=== PATIENT | female | born 1940 | race Caucasian/White ===

== ENCOUNTER → 2016-05-29 | Outpatient (CLI) | payer OTHER ==
[~2016-05-29] MED LIST: ASPI81TA28 PO; CALC500T83 PO; HMLI SC; INSDGI SC; KLN5X PO; LPR25 PO; LSNP/30 PO; METF-384 PO; MULTTAB58 PO; MVC20 PO; NRV/5 PO; NTRGSL/4 UT; OMEGCAP2 PO
== END | disposition home or self-care (01) ==
LOC: C.RDSM 09:45
PROVIDERS: ATTEND Physical Medicine & Rehabilitation Sports Medicine
DX: M25.561 Pain in right knee (principal)

== ENCOUNTER 2017-01-06 20:15 | Emergency (ER) | payer OTHER ==
[2017-01-06 20:17] VITALS: TEMP 36.6; Ht 167.6 cm
[2017-01-06] MEDS ORDERED: ALBUTEROL 0.083% NEBU SOLN 3 ML VIAL INH STA (20:31)
[2017-01-06] MEDS ORDERED: BENZONATATE 100MG CAP PO ONE (20:45)
[2017-01-06] MEDS ORDERED: INSPMPHMLG SQ (20:51)
[2017-01-06 20:59] LABS: BASO % 0.5 %; BASO ABS # 0.05 K/uL (0-0.2); COMPLETE YES; EOS % 3.2 %; HEMATOCRIT 39.2 % (37-47); IG% 0.5 %; LYMPH % 23.8 %; LYMPH ABS # 2.21 K/uL (1.2-3.4); MEAN CELL VOLUME 96.1 fL (80-100); MEAN CORPUSCULAR HEMOGLOBIN 30.6 pg (25-34); MEAN CORPUSCULAR HGB CONC 31.9 g/dl (32-36); MONO % 9.1 %; NEUT % 62.9 %; PLATELET COUNT 260 K/uL (130-400); RED BLOOD COUNT 4.08 M/uL (4.2-5.4); WHITE BLOOD COUNT 9.27 K/uL (4.8-10.8)
[2017-01-06 21:17] LABS: BLOOD UREA NITROGEN 31 mg/dl (7-18); BUN/CREATININE RATIO 25.6 (10-20); CALCIUM 9.3 mg/dl (8.5-10.1); CARBON DIOXIDE 26 mmol/L (21-32); CHLORIDE 109 mmol/L (98-107); GLUCOSE 76 mg/dl (70-99); POTASSIUM 3.9 mmol/L (3.5-5.1); SODIUM 143 mmol/L (136-145)
--- NOTE | 2017-01-06 21:38 | DIAGNOSTIC IMAGING REPORT ---
TWO VIEW CHEST CLINICAL HISTORY: Cough. FINDINGS: PA and lateral chest radiographs are compared to study dated 03/28/2014 and correlated with chest CT dated 12/21/2013. The patient is status post midline sternotomy. The heart is enlarged and there is atherosclerotic calcification of the thoracic aorta. The pulmonary vasculature is noncongested. Chronic interstitial thickening is similar to previous. There is mild bibasilar atelectasis. No airspace consolidation is seen typical for pneumonia and there is no pleural effusion. There is no pneumothorax. The skeletal structures are osteopenic. Degenerative change is seen throughout the thoracic spine. IMPRESSION: Cardiomegaly with no acute cardiopulmonary abnormality. Electronically signed by: Keith Sweeney M.D. 01/06/2017 9:36 PM Dictated Date/Time: 01/06/2017 9:35 PM
[2017-01-06] MEDS ORDERED: OPTIRAY 320 IV PRN (22:00)
[2017-01-06] MEDS ORDERED: HYDROCODONE/HOMATROPINE SYRUP 5MG/1.5MG 5ML UDP PO STA (22:37)
--- NOTE | 2017-01-06 22:42 | DIAGNOSTIC IMAGING REPORT ---
CT ANGIOGRAM OF THE CHEST CLINICAL HISTORY: Cough and dyspnea. COMPARISON STUDY: Chest x-ray dated 01/06/2017. Chest CT dated 12/21/2013. TECHNIQUE: Following the IV administration of 93 cc of Optiray 320, CT angiogram of the chest was performed from the upper abdomen to the thoracic inlet utilizing the pulmonary embolus protocol. Images are reviewed in the axial, sagittal, and coronal planes. 3-D MIPS images are created and assessed. IV contrast was administered without complication. A dose lowering technique was utilized adhering to the principles of ALARA. CT DOSE: 710.77 mGy.cm FINDINGS: Thyroid: Imaged portions of the thyroid gland are normal in size and attenuation. Thoracic aorta: There is atherosclerotic calcification of the thoracic aorta, which is normal in caliber and demonstrates bovine variant arch anatomy. No dissection is seen. Pulmonary vasculature: The pulmonary trunk is dilated, measuring 3.6 cm in diameter. This suggests pulmonary artery hypertension. There are no filling defects identified in main, lobar, or segmental pulmonary branches to suggest pulmonary embolus. Evaluation of the peripheral vessels is degraded by motion artifact. Heart: The patient is status post midline sternotomy. The heart is markedly enlarged and without pericardial effusion. The coronary arteries are densely calcified. Chronic interstitial change/scarring is present at the lung bases. There are numerous scattered calcified granulomas. Secretions/debris are noted within the dependent right lower lobe airways. Mild diffuse peribronchial thickening is observed. The trachea and central airways are clear. Lungs and pleural spaces: Evaluation of the lung parenchyma is degraded by motion artifact. No airspace consolidation or pleural effusion is seen. Mediastinum: There are mildly enlarged mediastinal lymph nodes. Prevascular nodes measure up to 12 mm short axis. A subcarinal node measures 1.5 cm in short axis. High right peritracheal nodes measure up to 9 mm short axis. Jessica: Prominent right hilar nodes measure up to 9 mm in short axis. Axillae: There is no axillary lymphadenopathy. Upper abdomen: There is a small hiatal hernia. Nodular thickening is identified in the adrenal glands, similar to previous. Skeletal structures: The skeletal structures are heterogeneously osteopenic. 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 Arthritic change is also noted in the shoulders. No lytic or blastic bony lesions are seen. IMPRESSION: 1. There is no evidence of pulmonary embolus in the main, lobar, or segmental pulmonary arteries. 2. Cardiomegaly with evidence of pulmonary artery hypertension. 3. There is no airspace consolidation or pleural effusion. 4. Mild diffuse peribronchial thickening is noted and suggests reactive airway disease. Clinical correlation will be required. 5. Mucous plugging versus intraluminal secretions are present within the dependent right lower lobe airways. This is nonspecific but could also be seen in the setting of aspiration. Clinical correlation will be required. 6. Mildly enlarged mediastinal and right hilar lymph nodes are identified. These were also seen in 2014. 7. Small hiatal hernia. 8. Additional findings as above. Electronically signed by: Keith Sweeney M.D. 01/06/2017 10:40 PM Dictated Date/Time: 01/06/2017 10:34 PM
[2017-01-06] MEDS ORDERED: LEVO-366 PO (23:14)
[2017-01-06] MEDS ORDERED: BENZ100C18 PO (23:14)
[2017-01-06] MEDS ORDERED: LEVOFLOXACIN 250 MG TAB PO ONE (23:15)
[2017-01-06 23:20] VITALS: BP 199/100; PULSE 70; O2SAT 95
--- NOTE | 2017-01-07 00:28 | EMERGENCY ROOM VISIT NOTE ---
History Report prepared by Dejon: Ramy Perez Under the Supervision of: Dr. Yovani Beal D.O. First contact with patient: 20:23 Chief Complaint: COUGH Stated Complaint: COUGH- DIFFICULTY GETTING MY BREATH History of Present Illness The patient is a 76 year old female who presents to the Emergency Room with complaints of a constant dry cough for 8 days. The patient states she went to her PCP and was told they could not do anything for it because it is a common cold. She reports she would feel completely fine if it was not for the cough. The patient notes she was around a someone with pneumonia. She states she has a history of hypertension, diabetes, high cholesterol, and heart disease. The patient reports she takes a baby aspirin daily. She denies a runny nose, sorethroat, new edema to the legs, coughing up blood, chest pain, vomiting, previous blood clots, recent surgeries, recent trips, a history of asthma, a history of COPD, and a history of smoking. Shortness breath is only present with coughing. No fevers. Source of History: patient Onset: 8 days ago Position: other (global) Quality: other (dry cough) Timing: constant Associated Symptoms: No chest pain, No vomiting Note: She denies a runny nose, sorethroat, new edema to the legs, coughing up blood, previous blood clots, recent surgeries, recent trips, a history of asthma, a history of COPD, and a history of smoking. Review of Systems See HPI for pertinent positives & negatives. A total of 10 systems reviewed and were otherwise negative. Past Medical & Surgical Medical Problems: (1) Benign hypertension (2) Diabetes mellitus (3) Heart disease (4) open heart surgery Family History Patient reports no known family medical history. Social History Smoking Status: Never Smoker Alcohol Use: none Marital Status: Housing Status: lives with family Occupation Status: unemployed Current/Historical Medications Scheduled Amlodipine Besylate (Amlodipine Besylate), 5 MG PO DAILY Aspirin (Aspirin Ec), 81 MG PO DAILY Benzonatate (Tessalon Perles), 100 MG PO TID Calcium (Calcium), 500 MG PO BID Insulin Glargine (Lantus), 45 UNITS SC AMHS Insulin Human Lispro (Humalog), UNITS SQ TIDM Levofloxacin (Levaquin), 500 MG PO DAILY Lisinopril (Zestril), 30 MG PO DAILY Metoprolol Tartrate (Lopressor), 25 MG PO BID Multiple Vitamin (Multivitamin), 1 TAB PO DAILY Corning-3 Fatty Acids (Fish Oil), 2,000 MG PO BID Scheduled PRN Clonazepam (Clonazepam), 0.5 MG PO BID PRN for Panic Attack Nitroglycerin (Nitrostat), 0.4 MG UT UD PRN for Chest Pain Allergies Coded Allergies: Cephalosporins (Verified Allergy, Severe, ANAPHYLAXIS, 12/22/13) Fluoxetine (Verified Allergy, Severe, muscle/panic attack, 12/22/13) Meloxicam (Verified Allergy, Severe, panic attack, 12/22/13) Sertraline (Verified Allergy, Severe, panic attack, 12/22/13) Citalopram (Verified Allergy, Intermediate, muscle cramping, 12/22/13) Lovastatin (Verified Allergy, Intermediate, leg pain, 12/22/13) Tramadol (Verified Allergy, Mild, headache, 12/22/13) Cefazolin (Verified Allergy, Unknown, UNKNOWN, 02/17/14) Ibuprofen (Verified Adverse Reaction, Intermediate, DIZZY, SYNCOPE, NAUSEA , 12/22/13) Physical Exam Vital Signs Date Time Temp Pulse Resp B/P (MAP) Pulse Ox O2 Delivery O2 Flow Rate FiO2 01/06/17 23:20 70 18 199/100 95 Room Air 01/06/17 22:30 80 22 177/88 96 Room Air 01/06/17 22:04 83 22 227/133 95 Room Air 01/06/17 20:31 Room Air 01/06/17 20:17 36.6 84 21 167/80 95 Room Air Physical Exam GENERAL: Sitting up in bed, dry and non-productive cough, no distress EYE EXAM: normal conjunctiva, PERRL and EOM's grossly intact OROPHARYNX: no exudate, no erythema, lips, buccal mucosa, and tongue normal and mucous membranes are moist NECK: supple, no nuchal rigidity, no adenopathy, non-tender LUNGS: Faint wheezing bilaterally. Normal chest wall mechanics HEART: no murmurs, S1 normal and S2 normal ABDOMEN: abdomen soft, non-tender, normo-active bowel sounds, no masses, no rebound or guarding. BACK: Back is symmetrical on inspection and there is no deformity, no midline tenderness, no CVA tenderness. SKIN: no rashes and no bruising UPPER EXTREMITIES: upper extremities are grossly normal. LOWER EXTREMITIES: No pitting edema. Calves are equal bilaterally. NEURO EXAM: Normal sensorium, cranial nerves II-XII grossly intact, normal speech, no gross weakness of arms, no gross weakness of legs. Medical Decision & Procedures ER Provider Diagnostic Interpretation: Radiology results as stated below per my review and the radiologist's interpretation: TWO VIEW CHEST CLINICAL HISTORY: Cough. FINDINGS: PA and lateral chest radiographs are compared to study dated 03/28/2014 and correlated with chest CT dated 12/21/2013. The patient is status post midline sternotomy. The heart is enlarged and there is atherosclerotic calcification of the thoracic aorta. The pulmonary vasculature is noncongested. Chronic interstitial thickening is similar to previous. There is mild bibasilar atelectasis. No airspace consolidation is seen typical for pneumonia and there is no pleural effusion. There is no pneumothorax. The skeletal structures are osteopenic. Degenerative change is seen throughout the thoracic spine. IMPRESSION: Cardiomegaly with no acute cardiopulmonary abnormality. Electronically signed by: Keith Sweeney M.D. 01/06/2017 9:36 PM Dictated Date/Time: 01/06/2017 9:[address] ANGIOGRAM OF THE CHEST CLINICAL HISTORY: Cough and dyspnea. COMPARISON STUDY: Chest x-ray dated 01/06/2017. Chest CT dated 12/21/2013. TECHNIQUE: Following the IV administration of 93 cc of Optiray 320, CT angiogram of the chest was performed from the upper abdomen to the thoracic inlet utilizing the pulmonary embolus protocol. Images are reviewed in the axial, sagittal, and coronal planes. 3-D MIPS images are created and assessed. IV contrast was administered without complication. A dose lowering technique was utilized adhering to the principles of ALARA. CT DOSE: 710.77 mGy.cm FINDINGS: Thyroid: Imaged portions of the thyroid gland are normal in size and attenuation. Thoracic aorta: There is atherosclerotic calcification of the thoracic aorta, which is normal in caliber and demonstrates bovine variant arch anatomy. No dissection is seen. Pulmonary vasculature: The pulmonary trunk is dilated, measuring 3.6 cm in diameter. This suggests pulmonary artery hypertension. There are no filling defects identified in main, lobar, or segmental pulmonary branches to suggest pulmonary embolus. Evaluation of the peripheral vessels is degraded by motion artifact. Heart: The patient is status post midline sternotomy. The heart is markedly enlarged and without pericardial effusion. The coronary arteries are densely calcified. Chronic interstitial change/scarring is present at the lung bases. There are numerous scattered calcified granulomas. Secretions/debris are noted within the dependent right lower lobe airways. Mild diffuse peribronchial thickening is observed. The trachea and central airways are clear. Lungs and pleural spaces: Evaluation of the lung parenchyma is degraded by motion artifact. No airspace consolidation or pleural effusion is seen. Mediastinum: There are mildly enlarged mediastinal lymph nodes. Prevascular nodes measure up to 12 mm short axis. A subcarinal node measures 1.5 cm in short axis. High right peritracheal nodes measure up to 9 mm short axis. Jessica: Prominent right hilar nodes measure up to 9 mm in short axis. Axillae: There is no axillary lymphadenopathy. Upper abdomen: There is a small hiatal hernia. Nodular thickening is identified in the adrenal glands, similar to previous. Skeletal structures: The skeletal structures are heterogeneously osteopenic. 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 Arthritic change is also noted in the shoulders. No lytic or blastic bony lesions are seen. IMPRESSION: 1. There is no evidence of pulmonary embolus in the main, lobar, or segmental pulmonary arteries. 2. Cardiomegaly with evidence of pulmonary artery hypertension. 3. There is no airspace consolidation or pleural effusion. 4. Mild diffuse peribronchial thickening is noted and suggests reactive airway disease. Clinical correlation will be required. 5. Mucous plugging versus intraluminal secretions are present within the dependent right lower lobe airways. This is nonspecific but could also be seen in the setting of aspiration. Clinical correlation will be required. 6. Mildly enlarged mediastinal and right hilar lymph nodes are identified. These were also seen in 2014. 7. Small hiatal hernia. 8. Additional findings as above. Electronically signed by: Keith Sweeney M.D. 01/06/2017 10:40 PM Dictated Date/Time: 01/06/2017 10:34 PM Laboratory Results 01/06/17 20:45 Red Blood Count 4.08, Mean Corpuscular Volume 96.1, Mean Corpuscular Hemoglobin 30.6, Mean Corpuscular Hemoglobin Concent 31.9, Mean Platelet Volume 10.0, Neutrophils (%) (Auto) 62.9, Lymphocytes (%) (Auto) 23.8, Monocytes (%) (Auto) 9.1, Eosinophils (%) (Auto) 3.2, Basophils (%) (Auto) 0.5, Neutrophils # (Auto) 5.82, Lymphocytes # (Auto) 2.21, Monocytes # (Auto) 0.84, Eosinophils # (Auto) 0.30, Basophils # (Auto) 0.05 01/06/17 20:45 Test 01/06/17 20:45 White Blood Count 9.27 K/uL (4.8-10.8) Red Blood Count 4.08 M/uL (4.2-5.4) Hemoglobin 12.5 g/dL (12.0-16.0) Hematocrit 39.2 % (37-47) Mean Corpuscular Volume 96.1 fL (80-100) Mean Corpuscular Hemoglobin 30.6 pg (25-34) Mean Corpuscular Hemoglobin Concent 31.9 g/dl (32-36) Platelet Count 260 K/uL (130-400) Mean Platelet Volume 10.0 fL (7.4-10.4) Neutrophils (%) (Auto) 62.9 % Lymphocytes (%) (Auto) 23.8 % Monocytes (%) (Auto) 9.1 % Eosinophils (%) (Auto) 3.2 % Basophils (%) (Auto) 0.5 % Neutrophils # (Auto) 5.82 K/uL (1.4-6.5) Lymphocytes # (Auto) 2.21 K/uL (1.2-3.4) Monocytes # (Auto) 0.84 K/uL (0.11-0.59) Eosinophils # (Auto) 0.30 K/uL (0-0.5) Basophils # (Auto) 0.05 K/uL (0-0.2) RDW Standard Deviation 49.9 fL (36.4-46.3) RDW Coefficient of Variation 14.2 % (11.5-14.5) Immature Granulocyte % (Auto) 0.5 % Immature Granulocyte # (Auto) 0.05 K/uL (0.00-0.02) D-Dimer 570 ug/L FEU (0-500) Anion Gap 8.0 mmol/L (3-11) Estimated GFR () 50.8 Estimated GFR (Non- 43.9 BUN/Creatinine Ratio 25.6 (10-20) Calcium Level 9.3 mg/dl (8.5-10.1) Laboratory results per my review. Medications Administered Medications (Trade) Dose Ordered Sig/Daija Route Start Time Stop Time Status Last Admin Dose Admin Albuterol Sulfate (Ventolin 0.083% 2.5MG/3ML Neb) 2.5 mg NOW STAT INH 01/06/17 20:31 01/06/17 20:33 DC 01/06/17 20:37 2.5 MG Benzonatate (Tessalon Perles Cap) 100 mg NOW ONCE PO 01/06/17 20:45 01/06/17 20:46 DC 01/06/17 20:36 100 MG Hydrocodone Bit/ Homatropine Methylb (Hycodan Syrup) 5 ml NOW STAT PO 01/06/17 22:37 01/06/17 22:38 DC 01/06/17 23:14 5 ML Levofloxacin (Levaquin Tab) 750 mg NOW ONCE PO 01/06/17 23:15 01/06/17 23:16 DC 01/06/17 23:15 750 MG ECG Indication: SOB/dyspnea Rate (beats per minute): 76 Rhythm: sinus rhythm Findings: nonspecific-ST abn (Lateral and lead III), other (normal axis) Comparison ECG Date: 03/28/14 Change: no significant change ED Course ED COURSE: Vital signs were reviewed and showed situational hypertension. The patients medical record was reviewed The above diagnostic studies were performed and reviewed. ED treatments and interventions as stated above. 2027: The patient was evaluated in room A09B. A complete history and physical examination was performed. 2030: Ordered Albuterol Sulfate 2.5mg INH 2044: Ordered Benzonatate 100mg PO 2152: I reevaluated the patient, updated her, and she is agreeable for a CT. 2236: Ordered Hycodan Syrup 5ml PO 2314: Ordered Levofloxacin 750mg PO 2316: Upon reevaluation, the patient is resting comfortably. I discussed my findings with the patient and she understands and agrees with the treatment plan. Based on the patients age, coexisting illnesses, exam and lab findings the decision to treat as an outpatient was made. The patient remained stable while under my care. The patient appeared well at the time of discharge. Medical Decision Differential diagnoses includes but is not limited to pneumonia, bronchitis, COPD/Asthma exacerbation, pneumothorax, pulmonary embolism, congestive heart failure, acute coronary syndrome. Patient is a 76-year-old female who presents to ER for dry nonproductive cough which has been present for the past 7 days. Patient was mildly hypertensive but not hypoxic or tachycardic. No history of PEs. CBC on BMP was unremarkable. D-dimer was elevated. CT PE shows mucous plugging and bronchial thickening. This is consistent with her symptoms. She was given dose of Levaquin. She is given Tessalon Perles and albuterol. She felt significantly better. She denied any chest pain. No shortness of breath with the exception of coughing. EKG was unchanged. Patient was discharged with acute bronchitis on Levaquin and Tessalon Perles to follow-up with PCP. Discussed with Pt concerning signs and symptoms to watch out for. Pt was instructed to follow up with their PCP and discussed with the patient their option to return to the ED at anytime for persistent or worsening symptoms. The appropriate anticipatory guidance and out-patient management, including indications for return to the emergency department, were explained at length to the patient and understood. Medication Reconcilliation Current Medication List: was personally reviewed by me Blood Pressure Screening Patient's blood pressure: Elevated blood pressure Blood pressure disposition: Elevated BP felt to be situational Impression Primary Impression: Acute bronchitis Scribe Attestation The scribe's documentation has been prepared under my direction and personally reviewed by me in its entirety. I confirm that the note above accurately reflects all work, treatment, procedures, and medical decision making performed by me. Departure Information Dispostion Home / Self-Care Prescriptions Benzonatate (TESSALON PERLES) 100 Mg Cap 100 MG PO TID for 10 Days, #30 CAP Prov: Yovani Beal, DO 01/06/17 Levofloxacin (Levaquin) 500 Mg Tab 500 MG PO DAILY for 9 Days, TAB Prov: Yovani Beal, DO 01/06/17 Referrals Bro Calle M.D. (PCP) Forms HOME CARE DOCUMENTATION FORM, IMPORTANT VISIT INFORMATION Patient Instructions Bronchitis Acute, My [facility] Additional Instructions Please follow up with your primary care doctor with in the next 24 hours. Any worsening of your symptoms, please return to the ED immediately. This includes any fevers greater than 100.4, worsening pain, chest pain, shortness breath, persistent nausea, vomiting, unable to eat or drink, or any other concerning signs or symptoms from your standpoint. You were given medications during this visit that will inhibit your ability to drive, operate machinery and work. Please do NOT drive, operate machinery, drink alcohol or work for the next 12hrs. Please take your antibiotics as prescribed. Please take Tessalon Perles for coughing. Problem Qualifiers Primary Impression: Acute bronchitis Bronchitis organism: unspecified organism Qualified Codes: J20.9 - Acute bronchitis, unspecified
== END 2017-01-06 23:25 | disposition home or self-care (01) ==
LOC: C.EDB 20:16 → C.EDA 23:25
DX: J20.9 Acute bronchitis, unspecified (principal); I10 Essential (primary) hypertension; E11.9 Type 2 diabetes mellitus without complications; I51.9 Heart disease, unspecified; Z79.82 Long term (current) use of aspirin; Z79.4 Long term (current) use of insulin

== ENCOUNTER 2017-03-06 07:26 | Inpatient (IN) | payer OTHER ==
[~2017-03-06] VITALS: Ht 170.2 cm; Wt 106.9 kg
[2017-03-06] VITALS (11 sets, daily range): BP systolic 121–179; BP diastolic 61–94; PULSE 79–112; TEMP 36.4–36.5; O2SAT 90–99; Ht 170.2 cm; Wt 106.9 kg
[~2017-03-06 07:26] MED LIST changes: -HMLI SC; +INSPMPHMLG SQ; -METF-384 PO; -MVC20 PO
[2017-03-06] MEDS ORDERED: NITROGLYCERIN 0.4 MG SL PER TAB CHARGE SL STA (07:44)
[2017-03-06] MEDS ORDERED: ASPIRIN 81 MG CHEW PO STA (07:44)
[2017-03-06 08:02] LABS: BASO % 0.5 %; BASO ABS # 0.03 K/uL (0-0.2); COMPLETE YES; EOS % 2.2 %; HEMATOCRIT 36.5 % (37-47); IG% 0.3 %; LYMPH ABS # 0.88 K/uL (1.2-3.4); MEAN CELL VOLUME 96.3 fL (80-100); MEAN CORPUSCULAR HEMOGLOBIN 31.4 pg (25-34); MEAN CORPUSCULAR HGB CONC 32.6 g/dl (32-36); MEAN PLATELET VOLUME 10.2 fL (7.4-10.4); MONO % 14.9 %; NEUT % 67.1 %; PLATELET COUNT 244 K/uL (130-400); RED BLOOD COUNT 3.79 M/uL (4.2-5.4); WHITE BLOOD COUNT 5.85 K/uL (4.8-10.8)
--- NOTE | 2017-03-06 08:03 | EMERGENCY ROOM VISIT NOTE ---
History Report prepared by Dejon: Cici Aguila Under the Supervision of: Dr. Giselle Pineda M.D. First contact with patient: 07:32 Chief Complaint: CHEST PAIN Stated Complaint: CHEST PAIN,BACK PAIN,SHORT OF BREATH,STUFFY NOSE History of Present Illness The patient is a 76 year old female who presents to the Emergency Room with complaints of persistent chest pain that began this morning when she woke. She currently rates her discomfort as a 5/10 in severity. The patient states that this morning she woke short of breath and having difficulty breathing. She states that she thought she was having a panic attack so she took a lorazepam. The patient states that she then developed chest pain that radiates into the middle of her back. She additionally reports left arm pain. The patient states that around 0130 she took nitroglycerin, and states that she took an additional dose at 0230. She denies taking any aspirin this morning or any of her morning medications. The patient reports a history of a previous IN and states that she had a CABG 13 years ago. She states that she has a history of diabetes. The patient denies any recent illness. Source of History: patient Onset: this morning when she woke Position: chest Symptom Intensity: 5/10 Timing: other (persistent) Associated Symptoms: + SOB, + back pain Note: Associated Symptoms: left arm pain Review of Systems See HPI for pertinent positives & negatives. A total of 10 systems reviewed and were otherwise negative. Past Medical & Surgical Medical Problems: (1) Benign hypertension (2) Diabetes mellitus (3) Heart disease (4) open heart surgery Family History Patient reports no known family medical history. Social History Smoking Status: Never Smoker Alcohol Use: none Marital Status: Housing Status: lives with family Occupation Status: unemployed Current/Historical Medications Scheduled Amlodipine Besylate (Amlodipine Besylate), 5 MG PO DAILY Aspirin (Aspirin Ec), 81 MG PO DAILY Calcium (Calcium), 500 MG PO BID Coenzyme Q10 (Ubidecarenone) (Coq-10), 100 MG PO DAILY Insulin Glargine (Lantus), 45 UNITS SC AMHS Insulin Human Lispro (Humalog), UNITS SQ TIDM Lisinopril (Zestril), 30 MG PO DAILY Metoprolol Tartrate (Lopressor), 25 MG PO BID Multiple Vitamin (Multivitamin), 1 TAB PO DAILY [place]-3 Fatty Acids (Fish Oil), 2,000 MG PO BID Pravastatin Sod (Pravastatin Sodium), 20 MG PO DAILY@17 Ticagrelor (Brilinta), 90 MG PO BID Scheduled PRN Clonazepam (Clonazepam), 0.5 MG PO BID PRN for Panic Attack Nitroglycerin (Nitrostat), 0.4 MG UT UD PRN for Chest Pain Allergies Coded Allergies: Cephalosporins (Verified Allergy, Severe, ANAPHYLAXIS, 12/22/13) Fluoxetine (Verified Allergy, Severe, muscle/panic attack, 12/22/13) Meloxicam (Verified Allergy, Severe, panic attack, 12/22/13) Sertraline (Verified Allergy, Severe, panic attack, 12/22/13) Citalopram (Verified Allergy, Intermediate, muscle cramping, 12/22/13) Lovastatin (Verified Allergy, Intermediate, leg pain, 12/22/13) Tramadol (Verified Allergy, Mild, headache, 12/22/13) Cefazolin (Verified Allergy, Unknown, UNKNOWN, 02/17/14) Ibuprofen (Verified Adverse Reaction, Intermediate, DIZZY, SYNCOPE, NAUSEA , 12/22/13) Physical Exam Vital Signs Date Time Temp Pulse Resp B/P (MAP) Pulse Ox O2 Delivery O2 Flow Rate FiO2 03/06/17 11:00 36.4 90 18 125/74 (91) 90 Nasal Cannula 4.0 03/06/17 10:49 92 18 113/81 (92) 93 Room Air 03/06/17 10:42 99 18 192/73 (112) 93 Room Air 03/06/17 08:30 97 Nasal Cannula 2.0 03/06/17 08:28 89 20 148/63 97 Nasal Cannula 2.0 03/06/17 07:57 102 22 148/87 97 Nasal Cannula 2.0 03/06/17 07:51 97 Nasal Cannula 2.0 03/06/17 07:46 95 Nasal Cannula 2.0 03/06/17 07:42 100 03/06/17 07:35 36.8 100 27 162/65 95 Room Air Physical Exam Vital signs reviewed. General: Well-appearing female, in no significant distress. HEENT: No scleral icterus, PERRLA, neck supple. Atraumatic. CHEST WALL: Post sternotomy scar, well healed Cardiovascular: Regular rate and rhythm, no extra sounds. Pulmonary: Clear to auscultation bilaterally, normal work of breathing. Abdomen: Obese. Soft, nontender, nondistended, positive bowel sounds. Musculoskeletal: Atraumatic, no peripheral edema. Neurologic: Patient awake alert and oriented x 3, full strength in all 4 extremities. Cranial nerves 2 through 12 grossly intact. Skin: Warm, dry, no rash Medical Decision & Procedures ER Provider Diagnostic Interpretation: X-ray results as stated below per interpretation by me and the radiologist: CHEST ONE VIEW PORTABLE HISTORY: 76 years-old Female CHEST PAIN acute atypical chest pain with shortness of breath COMPARISON: Chest radiographs and CTA chest 01/06/2017 TECHNIQUE: Portable AP view of the chest FINDINGS: Cardiac silhouette is again mildly enlarged, unchanged. Pulmonary arterial enlargement suggesting pulmonary arterial hypertension is better seen on comparison CTA of the chest. Prior median sternotomy. Atherosclerosis of the aorta. No pneumothorax or pleural effusion. Linear subsegmental bibasilar opacities. Degenerative changes of the bilateral shoulders with probable left shoulder rotator cuff calcific tendinosis. IMPRESSION: 1. Cardiomegaly and prior median sternotomy without overt pulmonary edema. 2. Minimal subsegmental bibasilar atelectasis. The above report was generated using voice recognition software. It may contain grammatical, syntax or spelling errors. Electronically signed by: Pa Negron M.D. 03/06/2017 8:14 AM Dictated Date/Time: 03/06/2017 8:11 AM The status of this report is Signed. Draft = Not yet reviewed or approved by Radiologist. Signed = Reviewed and approved by Radiologist. Laboratory Results Test 03/06/17 07:44 03/06/17 07:54 03/06/17 08:00 03/06/17 10:21 Chemistry Specimen Hemolysis Bedside Hemoglobin 12.2 g/dl (12.0-16.0) Bedside Hematocrit 36 % (37-47) Bedside Sodium 142 mEq/L (135-144) Bedside Potassium 4.2 mEq/L (3.3-5.0) Bedside Chloride 104 mEq/L (101-112) Bedside Total CO2 29 mEq/l (24-31) Bedside Blood Urea Nitrogen 27 mg/dl (7-18) Bedside Creatinine 1.0 mg/dl (0.6-1.3) Bedside Glucose (other) 202 mg/dl (70-99) Bedside Ionized Calcium ([place]) 1.20 mmol/l (1.12-1.32) Bedside Troponin I 0.870 ng/ml (0-0.045) Kaolin Activated Coagulation Time 246 SECONDS (94-140) Laboratory results per my review. Medications Administered Medications (Trade) Dose Ordered Sig/Daija Route Start Time Stop Time Status Last Admin Dose Admin Aspirin (Aspirin Chew) 324 mg NOW STAT PO 03/06/17 07:44 03/06/17 07:48 DC 03/06/17 07:52 324 MG Nitroglycerin (Nitrostat Tab) 0.4 mg NOW STAT SL 03/06/17 07:44 03/06/17 07:48 DC 03/06/17 07:52 0.4 MG Midazolam HCl (Versed Inj) 2 mg STK-MED ONCE .ROUTE 03/06/17 08:17 03/06/17 08:18 DC 03/06/17 08:17 2 MG Fentanyl Citrate (Fentanyl Inj) 100 mcg STK-MED ONCE .ROUTE 03/06/17 08:18 03/06/17 08:19 DC 03/06/17 08:18 100 MCG Heparin Sodium (Porcine) (Heparin Iv Bolus) 10,000 unit STK-MED ONCE .ROUTE 03/06/17 08:18 03/06/17 08:19 DC 03/06/17 08:18 9,000 UNIT Hydralazine HCl (HydrALAZINE INJ) 20 mg STK-MED ONCE .ROUTE 03/06/17 08:59 03/06/17 09:00 DC 03/06/17 08:59 10 MG Midazolam HCl (Versed Inj) 2 mg STK-MED ONCE .ROUTE 03/06/17 09:06 03/06/17 09:07 DC 03/06/17 09:06 2 MG Fentanyl Citrate (Fentanyl Inj) 100 mcg STK-MED ONCE .ROUTE 03/06/17 09:23 03/06/17 09:24 DC 03/06/17 09:23 100 MCG Midazolam HCl (Versed Inj) 2 mg STK-MED ONCE .ROUTE 03/06/17 09:49 03/06/17 09:50 DC 03/06/17 09:49 2 MG Fentanyl Citrate (Fentanyl Inj) 100 mcg STK-MED ONCE .ROUTE 03/06/17 09:49 03/06/17 09:50 DC 03/06/17 09:49 75 MCG Ondansetron HCl (Zofran Inj) 4 mg Q6H PRN IV 03/06/17 11:00 03/09/17 12:29 DC 03/08/17 20:04 4 MG Acetaminophen (Tylenol Tab) 650 mg Q4H PRN PO 03/06/17 11:00 03/09/17 12:29 DC 03/08/17 11:53 650 MG ECG Indication: chest pain, SOB/dyspnea Rate (beats per minute): 101 Rhythm: sinus tachycardia Findings: ST depression (Anterior, reciprocal changes), ST elevation (Inferior , lead 3 AVF) Comparison ECG Date: 01/06/17 Change: Repeat EKG: Sinus Rhythm 96 beats per minute, occasional PVC, less prominent ST elevation in lead 3 and AVF, less prominent reciprocal change in V2 and V3. When compared to EKG done on 01/06/17, Inferior ST elevation is slightly more prominent, but visualized previously, ST depression in anteriorly leads are more prominent but visualized. ED Course 0738: Past medical records reviewed. The patient was evaluated in room B6. A complete history and physical examination was performed. 0744: Ordered Nitroglycerin 0.4 mg SL, Aspirin 324 mg PO> 0745: I discussed the patients case with Dr. Orourke, Interventional Cardiology. He states that he will come evaluate the patient. 0755: I reevaluated the patient and she is resting. Dr. Orourke, Interventional Cardiology is at the bedside and he is going to take the patient to the dye lab technician. The patient is in agreement with this plan. 0827: I spoke to Dr. Orourke Interventional Cardiology and he is going to take the patient now to the dye lab technician. Medical Decision Differential diagnoses includes acute coronary syndrome, pulmonary embolus, aortic dissection, musculoskeletal pain, pneumonia, pleural effusion, pneumothorax, gastritis, peptic ulcer disease. This pt was evaluated and appeared to be in no distress. IV access was obtained and lab work was drawn. EKG reveals slight ST elevation in inferior leads with ST depression anteriorly. There are similar changes to previous EKGs but more prominent today. Pt's pain waxes and wanes. CXR is significant for atelectasis. Pt was given ASA to chew and NTG trial. Dr Orourke of interventional cards was consulted immediately. He evaluated the pt in the dept and was pain free at that time. He did decide to take the pt to the dye lab technician for further management. She has expressed an understanding and agrees. Medication Reconcilliation Current Medication List: was personally reviewed by me Blood Pressure Screening Patient's blood pressure: Elevated blood pressure Referred to cardiology. Consults Time Called: 07 Consulting Physician: Dr. Orourke, Interventional Cardiology Returned Call: 0745 I discussed the patients case with Dr. Orourke, Interventional Cardiology. He states that he will come evaluate the patient. Impression Primary Impression: Acute coronary syndrome Scribe Attestation The scribe's documentation has been prepared under my direction and personally reviewed by me in its entirety. I confirm that the note above accurately reflects all work, treatment, procedures, and medical decision making performed by me. Departure Information Dispostion Other (dye lab technician) Prescriptions Coenzyme Q10 (Ubidecarenone) (COQ-10) 100 Mg Cap 100 MG PO DAILY for 30 Days, #30 CAP Prov: Shaila Rodriguez .JUNIE 03/09/17 Ticagrelor (Brilinta) 90 Mg Tab 90 MG PO BID for 30 Days, #60 TAB Prov: Shaila Rodriguez .JUNIE 03/09/17 Pravastatin Sod (Pravastatin Sodium) 20 Mg Tab 20 MG PO DAILY@17 for 30 Days, #30 TAB Prov: Shaila Rodriguez .JUNIE 03/09/17 Referrals Bro Calle M.D. (PCP)
[2017-03-06 08:06] LABS: ISTAT HEMOGLOBIN 12.2 g/dl (12.0-16.0); ISTAT IONIZED CALCIUM 1.2 mmol/l (1.12-1.32)
--- NOTE | 2017-03-06 08:15 | DIAGNOSTIC IMAGING REPORT ---
CHEST ONE VIEW PORTABLE HISTORY: 76 years-old Female CHEST PAIN acute atypical chest pain with shortness of breath COMPARISON: Chest radiographs and CTA chest 01/06/2017 TECHNIQUE: Portable AP view of the chest FINDINGS: Cardiac silhouette is again mildly enlarged, unchanged. Pulmonary arterial enlargement suggesting pulmonary arterial hypertension is better seen on comparison CTA of the chest. Prior median sternotomy. Atherosclerosis of the aorta. No pneumothorax or pleural effusion. Linear subsegmental bibasilar opacities. Degenerative changes of the bilateral shoulders with probable left shoulder rotator cuff calcific tendinosis. IMPRESSION: 1. Cardiomegaly and prior median sternotomy without overt pulmonary edema. 2. Minimal subsegmental bibasilar atelectasis. The above report was generated using voice recognition software. It may contain grammatical, syntax or spelling errors. Electronically signed by: Pa Negron M.D. 03/06/2017 8:14 AM Dictated Date/Time: 03/06/2017 8:11 AM
[2017-03-06] MEDS ORDERED: MIDAZOLAM HCL 1 MG/ML 2ML VIAL ONE ×3 (08:17→09:49)
[2017-03-06] MEDS ORDERED: NITROGLYCERIN/D5W 100MCG/ML 20ML SYR ONE (08:18)
[2017-03-06] MEDS ORDERED: HEPARIN SOD (PORCINE) 1000 UNIT/ML 10 ML VIAL ONE (08:18)
[2017-03-06] MEDS ORDERED: NiCARDipine HCL INJ 2.5 MG/ML 10 ML AMP ONE (08:18)
[2017-03-06] MEDS ORDERED: FENTANYL CITRATE INJ 50 MCG/1 ML 2 ML VIAL ONE ×3 (08:18→09:49)
[2017-03-06 08:22] LABS: BUN/CREATININE RATIO 21.2 (10-20); CALCIUM 9.6 mg/dl (8.5-10.1); CREATININE 1.04 mg/dl (0.60-1.20); POTASSIUM 4.1 mmol/L (3.5-5.1)
[2017-03-06] MEDS ORDERED: HydrALAZINE HCL 20 MG/ML VIAL ONE (08:59)
[2017-03-06] MEDS ORDERED: EPTIFIBATIDE 2 MG/ML 10 ML VIAL IV ONE (10:18)
[2017-03-06] MEDS ORDERED: TICAGRELOR 90 MG TAB PO ONE (10:44)
--- NOTE | 2017-03-06 10:53 | Procedure Note ---
Pre-Mod Sedation Assessment General Date of Moderate Sedation: Mar 06, 2017. Vital Signs: Vital Signs Past 12 Hours Date Time Temp Pulse Resp B/P (MAP) Pulse Ox O2 Delivery O2 Flow Rate FiO2 03/06/17 10:42 99 18 192/73 (112) 93 Room Air 03/06/17 08:30 97 Nasal Cannula 2.0 03/06/17 08:28 89 20 148/63 97 Nasal Cannula 2.0 03/06/17 07:57 102 22 148/87 97 Nasal Cannula 2.0 03/06/17 07:51 97 Nasal Cannula 2.0 03/06/17 07:46 95 Nasal Cannula 2.0 03/06/17 07:42 100 03/06/17 07:35 36.8 100 27 162/65 95 Room Air Review Cardiovascular: regular rate, rhythm, no edema Abdomen: normal bowel sounds, soft Lungs: chest non-tender, lungs clear Airway Class: III Pre-Sedation Airway Assessment Oral Cavity: Dentures Able to Visualize Vocal Cords: No Short Thick Neck: No Hx of Sleep Apnea: No Smoking Status: Never Smoker Mallampati Classification: Class III ASA Classification: Class IV Procedure Planning Contraindications-for Mod Sed: None Yes Notes The planned sedation has been discussed with the patient and consent obtained. I have identified the patient, determined the appropriateness of sedation and have assessed the patient immediately prior to the procedure. All medicine(s) and interventions are by my order.
[2017-03-06] MEDS ORDERED: NITROGLYCERIN 0.4 MG SL PER TAB CHARGE UT PRN (11:00)
[2017-03-06] MEDS ORDERED: CLONAZEPAM 0.5 MG TAB PO PRN (11:00)
[2017-03-06] MEDS ORDERED: ONDANSETRON INJ 2 MG/ML 2 ML VIAL IV PRN (11:00)
[2017-03-06] MEDS ORDERED: CLONAZEPAM 0.5 MG TAB PO STA (11:57)
[2017-03-06] MEDS ORDERED: CLONAZEPAM 1 MG TAB ONE (12:01)
[2017-03-06] MEDS ORDERED: METOPROLOL TARTRATE 1 MG/ML VIAL IV STA (12:05)
[2017-03-06] MEDS: CLONAZEPAM 0.5 MG TAB PO SCH ×2 (12:15→20:44)
[2017-03-06] MEDS ORDERED: DEXTROSE 50% 50 ML SYR IV PRN (12:30)
[2017-03-06] MEDS ORDERED: GLUCOSE 10 TABS/TUBE PO PRN (12:30)
[2017-03-06] MEDS ORDERED: SODIUM CHLORIDE 0.9% 1000ML 1,000 ML IV SCH (12:30)
[2017-03-06] MEDS ORDERED: GLUCOSE 40% GEL 15 GM TUBE PO PRN (12:30)
[2017-03-06] MEDS ORDERED: GLUCAGON FOR INJ 1 MG VIAL SQ PRN (12:30)
--- NOTE | 2017-03-06 12:39 | History and Physical ---
History & Physical Date & Time of Service: Mar 06, 2017 at 12:11 Chief Complaint: Acute Coronary Syndrome Primary Care Physician: Bro Calle M.D. History of Present Illness Source: patient, hospital records 76 yo female with history of CAD with 4 vessel CABG in 2003, presented to the ED this morning with story of chest pain that occurred at 1am. Described as a pressure, resolved prior to arriving at the ED. Associated with some dyspnea, diaphoresis. EKG showed some mild ST elevations in the inferior leads. At that time, patient did not have any chest pain, heart alert was not called. Troponin 0.87. Evaluated by Dr. Orourke, patient taken for emergent catheterization. Found to have new 100% occlusion in graft supplying PDA. 2 stents placed with good flow post procedure. No further chest pain. Patient seen in room 239 after procedure. At that time, she was anxious and BP was elevated 170/110. She denied any chest pain. She was experiencing dyspnea and her symptoms were consistent with a panic attack. She typically takes Klonopin twice a day scheduled, she says she no longer takes it on an as needed basis, tries to stay ahead of her symptoms. Did not take it this morning. Past Medical/Surgical History CAD with CABG in 2003 HTN Dyslipidemia DM type II Anxiety with panic attacks Carpal tunnel release Left TKA Tonsillectomy Cyst removal Family History Patient reports no known family medical history. HTN, DM Social History Smoking Status: Never Smoker Alcohol Use: none Marital Status: Occupational Status: unemployed Immunizations History of Tetanus Vaccine?: Unknown History of Pneumococcal: Yes History of Hepatitis B Vaccine: Yes Multi-Drug Resistant Organisms History of MDRO: No Allergies Coded Allergies: Cephalosporins (Verified Allergy, Severe, ANAPHYLAXIS, 12/22/13) Fluoxetine (Verified Allergy, Severe, muscle/panic attack, 12/22/13) Meloxicam (Verified Allergy, Severe, panic attack, 12/22/13) Sertraline (Verified Allergy, Severe, panic attack, 12/22/13) Citalopram (Verified Allergy, Intermediate, muscle cramping, 12/22/13) Lovastatin (Verified Allergy, Intermediate, leg pain, 12/22/13) Tramadol (Verified Allergy, Mild, headache, 12/22/13) Cefazolin (Verified Allergy, Unknown, UNKNOWN, 02/17/14) Ibuprofen (Verified Adverse Reaction, Intermediate, DIZZY, SYNCOPE, NAUSEA , 12/22/13) Home Medications Scheduled Amlodipine Besylate (Amlodipine Besylate), 5 MG PO DAILY Aspirin (Aspirin Ec), 81 MG PO DAILY Calcium (Calcium), 500 MG PO BID Insulin Glargine (Lantus), 45 UNITS SC AMHS Insulin Human Lispro (Humalog), UNITS SQ TIDM Lisinopril (Zestril), 30 MG PO DAILY Metoprolol Tartrate (Lopressor), 25 MG PO BID Multiple Vitamin (Multivitamin), 1 TAB PO DAILY [place]-3 Fatty Acids (Fish Oil), 2,000 MG PO BID Scheduled PRN Clonazepam (Clonazepam), 0.5 MG PO BID PRN for Panic Attack Nitroglycerin (Nitrostat), 0.4 MG UT UD PRN for Chest Pain Review of Systems Constitutional: No fever, No chills, No sweats, No weight loss, No weakness, No fatigue, No problem reported Eyes: No worsening of vision, No eye pain, No redness, No discharge, No diplopia, No problem reported ENT: No hearing loss, No unusual epistaxis, No nasal symptoms, No sore throat, No tinnitus, No dental problems, No trouble swallowing, No problem reported Respiratory: + dyspnea at rest, No cough, No sputum, No wheezing, No shortness of breath, No dyspnea on exertion, No hemoptysis, No problem reported Cardiovascular: + chest pain, No orthopnea, No PND, No edema, No claudication, No palpitations, No problem reported Abdomen: No pain, No nausea, No vomiting, No diarrhea, No constipation, No GI bleeding, No problem reported Musculoskeletal: No joint pain, No muscle pain, No swelling, No calf pain, No problem reported Genitourinary - Female: No dysuria, No urinary frequency, No urinary urgency, No urinary incontinence, No urinary retention, No hematuria Neurologic: No memory loss, No paralysis, No weakness, No numbness/tingling, No vertigo, No balance problems, No problem reported Psychiatric: + anxiety (panic attack), No depression symptoms, No anhedonism, No insomnia, No substance abuse, No problem reported Endocrine: No fatigue, No excessive thirst, No excessive urination, No problem reported Hematologic / Lymphatic: No abnormal bleeding/bruising, No clotting problems, No swollen lymph nodes, No night sweats, No problem reported Integumentary: No rash, No itch, No new/changing skin lesions, No color change , No bleeding, No problem reported Allergic / Immunologic: No environmental allergies, No seasonal allergies, No pet sensitivities, No food allergies, No hives, No frequent infections, No poor healing, No prolonged convalescence, No problem reported Physical Exam Vital Signs Date Time Temp Pulse Resp B/P (MAP) Pulse Ox O2 Delivery O2 Flow Rate FiO2 03/06/17 10:49 92 18 113/81 (92) 93 Room Air 03/06/17 10:42 99 18 192/73 (112) 93 Room Air 03/06/17 08:30 97 Nasal Cannula 2.0 03/06/17 08:28 89 20 148/63 97 Nasal Cannula 2.0 03/06/17 07:57 102 22 148/87 97 Nasal Cannula 2.0 03/06/17 07:51 97 Nasal Cannula 2.0 03/06/17 07:46 95 Nasal Cannula 2.0 03/06/17 07:42 100 03/06/17 07:35 36.8 100 27 162/65 95 Room Air General Appearance: no apparent distress, + obese Head: normocephalic, atraumatic Eyes: normal inspection, EOMI, sclerae normal ENT: normal ENT inspection, hearing grossly normal, pharynx normal Neck: supple, no adenopathy, no JVD, trachea midline Respiratory/Chest: chest non-tender, lungs clear, normal breath sounds, no respiratory distress, no accessory muscle use Cardiovascular: no edema, no gallop, no JVD, no murmur, normal peripheral pulses, + tachycardia Abdomen/GI: normal bowel sounds, non tender, soft, no organomegaly Back: normal inspection, no CVA tenderness, no muscle spasm, normal range of motion Extremities/Musculoskelatal: normal inspection, no calf tenderness, normal capillary refill, no pedal edema, normal range of motion, pelvis stable Neurologic/Psych: 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 II-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 nml as tested, no motor/sensory deficits, alert, normal reflexes, oriented x 3, + pertinent finding (very anxious, panic attack) Skin: normal color, warm/dry, no rash Diagnostics Laboratory Results Results Past 24 Hours Test 03/06/17 07:44 03/06/17 07:54 03/06/17 07:56 03/06/17 08:00 Range/Units White Blood Count 5.85 4.8-10.8 K/uL Red Blood Count 3.79 4.2-5.4 M/uL Hemoglobin 11.9 12.0-16.0 g/dL Hematocrit 36.5 37-47 % Mean Corpuscular Volume 96.3 80-100 fL Mean Corpuscular Hemoglobin 31.4 25-34 pg Mean Corpuscular Hemoglobin Concent 32.6 32-36 g/dl Platelet Count 244 130-400 K/uL Mean Platelet Volume 10.2 7.4-10.4 fL Neutrophils (%) (Auto) 67.1 % Lymphocytes (%) (Auto) 15.0 % Monocytes (%) (Auto) 14.9 % Eosinophils (%) (Auto) 2.2 % Basophils (%) (Auto) 0.5 % Neutrophils # (Auto) 3.92 1.4-6.5 K/uL Lymphocytes # (Auto) 0.88 1.2-3.4 K/uL Monocytes # (Auto) 0.87 0.11-0.59 K/uL Eosinophils # (Auto) 0.13 0-0.5 K/uL Basophils # (Auto) 0.03 0-0.2 K/uL RDW Standard Deviation 49.5 36.4-46.3 fL RDW Coefficient of Variation 14.2 11.5-14.5 % Immature Granulocyte % (Auto) 0.3 % Immature Granulocyte # (Auto) 0.02 0.00-0.02 K/uL Sodium Level 139 136-145 mmol/L Potassium Level 4.1 3.5-5.1 mmol/L Chloride Level 105 98-107 mmol/L Carbon Dioxide Level 25 21-32 mmol/L Anion Gap 9.0 14.0 16-25 mmol/L Blood Urea Nitrogen 22 7-18 mg/dl Creatinine 1.04 0.60-1.20 mg/dl Est Creatinine Clear Calc Drug Dose 59.4 ml/min Estimated GFR () 60.4 Estimated GFR (Non- 52.1 BUN/Creatinine Ratio 21.2 10-20 Random Glucose 202 70-99 mg/dl Calcium Level 9.6 8.5-10.1 mg/dl Chemistry Specimen Hemolysis Bedside Hemoglobin 12.2 12.0-16.0 g/dl Bedside Hematocrit 36 37-47 % Bedside Sodium 142 135-144 mEq/L Bedside Potassium 4.2 3.3-5.0 mEq/L Bedside Chloride 104 101-112 mEq/L Bedside Total CO2 29 24-31 mEq/l Bedside Blood Urea Nitrogen 27 7-18 mg/dl Bedside Creatinine 1.0 0.6-1.3 mg/dl Bedside Glucose (other) 202 70-99 mg/dl Bedside Ionized Calcium ([place]) 1.20 1.12-1.32 mmol/l Bedside Glucose 208 70-90 mg/dl Bedside Troponin I 0.870 0-0.045 ng/ml Test 03/06/17 10:21 03/06/17 11:08 Range/Units Kaolin Activated Coagulation Time 246 94-140 SECONDS Bedside Glucose 201 70-90 mg/dl Diagnostic Radiology CXR: cardiomegaly, bibasilar atelectasis EKG sinus tachycardia, ST elevations in inferior leads Impression Assessment and Plan 76 yo female with STEMI - STEMI: treated with two [place]OR[place] to the graft supplying PDA, good flow afterwards dual antiplatelet therapy with Brilinta and Aspirin adverse reactions to statin therapy Lisinopril, Metoprolol - HTN: continue Lisinopril and Metoprolol will give a single dose of Lopressor 5mg IV due to hypertension and panic attack - Panic attack: no chest pain, but she feels short of breath, anxious will give Klonopin 1mg PO now order Klonopin 0.5mg scheduled instead of PRN (this is how she takes at home) - DM, insulin dependent diabetic diet Lantus 45 units BID, Novolog sliding scale - DVT prophylaxis: Heparin Level 1 Level of Care Telemetry Advanced Directives Existing Living Will: Yes Existing Power of Forklift Truck Mechanic: Yes Resuscitation Status FULL RESUSCITATION VTE Prophylaxis VTE Risk Assessment Done? Y/N: Yes Risk Level: Moderate Given or contraindicated: Unfractionated heparin SQ Additional Copies To Bro Calle M.D.
[2017-03-06] MEDS ORDERED: LORAZEPAM 2 MG/ML 1 ML VIAL IV STA (15:37)
[2017-03-06] MEDS ORDERED: MoRPHine SULFATE 2 MG/ML CARP IV STA (16:11)
[2017-03-06] MEDS: INSULIN ASPART 100 UNITS/ML 3 ML PEN SC SCH ×2 (17:28→20:50)
[2017-03-06] MEDS ORDERED: MoRPHine SULFATE 2 MG/ML CARP ONE (19:08)
[2017-03-06] MEDS: TICAGRELOR 90 MG TAB PO SCH (20:44)
[2017-03-06] MEDS: METOPROLOL TARTRATE 25 MG TAB PO SCH (20:44)
[2017-03-06] MEDS: INSULIN GLARGINE SOLOSTAR 100 UNITS/ML 3 ML PEN SC SCH (20:49)
[2017-03-07] VITALS: BP 124/76; PULSE 86; TEMP 36.3; O2SAT 96
--- NOTE | 2017-03-07 00:16 | Cardiac Catheterization ---
Procedure Note Procedure Date Mar 06, 2017. Pre-Procedure Diagnosis Non STEMI AUC Score 8 Post-Procedure Diagnosis Severe CAD, Successful PCI, Normal Intracardiac Pressures Procedure(s) Performed Coronary Angiography, Left Heart Cath, Drug Eluting Stent, Ultrasound Guided Vascular Access, Bypass Graft Angiography, Femoral Artery Angiography Buoy Tender Sharad Globe Changer(s) Magnus Estimated Blood Loss 20 Medication(s) Fentanyl, Heparin, Integrilin, Nitroglycerin, Versed, Lidocaine 1% Ticagrelor Summary of Findings Indication: High-risk NSTEMI Access: 6Fr Right DEBARKER OPERATOR Catheters: JL4, JR4; MPA guide Findings: LM - Luminal irregularities LAD - 80% calcified proximal disease, severe diffuse proximal-mid disease; chronically occluded late-mid LAD. Gives off small diffusely diseased 1st diagonal. Circumflex - Moderate proximal to mid segment diffuse disease; 80% diffuse distal disease in small distal circumflex; Small OM3 with 90% ostial stenosis. RCA - Dominant, 80-90% proximal to mid disease; mid segment 100% chronically occluded. SVG-OM2 - Widely patent; OM2 small vessel with diffuse disease; does not retrofill circumflex. Free STERLING-distal LAD - Comes off proximal SVG-OM2 graft. Widely patent. Distal LAD small vessel with diffuse disease at apex. SVG-Diagonal - not visualized. previously reported to be occluded. SVG-PDA - acute 100% proximal occlusion. LVEDP - 25 -- PCI -- Antithrombotic therapy: Heparin, Integrilin, Ticagrelor Procedure: SVG-PDA cannulated with MPA guide BMW wire passed across proximal stenosis into [place] PDA Proximal vein graft lesion gently predilated with 2.5 compliant balloon Distal vessel thought too small for filter device Pre-treated with IC integrilin, nicardipine Dilated lesion stented with distal 3.0 x 38 Moody LFORENTINO Proximal vein graft stented with overlapping 3.0 x 34 Moody FLORENTINO IC vasodilators, integrilin administered Post procedure RAMON 3 flow in vein graft and [place] PDA which retrofilled distal RCA. Arterial Closure: StarClose Summary: 1. Severe [place] multi-vessel coronary artery disease - Occluded mid LAD, 80-90% mid-distal circumflex, occluded mid RCA 2. Patent Free LIMIA to LAD arising off SVG-OM2; SVG-OM2 patent 3. Acutely occluded proximal SVG-PDA 4. Successful PCI of SVG-PDA with 2 overlapping FLORENTINO (3.0 x 38; 3.0 x 34 Moody FLORENTINO ) Recommendations: To PCU for continued monitoring Loaded with Ticagrelor 180mg Continue dual-antiplatelet therapy for at least 1 year Continue antihypertensives, ASCVD risk factor modification. Will attempt retrial of statin Consult cardiac Rehab Hemodynamics Rest Ao: 141/64/97 Final Ao: 118/50/79 LV: 154/25 Recommendations PCI without planned CABG Specimens None Radiation Exposure (mGy) 5173 Contrast (mls) 235 Fluids (cc crystalloids) 189 Drains None Anesthesia Moderate Procedural Complication(s) None ACC Data Cardiac Status Clinical evaluation leading to the procedure CAD Presntation: Non STEMI Anginal Classification: CCS IV Heart Failure: NYHA Class: CCS I Cardiogenic Shock w/in 24Hrs: No Cardiac Arrest w/in 24Hrs: No Imaging studies past 6 months: No Stress studies past 6 months: No Coronary Anatomy D3 (% Stenosis): Proximal Lesion Segment Name: SVG-PDA Culprit Artery: Yes Stenosis Prior to Rx (%): 100 Chronic Total Occlusion: No IVUS: No FFR: No Pre-Procedure RAMON Flow: 0 Previously Treated Lesion: No Lesion Complexity: High/C Lesion Length (mm): 40 Thrombus Present: Yes Bifurcation Lesion: Yes Guidewire Across Lesion: Yes Guidewire: Stenosis Post-Procedure (%): 0 Post-Procedure RAMON Flow: 3 Device(s) Deployed: Yes Intraprocedure Events Significant Dissection: No Perforation: No
--- NOTE | 2017-03-07 02:21 | CARDIOLOGY CONSULTATION ---
DATE OF CONSULTATION: 03/06/2017 CONSULTATION REQUESTED BY: Dr. Pineda. REASON FOR CONSULTATION: Acute coronary syndrome. PRIMARY DRONE SOFTWARE DEVELOPMENT ENGINEER: Dr. De Leon. HISTORY OF PRESENT ILLNESS: Ms. Vazquez is a 76-year-old woman with a history of coronary artery disease, status post 4-vessel CABG in 2003 in the setting of [place], type 2 diabetes, dyslipidemia, hypertension, severe osteoarthritis, who presented this morning with more than 6 hours of chest pain radiating to her back and shoulders. Upon arrival, the patient was found to have borderline inferior ST elevations with 5/10 chest pain. The pain quickly resolved with sublingual nitroglycerin. At the time of interview, she was chest pain free. In the setting of typical angina, dynamic EKG changes and elevated troponin, she was taken urgently to the cardiac catheterization lab where she was found to have severe [place] vessel disease. Her free STERLING to distal LAD was patent as well as her vein graft to OM2. Her previous vein graft to diagonal was again noted to be occluded as was previously reported in 2006. Her vein graft to her right PDA appeared to be acutely occluded proximally and was treated with 2 long drug-eluting stents with good angiographic result and RAMON-3 flow. Post-procedure, the patient had no additional chest pain. She did endorse some dyspnea consistent with her prior panic attacks. PAST MEDICAL HISTORY: 1. Coronary artery disease, status post 4-vessel CABG; SVG to OM2, free STERLING to LAD, free STERLING comes off the proximal part of vein graft to OM2, previously reported vein graft to diagonal off vein graft to OM2, and vein graft to PDA. 2. Type 2 diabetes. 3. Hypertension. 4. Dyslipidemia. 5. Anxiety with panic attacks. 6. Osteoarthritis, status post left total knee replacement, being evaluated for possible right knee replacement. FAMILY HISTORY: Denies premature coronary artery disease. SOCIAL HISTORY: She is a lifelong never smoker. She is and currently retired. ALLERGIES: SHE HAS A HOST OF ALLERGIES INCLUDING CEPHALOSPORINS, FLUOXETINE, MELOXICAM, SERTRILINE, CITALOPRAM, LOVASTATIN, TRAMADOL, CEFAZOLIN, IBUPROFEN. HOME MEDICATIONS: Include amlodipine 5, aspirin 81, calcium, insulin glargine, insulin lispro, lisinopril, metoprolol, multivitamin, omega-3 fatty acid. REVIEW OF SYSTEMS: Temporary review of systems complete and otherwise negative unless stated in HPI. PHYSICAL EXAMINATION: VITAL SIGNS: Temperature 36.5, pulse 85, blood pressure 129/77, she is satting 98% on room air. GENERAL: The patient appears mildly uncomfortable but in no acute distress. HEENT: Her sclerae are anicteric. Oropharynx is clear. Mucous membranes are moist. NECK: Supple with no lymphadenopathy. LUNGS: Clear to auscultation bilaterally. CARDIAC: She has a regular rate and rhythm with no murmurs, rubs or gallops. ABDOMEN: Soft, nontender, nondistended, with positive bowel sounds. EXTREMITIES: Warm. She has no significant lower extremity edema. Her right common femoral arterial access site shows mild ecchymosis with serosanguineous drainage, but no hematomas. NEUROLOGIC: Nonfocal. PSYCHIATRIC: Alert and appropriate. DATA: Hemoglobin of 12.2, platelets of 244. Sodium 139, potassium 4.1, BUN of 22, creatinine of 1.0. Initial troponin was 0.87 and it angela up to 6.7. Chest x-ray showed no acute cardiopulmonary process. IMPRESSION AND PLAN: 1. Acute coronary syndrome. 2. Acutely occluded vein graft to posterior descending artery. 3. Patent free left internal mammary artery to left anterior descending artery and vein graft to obtuse marginal branch 3. 4. Hypertension. 5. Type 2 diabetes. 6. Dyslipidemia. 7. Anxiety with prior panic attacks. 8. Osteoarthritis. Mrs. Vazquez is status post PCI to her acutely occluded vein graft to right PDA. PCI was successful with reestablishment of RAMON-3 flow to the distal vessel. Post-procedure, she is chest pain free and hemodynamically and electrically stable. Going forward, we will plan to trend troponin until it peaks. Continue to monitor on telemetry. We will repeat an echocardiogram. Previous LV function reportedly normal. The patient was loaded with Brilinta in the laboratory tech and we will plan to continue on dual-antiplatelet therapy for at least 1 year. We will continue on home lisinopril and metoprolol. We will discuss further with the patient adding back statin in the setting of her multiple allergies. We will continue to follow the patient while Dr. De Leon is away. On discharge, she will reestablish care with Dr. De Leon.
[2017-03-07 03:20] VITALS: BP 166/79; PULSE 75; TEMP 36.7; O2SAT 96
[2017-03-07 07:02] LABS: BASO % 0.3 %; BASO ABS # 0.02 K/uL (0-0.2); COMPLETE YES; EOS % 0.5 %; HEMATOCRIT 34.4 % (37-47); IG% 0.3 %; LYMPH % 18.4 %; MEAN CELL VOLUME 96.1 fL (80-100); MEAN CORPUSCULAR HGB CONC 32.3 g/dl (32-36); MEAN PLATELET VOLUME 10.3 fL (7.4-10.4); MONO % 15.6 %; NEUT % 64.9 %; PLATELET COUNT 238 K/uL (130-400); RED BLOOD COUNT 3.58 M/uL (4.2-5.4); WHITE BLOOD COUNT 5.97 K/uL (4.8-10.8)
[2017-03-07 07:16] LABS: CREATININE 1.18 mg/dl (0.60-1.20)
[2017-03-07] MEDS ORDERED: PERFLUTREN LIPID MICROSPHERE (DEFINITY) IV ONE (07:16)
[2017-03-07 07:17] LABS: BUN/CREATININE RATIO 19.4 (10-20); CALCIUM 8.9 mg/dl (8.5-10.1); POTASSIUM 3.7 mmol/L (3.5-5.1)
[2017-03-07 07:22] LABS: CHOLESTEROL/HDL RATIO 4.7
[2017-03-07 07:40] VITALS: BP 105/69; PULSE 73; TEMP 36.6; O2SAT 98
[2017-03-07] MEDS: MULTIVITAMIN TAB PO SCH (07:47)
[2017-03-07] MEDS: TICAGRELOR 90 MG TAB PO SCH ×2 (07:47→20:36)
[2017-03-07] MEDS: ASPIRIN 81 MG ECTAB PO SCH (07:48)
[2017-03-07] MEDS: METOPROLOL TARTRATE 25 MG TAB PO SCH ×2 (07:48→20:36)
[2017-03-07] MEDS: AMLODIPINE BESYLATE 5 MG TAB PO SCH (07:48)
[2017-03-07] MEDS: LISINOPRIL 10 MG TAB PO SCH (07:52)
[2017-03-07] MEDS: INSULIN ASPART 100 UNITS/ML 3 ML PEN SC SCH ×4 (07:55→20:39)
[2017-03-07] MEDS: CLONAZEPAM 0.5 MG TAB PO SCH ×2 (07:56→20:35)
[2017-03-07 08:28] LABS: ESTIMATED AVERAGE GLUCOSE 157 mg/dl; HA1C FLAG Normal (Normal)
[2017-03-07] MEDS ORDERED: NURSING VERBAL MED ORDER ONE (08:45)
[2017-03-07] MEDS: INSULIN GLARGINE SOLOSTAR 100 UNITS/ML 3 ML PEN SC SCH ×3 (08:49→20:40)
--- NOTE | 2017-03-07 09:25 | Cardiology Follow-Up ---
Subjective General Date of Service: Mar 07, 2017. Pt evaluation today including: chart review, lab review, review of studies, conversation w/ science consultant (Sleeping soundly in chair) History of Present Illness The patient is a 76 year old female with ACS and STEMI Allergies Coded Allergies: Cephalosporins (Verified Allergy, Severe, ANAPHYLAXIS, 12/22/13) Fluoxetine (Verified Allergy, Severe, muscle/panic attack, 12/22/13) Meloxicam (Verified Allergy, Severe, panic attack, 12/22/13) Sertraline (Verified Allergy, Severe, panic attack, 12/22/13) Citalopram (Verified Allergy, Intermediate, muscle cramping, 12/22/13) Lovastatin (Verified Allergy, Intermediate, leg pain, 12/22/13) Tramadol (Verified Allergy, Mild, headache, 12/22/13) Cefazolin (Verified Allergy, Unknown, UNKNOWN, 02/17/14) Ibuprofen (Verified Adverse Reaction, Intermediate, DIZZY, SYNCOPE, NAUSEA , 12/22/13) Social History Smoking Status: Never Smoker Hx Tobacco Use In Past Year?: No Hx Alcohol Use - Type And Amou: No Hx Substance Use - Type And Am: No Problem List Medical Problems: (1) Acute bronchitis Status: Acute (2) Acute coronary syndrome Status: Acute Physical Exam Vital Signs Last Vital Signs Documentation Date Time Temp Pulse Resp B/P (MAP) Pulse Ox O2 Delivery O2 Flow Rate FiO2 03/07/17 09:00 Nasal Cannula 2.0 03/07/17 07:40 36.6 73 18 105/69 (81) 98 Physical Exam Constitutional: General Apperance: heathly-appearing, overweight Lungs: Respiratory effort: no dyspnea Auscultation: breath sounds normal, no wheezing, no rales/crackles, no rhonchi Cardiovascular: Heart Auscultation: RRR, II/ RADHA (early peaking) Abdomen: Bowel Sounds: normal Inspection & Palpation: soft, non-distended, no tenderness, guarding & rebound Extremities: edema (mild) Assessment and Plan Assessment and Plan IMPRESSION AND PLAN: 1. Acute coronary syndrome--ST elevation inferior leads 2. Acutely occluded vein graft to posterior descending artery--S/P PCI and FLORENTINO x 2 3. Patent free left internal mammary artery to left anterior descending (small distal vessel) artery and vein graft to OM3 3B. Severe [place] 3 vessel CAD with 100% LAD and RCA and severe Cx disease with diffuse small distal vessels 4. Hypertension. 5. Type 2 diabetes. 6. Dyslipidemia. 7. Anxiety with prior panic attacks. 8. Osteoarthritis. ASA, Brilinta, Lisinopril, BB, Norvasc Try pravastatin at a low dose to reduce future risk in someone with small diffuse distal disease; add Coenzyme Q10 as well Watch BP, if room increase BB Cardiac Rehab Ambulate troponin trending down with small spill Echo Pending Appreciate Dr Orourke help Laboratory Results Last 24 Hours Test 03/06/17 10:21 03/06/17 11:08 03/06/17 13:58 03/06/17 15:10 Kaolin Activated Coagulation Time 246 SECONDS Bedside Glucose 201 mg/dl 253 mg/dl Troponin I 6.740 ng/ml Test 03/06/17 20:13 03/06/17 21:46 03/07/17 06:16 03/07/17 06:40 Bedside Glucose 244 mg/dl 171 mg/dl Troponin I 5.360 ng/ml 3.710 ng/ml White Blood Count 5.97 K/uL Red Blood Count 3.58 M/uL Hemoglobin 11.1 g/dL Hematocrit 34.4 % Mean Corpuscular Volume 96.1 fL Mean Corpuscular Hemoglobin 31.0 pg Mean Corpuscular Hemoglobin Concent 32.3 g/dl Platelet Count 238 K/uL Mean Platelet Volume 10.3 fL Neutrophils (%) (Auto) 64.9 % Lymphocytes (%) (Auto) 18.4 % Monocytes (%) (Auto) 15.6 % Eosinophils (%) (Auto) 0.5 % Basophils (%) (Auto) 0.3 % Neutrophils # (Auto) 3.87 K/uL Lymphocytes # (Auto) 1.10 K/uL Monocytes # (Auto) 0.93 K/uL Eosinophils # (Auto) 0.03 K/uL Basophils # (Auto) 0.02 K/uL RDW Standard Deviation 50.4 fL RDW Coefficient of Variation 14.3 % Immature Granulocyte % (Auto) 0.3 % Immature Granulocyte # (Auto) 0.02 K/uL Sodium Level 142 mmol/L Potassium Level 3.7 mmol/L Chloride Level 107 mmol/L Carbon Dioxide Level 28 mmol/L Anion Gap 6.0 mmol/L Blood Urea Nitrogen 23 mg/dl Creatinine 1.18 mg/dl Est Creatinine Clear Calc Drug Dose 52.4 ml/min Estimated GFR () 51.9 Estimated GFR (Non- 44.8 BUN/Creatinine Ratio 19.4 Random Glucose 175 mg/dl Estimated Average Glucose 157 mg/dl Hemoglobin A1c 7.1 % Calcium Level 8.9 mg/dl Triglycerides Level 125 mg/dl Cholesterol Level 145 mg/dl HDL Cholesterol 31 mg/dl LDL Cholesterol, Calculated 89 mg/dl VLDL Cholesterol, Calculated 25 mg/dl Cholesterol/HDL Ratio 4.7
--- NOTE | 2017-03-07 10:45 | ECHOCARDIOGRAM REPORT ---
*NOTICE TO RECEIVING [employer]Y This information is strictly Confidential and protected under [place] law. [place] law prohibits you from making any further disclosure of this information unless further disclosure is expressly permitted by the written consent of the person to whom it pertains or is authorized by law. A general authorization for the release of medical or other information is not sufficient for this purpose. Hospital accepts no responsibility if the information is made available to any other person, INCLUDING THE PATIENT. Interpretation Summary * Name: CARRINGTON SCHMITT Study Date: 03/07/2017 06:57 AM BP: 113/81 mmHg * Patient Location: C.2T\S\S239\S\1 HR: 92 * : 1940 (M/d/yyyy) Gender: Female Height: 67 in * Age: 76 yrs Ethnicity: [place] Weight: 246 lb * Ordering Physician: MD Robinson Orourke MD * Performed By: Mary Kate Torres NEO * * Reason For Study: AMI * BSA: 2.2 m2 * -- Conclusions -- * 1. Normal LV size, borderline concentric LVH. * 2. Normal LV systolic function. LVEF 55%. Severe base to mid inferior hypokinesis. * 3. Normal RV size. Mild RV dysfunction. * 4. Moderate aortic stenosis (PV 2.3 m/s, MG 11 mmHg, ARISTIDES 1.17 cm2, SVI 28 mL/m2) * 5. Mild mitral regurgitation. * 6. Normal estimated RA and PA pressures. * 7. No prior studies for comparison. Procedure Details * A complete two-dimensional transthoracic echocardiogram was performed (2D, M-mode, Doppler and color flow Doppler). * There were technical limitations due to patient'sbody habitus * A contrast injection of Definity was performed to improve assessment of LV function. * Contrast was injected into an intravenous site in the right arm. * One vial of Definity ultrasound contrast was diluted in normal saline to a total volume of 10 ml. A total of '3' ml of solution was administered during imaging. * Lot # [id number] of Definity utilized for procedure. * Expiration date 05/14. * The attending nurse who injected the contrast agent was COLE CRISOSTOMO RN. Left Ventricle * The left ventricle is grossly normal size. * There is borderline concentric left ventricular hypertrophy. * Ejection Fraction = 55-60%. * Severe base to mid inferior hypokinesis. * Septal motion is consistent with post-operative state. Right Ventricle * The right ventricle is grossly normal size. * The right ventricular systolic function is mildly reduced. Atria * The left atrial size is normal. * Right atrial size is normal. * No ASD detected; PFO is not assessed. Mitral Valve * The mitral valve is grossly normal. * There is no mitral valve stenosis. * There is mild mitral regurgitation. Tricuspid Valve * There is no tricuspid stenosis. * There is trace tricuspid regurgitation. Aortic Valve * Moderate valvular aortic stenosis. * There is no significant aortic regurgitation. Pulmonic Valve * The pulmonary valve is inadequately visualized, but the Doppler data is adequate for interpretation. * There is no pulmonic valvular stenosis. * There is no significant pulmonary regurgitation. Great Vessels * The aortic root and proximal ascending aorta are normal sized. Pericardium/Pleural * There is no pericardial effusion. Great Vessels * Normal inferior vena cava size and collapsability with sniff indicates a normal right atrial pressure of 3 mmHg MMode 2D Measurements and Calculations IVSd 1.2 cm IVSs 1.7 cm LVIDd 4.8 cm LVIDs 3.5 cm LVPWd 0.91 cm LVPWs 1.2 cm IVS/LVPW 1.3 FS 25.7 % EDV(Teich) 105.9 ml ESV(Teich) 52.4 ml EF(Teich) 50.6 % EDV(cubed) 108.4 ml ESV(cubed) 44.4 ml EF(cubed) 59.0 % % IVS thick 43.4 % % LVPW thick 34.8 % LV mass(C)d 178.2 grams LV mass(C)dI 80.7 grams/m\S\2 LV mass(C)s 187.3 grams LV mass(C)sI 84.8 grams/m\S\2 SV(Teich) 53.5 ml SI(Teich) 24.2 ml/m\S\2 SV(cubed) 64.0 ml SI(cubed) 29.0 ml/m\S\2 ACS 0.58 cm LA dimension 4.1 cm asc Aorta Diam 3.1 cm LVOT diam 1.9 cm LVOT area 2.8 cm\S\2 LVAd ap4 39.4 cm\S\2 LVLd ap4 8.7 cm EDV(MOD-sp4) 147.9 ml EDV(sp4-el) 151.5 ml LVAs ap4 22.5 cm\S\2 LVLs ap4 7.0 cm ESV(MOD-sp4) 64.5 ml ESV(sp4-el) 61.1 ml EF(MOD-sp4) 56.4 % EF(sp4-el) 59.7 % LVAd ap2 33.3 cm\S\2 LVLd ap2 8.1 cm EDV(MOD-sp2) 114.1 ml EDV(sp2-el) 116.4 ml LVAs ap2 19.3 cm\S\2 LVLs ap2 6.2 cm ESV(MOD-sp2) 50.1 ml ESV(sp2-el) 51.4 ml EF(MOD-sp2) 56.1 % EF(sp2-el) 55.8 % LVLd %diff -7.15 % EDV(MOD-bp) 135.3 ml LVLs %diff -13.63 % ESV(MOD-bp) 59.7 ml EF(MOD-bp) 55.9 % SV(MOD-sp4) 83.4 ml SI(MOD-sp4) 37.8 ml/m\S\2 SV(MOD-sp2) 64.0 ml SI(MOD-sp2) 29.0 ml/m\S\2 SV(MOD-bp) 75.6 ml SI(MOD-bp) 34.2 ml/m\S\2 SV(sp4-el) 90.4 ml SI(sp4-el) 41.0 ml/m\S\2 SV(sp2-el) 65.0 ml SI(sp2-el) 29.4 ml/m\S\2 Doppler Measurements and Calculations MV E max osmel 100.8 cm/sec MV A max osmel 73.3 cm/sec MV E/A 1.4 MV dec time 0.10 sec Ao V2 max 232.2 cm/sec Ao max PG 21.6 mmHg Ao max PG (full) 19.1 mmHg ARISTIDES(V,A) 0.94 cm\S\2 ARISTIDES(V,D) 0.94 cm\S\2 LV V1 max PG 2.5 mmHg LV V1 max 78.6 cm/sec MR max osmel 569.2 cm/sec MR max PG 129.6 mmHg MR mean osmel 446.5 cm/sec MR mean PG 87.6 mmHg MR VTI 186.0 cm PA V2 max 93.8 cm/sec PA max PG 3.5 mmHg TR max osmel 222.3 cm/sec
[2017-03-07 11:25] VITALS: BP 120/67; PULSE 73; TEMP 36.4; O2SAT 98
[2017-03-07] MEDS ORDERED: POTASSIUM CHLORIDE 20 MEQ TABCR PO ONE (11:30)
--- NOTE | 2017-03-07 11:43 | Hospitalist Progress Note ---
Hospitalist Progress Note Date of Service Mar 07, 2017. (Shalia Rodriguez ., LAURENC) Subjective Pt evaluation today including: conversation w/ patient, conversation w/ family (at bedside), physical exam, chart review, lab review, review of studies, review of inpatient medication list Pain: None PO Intake: Tolerating PO diet Voiding: no voiding problems Patient reports feeling well. She denies any chest pain, diaphoresis, or shortness of breath. She states that her anxiety is now well controlled now that her clonazepam has been restarted. Per tele the patient did have a short run of SVT this morning but the patient denied any symptoms at that time. The patient denies fevers, chills, sweats, chest pain, palpitations, claudication, cough, wheezing, shortness of breath, nausea, vomiting, abdominal pain, dysuria , hematuria, urinary retention, paralysis, weakness, numbness and tingling. Additional Comments: See HPI for pertinent positives and negatives. All other systems reviewed and negative. (Shaila Rodriguez ., JORGE-C) Objective Vital Signs Date Time Temp Pulse Resp B/P (MAP) Pulse Ox O2 Delivery O2 Flow Rate FiO2 03/07/17 09:00 Nasal Cannula 2.0 03/07/17 07:40 36.6 73 18 105/69 (81) 98 2.0 03/07/17 04:00 Nasal Cannula 2.0 03/07/17 03:20 36.7 75 18 166/79 (108) 96 Nasal Cannula 2.0 03/07/17 00:00 36.3 86 20 124/76 (92) 96 Nasal Cannula 2.0 03/07/17 00:00 Nasal Cannula 2.0 03/06/17 20:42 112 179/74 (109) 03/06/17 19:27 36.5 79 22 175/71 (105) 93 Room Air 03/06/17 19:10 Room Air 03/06/17 16:00 Room Air 03/06/17 15:45 86 22 172/79 (110) 97 Room Air 03/06/17 13:45 85 18 129/77 (94) 98 4.0 03/06/17 12:45 82 20 140/78 (98) 96 4.0 03/06/17 12:27 94 167/94 03/06/17 12:15 102 22 167/94 (118) 97 4.0 03/06/17 12:00 Nasal Cannula 4.0 03/06/17 11:45 89 22 169/92 (117) 99 4.0 03/06/17 11:30 101 20 131/77 (95) 98 4.0 (Shaila Rodriguez, PA-C) Physical Exam Notes: General appearance: +Obese. Well-developed, well-nourished, no apparent distress Head: Normocephalic, atraumatic Eyes: Normal inspection, PERRL, EOMI ENT: Normal ENT inspection, hearing grossly normal, pharynx normal Neck: Supple, no JVD, trachea midline Respiratory/Chest: +Currently on 2L. Does not wear oxygen at home. Lungs clear to auscultation, normal breath sounds, no respiratory distress Cardiovascular: +Systolic murmur. Regular rate & rhythm, no gallop Abdomen/GI: Normal bowel sounds, non-tender, soft Extremities/Musculoskeletal: Normal inspection, no calf tenderness, no pedal edema Neurological/Psych: Alert, normal mood/affect, oriented x 3 Skin: Normal color, warm/dry, no rash (Shaila Rodriguez ., PA-C) Laboratory Results Last 24 Hours Test 03/06/17 13:58 03/06/17 15:10 03/06/17 20:13 03/06/17 21:46 Troponin I 6.740 ng/ml 5.360 ng/ml Bedside Glucose 253 mg/dl 244 mg/dl Test 03/07/17 06:16 03/07/17 06:40 White Blood Count 5.97 K/uL Red Blood Count 3.58 M/uL Hemoglobin 11.1 g/dL Hematocrit 34.4 % Mean Corpuscular Volume 96.1 fL Mean Corpuscular Hemoglobin 31.0 pg Mean Corpuscular Hemoglobin Concent 32.3 g/dl Platelet Count 238 K/uL Mean Platelet Volume 10.3 fL Neutrophils (%) (Auto) 64.9 % Lymphocytes (%) (Auto) 18.4 % Monocytes (%) (Auto) 15.6 % Eosinophils (%) (Auto) 0.5 % Basophils (%) (Auto) 0.3 % Neutrophils # (Auto) 3.87 K/uL Lymphocytes # (Auto) 1.10 K/uL Monocytes # (Auto) 0.93 K/uL Eosinophils # (Auto) 0.03 K/uL Basophils # (Auto) 0.02 K/uL RDW Standard Deviation 50.4 fL RDW Coefficient of Variation 14.3 % Immature Granulocyte % (Auto) 0.3 % Immature Granulocyte # (Auto) 0.02 K/uL Sodium Level 142 mmol/L Potassium Level 3.7 mmol/L Chloride Level 107 mmol/L Carbon Dioxide Level 28 mmol/L Anion Gap 6.0 mmol/L Blood Urea Nitrogen 23 mg/dl Creatinine 1.18 mg/dl Est Creatinine Clear Calc Drug Dose 52.4 ml/min Estimated GFR () 51.9 Estimated GFR (Non- 44.8 BUN/Creatinine Ratio 19.4 Random Glucose 175 mg/dl Estimated Average Glucose 157 mg/dl Hemoglobin A1c 7.1 % Calcium Level 8.9 mg/dl Troponin I 3.710 ng/ml Triglycerides Level 125 mg/dl Cholesterol Level 145 mg/dl HDL Cholesterol 31 mg/dl LDL Cholesterol, Calculated 89 mg/dl VLDL Cholesterol, Calculated 25 mg/dl Cholesterol/HDL Ratio 4.7 Bedside Glucose 171 mg/dl (Shaila Rodriguez, JORGE-C) Diagnostic Results Reviewed the following studies and agree with interpretation as follows: Interpretation Summary * Name: CARRINGTON SCHMITT Study Date: 03/07/2017 06:57 AM BP: 113/81 mmHg * Patient Location: [facility]\\39\S\1 HR: 92 * : 1940 (M/d/yyyy) Gender: Female Height: 67 in * Age: 76 yrs Ethnicity: CA Weight: 246 lb * Ordering Physician: MD Robinson Orourke MD * Performed By: [facility] * * Reason For Study: AMI * BSA: 2.2 m2 * -- Conclusions -- * 1. Normal LV size, borderline concentric LVH. * 2. Normal LV systolic function. LVEF 55%. Severe base to mid inferior hypokinesis. * 3. Normal RV size. Mild RV dysfunction. * 4. Moderate aortic stenosis (PV 2.3 m/s, MG 11 mmHg, ARISTIDES 1.17 cm2, SVI 28 mL/m2) * 5. Mild mitral regurgitation. * 6. Normal estimated RA and PA pressures. * 7. No prior studies for comparison. Procedure Details * A complete two-dimensional transthoracic echocardiogram was performed (2D, M-mode, Doppler and color flow Doppler). * There were technical limitations due to patient'sbody habitus * A contrast injection of Definity was performed to improve assessment of LV function. * Contrast was injected into an intravenous site in the right arm. * One vial of Definity ultrasound contrast was diluted in normal saline to a total volume of 10 ml. A total of '3' ml of solution was administered during imaging. * Lot # [id number] of Definity utilized for procedure. * Expiration date 05/14. * The attending nurse who injected the contrast agent was COLE CRISOSTOMO RN. Left Ventricle * The left ventricle is grossly normal size. * There is borderline concentric left ventricular hypertrophy. * Ejection Fraction = 55-60%. * Severe base to mid inferior hypokinesis. * Septal motion is consistent with post-operative state. Right Ventricle * The right ventricle is grossly normal size. * The right ventricular systolic function is mildly reduced. Atria * The left atrial size is normal. * Right atrial size is normal. * No ASD detected; PFO is not assessed. Mitral Valve * The mitral valve is grossly normal. * There is no mitral valve stenosis. * There is mild mitral regurgitation. Tricuspid Valve * There is no tricuspid stenosis. * There is trace tricuspid regurgitation. Aortic Valve * Moderate valvular aortic stenosis. * There is no significant aortic regurgitation. Pulmonic Valve * The pulmonary valve is inadequately visualized, but the Doppler data is adequate for interpretation. * There is no pulmonic valvular stenosis. * There is no significant pulmonary regurgitation. Great Vessels * The aortic root and proximal ascending aorta are normal sized. Pericardium/Pleural * There is no pericardial effusion. Great Vessels * Normal inferior vena cava size and collapsability with sniff indicates a normal right atrial pressure of 3 mmHg (Shaila Rodriguez ., PA-C) Assessment and Plan 76 y/o female with a history of CAD, h/o [place], s/p CABG x 4 (2003), HTN, HLD, DM II, and anxiety with panic attacks who presents with chest pain and acute STEMI. STEMI, CAD, h/o [place] and CABG, HTN, HLD--STEMI resolving, otherwise stable -Admit to telemetry. Brief run of SVT this morning, otherwise SR with HR in 70s -Taken for urgent cath 03/06. Found to have severe multivessel CAD. 100% occlusion of PDA graft. 2 FLORENTINO placed. -Cardiology consulted, appreciate recs: Trend troponin until peaks. Check echo. DAPT w/ASA and Brilinta x 1 year. Continue home lisinopril and metoprolol. If BP allows, could increase metoprolol. Retry statin--pt had myalgias and did not tolerate in the past. Will start low dose pravastatin. Could try CoQ10. -Troponin peaked at 6.74, trending down -Pravastatin 20 mg PO qd started -Continue ASA 81 mg PO qd, Brilinta 90 mg PO BID -Continue Lopressor 25 mg PO BID, Norvasc 5 mg PO qd, lisinopril 30 mg PO qd -Lipid panel WNL -HgbA1c 7.1 on 03/07 SVT run -Check magnesium, goal over 2 -Potassium 3.7. Will give KCl 40 mEq PO x 1, goal K+ > 4 DM II--A1c as above -Lantus 34 units SC qam and 46 units SC qpm -Insulin sliding scale -Check BSGs q ac and qhs Anxiety w/panic attacks--stable, no anxiety currently -Continue clonazepam 0.5 mg PO BID DVT prophylaxis -Enoxaparin 40 mg SC q24h Code Status -Level I, FULL RESUSCITATION STATUS (Shaila Rodriguez ., PATundeC) Attending Attestation: Pt seen/examined, chart reviewed, care plan d/w JORGE Rodriguez. I agree w/ the stephen components of her documentation. Pt w/o chest pain, dyspnea at rest, dyspnea on exertion. Has had cough for 7-10 days. Tele - one brief run of SVT. Feels good w/o decent appetite. VSS afebrile still w/ o2 requirement gen - nad, obese neck - no JVD heart - RRR, s1, s2, 2/6 systolic murmur RUSB lungs - mild fine bibasilar rales abd - soft, NT ext - no edema labs acceptable this am A/P: 1. STEMI s/p emergent cath - graft to PDA occluded - s/p [address] Orourke. BB, asa, plavix, statin. 2. fine bibasilar rales - no evidence of CHF at this time. bronchitis? other? repeat cxr today. wean O2 as tolerated. Tony Maria MD (Tony Maria MD)
--- NOTE | 2017-03-07 13:21 | DIAGNOSTIC IMAGING REPORT ---
CHEST 2 VIEWS ROUTINE CLINICAL HISTORY: crackles, hypoxia COMPARISON STUDY: 03/06/2017 FINDINGS: The heart is mildly enlarged. There are postsurgical changes of a midline sternotomy. There is a trace right pleural effusion. There is mild stable interstitial thickening.[ There is no focal pulmonary consolidation. IMPRESSION: Cardiomegaly and mild stable interstitial thickening/edema. Trace right pleural effusion. No evidence of focal pulmonary consolidation. Electronically signed by: Kirt Patel M.D. 03/07/2017 1:20 PM Dictated Date/Time: 03/07/2017 1:19 PM
[2017-03-07 13:22] LABS: PROTHROMBIN TIME (PATIENT) 10.9 SECONDS (9.0-12.0)
[2017-03-07 16:07] VITALS: BP 136/80; PULSE 79; TEMP 36.4; O2SAT 97
[2017-03-07] MEDS: PRAVASTATIN SOD 20 MG TAB PO SCH (18:06)
[2017-03-07 19:12] VITALS: BP 120/80; PULSE 83; TEMP 36.5; O2SAT 93
[2017-03-07] MEDS: ENOXAPARIN 40 MG/0.4 ML SYR SQ SCH (20:37)
[2017-03-07] MEDS: ACETAMINOPHEN 325 MG TAB PO PRN (23:55)
[2017-03-08] VITALS (8 sets, daily range): BP systolic 91–144; BP diastolic 52–84; PULSE 65–86; TEMP 36.4–37; O2SAT 93–99
[2017-03-08] MEDS: ACETAMINOPHEN 325 MG TAB PO PRN ×2 (06:35→11:53)
[2017-03-08 07:28] LABS: BASO % 0.7 %; BASO ABS # 0.04 K/uL (0-0.2); COMPLETE YES; EOS % 3.4 %; HEMATOCRIT 34.5 % (37-47); IG% 0.5 %; LYMPH % 26.7 %; LYMPH ABS # 1.56 K/uL (1.2-3.4); MEAN CELL VOLUME 97.5 fL (80-100); MEAN CORPUSCULAR HEMOGLOBIN 31.1 pg (25-34); MEAN CORPUSCULAR HGB CONC 31.9 g/dl (32-36); MEAN PLATELET VOLUME 10.2 fL (7.4-10.4); MONO % 14.5 %; NEUT % 54.2 %; PLATELET COUNT 234 K/uL (130-400); RED BLOOD COUNT 3.54 M/uL (4.2-5.4); WHITE BLOOD COUNT 5.85 K/uL (4.8-10.8)
[2017-03-08] MEDS: LISINOPRIL 10 MG TAB PO SCH (07:55)
[2017-03-08] MEDS: TICAGRELOR 90 MG TAB PO SCH ×2 (07:55→21:29)
[2017-03-08] MEDS: MULTIVITAMIN TAB PO SCH (07:55)
[2017-03-08] MEDS: AMLODIPINE BESYLATE 5 MG TAB PO SCH (07:56)
[2017-03-08] MEDS: METOPROLOL TARTRATE 25 MG TAB PO SCH ×2 (07:57→20:54)
[2017-03-08] MEDS: ASPIRIN 81 MG ECTAB PO SCH (07:57)
[2017-03-08] MEDS: INSULIN ASPART 100 UNITS/ML 3 ML PEN SC SCH ×4 (08:00→20:55)
[2017-03-08] MEDS: INSULIN GLARGINE SOLOSTAR 100 UNITS/ML 3 ML PEN SC SCH ×2 (08:00→21:33)
[2017-03-08] MEDS: CLONAZEPAM 0.5 MG TAB PO SCH ×2 (08:01→21:29)
[2017-03-08 08:03] LABS: BUN/CREATININE RATIO 23.1 (10-20); CALCIUM 8.9 mg/dl (8.5-10.1); CREATININE 1.18 mg/dl (0.60-1.20); POTASSIUM 3.6 mmol/L (3.5-5.1)
[2017-03-08] MEDS ORDERED: SODIUM CHLORIDE 0.65% NA SOLN 45 ML (OCEAN) ONE (08:39)
--- NOTE | 2017-03-08 09:21 | Cardiology Follow-Up ---
Subjective General Date of Service: Mar 08, 2017. Pt evaluation today including: conversation w/ patient, chart review, lab review, review of studies, conversation w/ fitness sales consultant History of Present Illness The patient is a 76 year old female with STEMI Allergies Coded Allergies: Cephalosporins (Verified Allergy, Severe, ANAPHYLAXIS, 12/22/13) Fluoxetine (Verified Allergy, Severe, muscle/panic attack, 12/22/13) Meloxicam (Verified Allergy, Severe, panic attack, 12/22/13) Sertraline (Verified Allergy, Severe, panic attack, 12/22/13) Citalopram (Verified Allergy, Intermediate, muscle cramping, 12/22/13) Lovastatin (Verified Allergy, Intermediate, leg pain, 12/22/13) Tramadol (Verified Allergy, Mild, headache, 12/22/13) Cefazolin (Verified Allergy, Unknown, UNKNOWN, 02/17/14) Ibuprofen (Verified Adverse Reaction, Intermediate, DIZZY, SYNCOPE, NAUSEA , 12/22/13) Social History Smoking Status: Never Smoker Hx Tobacco Use In Past Year?: No Hx Alcohol Use - Type And Amou: No Hx Substance Use - Type And Am: No Problem List Medical Problems: (1) Acute bronchitis Status: Acute (2) Acute coronary syndrome Status: Acute Review of Systems Respiratory: + cough, No shortness of breath, No dyspnea at rest Cardiac: + edema, No chest pain, No palpitations Additional ROS Details: Head cold with some congestion Physical Exam Vital Signs Last Vital Signs Documentation Date Time Temp Pulse Resp B/P (MAP) Pulse Ox O2 Delivery O2 Flow Rate FiO2 03/08/17 07:38 37.0 71 18 134/84 (101) 98 Room Air 03/07/17 16:07 2.0 Physical Exam Constitutional: General Apperance: heathly-appearing, overweight Lungs: Respiratory effort: no dyspnea Auscultation: breath sounds normal, no wheezing, no rales/crackles, no rhonchi Cardiovascular: Heart Auscultation: RRR, II/ RADHA (early peaking) Abdomen: Bowel Sounds: normal Inspection & Palpation: soft, non-distended, no tenderness, guarding & rebound Extremities: edema (mild) Assessment and Plan Assessment and Plan IMPRESSION AND PLAN: 1. Acute coronary syndrome--ST elevation inferior leads 2. Acutely occluded vein graft to posterior descending artery--S/P PCI and FLORENTINO x 2 3. Patent free left internal mammary artery to left anterior descending (small distal vessel) artery and vein graft to OM3 3B. Severe [place] 3 vessel CAD with 100% LAD and RCA and severe Cx disease with diffuse small distal vessels 4. Hypertension. 5. Type 2 diabetes. 6. Dyslipidemia. 7. Anxiety with prior panic attacks. 8. Osteoarthritis. 9. Normal LV function ASA, Brilinta, Lisinopril, BB, Norvasc Pravastatin caused leg pain last PM; also intolerant of zetia previously If you believe weights she is down 5 Kg (?? real as first weights on bed scale)- -If SOB with ambulation low dose lasix x1 Cardiac Rehab Ambulate Echo reviewed: 1. Normal LV size, borderline concentric LVH. * 2. Normal LV systolic function. LVEF 55%. Severe base to mid inferior hypokinesis. * 3. Normal RV size. Mild RV dysfunction. * 4. Moderate aortic stenosis (PV 2.3 m/s, MG 11 mmHg, ARISTIDES 1.17 cm2, SVI 28 mL/m2) * 5. Mild mitral regurgitation. * 6. Normal estimated RA and PA pressures. * 7. No prior studies for comparison. Home when ok with Primary service Laboratory Results Last 24 Hours Test 03/07/17 11:13 03/07/17 12:37 03/07/17 15:49 03/07/17 20:02 Bedside Glucose 199 mg/dl 207 mg/dl 265 mg/dl Prothrombin Time 10.9 SECONDS Prothromb Time International Ratio 1.0 Test 03/08/17 06:47 03/08/17 07:07 Bedside Glucose 100 mg/dl White Blood Count 5.85 K/uL Red Blood Count 3.54 M/uL Hemoglobin 11.0 g/dL Hematocrit 34.5 % Mean Corpuscular Volume 97.5 fL Mean Corpuscular Hemoglobin 31.1 pg Mean Corpuscular Hemoglobin Concent 31.9 g/dl Platelet Count 234 K/uL Mean Platelet Volume 10.2 fL Neutrophils (%) (Auto) 54.2 % Lymphocytes (%) (Auto) 26.7 % Monocytes (%) (Auto) 14.5 % Eosinophils (%) (Auto) 3.4 % Basophils (%) (Auto) 0.7 % Neutrophils # (Auto) 3.17 K/uL Lymphocytes # (Auto) 1.56 K/uL Monocytes # (Auto) 0.85 K/uL Eosinophils # (Auto) 0.20 K/uL Basophils # (Auto) 0.04 K/uL RDW Standard Deviation 51.5 fL RDW Coefficient of Variation 14.5 % Immature Granulocyte % (Auto) 0.5 % Immature Granulocyte # (Auto) 0.03 K/uL Sodium Level 141 mmol/L Potassium Level 3.6 mmol/L Chloride Level 108 mmol/L Carbon Dioxide Level 25 mmol/L Anion Gap 7.0 mmol/L Blood Urea Nitrogen 27 mg/dl Creatinine 1.18 mg/dl Est Creatinine Clear Calc Drug Dose 51.1 ml/min Estimated GFR () 51.9 Estimated GFR (Non- 44.8 BUN/Creatinine Ratio 23.1 Random Glucose 92 mg/dl Calcium Level 8.9 mg/dl
[2017-03-08] MEDS ORDERED: POTASSIUM CHLORIDE 20 MEQ TABCR PO ONE (09:30)
[2017-03-08] MEDS ORDERED: CYCLOBENZAPRINE HCL 10 MG TAB PO PRN (14:15)
[2017-03-08] MEDS ORDERED: DICLOFENAC SOD 1% GEL 100 GM TUBE EXT PRN (14:15)
--- NOTE | 2017-03-08 14:35 | Hospitalist Progress Note ---
Hospitalist Progress Note Date of Service Mar 08, 2017. (Shaila Rodriguez ., LAURENC) Subjective Pt evaluation today including: conversation w/ patient, physical exam, chart review, lab review, review of inpatient medication list Pain: 8/10 sharp left shoulder pain PO Intake: Tolerating PO diet Voiding: no voiding problems Patient complains of feeling "lousy." She complains of a 8/10 sharp pain on the left proximal shoulder near the base of her neck. She states Tylenol did not help this pain much. She does not feel comfortable going home with her current pain. The patient also notes that she developed dyspnea on exertion after going to the bathroom to wash up this morning. The patient denies fevers , chills, sweats, chest pain, palpitations, claudication, cough, wheezing, shortness of breath at rest, nausea, vomiting, abdominal pain, dysuria, hematuria, urinary retention, paralysis, weakness, numbness and tingling. Additional Comments: See HPI for pertinent positives and negatives. All other systems reviewed and negative. (Shaila Rodriguez ., JORGE-C) Objective Vital Signs Date Time Temp Pulse Resp B/P (MAP) Pulse Ox O2 Delivery O2 Flow Rate FiO2 03/08/17 12:41 71 18 108/69 (82) 98 03/08/17 12:00 Room Air 03/08/17 11:12 36.8 71 18 123/73 (90) 96 Room Air 03/08/17 08:00 Room Air 03/08/17 07:38 37.0 71 18 134/84 (101) 98 Room Air 03/08/17 04:00 Room Air 03/08/17 03:38 36.5 70 18 144/83 (103) 96 Room Air 03/08/17 00:00 36.5 76 18 119/76 (90) 95 Room Air 03/08/17 00:00 Room Air 03/07/17 20:00 Room Air 03/07/17 19:12 36.5 83 20 120/80 (93) 93 Room Air 03/07/17 16:07 36.4 79 22 136/80 (98) 97 Nasal Cannula 2.0 03/07/17 16:00 Nasal Cannula 2.0 (Shaila Rodriguez PA-C) Physical Exam Notes: General appearance: +Obese. Well-developed, well-nourished, no apparent distress Head: Normocephalic, atraumatic Eyes: Normal inspection, PERRL, EOMI ENT: Normal ENT inspection, hearing grossly normal, pharynx normal Neck: Supple, no JVD, trachea midline Respiratory/Chest: Lungs clear to auscultation, normal breath sounds, no respiratory distress Cardiovascular: +Systolic murmur. Regular rate & rhythm, no gallop Abdomen/GI: Normal bowel sounds, non-tender, soft Extremities/Musculoskeletal: +Area between left shoulder and base of neck w/ muscle spasm/knot. TTP. Neck has limited ROM when turning to left. Normal inspection, no calf tenderness, no pedal edema Neurological/Psych: Alert, normal mood/affect, oriented x 3 Skin: Normal color, warm/dry, no rash (Shaila Rodriguez ., LAURENC) Laboratory Results Last 24 Hours Test 03/07/17 15:49 03/07/17 20:02 03/08/17 06:47 03/08/17 07:07 Bedside Glucose 207 mg/dl 265 mg/dl 100 mg/dl White Blood Count 5.85 K/uL Red Blood Count 3.54 M/uL Hemoglobin 11.0 g/dL Hematocrit 34.5 % Mean Corpuscular Volume 97.5 fL Mean Corpuscular Hemoglobin 31.1 pg Mean Corpuscular Hemoglobin Concent 31.9 g/dl Platelet Count 234 K/uL Mean Platelet Volume 10.2 fL Neutrophils (%) (Auto) 54.2 % Lymphocytes (%) (Auto) 26.7 % Monocytes (%) (Auto) 14.5 % Eosinophils (%) (Auto) 3.4 % Basophils (%) (Auto) 0.7 % Neutrophils # (Auto) 3.17 K/uL Lymphocytes # (Auto) 1.56 K/uL Monocytes # (Auto) 0.85 K/uL Eosinophils # (Auto) 0.20 K/uL Basophils # (Auto) 0.04 K/uL RDW Standard Deviation 51.5 fL RDW Coefficient of Variation 14.5 % Immature Granulocyte % (Auto) 0.5 % Immature Granulocyte # (Auto) 0.03 K/uL Sodium Level 141 mmol/L Potassium Level 3.6 mmol/L Chloride Level 108 mmol/L Carbon Dioxide Level 25 mmol/L Anion Gap 7.0 mmol/L Blood Urea Nitrogen 27 mg/dl Creatinine 1.18 mg/dl Est Creatinine Clear Calc Drug Dose 51.1 ml/min Estimated GFR () 51.9 Estimated GFR (Non- 44.8 BUN/Creatinine Ratio 23.1 Random Glucose 92 mg/dl Calcium Level 8.9 mg/dl (Shaila Rodriguez ., JUNIE) Assessment and Plan 76 y/o female with a history of CAD, h/o [place], s/p CABG x 4 (2003), HTN, HLD, DM II, and anxiety with panic attacks who presents with chest pain and acute STEMI. STEMI, CAD, h/o [place] and CABG, HTN, HLD--STEMI resolving, otherwise stable -Admit to telemetry. Pt in sinus rhythm overnight, HR 60s-80s -Taken for urgent cath 03/06. Found to have severe multivessel CAD. 100% occlusion of PDA graft. 2 FLORENTINO placed. -Cardiology consulted, appreciate recs: Okay for discharge from cardiac standpoint. -Troponin peaked at 6.74, trending down -Pravastatin 20 mg PO qd started -Continue ASA 81 mg PO qd, Brilinta 90 mg PO BID -Continue Lopressor 25 mg PO BID, Norvasc 5 mg PO qd, lisinopril 30 mg PO qd -Lipid panel WNL -HgbA1c 7.1 on 03/07 -Echo: 1. Normal LV size, borderline concentric LVH. * 2. Normal LV systolic function. LVEF 55%. Severe base to mid inferior hypokinesis. * 3. Normal RV size. Mild RV dysfunction. * 4. Moderate aortic stenosis (PV 2.3 m/s, MG 11 mmHg, ARISTIDES 1.17 cm2, SVI 28 mL/m2) * 5. Mild mitral regurgitation. * 6. Normal estimated RA and PA pressures. * 7. No prior studies for comparison. SVT run--resolved, no acute events overnight -Magnesium 2.0 -Potassium 3.6 on 03/08. Give another 40 mEq KCl x1 DM II--A1c as above -Lantus 34 units SC qam and 46 units SC qpm -Insulin sliding scale -Check BSGs q ac and qhs Anxiety w/panic attacks--stable, no anxiety currently -Continue clonazepam 0.5 mg PO BID Left shoulder/neck pain--likely MSK -Flexeril 10 mg PO BID prn spasm, one dose now -Voltaren gel to area QID prn -Warm compress DVT prophylaxis -Enoxaparin 40 mg SC q24h Code Status -Level I, FULL RESUSCITATION STATUS (Shaila Rodriguez ., PATundeC) Attending Attestation: Pt seen/examined, chart reviewed, care plan d/w PA Shaila Rodriguez. I agree w/ the stephen components of her documentation. Main complaint during my visit - severe paraspinal neck pain on left radiating to upper left shoulder. Turning the neck and raising left arm makes it worse. Slept poorly last pm. NO CHEST PAIN. Some mild FORTE but no orthopnea or dyspnea at rest. VSS afebrile o2 sats 98% RA gen - nad, obese, uncomfortable from neck pain neck - severely restricted passive & active rotation,flexion,extension of neck; paraspinal tenderness on left; she also has tenderness extending onto the upper back on left at the junction with the shoulder heart - RRR, s1, s2, 2/6 systolic murmur RUSB lungs - mild fine bibasilar rales improved, no wheeze abd - soft, NT ext - no edema neuro - strength 5/5 in both upper extremities musculo - left shoulder - no tenderness to palpation or with passive rotation/ extension labs acceptable this am A/P: 1. STEMI s/p emergent cath - graft to PDA occluded - s/p [address] Orourke. BB, asa, plavix, statin. 2. fine bibasilar rales yesterday - cxr 03/07 with chronic interstitial changes but no acute findings. O2 sats today 98% in RA. Pulmonary exam normal during my visit today. 3. neck pain - suspect cervical muscle strain vs radicular pain from cervical DJD consider x-rays and/or CT agree with k-pad warming system voltaren gel QID tylenol prn avoid oral NSAIDs or steroids due to #1 muscle relaxer may help as well Tony Maria MD (Tony Maria MD)
[2017-03-08] MEDS: PRAVASTATIN SOD 20 MG TAB PO SCH ×2 (15:46→15:47)
[2017-03-08 20:55] LABS: BUN/CREATININE RATIO 23.3 (10-20); CALCIUM 8.9 mg/dl (8.5-10.1); CREATININE 1.59 mg/dl (0.60-1.20); MAGNESIUM 1.9 mg/dl (1.8-2.4); POTASSIUM 3.9 mmol/L (3.5-5.1)
[2017-03-08 20:58] LABS: ALB/GLOB RATIO 0.7 (0.9-2); PHOSPHORUS 3.9 mg/dl (2.5-4.9)
[2017-03-08] MEDS: ENOXAPARIN 40 MG/0.4 ML SYR SQ SCH (21:30)
[2017-03-09 03:25] VITALS: BP 139/71; PULSE 88; TEMP 36.6; O2SAT 90
[2017-03-09 06:11] LABS: BASO % 0.8 %; BASO ABS # 0.05 K/uL (0-0.2); COMPLETE YES; EOS % 4.9 %; HEMATOCRIT 36.5 % (37-47); IG% 0.8 %; LYMPH % 28.2 %; LYMPH ABS # 1.67 K/uL (1.2-3.4); MEAN CELL VOLUME 98.4 fL (80-100); MEAN CORPUSCULAR HGB CONC 31.5 g/dl (32-36); MEAN PLATELET VOLUME 9.9 fL (7.4-10.4); MONO % 10.1 %; NEUT % 55.2 %; PLATELET COUNT 228 K/uL (130-400); RED BLOOD COUNT 3.71 M/uL (4.2-5.4); WHITE BLOOD COUNT 5.93 K/uL (4.8-10.8)
[2017-03-09 06:46] LABS: BUN/CREATININE RATIO 25.6 (10-20); CALCIUM 8.6 mg/dl (8.5-10.1); CREATININE 1.37 mg/dl (0.60-1.20); POTASSIUM 4.3 mmol/L (3.5-5.1)
[2017-03-09] MEDS: TICAGRELOR 90 MG TAB PO SCH (07:45)
[2017-03-09] MEDS: METOPROLOL TARTRATE 25 MG TAB PO SCH (07:46)
[2017-03-09] MEDS: MULTIVITAMIN TAB PO SCH (07:46)
[2017-03-09] MEDS: AMLODIPINE BESYLATE 5 MG TAB PO SCH (07:46)
[2017-03-09] MEDS: ASPIRIN 81 MG ECTAB PO SCH (07:46)
[2017-03-09] MEDS: LISINOPRIL 10 MG TAB PO SCH (07:48)
[2017-03-09] MEDS: CLONAZEPAM 0.5 MG TAB PO SCH (07:50)
[2017-03-09] MEDS: INSULIN ASPART 100 UNITS/ML 3 ML PEN SC SCH (07:55)
[2017-03-09] MEDS: INSULIN GLARGINE SOLOSTAR 100 UNITS/ML 3 ML PEN SC SCH (07:56)
[2017-03-09 07:58] VITALS: BP 113/55; PULSE 89; TEMP 36.4; O2SAT 90
[2017-03-09 08:01] VITALS: O2SAT 90
[2017-03-09] MEDS ORDERED: BRL90 PO (10:34)
[2017-03-09] MEDS ORDERED: VLTG EXT (10:34)
[2017-03-09] MEDS ORDERED: COEN100C11 PO (10:34)
[2017-03-09] MEDS ORDERED: PRVC20 PO (10:34)
--- NOTE | 2017-03-09 10:48 | Discharge Instructions ---
Discharge Instructions Date of Service Mar 09, 2017. Admission Reason for Admission: Acute Coronary Syndrome Discharge Discharge Diagnosis / Problem: Acute ST elevation myocardial infarction Discharge Goals Goal(s): Decrease discomfort, Improve function, Diagnostic testing, Therapeutic intervention Activity Recommendations Activity Limitations: per Instructions/Follow-up section . Instructions / Follow-Up Instructions / Follow-Up You were admitted to the hospital after presenting with chest pain. You were found to be having an acute heart attack and taken emergently to have a cardiac catheterization, which revealed severe coronary artery disease in multiple vessels. 2 stents were placed in one of your bypass grafts, which had become occluded. You were started on a new anti-platelet medication to take in addition to your aspirin, as well as a cholesterol medication. Cardiology was consulted, and you have been cleared for discharge from a cardiac standpoint. Medications: *Please take Brilinta (ticagrelor) 90 mg by mouth twice a day in addition to daily baby aspirin. *Please take pravastatin 20 mg by mouth daily. This is a medication for your cholesterol. If you are unable to tolerate this medication like the previous statins you have tried in the past, please ask your primary care provider or door patcher about what you can take instead. *You may also take Coenzyme Q10 100 mg by mouth daily, which is a supplement that can help with your cholesterol. *Continue your other home medications as prescribed. Follow up: *You will be scheduled to follow up with your primary care provider. *Dr. De Leon's office will call you to schedule a follow up appointment with cardiology. Please seek medical attention if you experience fevers, chills, sweats, dizziness/lightheadedness, loss of consciousness, chest pain, shortness of breath, nausea, vomiting, numbness or tingling. Home Care: * Take your medications exactly as directed. Don't skip doses. * Remember that recovery after a heart attack takes time. Plan to rest for at least 4-8 weeks while you recover. Then return to normal activity when your doctor says it's okay. * Ask your doctor about joining a heart rehabilitation program. * Tell your doctor if you are feeling depressed. Feelings of sadness are common after a heart attack, but it is important that you speak to someone if you are feeling overwhelmed by these feelings. * If you are having chest pain, call 911 for an ambulance. Do NOT drive yourself to the hospital. * Ask your family members to learn CPR. * Learn to take your own blood pressure and pulse. Keep a record of your results. Ask your doctor when you should seek emergency medical attention. He or she will tell you which blood pressure reading is dangerous. Lifestyle Changes: * Maintain a healthy weight. Get help to lose any extra pounds. * Cut back on salt. * Limit canned, dried, packaged, and fast foods. * Don't add salt to your food. * Season foods with herbs instead of salt when you cook. * Break the smoking habit. Enroll in a stop-smoking program to improve your chances of success. * Limit fatty foods. * Ask your doctor about having your lipid levels checked regularly. * Build up your activity according to your doctor's recommendation. * Ask your doctor when it's okay to resume sexual activity. * Try to manage stress. Follow Up: It is important for you to keep your follow up appointments with your medical provider. Current Hospital Diet Patient's current hospital diet: AHA Diet (Heart Healthy) Discharge Diet Recommended Diet: AHA Diet (Heart Healthy), Diabetes Type 2 Diet Procedures Procedures Performed: Cardiac catheterization, echocardiogram Pending Studies Studies pending at discharge: no Laboratory Results Hemoglobin A1c Test 03/07/17 06:16 Range/Units Estimated Average Glucose 157 mg/dl Hemoglobin A1c 7.1 H 4.5-5.6 % Lipid Panel Test 03/07/17 06:16 Range/Units Triglycerides Level 125 0-150 mg/dl Cholesterol Level 145 0-200 mg/dl HDL Cholesterol 31 mg/dl Cholesterol/HDL Ratio 4.7 LDL Cholesterol, Calculated 89 mg/dl Medical Emergencies . Who to Call and When: Medical Emergencies: If at any time you feel your situation is an emergency, please call 911 immediately. Call 911 immediately or go to your nearest Emergency Room if you experience any of the following: Warning Signs and Symptoms of a Heart Attack * Chest pain that is not relieved by medication * Shortness of breath . Non-Emergent Contact Non-Emergency issues call your: Primary Care Provider, Coper Hand Call Non-Emergent contact if: you have a fever, your pain is not controlled, your pain is worsening, your pain is unusual for you, your pain is concerning you, you have any medication questions . . "Provider Documentation" section prepared by Shaila Rodriguez. . AMI Core Measures Reason no ASA as I/P: Treatment provided - N/A Reason no ASA at D/C: Treatment provided - N/A Reason no statin as I/P: Treatment provided - N/A Reason no statin at D/C: Treatment provided - N/A VTE Core Measure Inpt VTE Proph given/why not?: Enoxaparin (Lovenox)SQ
--- NOTE | 2017-03-09 11:02 | Discharge Summary ---
Discharge Summary Date of Service Mar 09, 2017. Discharge Summary Admission Date: Mar 06, 2017 at 11:05 Discharge Date: Mar 09, 2017 Discharge Disposition: Home Principal Diagnosis: STEMI Problems/Secondary Diagnoses: CAD H/o IA, s/p CABG x 4 (2003) HTN HLD DM II Anxiety with panic attacks Immunizations: History of Tetanus Vaccine?: Unknown History of Pneumococcal: Yes History of Hepatitis B Vaccine: Yes Procedures: Cardiac cath: Procedure Note Procedure Date Mar 06, 2017. Pre-Procedure Diagnosis Non STEMI AUC Score 8 Post-Procedure Diagnosis Severe CAD, Successful PCI, Normal Intracardiac Pressures Procedure(s) Performed Coronary Angiography, Left Heart Cath, Drug Eluting Stent, Ultrasound Guided Vascular Access, Bypass Graft Angiography, Femoral Artery Angiography Personal Lines Appraiser Sharad Financial Service Rep(s) Magnus Estimated Blood Loss 20 Medication(s) Fentanyl, Heparin, Integrilin, Nitroglycerin, Versed, Lidocaine 1% Ticagrelor Summary of Findings Indication: High-risk NSTEMI Access: 6Fr Right OSD CLERK Catheters: JL4, JR4; MPA guide Findings: LM - Luminal irregularities LAD - 80% calcified proximal disease, severe diffuse proximal-mid disease; chronically occluded late-mid LAD. Gives off small diffusely diseased 1st diagonal. Circumflex - Moderate proximal to mid segment diffuse disease; 80% diffuse distal disease in small distal circumflex; Small OM3 with 90% ostial stenosis. RCA - Dominant, 80-90% proximal to mid disease; mid segment 100% chronically occluded. SVG-OM2 - Widely patent; OM2 small vessel with diffuse disease; does not retrofill circumflex. Free [place]-distal LAD - Comes off proximal SVG-OM2 graft. Widely patent. Distal LAD small vessel with diffuse disease at apex. SVG-Diagonal - not visualized. previously reported to be occluded. SVG-PDA - acute 100% proximal occlusion. LVEDP - 25 -- PCI -- Antithrombotic therapy: Heparin, Integrilin, Ticagrelor Procedure: SVG-PDA cannulated with MPA guide BMW wire passed across proximal stenosis into [place] PDA Proximal vein graft lesion gently predilated with 2.5 compliant balloon Distal vessel thought too small for filter device Pre-treated with IC integrilin, nicardipine Dilated lesion stented with distal 3.0 x 38 [place] FLORENTINO Proximal vein graft stented with overlapping 3.0 x 34 [place] FLORENTINO IC vasodilators, integrilin administered Post procedure RAMON 3 flow in vein graft and [place] PDA which retrofilled distal RCA. Arterial Closure: StarClose Summary: 1. Severe [place] multi-vessel coronary artery disease - Occluded mid LAD, 80-90% mid-distal circumflex, occluded mid RCA 2. Patent Free LIMIA to LAD arising off SVG-OM2; SVG-OM2 patent 3. Acutely occluded proximal SVG-PDA 4. Successful PCI of SVG-PDA with 2 overlapping FLORENTINO (3.0 x 38; 3.0 x 34 [place] FLORENTINO ) Recommendations: To PCU for continued monitoring Loaded with Ticagrelor 180mg Continue dual-antiplatelet therapy for at least 1 year Continue antihypertensives, ASCVD risk factor modification. Will attempt retrial of statin Consult cardiac Rehab Echocardiogram: Interpretation Summary * Name: CARRINGTON SCHMITT Study Date: 03/07/2017 06:57 AM BP: 113/81 mmHg * Patient Location: .2\S\S239\S\1 HR: 92 * : 1940 (M/d/yyyy) Gender: Female Height: 67 in * Age: 76 yrs Ethnicity: CA Weight: 246 lb * Ordering Physician: MD Robinson Orourke MD * Performed By: Mary Kate Torrse RDCS * * Reason For Study: AMI * BSA: 2.2 m2 * -- Conclusions -- * 1. Normal LV size, borderline concentric LVH. * 2. Normal LV systolic function. LVEF 55%. Severe base to mid inferior hypokinesis. * 3. Normal RV size. Mild RV dysfunction. * 4. Moderate aortic stenosis (PV 2.3 m/s, MG 11 mmHg, ARISTIDES 1.17 cm2, SVI 28 mL/m2) * 5. Mild mitral regurgitation. * 6. Normal estimated RA and PA pressures. * 7. No prior studies for comparison. Procedure Details * A complete two-dimensional transthoracic echocardiogram was performed (2D, M-mode, Doppler and color flow Doppler). * There were technical limitations due to patient'sbody habitus * A contrast injection of Definity was performed to improve assessment of LV function. * Contrast was injected into an intravenous site in the right arm. * One vial of Definity ultrasound contrast was diluted in normal saline to a total volume of 10 ml. A total of '3' ml of solution was administered during imaging. * Lot # [id number] of Definity utilized for procedure. * Expiration date 05/14. * The attending nurse who injected the contrast agent was COLE CRISOSTOMO RN. Left Ventricle * The left ventricle is grossly normal size. * There is borderline concentric left ventricular hypertrophy. * Ejection Fraction = 55-60%. * Severe base to mid inferior hypokinesis. * Septal motion is consistent with post-operative state. Right Ventricle * The right ventricle is grossly normal size. * The right ventricular systolic function is mildly reduced. Atria * The left atrial size is normal. * Right atrial size is normal. * No ASD detected; PFO is not assessed. Mitral Valve * The mitral valve is grossly normal. * There is no mitral valve stenosis. * There is mild mitral regurgitation. Tricuspid Valve * There is no tricuspid stenosis. * There is trace tricuspid regurgitation. Aortic Valve * Moderate valvular aortic stenosis. * There is no significant aortic regurgitation. Pulmonic Valve * The pulmonary valve is inadequately visualized, but the Doppler data is adequate for interpretation. * There is no pulmonic valvular stenosis. * There is no significant pulmonary regurgitation. Great Vessels * The aortic root and proximal ascending aorta are normal sized. Pericardium/Pleural * There is no pericardial effusion. Great Vessels * Normal inferior vena cava size and collapsability with sniff indicates a normal right atrial pressure of 3 mmHg Consultations: Cardiology Medication Reconciliation New Medications: Coenzyme Q10 (Ubidecarenone) (Coq-10) 100 Mg Cap 100 MG PO DAILY for 30 Days, #30 CAP Pravastatin Sod (Pravastatin Sodium) 20 Mg Tab 20 MG PO DAILY@17 for 30 Days, #30 TAB Ticagrelor (Brilinta) 90 Mg Tab 90 MG PO BID for 30 Days, #60 TAB Continued Medications: Amlodipine Besylate (Amlodipine Besylate) 5 Mg Tab 5 MG PO DAILY Aspirin (Aspirin Ec) 81 Mg Tab 81 MG PO DAILY Calcium (Calcium) 500 Mg Tab 500 MG PO BID Clonazepam (Clonazepam) 0.5 Mg Tab 0.5 MG PO BID PRN for Panic Attack Insulin Glargine (Lantus) 100 Unit/Ml Inj 45 UNITS SC AMHS per sliding scale Insulin Human Lispro (Humalog) 1 Ea Inj UNITS SQ TIDM Lisinopril (Zestril) 30 Mg Tab 30 MG PO DAILY Metoprolol Tartrate (Lopressor) 25 Mg Tab 25 MG PO BID Multiple Vitamin (Multivitamin) 1 Tab Tab 1 TAB PO DAILY, TAB Nitroglycerin (Nitrostat) 0.4 Mg Tab 0.4 MG UT UD PRN for Chest Pain [place]-3 Fatty Acids (Fish Oil) 1 Cap Cap 2000 MG PO BID Discharge Exam The patient reports feeling well. She denies any chest pain or SOB. She states that her left neck/shoulder pain has resolved. She reports having 2 loose bowel movements today but otherwise denies complaints. The patient denies fevers, chills, sweats, chest pain, palpitations, claudication, cough, wheezing, shortness of breath, nausea, vomiting, abdominal pain, dysuria, hematuria, urinary retention, paralysis, weakness, numbness and tingling. Constitutional: No fever, No chills, No sweats Eyes: No worsening of vision, No eye pain, No diplopia ENT: No hearing loss, No nasal symptoms, No trouble swallowing Respiratory: No cough, No wheezing, No shortness of breath Cardiovascular: No chest pain, No claudication, No palpitations Abdomen: No pain, No nausea, No vomiting Musculoskeletal: No joint pain, No muscle pain, No swelling Genitourinary - Female: No dysuria, No urinary retention, No hematuria Neurologic: No paralysis, No weakness, No numbness/tingling Integumentary: No rash, No itch, No color change General appearance: +Obese. Well-developed, well-nourished, no apparent distress Head: Normocephalic, atraumatic Eyes: Normal inspection, PERRL, EOMI ENT: Normal ENT inspection, hearing grossly normal, pharynx normal Neck: Supple, no JVD, trachea midline Respiratory/Chest: +Faint crackles in bases, chronic. On room air. Normal breath sounds, no respiratory distress Cardiovascular: +Systolic murmur. Regular rate & rhythm, no gallop Abdomen/GI: Normal bowel sounds, non-tender, soft Extremities/Musculoskeletal: +No left neck/shoulder tenderness. Normal inspection, no calf tenderness, no pedal edema Neurological/Psych: Alert, normal mood/affect, oriented x 3 Skin: Normal color, warm/dry, no rash Hospital Course 76 y/o female with a history of CAD, h/o IA, s/p CABG x 4 (2003), HTN, HLD, DM II, and anxiety with panic attacks who presents with chest pain and acute STEMI. STEMI, CAD, h/o IA and CABG, HTN, HLD--resolved/stable -Admit to telemetry. Pt in sinus rhythm overnight, HR 80s-90s -Taken for urgent cath 03/06. Found to have severe multivessel CAD. 100% occlusion of PDA graft. 2 FLORENTINO placed. -Cardiology consulted, appreciate recs: Okay for discharge from cardiac standpoint. -Troponin peaked at 6.74, trending down -Pravastatin 20 mg PO qd -Continue ASA 81 mg PO qd, Brilinta 90 mg PO BID -Continue Lopressor 25 mg PO BID, Norvasc 5 mg PO qd, lisinopril 30 mg PO qd -Lipid panel WNL -HgbA1c 7.1 on 03/07 -Echo: 1. Normal LV size, borderline concentric LVH. * 2. Normal LV systolic function. LVEF 55%. Severe base to mid inferior hypokinesis. * 3. Normal RV size. Mild RV dysfunction. * 4. Moderate aortic stenosis (PV 2.3 m/s, MG 11 mmHg, ARISTIDES 1.17 cm2, SVI 28 mL/m2) * 5. Mild mitral regurgitation. * 6. Normal estimated RA and PA pressures. * 7. No prior studies for comparison. SVT run--resolved, no other events recorded -Magnesium 2.0 -Potassium 4.3 on discharge DM II--A1c as above -Lantus 45 units SC BID -Insulin sliding scale -Check BSGs q ac and qhs Anxiety w/panic attacks--stable, no anxiety currently -Continue clonazepam 0.5 mg PO BID scheduled, not prn Left shoulder/neck pain--resolved -Flexeril 10 mg PO BID prn spasm -Voltaren gel to area QID prn -Warm compress -Pt received 1 dose Flexeril and Voltaren gel, pain resolved DVT prophylaxis -Enoxaparin 40 mg SC q24h Code Status -Level I, FULL RESUSCITATION STATUS Dispo -D/C to home -F/u PCP and cardiology PA Physician Supervision Note: I interviewed and examined the patient. Discussed with Shaila Rodriguez PAC, and agree with findings and plan as documented in the note. Any exceptions or clarifications are listed here: None Pt here after ACS and 2 FLORENTINO placed in her PDA, kept overnight for neck pain which has improved and was felt to be musculoskeletal. Pt in the past has been intolerant of STATINS due to myalgias, apparently did have many different meds tried by DR Haley cook reviewed car is regular, lungs are clear\ PT will be discharged on brillinta,may substitute plavix if formulary issues, continue aspirin, metoprolol, lisinopril, will encourage statin but will discuss this with Dr De Leon Documented By: Chris Nelson Total Time Spent: Greater than 30 minutes This includes examination of the patient, discharge planning, medication reconciliation, and communication with other providers. Discharge Instructions Please refer to the electronic Patient Visit Report (Discharge Instructions) for additional information. Additional Copies To Viral De Leon, DO; Bro Calle M.D.
[2017-03-09 11:22] VITALS: BP 113/55; PULSE 89; TEMP 36.4; O2SAT 90
== END 2017-03-09 12:28 | disposition home health service (06) | DRG 247 ==
LOC: C.EDB 07:28 → ENRESERV 08:49 → C.2T 11:05
PROVIDERS: ADMIT Internal Medicine; ATTEND Internal Medicine
PROC: 027035Z Dilation of Coronary Artery, One Artery with Two Drug-eluting Intraluminal Devices, Percutaneous Approach (ICD-10-PCS; principal; 2017-03-06 08:32)
PROC: B213YZZ Fluoroscopy of Multiple Coronary Artery Bypass Grafts using Other Contrast (ICD-10-PCS; principal; 2017-03-06 08:32)
PROC: B211YZZ Fluoroscopy of Multiple Coronary Arteries using Other Contrast (ICD-10-PCS; principal; 2017-03-06 08:32)
PROC: 4A023N7 Measurement of Cardiac Sampling and Pressure, Left Heart, Percutaneous Approach (ICD-10-PCS; principal; 2017-03-06 08:32)
DX: I21.3 ST elevation (STEMI) myocardial infarction of unspecified site (principal); I25.810 Atherosclerosis of coronary artery bypass graft(s) without angina pectoris; I47.1 Supraventricular tachycardia; E11.9 Type 2 diabetes mellitus without complications; I10 Essential (primary) hypertension; M54.2 Cervicalgia; Z79.4 Long term (current) use of insulin; Z79.82 Long term (current) use of aspirin; Z79.899 Other long term (current) drug therapy; Z88.6 Allergy status to analgesic agent; Z95.1 Presence of aortocoronary bypass graft

== ENCOUNTER 2017-04-11 08:26 | Emergency (ER) | payer OTHER ==
[~2017-04-11] VITALS: Ht 162.6 cm; Wt 100.0 kg
[~2017-04-11 08:26] MED LIST changes: +BRL90 PO; +COEN100C11 PO; +PRVC20 PO
[2017-04-11 08:33] VITALS: TEMP 36.4; Ht 162.6 cm; Wt 100.0 kg
[2017-04-11] MEDS ORDERED: NVLG SC (08:48)
[2017-04-11] MEDS ORDERED: INSDGI SQ (08:48)
[2017-04-11] MEDS ORDERED: CZR50 PO (08:49)
--- NOTE | 2017-04-11 08:54 | EMERGENCY ROOM VISIT NOTE ---
History Report prepared by Dejon: Mu Hillman Under the Supervision of: Dr. Gustavo Berger M.D. First contact with patient: 08:38 Chief Complaint: FLANK PAIN Stated Complaint: PAIN IN LEFT SIDE/ SUGARS GOING UP/DOWN History of Present Illness The patient is a 76 year old female who presents to the Emergency Room with complaints of sharp intermittent left sided flank pain that began 1 month ago. She rates her pain a 10/10 in severity. She has a past medical history of a cardiac stent that was placed on March 06, 2017. Since then, the patient has had this intermittent flank pain. However, recently it has become constant. Her pain is better when she stands and worsen when she is resting. Her pain radiates from her left flank around to her left groin and down to her left knee. She notes that her sugars have been fluctuating greatly last night. She denies any fevers, chills, chest pain, shortness of breath, nausea, vomiting, diarrhea, weakness, numbness, loss of her bladder/bowel, or abnormal urinary symptoms. Source of History: patient Onset: 1 month ago Symptom Intensity: 10/10 Quality: sharp Timing: constant (recently), intermittent Modifying Factors (Worsening): rest Modifying Factors (Relieving): other (Standing) Associated Symptoms: No fevers, No chills, No chest pain, No SOB, No nausea , No vomiting, No diarrhea, No urinary symptoms, No weakness, No numbness Note: Her pain radiates from her left flank to her left groin and down to her left knee. She denies any loss of her bladder or bowel. Review of Systems See HPI for pertinent positives & negatives. A total of 10 systems reviewed and were otherwise negative. Past Medical & Surgical Medical Problems: (1) Benign hypertension (2) Diabetes mellitus (3) Heart disease (4) open heart surgery Family History Patient reports no known family medical history. Social History Smoking Status: Never Smoker Alcohol Use: none Marital Status: Housing Status: lives with family Occupation Status: unemployed Current/Historical Medications Scheduled Amlodipine Besylate (Amlodipine Besylate), 5 MG PO DAILY Aspirin (Aspirin Ec), 81 MG PO DAILY Calcium (Calcium), 500 MG PO BID Ciprofloxacin Hcl (Cipro), 1 TAB PO BID Docusate Sodium (Colace), 1 CAP PO BID Insulin Aspart (Novolog), UNITS SC TID Insulin Glargine (Lantus), 34 UNITS SC QAM Insulin Glargine (Lantus), 46 UNITS SQ QPM Lidocaine (Lidocaine), 1 PATCH TD DAILY Losartan Potassium (Losartan Potassium), 50 MG PO DAILY Metoprolol Tartrate (Lopressor), 25 MG PO BID Multiple Vitamin (Multivitamin), 1 TAB PO DAILY [place]-3 Fatty Acids (Fish Oil), 2,000 MG PO BID Sennosides (Senokot), 8.6 MG PO HS Ticagrelor (Brilinta), 90 MG PO BID Scheduled PRN Clonazepam (Clonazepam), 0.5 MG PO BID PRN for Panic Attack Nitroglycerin (Nitrostat), 0.4 MG UT UD PRN for Chest Pain Oxycodone Immediate Rel Tab (Roxicodone Ir), 1-2 TAB PO Q4H PRN for Severe Pain Allergies Coded Allergies: Cephalosporins (Verified Allergy, Severe, ANAPHYLAXIS, 04/11/17) Fluoxetine (Verified Allergy, Severe, muscle/panic attack, 04/11/17) Meloxicam (Verified Allergy, Severe, panic attack, 04/11/17) Sertraline (Verified Allergy, Severe, panic attack, 04/11/17) Citalopram (Verified Allergy, Intermediate, muscle cramping, 04/11/17) Lovastatin (Verified Allergy, Intermediate, leg pain, 04/11/17) Tramadol (Verified Allergy, Mild, headache, 04/11/17) Cefazolin (Verified Allergy, Unknown, UNKNOWN, 04/11/17) Ibuprofen (Verified Adverse Reaction, Intermediate, DIZZY, SYNCOPE, NAUSEA , 04/11/17) Physical Exam Vital Signs Date Time Temp Pulse Resp B/P (MAP) Pulse Ox O2 Delivery O2 Flow Rate FiO2 04/11/17 10:26 79 18 156/83 93 Room Air 04/11/17 09:40 82 04/11/17 08:33 36.4 82 20 146/79 95 Room Air Physical Exam GENERAL: Patient is a healthy-appearing well-nourished female HEAD: Normocephalic atraumatic EYES: Ocular movements intact pupils equal and react to light OROPHARYNX mucous membranes are moist no exudates present no erythema or edema present NECK: Supple no nuchal rigidity CHEST: Good equal expansion LUNGS: Clear and equal to auscultation CARDIAC: Normal S1 and S2 ABDOMEN: Soft nontender no guarding BACK: Left lumbar tenderness to palpation. No CVA tenderness. EXTREMITIES: No pain upon palpation normal muscle strength in all groups no clubbing cyanosis or edema NEURO: Patient is following commands and answering questions appropriately. Alert and oriented x3 Cranial Nerves 2-12 grossly intact Medical Decision & Procedures ER Provider Diagnostic Interpretation: Radiology results as stated below per my review and radiologist interpretation: CT LUMBAR SPINE WITHOUT CT DOSE: 1655.72 mGy.cm CLINICAL HISTORY: Low back pain with left leg radiculopathy. TECHNIQUE: Helical images were acquired in transverse plane. Reformatted sagittal and coronal images were reviewed. A dose lowering technique was utilized adhering to the principles of ALARA. CONTRAST: No contrast was administered COMPARISON STUDY: Conventional radiographic study the lumbar spine dated 07/14/2009 FINDINGS: L1-2 level: There are advanced degenerative changes. There is a posterior disc osteophyte complex. There is moderate to severe spinal stenosis. There is mild bilateral foraminal narrowing. L2-3 level: There are advanced degenerative changes. There is a posterior disc osteophyte complex. There is severe spinal stenosis. There is discogenic endplate sclerosis. There is mild to moderate bilateral foraminal narrowing. L3-4 level: There is a circumferential disc bulge. There is severe spinal stenosis. There is mild bilateral foraminal narrowing. L4-5 level: There is a grade 1 spondylolisthesis of L4 and L5. There is a circumferential disc bulge present. There is facet joint arthropathy. There is severe spinal stenosis. There is mild right-sided foraminal narrowing. L5-S1 level: There are degenerative changes present. There is a posterior disc osteophyte complex. There is no significant spinal stenosis. There is mild bilateral foraminal narrowing. No acute fractures or traumatic subluxations are visualized. The spinous processes of the L3 and L4 vertebral bodies but and there are secondary degenerative changes with sclerosis. IMPRESSION: 1. No acute fractures or traumatic subluxations identified 2. Advanced multilevel spondylitic changes with multilevel moderate and severe spinal stenosis. Electronically signed by: Kirt Patel M.D. 04/11/2017 10:02 AM Dictated Date/Time: 04/11/2017 9:[address] OF THE ABDOMEN AND PELVIS WITHOUT CONTRAST, STONE PROTOCOL CLINICAL HISTORY: Left flank pain. COMPARISON STUDY: CT of the abdomen and pelvis September 09, 2012. TECHNIQUE: Helical axial images of the abdomen and pelvis were obtained without IV or oral contrast according to renal stone protocol. A dose lowering technique was utilized adhering to the principles of ALARA. FINDINGS: The lumbar spine CT will be reported separately. A 5 mm left lower lobe nodule is unchanged and CT of 6 September 09, 2012. This is benign given stability. Groundglass opacities favor atelectasis. No pneumatosis, free air or portal venous gas is present. There is a small hiatal hernia. Left adrenal nodularity is unchanged. This is benign. No renal, ureteral or bladder calculi are present. There is no hydronephrosis or hydroureter. There is moderate renal cortical thinning with scarring. There are gallstones within the gallbladder without evidence for acute cholecystitis. Unenhanced images of the liver, spleen and pancreas are unremarkable. There is no biliary or pancreatic ductal dilatation. There is hyperdense material within the appendix without evidence for acute appendicitis. There is extensive left colon diverticulosis without evidence for acute diverticulitis. There is no abscess. There is no lymphadenopathy. No suspicious skeletal lesions are identified. There is moderate atherosclerotic plaque of the abdominal aorta which is normal in caliber. IMPRESSION: 1. No urinary calculi or hydronephrosis. 2. No acute process within the abdomen or pelvis on unenhanced exam. 3. Cholelithiasis. 4. Colonic diverticulosis without evidence for acute diverticulitis. Electronically signed by: Paul Qurioz M.D. 04/11/2017 10:30 AM Dictated Date/Time: 04/11/2017 10:22 AM Laboratory Results 04/11/17 09:30 Red Blood Count 3.91, Mean Corpuscular Volume 96.7, Mean Corpuscular Hemoglobin 30.9, Mean Corpuscular Hemoglobin Concent 32.0, Mean Platelet Volume 10.4, Neutrophils (%) (Auto) 75.4, Lymphocytes (%) (Auto) 17.4, Monocytes (%) (Auto) 5.0, Eosinophils (%) (Auto) 1.2, Basophils (%) (Auto) 0.6, Neutrophils # (Auto) 6.33, Lymphocytes # (Auto) 1.46, Monocytes # (Auto) 0.42, Eosinophils # (Auto) 0.10, Basophils # (Auto) 0.05 04/11/17 09:30 Test 04/11/17 09:30 White Blood Count 8.39 K/uL (4.8-10.8) Red Blood Count 3.91 M/uL (4.2-5.4) Hemoglobin 12.1 g/dL (12.0-16.0) Hematocrit 37.8 % (37-47) Mean Corpuscular Volume 96.7 fL (80-100) Mean Corpuscular Hemoglobin 30.9 pg (25-34) Mean Corpuscular Hemoglobin Concent 32.0 g/dl (32-36) Platelet Count 272 K/uL (130-400) Mean Platelet Volume 10.4 fL (7.4-10.4) Neutrophils (%) (Auto) 75.4 % Lymphocytes (%) (Auto) 17.4 % Monocytes (%) (Auto) 5.0 % Eosinophils (%) (Auto) 1.2 % Basophils (%) (Auto) 0.6 % Neutrophils # (Auto) 6.33 K/uL (1.4-6.5) Lymphocytes # (Auto) 1.46 K/uL (1.2-3.4) Monocytes # (Auto) 0.42 K/uL (0.11-0.59) Eosinophils # (Auto) 0.10 K/uL (0-0.5) Basophils # (Auto) 0.05 K/uL (0-0.2) RDW Standard Deviation 49.1 fL (36.4-46.3) RDW Coefficient of Variation 14.0 % (11.5-14.5) Immature Granulocyte % (Auto) 0.4 % Immature Granulocyte # (Auto) 0.03 K/uL (0.00-0.02) Urine Color YELLOW Urine Appearance CLOUDY (CLEAR) Urine pH 5.0 (4.5-7.5) Urine Specific [place] 1.017 (1.000-1.030) Urine Protein 1+ (NEG) Urine Glucose (UA) 2+ (NEG) Urine Ketones NEG (NEG) Urine Occult Blood TRACE (NEG) Urine Nitrite POS (NEG) Urine Bilirubin NEG (NEG) Urine Urobilinogen NEG (NEG) Urine Leukocyte Esterase MODERATE (NEG) Urine WBC (Auto) >30 /hpf (0-5) Urine RBC (Auto) 0-4 /hpf (0-4) Urine Hyaline Casts (Auto) 1-5 /lpf (0-5) Urine Epithelial Cells (Auto) >30 /lpf (0-5) Urine Bacteria (Auto) 4+ (NEG) Anion Gap 9.0 mmol/L (3-11) Est Creatinine Clear Calc Drug Dose 51.0 ml/min Estimated GFR () 57.7 Estimated GFR (Non- 49.8 BUN/Creatinine Ratio 20.7 (10-20) Calcium Level 9.7 mg/dl (8.5-10.1) Total Bilirubin 0.3 mg/dl (0.2-1) Direct Bilirubin < 0.1 mg/dl (0-0.2) Aspartate Amino Transf (AST/SGOT) 23 U/L (15-37) Alanine Aminotransferase (ALT/SGPT) 26 U/L (12-78) Alkaline Phosphatase 71 U/L (45-117) Total Protein 8.2 gm/dl (6.4-8.2) Albumin 3.6 gm/dl (3.4-5.0) Lipase 100 U/L (73-393) Labs reviewed by ED physician. Medications Administered Medications (Trade) Dose Ordered Sig/Daija Route Start Time Stop Time Status Last Admin Dose Admin Hydromorphone HCl (Dilaudid Inj) 0.5 mg NOW STAT IV 04/11/17 09:47 04/11/17 09:48 DC 04/11/17 10:08 0.5 MG Ondansetron HCl (Zofran Inj) 4 mg NOW STAT IV 04/11/17 09:47 04/11/17 09:48 DC 04/11/17 10:08 4 MG Ciprofloxacin (Ciprofloxacin Tab) 500 mg NOW STAT PO 04/11/17 09:56 04/11/17 09:57 DC 04/11/17 10:09 500 MG ED Course 0838: Past medical records reviewed. The patient was evaluated in room B7. A complete history and physical examination was performed. 0947: Ordered Zofran Inj 4 mg IV, Dilaudid Inj 0.5 mg IV 0956: Ordered Ciprofloxacin 500 mg PO 1049: Ordered Lidocaine 1 patch TD 1100: Upon reexamination the patient is resting. I discussed results and treatment plan with the patient. She verbalizes agreement and understanding. The patient is ready for discharge. Medical Decision Differential diagnosis: Etiologies such as musculoskeletal, disc herniation, fracture, aortic disease, metastatic disease, cord compression, discitis, infection, renal colic, gastrointestinal, acute exacerbation of chronic back pain, sciatica, cauda equina, as well as others were entertained. Medication Reconcilliation Current Medication List: was personally reviewed by me Blood Pressure Screening Patient's blood pressure: Elevated blood pressure Blood pressure disposition: Referred to PCP Impression Primary Impression: Left flank pain Scribe Attestation The scribe's documentation has been prepared under my direction and personally reviewed by me in its entirety. I confirm that the note above accurately reflects all work, treatment, procedures, and medical decision making performed by me. Departure Information Dispostion Home / Self-Care Prescriptions Docusate Sodium (COLACE) 100 Mg Cap 1 CAP PO BID for 30 Days, #60 CAP Prov: Gustavo Berger MD 04/11/17 Sennosides (SENOKOT) 8.6 Mg Tab 8.6 MG PO HS for 30 Days, #30 TAB Prov: Gustavo Berger MD 04/11/17 Oxycodone Immediate Rel Tab (ROXICODONE IR) 5 Mg Tab 1-2 TAB PO Q4H Y for Severe Pain, #14 TAB Prov: Gustavo Berger MD 04/11/17 Ciprofloxacin Hcl (CIPRO) 500 Mg Tab 1 TAB PO BID for 10 Days, #20 TAB Prov: Gustavo Berger MD 04/11/17 Lidocaine (Lidocaine) 1 Patch Tdsy 1 PATCH TD DAILY for 30 Days, #30 PATCH Prov: Gustavo Berger MD 04/11/17 Referrals Bro Calle M.D. (PCP) Castro Martinez, DO Forms HOME CARE DOCUMENTATION FORM, IMPORTANT VISIT INFORMATION, School Instructions, Work Instructions Patient Instructions ED Flank Pain Uncertain Cause, My [facility] Additional Instructions Follow up with DR Martinez's office You received narcotic or benzodiazepene medication while in the emergency room today. This is an addictive medication that may cause drowziness as well as constipation. Do not drive, operate heavy machinery, or drink alcohol under the influence of this medication. Apply lidoderm patch daily Take 1000 mg Tylenol every 6 hours Take Oxy IR for breakthrough pain You have been examined and treated today on an emergency basis only. This is not a substitute for, or an effort to provide, complete comprehensive medical care. It is impossible to recognize and treat all injuries or illnesses in a single emergency department visit. It is therefore important that you follow up closely with Dr Calle. Call as soon as possible for an appointment. Thank you for your time and consideration. I look forward to speaking with you again soon. Please don't hesitate to call us if you have any questions.
[2017-04-11 09:46] LABS: BASO % 0.6 %; BASO ABS # 0.05 K/uL (0-0.2); EOS % 1.2 %; HEMATOCRIT 37.8 % (37-47); HEMOGLOBIN 12.1 g/dL (12.0-16.0); IG# 0.03 K/uL (0.00-0.02); LYMPH % 17.4 %; LYMPH ABS # 1.46 K/uL (1.2-3.4); MEAN CELL VOLUME 96.7 fL (80-100); MEAN CORPUSCULAR HEMOGLOBIN 30.9 pg (25-34); MEAN PLATELET VOLUME 10.4 fL (7.4-10.4); MONO ABS # 0.42 K/uL (0.11-0.59); NEUT % 75.4 %; NEUT ABS # 6.33 K/uL (1.4-6.5); PLATELET COUNT 272 K/uL (130-400); RED CELL DISTRIBUTION WIDTH SD 49.1 fL (36.4-46.3); WHITE BLOOD COUNT 8.39 K/uL (4.8-10.8)
[2017-04-11] MEDS ORDERED: HYDROmorphone INJ 0.5 MG/0.5 ML SYR IV STA (09:47)
[2017-04-11] MEDS ORDERED: ONDANSETRON INJ 2 MG/ML 2 ML VIAL IV STA (09:47)
[2017-04-11] MEDS ORDERED: CIPROFLOXACIN 250 MG TAB PO STA (09:56)
[2017-04-11 10:01] LABS: ALBUMIN 3.6 gm/dl (3.4-5.0); BLOOD UREA NITROGEN 22 mg/dl (7-18); CALCIUM 9.7 mg/dl (8.5-10.1); CARBON DIOXIDE 25 mmol/L (21-32); CREATININE 1.08 mg/dl (0.60-1.20); GLUCOSE 288 mg/dl (70-99); POTASSIUM 4.3 mmol/L (3.5-5.1); SODIUM 139 mmol/L (136-145)
[2017-04-11 10:02] LABS: ALT/SGPT 26 U/L (12-78); LIPASE 100 U/L (73-393)
--- NOTE | 2017-04-11 10:03 | DIAGNOSTIC IMAGING REPORT ---
CT LUMBAR SPINE WITHOUT CT DOSE: 1655.72 mGy.cm CLINICAL HISTORY: Low back pain with left leg radiculopathy. TECHNIQUE: Helical images were acquired in transverse plane. Reformatted sagittal and coronal images were reviewed. A dose lowering technique was utilized adhering to the principles of ALARA. CONTRAST: No contrast was administered COMPARISON STUDY: Conventional radiographic study the lumbar spine dated 07/14/2009 FINDINGS: L1-2 level: There are advanced degenerative changes. There is a posterior disc osteophyte complex. There is moderate to severe spinal stenosis. There is mild bilateral foraminal narrowing. L2-3 level: There are advanced degenerative changes. There is a posterior disc osteophyte complex. There is severe spinal stenosis. There is discogenic endplate sclerosis. There is mild to moderate bilateral foraminal narrowing. L3-4 level: There is a circumferential disc bulge. There is severe spinal stenosis. There is mild bilateral foraminal narrowing. L4-5 level: There is a grade 1 spondylolisthesis of L4 and L5. There is a circumferential disc bulge present. There is facet joint arthropathy. There is severe spinal stenosis. There is mild right-sided foraminal narrowing. L5-S1 level: There are degenerative changes present. There is a posterior disc osteophyte complex. There is no significant spinal stenosis. There is mild bilateral foraminal narrowing. No acute fractures or traumatic subluxations are visualized. The spinous processes of the L3 and L4 vertebral bodies but and there are secondary degenerative changes with sclerosis. IMPRESSION: 1. No acute fractures or traumatic subluxations identified 2. Advanced multilevel spondylitic changes with multilevel moderate and severe spinal stenosis. Electronically signed by: Kirt Patel M.D. 04/11/2017 10:02 AM Dictated Date/Time: 04/11/2017 9:58 AM
[2017-04-11 10:04] LABS: ALKALINE PHOSPHATASE 71 U/L (45-117); AST/SGOT 23 U/L (15-37); TOTAL PROTEIN 8.2 gm/dl (6.4-8.2)
--- NOTE | 2017-04-11 10:31 | DIAGNOSTIC IMAGING REPORT ---
CT OF THE ABDOMEN AND PELVIS WITHOUT CONTRAST, STONE PROTOCOL CLINICAL HISTORY: Left flank pain. COMPARISON STUDY: CT of the abdomen and pelvis September 09, 2012. TECHNIQUE: Helical axial images of the abdomen and pelvis were obtained without IV or oral contrast according to renal stone protocol. A dose lowering technique was utilized adhering to the principles of ALARA. FINDINGS: The lumbar spine CT will be reported separately. A 5 mm left lower lobe nodule is unchanged and CT of 6 September 09, 2012. This is benign given stability. Groundglass opacities favor atelectasis. No pneumatosis, free air or portal venous gas is present. There is a small hiatal hernia. Left adrenal nodularity is unchanged. This is benign. No renal, ureteral or bladder calculi are present. There is no hydronephrosis or hydroureter. There is moderate renal cortical thinning with scarring. There are gallstones within the gallbladder without evidence for acute cholecystitis. Unenhanced images of the liver, spleen and pancreas are unremarkable. There is no biliary or pancreatic ductal dilatation. There is hyperdense material within the appendix without evidence for acute appendicitis. There is extensive left colon diverticulosis without evidence for acute diverticulitis. There is no abscess. There is no lymphadenopathy. No suspicious skeletal lesions are identified. There is moderate atherosclerotic plaque of the abdominal aorta which is normal in caliber. IMPRESSION: 1. No urinary calculi or hydronephrosis. 2. No acute process within the abdomen or pelvis on unenhanced exam. 3. Cholelithiasis. 4. Colonic diverticulosis without evidence for acute diverticulitis. Electronically signed by: Paul Quiroz M.D. 04/11/2017 10:30 AM Dictated Date/Time: 04/11/2017 10:22 AM
[2017-04-11] MEDS ORDERED: LIDODERM (LIDOCAINE) PATCH 5% TD STA (10:49)
[2017-04-11] MEDS ORDERED: SENN1TAB77 PO (10:52)
[2017-04-11] MEDS ORDERED: LDDP5 TD (10:52)
[2017-04-11] MEDS ORDERED: OXYC1TAB3 PO (10:52)
[2017-04-11] MEDS ORDERED: CIPR-255 PO (10:52)
[2017-04-11] MEDS ORDERED: DOCU-94 PO (10:52)
[2017-04-11 10:57] VITALS: BP 143/59; PULSE 80; O2SAT 95
--- NOTE | 2017-04-13 12:58 | Pharmacy Progress Note ---
ED Pharmacist Culture FollowUp Date of Service: Apr 13, 2017. Patient was sent home with a prescription for cipro 500mg BID X 10 days, which should cover the E. Coli growing from the patient's urine culture.
== END 2017-04-11 11:20 | disposition home or self-care (01) ==
LOC: C.EDB 08:27 → C.EDA 11:20
DX: R10.9 Unspecified abdominal pain (principal); I10 Essential (primary) hypertension; E11.9 Type 2 diabetes mellitus without complications; Z98.61 Coronary angioplasty status; Z79.4 Long term (current) use of insulin; Z79.82 Long term (current) use of aspirin; Z79.899 Other long term (current) drug therapy

== ENCOUNTER 2017-07-12 17:13 | Emergency (ER) | payer OTHER ==
[~2017-07-12] VITALS: Ht 165.1 cm; Wt 104.4 kg
[~2017-07-12 17:13] MED LIST changes: +ACET-749 PO; -BRL90 PO; -COEN100C11 PO; +CZR50 PO; -INSDGI SC; +INSDGI SQ; -INSPMPHMLG SQ; -KLN5X PO; -LPR25 PO; -LSNP/30 PO; -NRV/5 PO; -NTRGSL/4 UT; +NVLG SC; -PRVC20 PO; +TICA1TAB PO
[2017-07-12 17:23] VITALS: TEMP 36.4
[2017-07-12] MEDS ORDERED: INSDGI SC (17:49)
[2017-07-12] MEDS ORDERED: KLN5X PO (17:49)
[2017-07-12] MEDS ORDERED: NRV/5 PO (17:49)
[2017-07-12] MEDS ORDERED: LPR25 PO (17:49)
[2017-07-12] MEDS ORDERED: SODIUM CHLORIDE 0.9% 500ML 500 ML IV STA (18:00)
--- NOTE | 2017-07-12 18:09 | DIAGNOSTIC IMAGING REPORT ---
CHEST ONE VIEW PORTABLE CLINICAL HISTORY: 77 years-old Female presenting with EVALUATE RESPIRATORY DISTRESS.DYSPNEA. TECHNIQUE: Portable upright AP view of the chest was obtained. COMPARISON: 03/07/2017. FINDINGS: Median sternotomy wires and mediastinal surgical clips noted. Atherosclerosis of the aortic arch. Cardiac silhouette moderately enlarged, unchanged. Mild pulmonary vascular prominence and bronchial wall thickening suggested. Overall coarsened lung markings. No other focal opacity. No large effusion or pneumothorax. Degenerative changes of the shoulders and spine. Upper abdomen normal. IMPRESSION: 1. Cardiomegaly with congestive change. No reynaldo pulmonary edema. Electronically signed by: Ramos Montoya M.D. 07/12/2017 6:07 PM Dictated Date/Time: 07/12/2017 6:07 PM
[2017-07-12 19:13] VITALS: Ht 165.1 cm; Wt 104.4 kg
[2017-07-12 19:16] VITALS: O2SAT 94
[2017-07-12 19:17] LABS: BASO % 0.5 %; BASO ABS # 0.03 K/uL (0-0.2); EOS % 2.6 %; EOS ABS # 0.17 K/uL (0-0.5); HEMATOCRIT 38.5 % (37-47); HEMOGLOBIN 12.3 g/dL (12.0-16.0); IG# 0.03 K/uL (0.00-0.02); LYMPH % 20.5 %; LYMPH ABS # 1.34 K/uL (1.2-3.4); MEAN CELL VOLUME 95.5 fL (80-100); MEAN CORPUSCULAR HEMOGLOBIN 30.5 pg (25-34); MEAN CORPUSCULAR HGB CONC 31.9 g/dl (32-36); MEAN PLATELET VOLUME 9.9 fL (7.4-10.4); MONO % 11.3 %; MONO ABS # 0.74 K/uL (0.11-0.59); NEUT % 64.6 %; NEUT ABS # 4.23 K/uL (1.4-6.5); PLATELET COUNT 230 K/uL (130-400); RED CELL DISTRIBUTION WIDTH CV 14.6 % (11.5-14.5); WHITE BLOOD COUNT 6.54 K/uL (4.8-10.8)
[2017-07-12 19:26] LABS: PTT PATIENT 25.4 SECONDS (21.0-31.0)
[2017-07-12] MEDS ORDERED: NTRGSL/4 UT (19:29)
[2017-07-12 19:51] LABS: BLOOD UREA NITROGEN 27 mg/dl (7-18); CREATININE 1.22 mg/dl (0.60-1.20); GLUCOSE 84 mg/dl (70-99)
[2017-07-12 19:52] LABS: ALBUMIN 3.7 gm/dl (3.4-5.0); ALT/SGPT 27 U/L (12-78); AST/SGOT 16 U/L (15-37); CALCIUM 9.5 mg/dl (8.5-10.1); CARBON DIOXIDE 27 mmol/L (21-32); POTASSIUM 4.1 mmol/L (3.5-5.1); SODIUM 141 mmol/L (136-145)
[2017-07-12 19:57] LABS: ALKALINE PHOSPHATASE 85 U/L (45-117); TOTAL PROTEIN 8.3 gm/dl (6.4-8.2)
[2017-07-12 20:09] LABS: INFLUENZA B ANTIGEN Neg for Influ B (NEG)
[2017-07-12] MEDS ORDERED: CLOP1TAB5 PO (20:33)
[2017-07-12] MEDS ORDERED: LEVO1TAB35 PO (20:39)
[2017-07-12] MEDS ORDERED: BENZ100C18 PO (20:44)
[2017-07-12] MEDS ORDERED: LEVOFLOXACIN 750 MG TAB PO ONE (20:45)
[2017-07-12 21:03] VITALS: BP 147/76; PULSE 81; O2SAT 93
--- NOTE | 2017-07-12 22:41 | EMERGENCY ROOM VISIT NOTE ---
History Report prepared by Dejon: Dawood Cheema Under the Supervision of: Dr. Yovani Beal D.O. First contact with patient: 17:30 Chief Complaint: COUGH Stated Complaint: SORE THROAT, CHEST PAIN, BAD COUGH Nursing Triage Summary: Patient ambulatory to triage with the use of a walker, states "I just had an EKG at the doctor's office. Sunday, I got this cough; like I was getting a cold. I doctored for a cold by myself this week. This morning I was coughing even harder. I decided to go to the doctor. When I cough really hard, yes, my chest hurts. I am not having any chest pain right now. I am a diabetic and haven't eaten anything at all today. I feel like my sugar's low. I am always short of breath but that doesn't feel worse." History of Present Illness The patient is a 77 year old female who presents to the Emergency Room with complaints of a persistent dry cough that began on Sunday, 3 days ago. The patient states that she has been trying over the counter medications for her symptoms, but they have not been improving her symptoms. She is also complaining of a runny nose and sneezing. The patient visited with Dr. Gibson earlier today who gave her a cardiac work-up secondary to her heart attack history. The patient had a OK in the past that was found due to her having similar symptoms as today. She has no chest pain at this time except for when she coughs hard, but did not have any on her previous episode either. She did have 2 stents placed. The patient is a diabetic and did not take her NovoLog dosage today. She denies headache, change in vision, fevers, shortness of breath, nausea, vomiting, diarrhea, pain with urination, and melena. Chest pain that she has is when she is coughing. Source of History: patient Onset: 3 days ago Position: chest Quality: other (Dry cough) Timing: other (persistent) Associated Symptoms: + chest pain (ONLY W/ COUGH), No SOB Review of Systems See HPI for pertinent positives & negatives. A total of 10 systems reviewed and were otherwise negative. Past Medical & Surgical Medical Problems: (1) Benign hypertension (2) Diabetes mellitus (3) Heart disease (4) open heart surgery Family History Patient reports no known family medical history. Social History Smoking Status: Never Smoker Alcohol Use: none Marital Status: Housing Status: lives with family Occupation Status: unemployed Current/Historical Medications Scheduled Amlodipine Besylate (Amlodipine Besylate), 5 MG PO QAM Aspirin (Aspirin Ec), 81 MG PO QAM Benzonatate (Tessalon Perles), 1 CAP PO TID Calcium (Calcium), 500 MG PO BID Clopidogrel Bisulfate (Plavix), 75 MG PO DAILY Insulin Aspart (Novolog), 1 DOSE SC TID Insulin Glargine (Lantus), 34 UNITS SC QAM Insulin Glargine (Lantus), 46 UNITS SQ QPM Levofloxacin (Levaquin), 750 MG PO QD@08 Losartan Potassium (Losartan Potassium), 50 MG PO HS Metoprolol Tartrate (Lopressor), 25 MG PO BID Multiple Vitamin (Multivitamin), 1 TAB PO QAM [place]-3 Fatty Acids (Fish Oil), 2,000 MG PO BID Scheduled PRN Acetaminophen/Codeine (Tylenol W/Codeine #3), 1 TAB PO BID PRN for Pain Clonazepam (Clonazepam), 0.5 MG PO BID PRN for Panic Attack Nitroglycerin (Nitrostat), 0.4 MG UT UD PRN for Chest Pain Allergies Coded Allergies: Cephalosporins (Verified Allergy, Severe, ANAPHYLAXIS, 06/05/17) Fluoxetine (Verified Allergy, Severe, muscle/panic attack, 06/05/17) Meloxicam (Verified Allergy, Severe, panic attack, 06/05/17) Sertraline (Verified Allergy, Severe, panic attack, 06/05/17) Citalopram (Verified Allergy, Intermediate, muscle cramping, 06/05/17) Tramadol (Verified Allergy, Mild, headache, 06/05/17) Cefazolin (Verified Allergy, Unknown, UNRESPONSIVE, 06/05/17) Ticagrelor (Verified Adverse Reaction, Severe, LEG PAIN - WHEN TAKES 2 90MG TABLETS, 06/05/17) Ibuprofen (Verified Adverse Reaction, Intermediate, DIZZY, SYNCOPE, NAUSEA , 06/05/17) Lovastatin (Verified Adverse Reaction, Intermediate, leg pain, 06/05/17) Physical Exam Vital Signs Date Time Temp Pulse Resp B/P (MAP) Pulse Ox O2 Delivery O2 Flow Rate FiO2 07/12/17 21:03 81 20 147/76 93 07/12/17 19:19 71 07/12/17 19:16 94 Room Air 07/12/17 19:16 75 20 159/77 92 Room Air 07/12/17 19:15 Room Air 07/12/17 17:28 96 Room Air 07/12/17 17:23 36.4 88 22 203/73 96 Room Air Physical Exam GENERAL: Sitting up in bed, alert, well appearing, dry cough, talking in full sentences, well nourished, no distress, non-toxic EYE EXAM: normal conjunctiva. OROPHARYNX: no exudate, no erythema, lips, buccal mucosa, and tongue normal and mucous membranes are moist NECK: supple, no nuchal rigidity, no adenopathy, non-tender LUNGS: Clear to auscultation. Normal chest wall mechanics HEART: no murmurs, S1 normal and S2 normal ABDOMEN: abdomen soft, non-tender, normo-active bowel sounds, no masses, no rebound or guarding. BACK: Back is symmetrical on inspection and there is no deformity, no midline tenderness, no CVA tenderness. SKIN: no rashes and no bruising UPPER EXTREMITIES: upper extremities are grossly normal. LOWER EXTREMITIES: No pitting edema. Calves are equal bilaterally. NEURO EXAM: Normal sensorium, cranial nerves II-XII grossly intact, normal speech, no gross weakness of arms, no gross weakness of legs. Medical Decision & Procedures ER Provider Diagnostic Interpretation: Radiology results as stated below per my review and the radiologist's interpretation: CHEST ONE VIEW PORTABLE CLINICAL HISTORY: 77 years-old Female presenting with EVALUATE RESPIRATORY DISTRESS.DYSPNEA. TECHNIQUE: Portable upright AP view of the chest was obtained. COMPARISON: 03/07/2017. FINDINGS: Median sternotomy wires and mediastinal surgical clips noted. Atherosclerosis of the aortic arch. Cardiac silhouette moderately enlarged, unchanged. Mild pulmonary vascular prominence and bronchial wall thickening suggested. Overall coarsened lung markings. No other focal opacity. No large effusion or pneumothorax. Degenerative changes of the shoulders and spine. Upper abdomen normal. IMPRESSION: 1. Cardiomegaly with congestive change. No reynaldo pulmonary edema. Electronically signed by: Raoms Montoya M.D. 07/12/2017 6:07 PM Dictated Date/Time: 07/12/2017 6:07 PM Laboratory Results 07/12/17 18:55 Red Blood Count 4.03, Mean Corpuscular Volume 95.5, Mean Corpuscular Hemoglobin 30.5, Mean Corpuscular Hemoglobin Concent 31.9, Mean Platelet Volume 9.9, Neutrophils (%) (Auto) 64.6, Lymphocytes (%) (Auto) 20.5, Monocytes (%) (Auto) 11.3, Eosinophils (%) (Auto) 2.6, Basophils (%) (Auto) 0.5, Neutrophils # (Auto ) 4.23, Lymphocytes # (Auto) 1.34, Monocytes # (Auto) 0.74, Eosinophils # (Auto ) 0.17, Basophils # (Auto) 0.03 07/12/17 18:55 Test 07/12/17 18:55 07/12/17 19:00 07/12/17 19:28 07/12/17 20:15 White Blood Count 6.54 K/uL (4.8-10.8) Red Blood Count 4.03 M/uL (4.2-5.4) Hemoglobin 12.3 g/dL (12.0-16.0) Hematocrit 38.5 % (37-47) Mean Corpuscular Volume 95.5 fL (80-100) Mean Corpuscular Hemoglobin 30.5 pg (25-34) Mean Corpuscular Hemoglobin Concent 31.9 g/dl (32-36) Platelet Count 230 K/uL (130-400) Mean Platelet Volume 9.9 fL (7.4-10.4) Neutrophils (%) (Auto) 64.6 % Lymphocytes (%) (Auto) 20.5 % Monocytes (%) (Auto) 11.3 % Eosinophils (%) (Auto) 2.6 % Basophils (%) (Auto) 0.5 % Neutrophils # (Auto) 4.23 K/uL (1.4-6.5) Lymphocytes # (Auto) 1.34 K/uL (1.2-3.4) Monocytes # (Auto) 0.74 K/uL (0.11-0.59) Eosinophils # (Auto) 0.17 K/uL (0-0.5) Basophils # (Auto) 0.03 K/uL (0-0.2) RDW Standard Deviation 51.0 fL (36.4-46.3) RDW Coefficient of Variation 14.6 % (11.5-14.5) Immature Granulocyte % (Auto) 0.5 % Immature Granulocyte # (Auto) 0.03 K/uL (0.00-0.02) Prothrombin Time 10.7 SECONDS (9.0-12.0) Prothromb Time International Ratio 1.0 (0.9-1.1) Activated Partial Thromboplast Time 25.4 SECONDS (21.0-31.0) Partial Thromboplastin Ratio 1.0 Anion Gap 5.0 mmol/L (3-11) Est Creatinine Clear Calc Drug Dose 46.3 ml/min Estimated GFR () 49.5 Estimated GFR (Non- 42.7 BUN/Creatinine Ratio 22.3 (10-20) Calcium Level 9.5 mg/dl (8.5-10.1) Total Bilirubin 0.3 mg/dl (0.2-1) Aspartate Amino Transf (AST/SGOT) 16 U/L (15-37) Alanine Aminotransferase (ALT/SGPT) 27 U/L (12-78) Alkaline Phosphatase 85 U/L (45-117) Troponin I < 0.015 ng/ml (0-0.045) Total Protein 8.3 gm/dl (6.4-8.2) Albumin 3.7 gm/dl (3.4-5.0) Globulin 4.6 gm/dl (2.5-4.0) Albumin/Globulin Ratio 0.8 (0.9-2) Influenza Type A Antigen Neg for Influ A (NEG) Influenza Type B Antigen Neg for Influ B (NEG) Bedside Glucose 103 mg/dl (70-90) Urine Color YELLOW Urine Appearance CLOUDY (CLEAR) Urine pH 5.0 (4.5-7.5) Urine Specific [place] 1.012 (1.000-1.030) Urine Protein 1+ (NEG) Urine Glucose (UA) NEG (NEG) Urine Ketones NEG (NEG) Urine Occult Blood 1+ (NEG) Urine Nitrite POS (NEG) Urine Bilirubin NEG (NEG) Urine Urobilinogen NEG (NEG) Urine Leukocyte Esterase MODERATE (NEG) Urine WBC (Auto) >30 /hpf (0-5) Urine RBC (Auto) 0-4 /hpf (0-4) Urine Hyaline Casts (Auto) 0 /lpf (0-5) Urine Epithelial Cells (Auto) 0-5 /lpf (0-5) Urine Bacteria (Auto) 2+ (NEG) Laboratory results per my review. Medications Administered Medications (Trade) Dose Ordered Sig/Daija Route Start Time Stop Time Status Last Admin Dose Admin Sodium Chloride 500 ml @ 999 mls/hr Q31M STAT IV 07/12/17 18:00 07/12/17 18:30 DC 07/12/17 19:22 999 MLS/HR Levofloxacin (Levaquin Tab) 750 mg ONE ONCE PO 07/12/17 20:45 07/12/17 20:46 DC 07/12/17 21:02 750 MG ECG Per My Interpretation Indication: chest pain (with cough) Rate (beats per minute): 87 Rhythm: sinus rhythm Findings: other (Normal axis, no PVCs, T-wave flattening in high lateral) Comparison ECG Date: 03/06/17 Change: T-waves have improved. ED Course ED COURSE: Vital signs were reviewed and showed situational hypertension. The patients medical record was reviewed The above diagnostic studies were performed and reviewed. ED treatments and interventions as stated above. 1732: The patient was evaluated in room C11B. A complete history and physical examination was performed. 1800: Ordered Sodium Chloride 500 mL @ 999 mL/hr IV. 1825: I checked on the patient. She is doing well. 2044: Ordered Levofloxacin 750 mg PO. 2057: Upon reevaluation, the patient is resting in bed.I discussed my findings with the patient and she understands and agrees with the treatment plan. Based on the patients age, coexisting illnesses, exam and lab findings the decision to treat as an outpatient was made. The patient remained stable while under my care. The patient appeared well at the time of discharge. Medical Decision Differential diagnoses includes but is not limited to pneumonia, bronchitis, COPD/Asthma exacerbation, pneumothorax, pulmonary embolism, congestive heart failure, acute coronary syndrome. Patient is a 77-year-old female that presents to ER referred in by her PCP for productive cough, runny nose and sneezing which started Sunday. She notes chest pain is only present when she coughs really hard. She is referred in here for cardiac workup as previously the past she had cardiac intervention with symptoms that were consistent with an upper respiratory infection. CBC along with BMP, LFTs, bilirubin and troponin was unremarkable. BSG was low in the 60s. UA was positive for nitrates, leuks, whites and no epithelials. With the bronchitis and UTI I did treat her with Levaquin. Patient was updated at bedside. She had no urinary complaints. influenza was negative. Chest x-ray was unremarkable. EKG was unchanged. Patient was updated at bedside and placed on Levaquin and discharged follow-up with PCP as an outpatient. She was not hypoxic while here. Medication Reconcilliation Current Medication List: was personally reviewed by me Blood Pressure Screening Patient's blood pressure: Elevated blood pressure Blood pressure disposition: Referred to PCP Impression Primary Impression: UTI (urinary tract infection) Additional Impression: Upper respiratory infection Scribe Attestation The scribe's documentation has been prepared under my direction and personally reviewed by me in its entirety. I confirm that the note above accurately reflects all work, treatment, procedures, and medical decision making performed by me. Departure Information Dispostion Home / Self-Care Prescriptions Benzonatate (TESSALON PERLES) 100 Mg Cap 1 CAP PO TID for 10 Days, #30 CAP Prov: Yovani Beal, DO 07/12/17 Levofloxacin (Levaquin) 750 Mg Tab 750 MG PO QD@08, #9 TAB Prov: Yovani Beal, DO 07/12/17 Referrals Bro Calle M.D. (PCP) Forms HOME CARE DOCUMENTATION FORM, IMPORTANT VISIT INFORMATION Patient Instructions My [facility] Additional Instructions Please follow up with your primary care doctor with in the next 24 hours. Any worsening of your symptoms, please return to the ED immediately. This includes any fevers greater than 100.4, worsening pain, chest pain, shortness breath, persistent nausea, vomiting, unable to eat or drink, or any other concerning signs or symptoms from your standpoint. Please take antibiotics as prescribed for your bronchitis and urinary tract infection. Problem Qualifiers Primary Impression: UTI (urinary tract infection) Urinary tract infection type: acute cystitis Hematuria presence: with hematuria Qualified Codes: N30.01 - Acute cystitis with hematuria Additional Impression: Upper respiratory infection URI type: unspecified URI Qualified Codes: J06.9 - Acute upper respiratory infection, unspecified
== END 2017-07-12 21:05 | disposition home or self-care (01) ==
LOC: C.EDB 17:15 → C.EDC 21:05
DX: N30.01 Acute cystitis with hematuria (principal); J06.9 Acute upper respiratory infection, unspecified; I11.9 Hypertensive heart disease without heart failure; E11.9 Type 2 diabetes mellitus without complications; Z79.82 Long term (current) use of aspirin; Z79.4 Long term (current) use of insulin; Z79.02 Long term (current) use of antithrombotics/antiplatelets; Z79.899 Other long term (current) drug therapy; Z88.1 Allergy status to other antibiotic agents; Z88.8 Allergy status to other drugs, medicaments and biological substances

== ENCOUNTER 2018-06-05 17:16 | Inpatient (IN) ==
[2018-06-05 17:56] LABS: Basophils # (auto) 0.07 K/uL (0-0.2); Basophils % (auto) 0.7 %; Eosinophils # (auto) 0.25 K/uL (0-0.5); Eosinophils % (auto) 2.5 %; Immature Granulocytes # (auto) 0.06 K/uL (0.00-0.02); Immature Granulocytes % (auto) 0.6 %; Lymphocytes # (auto) 1.99 K/uL (1.2-3.4); Lymphocytes % (auto) 19.6 %; Mean Corpuscular Hgb Conc 31.7 g/dL (32-36); Mean Corpuscular Volume 98.3 fL (80-100); Mean Platelet Volume 10.3 fL (7.4-10.4); Monocytes # (auto) 0.58 K/uL (0.11-0.59); Monocytes % (auto) 5.7 %; Neutrophils % (auto) 70.9 %; Platelet Count 292 K/uL (130-400); RDW Coefficient of Variation 14.7 % (11.5-14.5); RDW Standard Deviation 52.8 fL (36.4-46.3); Red Blood Count 4.17 M/uL (4.2-5.4); White Blood Count 10.15 K/uL (4.8-10.8)
[2018-06-05 18:09] LABS: Partial Thromboplastin Ratio 0.9; Partial Thromboplastin Time 23.9 Seconds (21.0-31.0); Prothrombin Time 10.7 Seconds (9.0-12.0)
[2018-06-05 18:14] LABS: Albumin Level 3.2 gm/dl (3.4-5.0); BUN Creatinine Ratio 16.1 (10-20); Calcium 8.7 mg/dl (8.5-10.1); Creatinine Clr Calc Pharmacy 41.3 ml/min; Est GFR (African American) 43.5; Est GFR (Non-African American) 37.5; Magnesium 1.8 mg/dl (1.8-2.4); Potassium 4.1 mmol/L (3.5-5.1)
--- NOTE | 2018-06-05 18:17 | XRay Report ---
XR chest 1V portable CLINICAL HISTORY: 78 years-old Female presenting with Dyspnea. TECHNIQUE: Portable upright AP view of the chest was obtained. COMPARISON: 07/12/2017. FINDINGS: Median sternotomy wires and mediastinal surgical clips. Atherosclerosis of aortic arch. Coronary antoine ry stents or coronary artery calcification noted. Cardiac silhouette moderately enlarged. Pulmonary v ascular prominence and bronchial wall thickening. Added density of the lungs without focal opacity. N o large effusion or pneumothorax. Degenerative changes of the thoracic spine. Few external leads over lie the chest to greater evaluation. IMPRESSION: 1. Cardiomegaly with volume overload/congestive change. Developing pulmonary edema not excluded. Electronically signed by: Ramos Montoya M.D. 06/05/2018 6:16 PM
[2018-06-05 18:19] LABS: Albumin Globulin Ratio 0.7 (0.9-2); Bilirubin,Total 0.5 mg/dl (0.2-1); Globulin 4.5 gm/dl (2.5-4.0); Total Protein 7.7 gm/dl (6.4-8.2); Troponin I 0.03 ng/ml (0-0.045)
[2018-06-05 19:12] LABS: Appearance Urine Cloudy (Clear); Bacteria Urine Automated 4+ (Negative); Bilirubin Urine Negative (Negative); Blood Urine Trace (Negative); Color Urine Yellow; Epithelial Cell Urine Auto 0-5 /lpf (0-5); Glucose Urine UA Negative (Negative); Ketones Urine Negative (Negative); Leukocyte Esterase Urine 1+ (Negative); Nitrite Urine Negative (Negative); Protein Urine 2+ (Negative); RBC Urine Automated 0-4 /hpf (0-4); Specific Gravity Urine 1.013 (1.000-1.030); Urobilinogen Urine Negative (Negative); WBC Urine Automated >30 /hpf (0-5); pH Urine 6.5 (4.5-7.5)
[2018-06-05] MEDS ORDERED: NovoLIN-R INSULIN PER UNIT CHARGE SC STA (19:30)
[2018-06-05] MEDS ORDERED: FUROSEMIDE 40 MG/4 ML VIAL IV STA (19:30)
--- NOTE | 2018-06-05 20:59 | History & Physical Report ---
Date of Service June 05, 2018 Assessment & Plan (1) Hypoxia: 78-year-old female who was seen by her PCP earlier today for a checkup on her diabetes and hypertension medications. She was found to be hypoxic in the office and complained of shortness of breath. Patient was hypoxic with ambula tion down into the 70s. EKG in the office also showed new T wave inversions in lateral leads which was new from previous EKG in 2018. She was sent to the ER for further evaluation. She was found to be hypoxic in the 80s on room air. 2 L via nasal cannula was given with good effect. Patient was normotensive and not tachycardic. Her recent history includes being seen by her technical operations specialist earlier in March for her 6-month checkup. At that time due to nocturia her hydrochlorothiazide- containing medication was discontinued and her amlodipine was increased from 5- 10 mg. He also reviewed her last echocardiogram which was in 2017 which showed normal ejection fraction and some hypokinesis in the inferior wall. Patient is status post open heart surgery as well as stents in 2018. Since that visit the patient has noticed leg swelling bilaterally. Denies calf pain or prolonged immobility, does not use hormonal contraceptives. She is also noticed dyspnea on exertion, she becomes winded when she goes from her door to her elevator which is about 100 feet and down to her mailbox. ED course: hypoxic in 80s on room air. Not tachy, normotensive. EKG with possible T wave inversion in V4-5. No ST changes. Trop detectable, not elevated. CXR + pulm edema. Elev resistor coater 1.3. Diffl dx includes CHF pulm edema, DVT/pulmonary embolism, ACS, side effect of medication (CCB) -40 lasix IV given in ED with good output Plan -monitor on telemetry, morning EKGs -O2 as needed -TTE in AM -ddimer is 810, which when age adjusted is not highly remarkable. Well's score 3. LE dopplers pending. Could consider CT for PE or V/Q scan if not improving on diuresis -I/Os -morning CXR -TSH and urine prot/creat pending. -trend Trop -can consider cardiology consult pending results/clinical course (Pt's car diologist is Dr. De Leon). FEN/GI: heart healthy, low sodium, T2DM diet. No fluids indicated at this time. DVT ppx: lovenox q24 CODE STATUS: FULL DISPO: tele (2) SOB (shortness of breath): (3) Dyspnea on exertion: (4) CAD (coronary artery disease): Continue home aspirin 81 mg every morning, continue metoprolol tartrate 25 mg twice daily (5) Hyperlipidemia: Intolerant of statins (6) Insulin dependent diabetes mellitus: Continue home Lantus dose slightly decreased to 30 units twice daily. Insulin sliding scale. (7) Acute kidney injury: Baseline creatinine up to 1.1. Creatinine here 1.3. Patient appears slightly fluid overloaded, CHF may be contributory. -follow BMP. -We will not start fluids at this time given workup of CHF. (8) History of open heart surgery: (9) CHF (congestive heart failure): No known history although echo in the past has shown hypokinesis of inferior wall, preserved ejection fraction. TTE in a.m. (10) BRIAN on CPAP: No acute issues. (11) Benign essential hypertension: Continue home amlodipine 10 mg daily. Lower extremity edema very likely e xplained by increase in amlodipine dose although will rule out DVT as above. History of Present Illness Chief Complaint: Shortness of breath, lower extremity swelling, hypoxia Primary Care Provider: Bro Calle 78-year-old female who was seen by her PCP earlier today for a checkup on her diabetes and hypertension medications. She was found to be hypoxic in the office and complained of shortness of breath. Patient was hypoxic with ambulation down into the 70s. EKG in the office also showed new T wave inversions in lateral leads which was new from previous EKG in 2018. She was sent to the ER for further evaluation. She was found to be hypoxic in the 80s on room air. 2 L via nasal cannula was given with good effect. Patient was normotensive and not tachycardic. Her recent history includes being seen by her technical operations specialist earlier in March for her 6-month checkup. At that time due to nocturia her hydrochlorothiazide- containing medication was discontinued and her amlodipine was increased from 5- 10 mg. He also reviewed her last echocardiogram which was in 2017 which showed normal ejection fraction and some hypokinesis in the inferior wall. Patient is status post open heart surgery as well as stents in 2018. Since that visit the patient has noticed leg swelling bilaterally. Denies calf pain or prolonged immobility, does not use hormonal contraceptives. She is also noticed dyspnea on exertion, she becomes winded when she goes from her door to her elevator which is about 100 feet and down to her mailbox. PMH 1. Insulin-dependent diabetes 2. Coronary artery disease, status post bypass grafting x4 in 2003, status post cardiac cath 02/2017 with total occlusion of the mid RCA and mid LAD with 80-90% FLORENTINO x2. Normal EF with basal and mid inferior wall scar and associated RV dysfunction from 03/14/2017. 3. Hyperlipidemia, intolerant of statins 5. Morbid obesity 6. OA right knee 7. Moderate aortic stenosis 8. Obstructive sleep apnea, tolerating CPAP times 6 months 9. Chronic stable angina PSH 1. As above Social history: , lives alone. Denies T/E/D ED course: hypoxic in 80s on room air. Not tachy, normotensive. EKG with possible T wave inversion in V4-5. No ST changes. Trop detectable, not eleva marisa. CXR + pulm edema. Elev resistor coater 1.3. Allergies Allergy/AdvReac Type Severity Reaction Status Date / Time Cephalosporins Allergy Severe ANAPHYLAXIS Verified 06/05/17 15:42 fluoxetine Allergy Severe muscle/panic Verified 06/05/17 15:42 attack meloxicam Allergy Severe panic Verified 06/05/17 15:42 attack sertraline Allergy Severe panic Verified 06/05/17 15:42 attack citalopram Allergy Intermediate muscle Verified 06/05/17 15:42 cramping tramadol Allergy Mild headache Verified 06/05/17 15:42 cefazolin Allergy Unknown UNRESPONSIV Verified 06/05/17 15:42 E ticagrelor AdvReac Severe LEG PAIN - Verified 06/05/17 15:43 WHEN TAKES 2 90MG TABLETS ibuprofen AdvReac Intermediate DIZZY, Verified 06/05/17 15:42 SYNCOPE, NAUSEA lovastatin AdvReac Intermediate leg pain Verified 06/05/17 15:42 azithromycin [From Zithromax] AdvReac Unknown Panic Verified 06/05/18 20:25 attack Home Medications Home Medications Medication Instructions Recorded Confirmed Type amlodipine 10 mg PO QAM 06/05/18 06/05/18 History aspirin 81 mg PO QAM 06/05/18 06/05/18 History calcium carbonate-vitamin D3 1 tab PO QAM 06/05/18 06/05/18 History [Calcium 600 + D(3)] clonazepam 0.5 mg PO BID PRN 06/05/18 06/05/18 History garlic 1 cap PO QAM 06/05/18 06/05/18 History insulin aspart U-100 [Novolog See Rx Instructions .ROUTE .COMPLEX 06/05/18 06/05/18 History U-100 Insulin aspart] insulin detemir U-100 [Levemir 38 units SUBCUT QAM 06/05/18 06/05/18 History U-100 Insulin] insulin detemir U-100 [Levemir 50 units SUBCUT HS 06/05/18 06/05/18 History U-100 Insulin] metoprolol tartrate 25 mg PO BID 06/05/18 06/05/18 History multivitamin 1 tab PO QAM 06/05/18 06/05/18 History nitroglycerin 0.4 mg SUBLINGUAL DIRECTED PRN 06/05/18 06/05/18 History omega 2-llt-jea-fish oil [Fish Oil] 2,000 mg PO BID 06/05/18 06/05/18 History Past Med/Surg History Medical History Acute bronchitis (Resolved) PNA (pneumonia) (Resolved) UTI (urinary tract infection) (Resolved) Surgical History History of open heart surgery Social History Preferred Language: Libyan Communication Ability: Effective 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 Beliefs That Will Affect Care: None marital status: Current Living Situation: Alone Other Information That Helps Us Care for You: No Feels Safe at Home: Yes Safety Concerns: Feels Safe At This Time Smoking Status: Never smoker Hx Alcohol Use: No Hx Substance Use: No Review of Systems All systems reviewed & are unremarkable except as noted in HPI & below Physical Exam Vital Signs (Past 24 Hours): Last Vital Signs Pulse 92 H 06/05/18 19:16 Resp 28 H 06/05/18 19:16 BP 144/63 H 06/05/18 19:01 Pulse Ox 86 L 06/05/18 19:16 Physical Exam: Vitals noted as above and within normal limits with the exception of tachypnea, hypertension, hypoxia. GENERAL: Awake, alert to person, place, and time, nontoxic-appearing, in no distress. Nephew at the bedside. HENT: Normocephalic, atraumatic. Nasal cannula in place. Mucus membranes appear moist. EYES: Normal conjunctiva. Sclera non-icteric. EOMI. NECK: Supple. Full range of motion. No JVD RESPIRATORY: Mild crackles heard primarily at the bases. Normal work of breathing. CARDIAC: Regular rate, normal rhythm. Systolic ejection murmur auscultated. Extremities warm and well perfused, 2+ radial pulses bilaterally; 2+ posterior tibialis pulses bilaterally. ABDOMEN: Soft, non-distended. LOWER EXTREMITIES: Inspection of calves reveal equal size bilaterally. They are non-tender. Trace nonpitting edema. Slightly erythematous in the left lower extremity towards the ankle discoloration. NEURO: No focal gross focal motor deficits noted. Sensation in tact. CN II-XII grossly in tact. SKIN: Rash not present. No jaundice noted. PSYCH: Appropriate mood and affect. Cooperative. Exam as done by Cathy Flood MD, [employer]. Results & Data Laboratory Results 06/06/18 06/05/18 06/05/18 Range/Units 00:01 18:30 17:35 WBC (4.8-10.8) K/uL RBC (4.2-5.4) M/uL Hgb (12.0-16.0) g/dL Hct (37-47) % MCV (80-100) fL MCH (25-34) pg MCHC (32-36) g/dL RDW Std Deviation (36.4-46.3) fL RDW Coeff of Kamille (11.5-14.5) % Plt Count (130-400) K/uL MPV (7.4-10.4) fL Immature Gran % (Auto) % Neut % (Auto) % Lymph % (Auto) % [place] % (Auto) % Eos % (Auto) % Baso % (Auto) % Immature Gran # (Auto) (0.00-0.02) K/uL Neut # (Auto) (1.4-6.5) K/uL Lymph # (Auto) (1.2-3.4) K/uL [place] # (Auto) (0.11-0.59) K/uL Eos # (Auto) (0-0.5) K/uL Baso # (Auto) (0-0.2) K/uL PT (9.0-12.0) Seconds INR (0.9-1.1) APTT (21.0-31.0) Seconds PTT Ratio D-Dimer (0-500) ug/L FEU Sodium (136-145) mmol/L Potassium (3.5-5.1) mmol/L Chloride (98-107) mmol/L Carbon Dioxide (21-32) mmol/L Anion Gap (3-11) BUN (7-18) mg/dl Creatinine (0.6-1.2) mg/dl Est Cr Clr Drug Dosing ml/min Est GFR ( Amer) Est GFR (Non-Af Amer) BUN/Creatinine Ratio (10-20) Glucose (70-99) mg/dl POC Glucose 220 H (70-99) Calcium (8.5-10.1) mg/dl Magnesium (1.8-2.4) mg/dl Total Bilirubin (0.2-1) mg/dl AST (15-37) U/L ALT (12-78) U/L Alkaline Phosphatase (45-117) U/L Troponin I (0-0.045) ng/ml Total Protein (6.4-8.2) gm/dl Albumin (3.4-5.0) gm/dl Globulin (2.5-4.0) gm/dl Albumin/Globulin Ratio (0.9-2) TSH 2.380 (0.300-4.500) uIu/ml Urine Color Yellow Urine Appearance Cloudy H (Clear) Urine pH 6.5 (4.5-7.5) Ur Specific [place] 1.013 (1.000-1.030) Urine Protein 2+ H (Negative) Urine Glucose (UA) Negative (Negative) Urine Ketones Negative (Negative) Urine Blood Trace H (Negative) Urine Nitrite Negative (Negative) Urine Bilirubin Negative (Negative) Urine Urobilinogen Negative (Negative) Ur Leukocyte Esterase 1+ H (Negative) Urine WBC (Auto) >30 H (0-5) /hpf Urine RBC (Auto) 0-4 (0-4) /hpf U Hyaline Cast (Auto) 1-5 (0-5) /lpf U Epithel Cells (Auto) 0-5 (0-5) /lpf Urine Bacteria (Auto) 4+ H (Negative) 06/05/18 06/05/18 06/05/18 Range/Units 17:35 17:35 17:35 WBC (4.8-10.8) K/uL RBC (4.2-5.4) M/uL Hgb (12.0-16.0) g/dL Hct (37-47) % MCV (80-100) fL MCH (25-34) pg MCHC (32-36) g/dL RDW Std Deviation (36.4-46.3) fL RDW Coeff of Kamille (11.5-14.5) % Plt Count (130-400) K/uL MPV (7.4-10.4) fL Immature Gran % (Auto) % Neut % (Auto) % Lymph % (Auto) % [place] % (Auto) % Eos % (Auto) % Baso % (Auto) % Immature Gran # (Auto) (0.00-0.02) K/uL Neut # (Auto) (1.4-6.5) K/uL Lymph # (Auto) (1.2-3.4) K/uL [place] # (Auto) (0.11-0.59) K/uL Eos # (Auto) (0-0.5) K/uL Baso # (Auto) (0-0.2) K/uL PT 10.7 (9.0-12.0) Seconds INR 1.0 (0.9-1.1) APTT 23.9 (21.0-31.0) Seconds PTT Ratio 0.9 D-Dimer 810 H* (0-500) ug/L FEU Sodium 139 (136-145) mmol/L Potassium 4.1 (3.5-5.1) mmol/L Chloride 103 (98-107) mmol/L Carbon Dioxide 30 (21-32) mmol/L Anion Gap 6.0 (3-11) BUN 22 H (7-18) mg/dl Creatinine 1.35 H (0.6-1.2) mg/dl Est Cr Clr Drug Dosing 41.3 ml/min Est GFR ( Amer) 43.5 Est GFR (Non-Af Amer) 37.5 BUN/Creatinine Ratio 16.1 (10-20) Glucose 245 H (70-99) mg/dl POC Glucose (70-99) Calcium 8.7 (8.5-10.1) mg/dl Magnesium 1.8 (1.8-2.4) mg/dl Total Bilirubin 0.5 (0.2-1) mg/dl AST 36 (15-37) U/L ALT 57 (12-78) U/L Alkaline Phosphatase 85 (45-117) U/L Troponin I 0.030 (0-0.045) ng/ml Total Protein 7.7 (6.4-8.2) gm/dl Albumin 3.2 L (3.4-5.0) gm/dl Globulin 4.5 H (2.5-4.0) gm/dl Albumin/Globulin Ratio 0.7 L (0.9-2) TSH (0.300-4.500) uIu/ml Urine Color Urine Appearance (Clear) Urine pH (4.5-7.5) Ur Specific [place] (1.000-1.030) Urine Protein (Negative) Urine Glucose (UA) (Negative) Urine Ketones (Negative) Urine Blood (Negative) Urine Nitrite (Negative) Urine Bilirubin (Negative) Urine Urobilinogen (Negative) Ur Leukocyte Esterase (Negative) Urine WBC (Auto) (0-5) /hpf Urine RBC (Auto) (0-4) /hpf U Hyaline Cast (Auto) (0-5) /lpf U Epithel Cells (Auto) (0-5) /lpf Urine Bacteria (Auto) (Negative) 06/05/18 Range/Units 17:35 WBC 10.15 (4.8-10.8) K/uL RBC 4.17 L (4.2-5.4) M/uL Hgb 13.0 (12.0-16.0) g/dL Hct 41.0 (37-47) % MCV 98.3 (80-100) fL MCH 31.2 (25-34) pg MCHC 31.7 L (32-36) g/dL RDW Std Deviation 52.8 H (36.4-46.3) fL RDW Coeff of Kamille 14.7 H (11.5-14.5) % Plt Count 292 (130-400) K/uL MPV 10.3 (7.4-10.4) fL Immature Gran % (Auto) 0.6 % Neut % (Auto) 70.9 % Lymph % (Auto) 19.6 % [place] % (Auto) 5.7 % Eos % (Auto) 2.5 % Baso % (Auto) 0.7 % Immature Gran # (Auto) 0.06 H (0.00-0.02) K/uL Neut # (Auto) 7.20 H (1.4-6.5) K/uL Lymph # (Auto) 1.99 (1.2-3.4) K/uL [place] # (Auto) 0.58 (0.11-0.59) K/uL Eos # (Auto) 0.25 (0-0.5) K/uL Baso # (Auto) 0.07 (0-0.2) K/uL PT (9.0-12.0) Seconds INR (0.9-1.1) APTT (21.0-31.0) Seconds PTT Ratio D-Dimer (0-500) ug/L FEU Sodium (136-145) mmol/L Potassium (3.5-5.1) mmol/L Chloride (98-107) mmol/L Carbon Dioxide (21-32) mmol/L Anion Gap (3-11) BUN (7-18) mg/dl Creatinine (0.6-1.2) mg/dl Est Cr Clr Drug Dosing ml/min Est GFR ( Amer) Est GFR (Non-Af Amer) BUN/Creatinine Ratio (10-20) Glucose (70-99) mg/dl POC Glucose (70-99) Calcium (8.5-10.1) mg/dl Magnesium (1.8-2.4) mg/dl Total Bilirubin (0.2-1) mg/dl AST (15-37) U/L ALT (12-78) U/L Alkaline Phosphatase (45-117) U/L Troponin I (0-0.045) ng/ml Total Protein (6.4-8.2) gm/dl Albumin (3.4-5.0) gm/dl Globulin (2.5-4.0) gm/dl Albumin/Globulin Ratio (0.9-2) TSH (0.300-4.500) uIu/ml Urine Color Urine Appearance (Clear) Urine pH (4.5-7.5) Ur Specific [place] (1.000-1.030) Urine Protein (Negative) Urine Glucose (UA) (Negative) Urine Ketones (Negative) Urine Blood (Negative) Urine Nitrite (Negative) Urine Bilirubin (Negative) Urine Urobilinogen (Negative) Ur Leukocyte Esterase (Negative) Urine WBC (Auto) (0-5) /hpf Urine RBC (Auto) (0-4) /hpf U Hyaline Cast (Auto) (0-5) /lpf U Epithel Cells (Auto) (0-5) /lpf Urine Bacteria (Auto) (Negative) Supervising Physician Co-Signing Physician Notes Patient seen and examined, chart reviewed, case discussed with Dr. Flood and I agree with her assessment and plan as docuemented above. (1) CHF (congestive heart failure) Heart failure chronicity: acute on chronic Heart failure type: unspecified Qualified Code(s): I50.9 - Heart failure, unspecified
--- NOTE | 2018-06-05 21:16 | Emergency Department Note ---
Entered by Carolina Bravo acting as a scribe for History of Present Illness General Chief complaint: Shortness of Breath/Dyspnea Source: patient Mode of arrival: ambulatory Limitations: no limitations History of Present Illness Provider complaint: shortness of breath Onset (ago): week(s) 2 Location: chest Pain Consistency: + other (worsening) Quality: + other (shortness of breath) Associated symptoms: + denies other symptoms (back pain); no chest pain and no nausea/vomiting The patient is a 78 year old female who presents to the Emergency Room with complaints of a worsening shortness of breath that began 2 weeks ago. The patient reports that she was being evaluated by her PCP earlier today and was referred to the ER. She denies any back pain, chest pain, or nausea but states that she has been coughing. She notes she has had swollen ankles for the past 2 weeks which she states is around the time they discontinued her water pills. She reports that she has a history of open heart surgery. Home Medications Home Medications Medication Instructions Recorded Confirmed Type Calcium 600 + D(3) 1 tab PO QAM 06/05/18 06/05/18 History Levemir U-100 Insulin 38 units SUBCUT QAM 06/05/18 06/05/18 History Levemir U-100 Insulin 50 units SUBCUT HS 06/05/18 06/05/18 History Novolog U-100 Insulin aspart See Rx Instructions .ROUTE .COMPLEX 06/05/18 06/05/18 History aspirin 81 mg PO QAM 06/05/18 06/05/18 History clonazepam 0.5 mg PO BID PRN 06/05/18 06/05/18 History garlic 1 cap PO QAM 06/05/18 06/05/18 History metoprolol tartrate 25 mg PO BID 06/05/18 06/05/18 History multivitamin 1 tab PO QAM 06/05/18 06/05/18 History nitroglycerin 0.4 mg SUBLINGUAL DIRECTED PRN 06/05/18 06/05/18 History omega 0-lam-exk-fish oil [Fish Oil] 2,000 mg PO BID 06/05/18 06/05/18 History amlodipine 5 mg PO DAILY #30 tab 06/06/18 Rx furosemide [Lasix] 20 mg PO DAILY #30 tab 06/06/18 Rx lisinopril 10 mg PO DAILY #30 tab 06/06/18 Rx Allergies Allergy/AdvReac Type Severity Reaction Status Date / Time Cephalosporins Allergy Severe ANAPHYLAXIS Verified 06/05/17 15:42 fluoxetine Allergy Severe muscle/panic Verified 06/05/17 15:42 attack meloxicam Allergy Severe panic Verified 06/05/17 15:42 attack sertraline Allergy Severe panic Verified 06/05/17 15:42 attack citalopram Allergy Intermediate muscle Verified 06/05/17 15:42 cramping tramadol Allergy Mild headache Verified 06/05/17 15:42 cefazolin Allergy Unknown UNRESPONSIV Verified 06/05/17 15:42 E ticagrelor AdvReac Severe LEG PAIN - Verified 06/05/17 15:43 WHEN TAKES 2 90MG TABLETS ibuprofen AdvReac Intermediate DIZZY, Verified 06/05/17 15:42 SYNCOPE, NAUSEA lovastatin AdvReac Intermediate leg pain Verified 06/05/17 15:42 azithromycin [From Zithromax] AdvReac Unknown Panic Verified 06/05/18 20:25 attack Past Med/Surg History Medical History CHF (congestive heart failure) (Acute) Acute bronchitis (Resolved) PNA (pneumonia) (Resolved) UTI (urinary tract infection) (Resolved) Surgical History History of open heart surgery Social History Preferred Language: [place] Beliefs That Will Affect Care: None marital status: Current Living Situation: Alone Other Information That Helps Us Care for You: No Feels Safe at Home: Yes Safety Concerns: Feels Safe At This Time Smoking Status: Never smoker Hx Alcohol Use: No Hx Substance Use: No Review of Systems See HPI for pertinent positives & negatives. and A total of 10 systems reviewed and were otherwise negative Physical Exam Vital Signs Vital Signs - 24 hr 06/05/18 17:22 06/05/18 17:23 06/05/18 17:26 Sepsis Recent Fever Within 48 Hours No Sepsis Action Taken by Nursing No Action Required Pulse Rate 88 87 89 Pulse Rate [Apical] Pulse Rate [Exercises] Pulse Rate from SpO2 Sensor 88 79 Pulse Rhythm Regular Pulse Strength Normal Respiratory Rate 24 19 18 Respiratory Rate [Exercises] Respiratory Effort / Characteristics Non-Labored Respiratory Depth Normal Respiratory Pattern Regular Blood Pressure 180/106 H 147/64 H 147/64 H Blood Pressure [Right Arm] Blood Pressure Mean 130 91 91 Blood Pressure Mean [Right Arm] Blood Pressure Position Lying Pulse Oximetry 90 91 96 Pulse Oximetry [Exercises] Oxygen Delivery Method Room Air Oxygen Flow Rate 3 06/05/18 17:39 06/05/18 18:32 06/05/18 18:33 Sepsis Recent Fever Within 48 Hours Sepsis Action Taken by Nursing Pulse Rate 80 78 Pulse Rate [Apical] Pulse Rate [Exercises] Pulse Rate from SpO2 Sensor 77 Pulse Rhythm Pulse Strength Respiratory Rate 24 21 Respiratory Rate [Exercises] Respiratory Effort / Characteristics Respiratory Depth Respiratory Pattern Blood Pressure 136/77 Blood Pressure [Right Arm] Blood Pressure Mean 96 Blood Pressure Mean [Right Arm] Blood Pressure Position Pulse Oximetry 88 L 93 Pulse Oximetry [Exercises] Oxygen Delivery Method Room Air Oxygen Flow Rate 06/05/18 18:34 06/05/18 18:44 06/05/18 19:00 Sepsis Recent Fever Within 48 Hours Sepsis Action Taken by Nursing Pulse Rate 75 76 Pulse Rate [Apical] Pulse Rate [Exercises] Pulse Rate from SpO2 Sensor 76 76 Pulse Rhythm Pulse Strength Respiratory Rate 25 H 26 H Respiratory Rate [Exercises] Respiratory Effort / Characteristics Respiratory Depth Respiratory Pattern Blood Pressure Blood Pressure [Right Arm] Blood Pressure Mean Blood Pressure Mean [Right Arm] Blood Pressure Position Pulse Oximetry 93 93 92 Pulse Oximetry [Exercises] Oxygen Delivery Method Nasal Cannula Oxygen Flow Rate 2 06/05/18 19:01 06/05/18 19:02 06/05/18 19:16 Sepsis Recent Fever Within 48 Hours Sepsis Action Taken by Nursing Pulse Rate 74 75 Pulse Rate [Apical] Pulse Rate [Exercises] 92 H Pulse Rate from SpO2 Sensor 71 74 Pulse Rhythm Pulse Strength Respiratory Rate 26 H 20 Respiratory Rate [Exercises] 28 H Respiratory Effort / Characteristics Respiratory Depth Respiratory Pattern Blood Pressure 144/63 H Blood Pressure [Right Arm] Blood Pressure Mean 90 Blood Pressure Mean [Right Arm] Blood Pressure Position Pulse Oximetry 95 93 Pulse Oximetry [Exercises] 86 L Oxygen Delivery Method Nasal Cannula Room Air Oxygen Flow Rate 2 06/05/18 20:01 06/05/18 20:58 06/05/18 21:11 Sepsis Recent Fever Within 48 Hours Sepsis Action Taken by Nursing Pulse Rate 80 Pulse Rate [Apical] 86 Pulse Rate [Exercises] Pulse Rate from SpO2 Sensor 80 Pulse Rhythm Pulse Strength Respiratory Rate 23 19 Respiratory Rate [Exercises] Respiratory Effort / Characteristics Respiratory Depth Respiratory Pattern Blood Pressure 139/64 Blood Pressure [Right Arm] 145/70 H Blood Pressure Mean 89 Blood Pressure Mean [Right Arm] 95 Blood Pressure Position Pulse Oximetry 94 92 Pulse Oximetry [Exercises] Oxygen Delivery Method Nasal Cannula Nasal Cannula Room Air Oxygen Flow Rate 2 Vital signs reviewed. General: Well-appearing, elderly, in no significant distress. Obese. HEENT: No scleral icterus, PERRLA, neck supple. Atraumatic. Cardiovascular: Regular rate and rhythm, no extra sounds. Pulmonary: Crackles at the bases, normal work of breathing. Abdomen: Soft, nontender, nondistended, positive bowel sounds. Musculoskeletal: Atraumatic, 1+ pitting edema to bilateral lower extremities. Neurologic: Patient awake alert and oriented x 3, full strength in all 4 extremities. Cranial nerves 2 through 12 grossly intact. Skin: Warm, dry, no rash Course 1738: Past medical records reviewed. The patient was evaluated in room D1B, and a complete history and physical examination were performed. 2019: I reviewed the patient's case with Edel Voss PA-C - [facility] Hospitalist. She will evaluate the patient for further management. Administered Medications Discontinued Medications Acetaminophen (Tylenol) 650 mg PO Q4H PRN PRN Reason: Pain or Fever Stop: 07/05/18 23:13 Last Admin: 06/06/18 14:10 Dose: 650 mg Documented by: [id number] Amlodipine Besylate (Norvasc) 10 mg PO QAM RIC Stop: 07/06/18 08:59 Last Admin: 06/06/18 09:42 Dose: 10 mg Documented by: [id number] Aspirin (Ecotrin Ectab) 81 mg PO QAM RIC Stop: 07/06/18 08:59 Last Admin: 06/06/18 09:42 Dose: 81 mg Documented by: [id number] Enoxaparin Sodium (Lovenox) 40 mg SQ HS RIC Stop: 07/05/18 23:13 Last Admin: 06/06/18 00:47 Dose: 40 mg Documented by: [id number] Furosemide (Lasix) 40 mg IV NOW STA Stop: 06/05/18 19:31 Last Admin: 06/05/18 19:56 Dose: 40 mg Documented by: [id number] Insulin Aspart (Novolog Flexpen) 0 units SC ACHS RIC Stop: 07/06/18 00:00 Last Admin: 06/06/18 12:07 Dose: 8 units Documented by: [id number] Cosigned by: [id number] Admin: 06/06/18 09:43 Dose: 5 units Documented by: [id number] Cosigned by: [id number] Admin: 06/06/18 00:45 Dose: 6 units Documented by: [id number] Cosigned by: [id number] Insulin Glargine (Lantus Solostar Pen) 30 units SC BID RIC Stop: 07/06/18 00:00 Last Admin: 06/06/18 09:42 Dose: 30 units Documented by: [id number] Cosigned by: [id number] Admin: 06/06/18 00:44 Dose: 30 units Documented by: [id number] Cosigned by: [id number] Insulin Human Regular (Novolin R U-100 Per Unit) 10 units SC NOW STA Stop: 06/05/18 19:31 Last Admin: 06/05/18 19:56 Dose: 10 units Documented by: [id number] Cosigned by: [id number] Metoprolol Tartrate (Lopressor) 25 mg PO BID RIC Stop: 07/05/18 23:13 Last Admin: 06/06/18 09:42 Dose: 25 mg Documented by: [id number] Admin: 06/06/18 00:48 Dose: 25 mg Documented by: [id number] Perflutren Lipid Microsphere (Definity) 2 ml IV ONCE ONE Stop: 06/06/18 11:14 Last Admin: 06/06/18 11:13 Dose: 2 ml Documented by: [id number] Medical Decision Making Differential Diagnosis Differential diagnoses includes but is not limited to pneumonia, bronchitis, COPD/Asthma exacerbation, pneumothorax, pulmonary embolism, congestive heart failure, and acute coronary syndrome. Medical Records Attestation: I reviewed the patient's medical records. Home Medications Current Medication List: was personally reviewed by me Laboratory Data Attestation: I reviewed the patient's lab results. Result diagrams: 06/05/18 17:35 06/05/18 17:35 Lab Results 06/05/18 06/05/18 06/05/18 Range/Units 17:35 17:35 17:35 WBC 10.15 (4.8-10.8) K/uL RBC 4.17 L (4.2-5.4) M/uL Hgb 13.0 (12.0-16.0) g/dL Hct 41.0 (37-47) % MCV 98.3 (80-100) fL MCH 31.2 (25-34) pg MCHC 31.7 L (32-36) g/dL RDW Std Deviation 52.8 H (36.4-46.3) fL RDW Coeff of [place]ille 14.7 H (11.5-14.5) % Plt Count 292 (130-400) K/uL MPV 10.3 (7.4-10.4) fL Immature Gran % (Auto) 0.6 % Neut % (Auto) 70.9 % Lymph % (Auto) 19.6 % [place] % (Auto) 5.7 % Eos % (Auto) 2.5 % Baso % (Auto) 0.7 % Immature Gran # (Auto) 0.06 H (0.00-0.02) K/uL Neut # (Auto) 7.20 H (1.4-6.5) K/uL Lymph # (Auto) 1.99 (1.2-3.4) K/uL [place] # (Auto) 0.58 (0.11-0.59) K/uL Eos # (Auto) 0.25 (0-0.5) K/uL Baso # (Auto) 0.07 (0-0.2) K/uL PT 10.7 (9.0-12.0) Seconds INR 1.0 (0.9-1.1) APTT 23.9 (21.0-31.0) Seconds PTT Ratio 0.9 D-Dimer (0-500) ug/L FEU Sodium 139 (136-145) mmol/L Potassium 4.1 (3.5-5.1) mmol/L Chloride 103 (98-107) mmol/L Carbon Dioxide 30 (21-32) mmol/L Anion Gap 6.0 (3-11) BUN 22 H (7-18) mg/dl Creatinine 1.35 H (0.6-1.2) mg/dl Est Cr Clr Drug Dosing 41.3 ml/min Est GFR ( Amer) 43.5 Est GFR (Non-Af Amer) 37.5 BUN/Creatinine Ratio 16.1 (10-20) Glucose 245 H (70-99) mg/dl POC Glucose (70-99) Calcium 8.7 (8.5-10.1) mg/dl Magnesium 1.8 (1.8-2.4) mg/dl Total Bilirubin 0.5 (0.2-1) mg/dl AST 36 (15-37) U/L ALT 57 (12-78) U/L Alkaline Phosphatase 85 (45-117) U/L Troponin I 0.030 (0-0.045) ng/ml Total Protein 7.7 (6.4-8.2) gm/dl Albumin 3.2 L (3.4-5.0) gm/dl Globulin 4.5 H (2.5-4.0) gm/dl Albumin/Globulin Ratio 0.7 L (0.9-2) TSH (0.300-4.500) uIu/ml Urine Color Urine Appearance (Clear) Urine pH (4.5-7.5) Ur Specific [place] (1.000-1.030) Urine Protein (Negative) Urine Glucose (UA) (Negative) Urine Ketones (Negative) Urine Blood (Negative) Urine Nitrite (Negative) Urine Bilirubin (Negative) Urine Urobilinogen (Negative) Ur Leukocyte Esterase (Negative) Urine WBC (Auto) (0-5) /hpf Urine RBC (Auto) (0-4) /hpf U Hyaline Cast (Auto) (0-5) /lpf U Epithel Cells (Auto) (0-5) /lpf Urine Bacteria (Auto) (Negative) Ur Random Creatinine mg/dl U Random Total Protein (0-11.9) mg/dl Protein/Creatinin Ratio (0-0.2) 06/05/18 06/05/18 06/05/18 Range/Units 17:35 17:35 18:30 WBC (4.8-10.8) K/uL RBC (4.2-5.4) M/uL Hgb (12.0-16.0) g/dL Hct (37-47) % MCV (80-100) fL MCH (25-34) pg MCHC (32-36) g/dL RDW Std Deviation (36.4-46.3) fL RDW Coeff of Kamille (11.5-14.5) % Plt Count (130-400) K/uL MPV (7.4-10.4) fL Immature Gran % (Auto) % Neut % (Auto) % Lymph % (Auto) % [place] % (Auto) % Eos % (Auto) % Baso % (Auto) % Immature Gran # (Auto) (0.00-0.02) K/uL Neut # (Auto) (1.4-6.5) K/uL Lymph # (Auto) (1.2-3.4) K/uL [place] # (Auto) (0.11-0.59) K/uL Eos # (Auto) (0-0.5) K/uL Baso # (Auto) (0-0.2) K/uL PT (9.0-12.0) Seconds INR (0.9-1.1) APTT (21.0-31.0) Seconds PTT Ratio D-Dimer 810 H* (0-500) ug/L FEU Sodium (136-145) mmol/L Potassium (3.5-5.1) mmol/L Chloride (98-107) mmol/L Carbon Dioxide (21-32) mmol/L Anion Gap (3-11) BUN (7-18) mg/dl Creatinine (0.6-1.2) mg/dl Est Cr Clr Drug Dosing ml/min Est GFR ( Amer) Est GFR (Non-Af Amer) BUN/Creatinine Ratio (10-20) Glucose (70-99) mg/dl POC Glucose (70-99) Calcium (8.5-10.1) mg/dl Magnesium (1.8-2.4) mg/dl Total Bilirubin (0.2-1) mg/dl AST (15-37) U/L ALT (12-78) U/L Alkaline Phosphatase (45-117) U/L Troponin I (0-0.045) ng/ml Total Protein (6.4-8.2) gm/dl Albumin (3.4-5.0) gm/dl Globulin (2.5-4.0) gm/dl Albumin/Globulin Ratio (0.9-2) TSH 2.380 (0.300-4.500) uIu/ml Urine Color Yellow Urine Appearance Cloudy H (Clear) Urine pH 6.5 (4.5-7.5) Ur Specific [place] 1.013 (1.000-1.030) Urine Protein 2+ H (Negative) Urine Glucose (UA) Negative (Negative) Urine Ketones Negative (Negative) Urine Blood Trace H (Negative) Urine Nitrite Negative (Negative) Urine Bilirubin Negative (Negative) Urine Urobilinogen Negative (Negative) Ur Leukocyte Esterase 1+ H (Negative) Urine WBC (Auto) >30 H (0-5) /hpf Urine RBC (Auto) 0-4 (0-4) /hpf U Hyaline Cast (Auto) 1-5 (0-5) /lpf U Epithel Cells (Auto) 0-5 (0-5) /lpf Urine Bacteria (Auto) 4+ H (Negative) Ur Random Creatinine mg/dl U Random Total Protein (0-11.9) mg/dl Protein/Creatinin Ratio (0-0.2) 06/05/18 06/06/18 06/06/18 Range/Units Unknown 00:01 05:44 WBC (4.8-10.8) K/uL RBC (4.2-5.4) M/uL Hgb (12.0-16.0) g/dL Hct (37-47) % MCV (80-100) fL MCH (25-34) pg MCHC (32-36) g/dL RDW Std Deviation (36.4-46.3) fL RDW Coeff of Kamille (11.5-14.5) % Plt Count (130-400) K/uL MPV (7.4-10.4) fL Immature Gran % (Auto) % Neut % (Auto) % Lymph % (Auto) % [place] % (Auto) % Eos % (Auto) % Baso % (Auto) % Immature Gran # (Auto) (0.00-0.02) K/uL Neut # (Auto) (1.4-6.5) K/uL Lymph # (Auto) (1.2-3.4) K/uL [place] # (Auto) (0.11-0.59) K/uL Eos # (Auto) (0-0.5) K/uL Baso # (Auto) (0-0.2) K/uL PT (9.0-12.0) Seconds INR (0.9-1.1) APTT (21.0-31.0) Seconds PTT Ratio D-Dimer (0-500) ug/L FEU Sodium (136-145) mmol/L Potassium (3.5-5.1) mmol/L Chloride (98-107) mmol/L Carbon Dioxide (21-32) mmol/L Anion Gap (3-11) BUN (7-18) mg/dl Creatinine (0.6-1.2) mg/dl Est Cr Clr Drug Dosing ml/min Est GFR ( Amer) Est GFR (Non-Af Amer) BUN/Creatinine Ratio (10-20) Glucose (70-99) mg/dl POC Glucose 220 H (70-99) Calcium (8.5-10.1) mg/dl Magnesium (1.8-2.4) mg/dl Total Bilirubin (0.2-1) mg/dl AST (15-37) U/L ALT (12-78) U/L Alkaline Phosphatase (45-117) U/L Troponin I 0.033 (0-0.045) ng/ml Total Protein (6.4-8.2) gm/dl Albumin (3.4-5.0) gm/dl Globulin (2.5-4.0) gm/dl Albumin/Globulin Ratio (0.9-2) TSH (0.300-4.500) uIu/ml Urine Color Urine Appearance (Clear) Urine pH (4.5-7.5) Ur Specific [place] (1.000-1.030) Urine Protein (Negative) Urine Glucose (UA) (Negative) Urine Ketones (Negative) Urine Blood (Negative) Urine Nitrite (Negative) Urine Bilirubin (Negative) Urine Urobilinogen (Negative) Ur Leukocyte Esterase (Negative) Urine WBC (Auto) (0-5) /hpf Urine RBC (Auto) (0-4) /hpf U Hyaline Cast (Auto) (0-5) /lpf U Epithel Cells (Auto) (0-5) /lpf Urine Bacteria (Auto) (Negative) Ur Random Creatinine 15.7 mg/dl U Random Total Protein 25.0 H (0-11.9) mg/dl Protein/Creatinin Ratio 1.6 H (0-0.2) 06/06/18 06/06/18 06/06/18 Range/Units 07:12 09:41 11:19 WBC (4.8-10.8) K/uL RBC (4.2-5.4) M/uL Hgb (12.0-16.0) g/dL Hct (37-47) % MCV (80-100) fL MCH (25-34) pg MCHC (32-36) g/dL RDW Std Deviation (36.4-46.3) fL RDW Coeff of Kamille (11.5-14.5) % Plt Count (130-400) K/uL MPV (7.4-10.4) fL Immature Gran % (Auto) % Neut % (Auto) % Lymph % (Auto) % [place] % (Auto) % Eos % (Auto) % Baso % (Auto) % Immature Gran # (Auto) (0.00-0.02) K/uL Neut # (Auto) (1.4-6.5) K/uL Lymph # (Auto) (1.2-3.4) K/uL [place] # (Auto) (0.11-0.59) K/uL Eos # (Auto) (0-0.5) K/uL Baso # (Auto) (0-0.2) K/uL PT (9.0-12.0) Seconds INR (0.9-1.1) APTT (21.0-31.0) Seconds PTT Ratio D-Dimer (0-500) ug/L FEU Sodium (136-145) mmol/L Potassium (3.5-5.1) mmol/L Chloride (98-107) mmol/L Carbon Dioxide (21-32) mmol/L Anion Gap (3-11) BUN (7-18) mg/dl Creatinine (0.6-1.2) mg/dl Est Cr Clr Drug Dosing ml/min Est GFR ( Amer) Est GFR (Non-Af Amer) BUN/Creatinine Ratio (10-20) Glucose (70-99) mg/dl POC Glucose 168 H 174 H 222 H (70-99) Calcium (8.5-10.1) mg/dl Magnesium (1.8-2.4) mg/dl Total Bilirubin (0.2-1) mg/dl AST (15-37) U/L ALT (12-78) U/L Alkaline Phosphatase (45-117) U/L Troponin I (0-0.045) ng/ml Total Protein (6.4-8.2) gm/dl Albumin (3.4-5.0) gm/dl Globulin (2.5-4.0) gm/dl Albumin/Globulin Ratio (0.9-2) TSH (0.300-4.500) uIu/ml Urine Color Urine Appearance (Clear) Urine pH (4.5-7.5) Ur Specific [place] (1.000-1.030) Urine Protein (Negative) Urine Glucose (UA) (Negative) Urine Ketones (Negative) Urine Blood (Negative) Urine Nitrite (Negative) Urine Bilirubin (Negative) Urine Urobilinogen (Negative) Ur Leukocyte Esterase (Negative) Urine WBC (Auto) (0-5) /hpf Urine RBC (Auto) (0-4) /hpf U Hyaline Cast (Auto) (0-5) /lpf U Epithel Cells (Auto) (0-5) /lpf Urine Bacteria (Auto) (Negative) Ur Random Creatinine mg/dl U Random Total Protein (0-11.9) mg/dl Protein/Creatinin Ratio (0-0.2) 06/06/18 Range/Units 12:11 WBC (4.8-10.8) K/uL RBC (4.2-5.4) M/uL Hgb (12.0-16.0) g/dL Hct (37-47) % MCV (80-100) fL MCH (25-34) pg MCHC (32-36) g/dL RDW Std Deviation (36.4-46.3) fL RDW Coeff of Kamille (11.5-14.5) % Plt Count (130-400) K/uL MPV (7.4-10.4) fL Immature Gran % (Auto) % Neut % (Auto) % Lymph % (Auto) % [place] % (Auto) % Eos % (Auto) % Baso % (Auto) % Immature Gran # (Auto) (0.00-0.02) K/uL Neut # (Auto) (1.4-6.5) K/uL Lymph # (Auto) (1.2-3.4) K/uL [place] # (Auto) (0.11-0.59) K/uL Eos # (Auto) (0-0.5) K/uL Baso # (Auto) (0-0.2) K/uL PT (9.0-12.0) Seconds INR (0.9-1.1) APTT (21.0-31.0) Seconds PTT Ratio D-Dimer (0-500) ug/L FEU Sodium (136-145) mmol/L Potassium (3.5-5.1) mmol/L Chloride (98-107) mmol/L Carbon Dioxide (21-32) mmol/L Anion Gap (3-11) BUN (7-18) mg/dl Creatinine (0.6-1.2) mg/dl Est Cr Clr Drug Dosing ml/min Est GFR ( Amer) Est GFR (Non-Af Amer) BUN/Creatinine Ratio (10-20) Glucose (70-99) mg/dl POC Glucose (70-99) Calcium (8.5-10.1) mg/dl Magnesium (1.8-2.4) mg/dl Total Bilirubin (0.2-1) mg/dl AST (15-37) U/L ALT (12-78) U/L Alkaline Phosphatase (45-117) U/L Troponin I 0.034 (0-0.045) ng/ml Total Protein (6.4-8.2) gm/dl Albumin (3.4-5.0) gm/dl Globulin (2.5-4.0) gm/dl Albumin/Globulin Ratio (0.9-2) TSH (0.300-4.500) uIu/ml Urine Color Urine Appearance (Clear) Urine pH (4.5-7.5) Ur Specific [place] (1.000-1.030) Urine Protein (Negative) Urine Glucose (UA) (Negative) Urine Ketones (Negative) Urine Blood (Negative) Urine Nitrite (Negative) Urine Bilirubin (Negative) Urine Urobilinogen (Negative) Ur Leukocyte Esterase (Negative) Urine WBC (Auto) (0-5) /hpf Urine RBC (Auto) (0-4) /hpf U Hyaline Cast (Auto) (0-5) /lpf U Epithel Cells (Auto) (0-5) /lpf Urine Bacteria (Auto) (Negative) Ur Random Creatinine mg/dl U Random Total Protein (0-11.9) mg/dl Protein/Creatinin Ratio (0-0.2) Imaging Data Radiologist's Impression: Radiology results as stated below per my review and the radiologist's interpretation: XR chest 1V portable CLINICAL HISTORY: 78 years-old Female presenting with Dyspnea. TECHNIQUE: Portable upright AP view of the chest was obtained. COMPARISON: 07/12/2017. FINDINGS: Median sternotomy wires and mediastinal surgical clips. Atherosclerosis of aortic arch. Coronary artery stents or coronary artery calcification noted. Cardiac silhouette moderately enlarged. Pulmonary vascular prominence and bronchial wall thickening. Added density of the lungs without focal opacity. No large effusion or pneumothorax. Degenerative changes of the thoracic spine. Few external leads overlie the chest to greater evaluation. IMPRESSION: 1. Cardiomegaly with volume overload/congestive change. Developing pulmonary edema not excluded. Electronically signed by: Ramos Montoya M.D. 06/05/2018 6:16 PM ECG Data Attestation: I personally reviewed and interpreted this ECG as follows: Indication: SOB/dyspnea Rate (beats per minute): 92 Rhythm: sinus rhythm Findings: + other (T wave flattening in inferior and anterior leads, possible previous infarct in anterior leads) and + PVC Blood Pressure Blood Pressure Findings: Elevated blood pressure Blood Pressure Disposition: further management by hospitalist MDM Narrative This patient was evaluated and appeared to be in no significant distress. IV access was obtained and laboratory work was drawn. The patient was placed on a rn cardiac rehab normal sinus rhythm. Patient is found to have some borderline hypoxia. Patient was taken off of her Lasix approximately 2 weeks ago. I do suspect this is a CHF exacerbation with fluid overload. Patient was given 40 mg of IV Lasix. Patient also received 10 units of subcutaneous regular insulin for hyperglycemia. Chest x-ray was performed and reveals cardiomegaly with volume overload. Patient's respiratory status has remained fairly stable. Case was discussed with the hospitalist service. She will be evaluated for further management. Patient and family are aware of the plan and agree. Impression & Plan CHF (congestive heart failure), Hypoxia Discharge Plan Visit Data *Final* Discharge Date/Time: 06/05/18 22:56 Chief Complaint: Shortness of Breath/Dyspnea ED Provider: Giselle Pineda Discharge Problem: CHF (congestive heart failure), Hypoxia Patient Disposition: Admitted As Inpatient Discharge Instructions Interventions: ED Discharge Assessment Last Done: 06/05/18 22:26 Discharge Problem: CHF (congestive heart failure) Qualifiers: Heart failure type: unspecified Heart failure chronicity: acute on chronic Qualified Code(s): I50.9 - Heart failure, unspecified The scribe's documentation has been prepared under my direction and personally reviewed by me in its entirety. I confirm that the note above accurately reflects all work, treatment, procedures, and medical decision making performed by me.
[2018-06-05 21:29] LABS: D Dimer 810 ug/L FEU (0-500)
--- NOTE | 2018-06-05 22:19 | Ultrasound Report ---
US venous doppler LE CLINICAL HISTORY: 78 years-old Female presenting with leg edema. TECHNIQUE: Real-time grayscale and color and spectral Doppler ultrasound imaging of the veins of the bilateral lower extremities was performed. Compression and augmentation were also utilized. COMPARISON: None. FINDINGS: RIGHT: Common femoral vein: Patent. Greater saphenous vein (superficial): Patent. Deep femoral vein: Patent. Femoral vein: Patent. Popliteal vein: Patent. Calf veins: Limited visualization secondary to subcutaneous edema. LEFT: Common femoral vein: Patent. Greater saphenous vein (superficial): Patent. Deep femoral vein: Patent. Femoral vein: Patent. Popliteal vein: Patent. Calf veins: Limited visualization secondary to subcutaneous edema. Other: None. IMPRESSION: No evidence of deep venous thrombosis. Electronically signed by: Ramos Montoya M.D. 06/05/2018 10:18 PM
[2018-06-05] MEDS ORDERED: ONDANSETRON INJ 2 MG/ML 2 ML VIAL IV PRN (23:14)
[2018-06-05] MEDS ORDERED: ALUMINUM/MAGNESIUM SUSP 30 ML UDC PO PRN (23:14)
[2018-06-05] MEDS ORDERED: GLUCAGON FOR INJ 1 MG VIAL SQ PRN (23:14)
[2018-06-05] MEDS ORDERED: ACETAMINOPHEN 325 MG TAB PO PRN (23:14)
[2018-06-05] MEDS ORDERED: NITROGLYCERIN SL 0.4 MG/TAB TAB SL PRN (23:14)
[2018-06-05] MEDS ORDERED: CARBOHYDRATES FOR HYPOGLYCEMIA PO PRN (23:14)
[2018-06-05] MEDS ORDERED: DEXTROSE 50% 50 ML SYRINGE IV PRN (23:14)
[2018-06-05] MEDS ORDERED: GLUCOSE 10 TABS/TUBE PO PRN (23:14)
[2018-06-05] MEDS ORDERED: MAGNESIUM HYDROXIDE SUSP 30 ML UDC PO PRN (23:14)
[2018-06-05] MEDS ORDERED: GLUCOSE 40% GEL 15 GM TUBE PO PRN (23:14)
[2018-06-05] MEDS ORDERED: ENOXAPARIN INJ 40 MG/0.4 ML SYR SQ SCH (23:14)
[2018-06-05] MEDS ORDERED: clonazePAM 0.5 MG TAB PO PRN (23:14)
[2018-06-05] MEDS ORDERED: POLYETHYLENE (MIRALAX) 17 GM PACK PO PRN (23:14)
[2018-06-06] MEDS: INSULIN GLARGINE SOLOSTAR 100 UNITS/ML 3 ML PEN SC SCH ×2 (00:44→09:42)
[2018-06-06] MEDS: INSULIN ASPART 100 UNITS/ML 3 ML PEN SC SCH ×3 (00:45→12:07)
[2018-06-06] MEDS: METOPROLOL TARTRATE 25 MG TAB PO SCH ×2 (00:48→09:42)
[2018-06-06 01:11] LABS: Creatinine Urine Random 15.7 mg/dl
[2018-06-06 07:03] VITALS: BP 173/82; TEMP 97.5
[2018-06-06] MEDS ORDERED: ASPIRIN 81 MG ECTAB PO SCH (09:00)
[2018-06-06] MEDS ORDERED: AMLODIPINE BESYLATE 5 MG TAB PO SCH (09:00)
[2018-06-06] MEDS ORDERED: PERFLUTREN LIPID MICROSPHERE (DEFINITY) IV ONE (11:13)
[2018-06-06 14:53] VITALS: PULSE 75; O2SAT 90
--- NOTE | 2018-06-06 17:39 | Discharge Summary ---
Date of Service June 06, 2018 Admission HPI Per Admitting Provider 78-year-old female who was seen by her PCP earlier today for a checkup on her diabetes and hypertension medications. She was found to be hypoxic in the office and complained of shortness of breath. Patient was hypoxic with ambulation down into the 70s. EKG in the office also showed new T wave inversions in lateral leads which was new from previous EKG in 2018. She was sent to the ER for further evaluation. She was found to be hypoxic in the 80s on room air. 2 L via nasal cannula was given with good effect. Patient was normotensive and not tachycardic. 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 At that time due to nocturia her hydrochlorothiazide- containing medication was discontinued and her amlodipine was increased from 5- 10 mg. He also reviewed her last echocardiogram which was in 2017 which showed normal ejection fraction and some hypokinesis in the inferior wall. Patient is status post open heart surgery as well as stents in 2018. Since that visit the patient has noticed leg swelling bilaterally. Denies calf pain or prolonged immobility, does not use hormonal contraceptives. She is also noticed dyspnea on exertion, she becomes winded when she goes from her door to her elevator which is about 100 feet and down to her mailbox. PMH 1. Insulin-dependent diabetes 2. Coronary artery disease, status post bypass grafting x4 in 2003, status post cardiac cath 02/2017 with total occlusion of the mid RCA and mid LAD with 80-90% FLORENTINO x2. Normal EF with basal and mid inferior wall scar and associated RV dysfunction from 03/14/2017. 3. Hyperlipidemia, intolerant of statins 5. Morbid obesity 6. OA right knee 7. Moderate aortic stenosis 8. Obstructive sleep apnea, tolerating CPAP times 6 months 9. Chronic stable angina PSH 1. As above Social history: , lives alone. Denies T/E/D ED course: hypoxic in 80s on room air. Not tachy, normotensive. EKG with possible T wave inversion in V4-5. No ST changes. Trop detectable, not elevated. CXR + pulm edema. 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 Principal Diagnosis Acute diastolic heart failure treated with IV lasix. Discharge Exam Constitutional WD/WN, vitals as above Respiratory normal respiratory effort, lungs clear to auscultation Cardiovascular RRR, no murmur, no edema Gastrointestinal (Abdomen) normal bowel sounds, soft, nontender, no hepatosplenomegaly Psychiatric A+Ox3, euthymic affect Discharge Data Allergies Allergy/AdvReac Type Severity Reaction Status Date / Time Cephalosporins Allergy Severe ANAPHYLAXIS Verified 06/05/17 15:42 fluoxetine Allergy Severe muscle/panic Verified 06/05/17 15:42 attack meloxicam Allergy Severe panic Verified 06/05/17 15:42 attack sertraline Allergy Severe panic Verified 06/05/17 15:42 attack citalopram Allergy Intermediate muscle Verified 06/05/17 15:42 cramping tramadol Allergy Mild headache Verified 06/05/17 15:42 cefazolin Allergy Unknown UNRESPONSIV Verified 06/05/17 15:42 E ticagrelor AdvReac Severe LEG PAIN - Verified 06/05/17 15:43 WHEN TAKES 2 90MG TABLETS ibuprofen AdvReac Intermediate DIZZY, Verified 06/05/17 15:42 SYNCOPE, NAUSEA lovastatin AdvReac Intermediate leg pain Verified 06/05/17 15:42 azithromycin [From Zithromax] AdvReac Unknown Panic Verified 06/05/18 20:25 attack Consultations 06/05/18 19:32 ED Decision to Admit Stat 06/05/18 23:14 Consult Case Management - Discharge Planning Routine Ordered Studies 06/05/18 20:59 US venous doppler LE BI Stat Hospital Course (1) Dyspnea on exertion: (2) CHF (congestive heart failure): 78 y/o F c/o shortness of breath and was found to be hypoxic in PCP clinic and sent to hospital for evaluation. She recently had a dose increase of amlodipine and has had increased leg edema. Acute diastolic CHF treated with IV Lasix. - Received IV lasix in ED with good diuresis. [place] much improved the next day. - Echo showed LVH and no WMA. Moderate to severe MR - Troponin negative and no abnormality on monitor. - Amlodipine dose switched back to 5mgs to avoid further fluid overload. - Home on daily 20mgs lasix dose. - will need bmp checked at hospital f/u visit. Hypoxia - ? sec to diastolic dysfunction. - Pulmonary artery pressure elevated on echo but not significant. - Stayed hypoxic at the time of discharge and so home O2 was arranged at 2L LE edema - sec to CHF/amlodipine side effect - venous doppler negative - amlodipine dose decreased - consider TEDS if needed as outpatient. CAD s/p CABG - negative tropoinin - Continued home aspirin 81 mg every morning, continue metoprolol tartrate 25 mg twice daily Acute kidney injury CKD stage III - Baseline creatinine up to 1.1. Noted to be 1.35 on admission. - Recheck creatinine as outpatient Benign essential hypertension: - cut dose of amlodipine to 5mgs daily. - added lisinopril at 10mgs daily. Hyperlipidemia: - Intolerant of statins Insulin dependent diabetes mellitus: - Continued home Lantus dose slightly decreased to 30 units twice daily. BRIAN on CPAP Elevated pulmonary artery pressure - continue cpap use Total Time Total Time Spent Total Time Spent (In Minutes): 35 min Discharge Plan Discharge Items Patient Disposition: Home - Self-Care Reason For Visit: SOB,HYPOXIA Discharge Diagnosis: Acute diastolic CHF exacerbation Discharge Goals: Improve disease control Non-emergency contact: Primary Care Provider Call non-emergency contact if: you have any medication questions and your symptoms worsen Follow-up/Referrals: Bro Calle [Primary Care Provider] - Diet: Carb Consistent or DM2 and Heart Healthy Addtl Provider Instructions: You were in the hospital for fluid overload. You were given diuretic which helped take the excess fluid out. Since Amlodipine is known to give extra fluid in legs - you will go back down to your previous dose of 5mgs daily. Also, you will start to take low dose diuretics daily 20mgs of furosemide daily To control your blood pressure, lisinopril has been added at 10mgs daily. Please follow up with your family physician within a week and get checked with blood test for your kidney function and electrolytes to make sure they are normal. Since your oxygen level was running low with activity, you are going home on Home Oxygen at 2L per minute. Prescriptions: New amlodipine 5 mg tablet 5 mg PO DAILY Qty: 30 RF: 0 furosemide [Lasix] 20 mg tablet 20 mg PO DAILY Qty: 30 RF: 0 lisinopril 10 mg tablet 10 mg PO DAILY Qty: 30 RF: 0 Continued multivitamin Tablet 1 tab PO QAM RF: 0 clonazepam 0.5 mg tablet 0.5 mg PO BID PRN (Reason: Anxiety) RF: 0 aspirin 81 mg Tablet,Delayed Release (Dr/Ec) 81 mg PO QAM RF: 0 garlic 500 mg Capsule 1 cap PO QAM RF: 0 Novolog U-100 Insulin aspart 100 unit/mL solution See Rx Instructions .ROUTE .COMPLEX RF: 0 nitroglycerin 0.4 mg tablet, sublingual 0.4 mg Sublingual DIRECTED PRN (Reason: Chest Pain) RF: 0 metoprolol tartrate 25 mg tablet 25 mg PO BID RF: 0 Calcium 600 + D(3) 600 mg calcium- 200 unit Capsule 1 tab PO QAM RF: 0 Levemir U-100 Insulin 100 unit/mL solution 50 units subcut HS RF: 0 Levemir U-100 Insulin 100 unit/mL solution 38 units subcut QAM RF: 0 omega 8-iwu-ois-fish oil [Fish Oil] 1,000 mg (120 mg-180 mg) Capsule 2,000 mg PO BID RF: 0 Discontinued amlodipine 10 mg tablet 10 mg PO QAM RF: 0 Stand-Alone Forms: [facility] Discharge Orders: Discharge Order (Routine); Ordered 06/06/18 Ordered By: Bebe Jacob Admission Data Admit Date/Time: 06/05/18 22:07 Attending Provider: Bebe Jacob Admit Provider: Cathy Flood Primary Care Provider: Bro Calle Other Providers: Cici Voss Service: Telemetry Other Interventions: Discharge Summary Assessment (RN) Last Done: 06/06/18 14:52 DC Date/Time DO NOT enter until pt leaves facility: 06/06/18 16:10
== END 2018-06-06 16:10 | disposition home or self-care (01) | DRG 291 ==
LOC: ED 17:16 → SUATTDRO 22:07 → 2S 22:07

== ENCOUNTER 2019-03-25 10:43 | Inpatient (IN) ==
--- OUTSIDE RECORDS SUMMARY | 2019-03-25 10:47 | External Medical Summary | Continuity of Care Document ---
:1940 Author Name Brie M.D. Address Unavailable Unavailable , Care Team Providers Name Role Phone Unavailable Unavailable Unavailable Jovi Tuttle Unavailable [email or web address] Unavailable Unavailable Unavailable Unavailable Unavailable Problems Diabetes mellitus (250.00) (E11.9) Encounter for long-term (current) use of medications (V58.69 ) (Z79.899) Vitamin B12 deficiency (266.2) (E53.8) Allergies and Adverse Reactions Ancef SOLR (Allergy) CeleXA TABS (Allergy) Ibuprofen TABS (Allergy) Medications Aspirin 81 MG TABS; TAKE 1 TABLET DAILY. , M.D. Refills: 0 clonazePAM 0.5 MG Oral Tablet; TAKE 1 TABLET TWICE CATHERINE LY as needed for anxiety , M.D. Refills: 0 Fish Oil 1000 MG Oral Capsule; TAKE 2 CAPSULES TWICE DAILY , M.D. Quantity: 60 Refills: 5 HumaLOG 100 UNIT/ML Subcutaneous Solution; inject 80 u nits/day PITA Sanders 10 ML Vial Quantity: 8 Refills: 1 Lantus 100 UNIT/ML Subcutaneous Solution; INJECT 62 UN ITS AT BEDTIME DAILY , M.D. Refills: 0 Lovastatin 20 MG Oral Tablet; TAKE 1 TABLET AT BEDTIME. , M. D. Refills: 0 Metoprolol Tartrate 50 MG Oral Tablet; TAKE 1 TABLET TWICE D ELLIOTY. , M.D. Refills: 0 Multi Vitamin/Minerals TABS; TAKE 1 TABLET DAILY. , M.D. Refills: 0 Nitrostat 0.4 MG Sublingual Tablet Subli ngual; PLACE 1 TABLET UNDER THE TONGUE EVERY 5 MINUTES UP TO 3 DOSES NEEDED FOR CHEST PAIN. , M.D. Refills: 0 Calcium 600+D 600-200 MG-UNIT Oral Tablet; TAKE 1 TABLET TWI CE DAILY. , M.D. Refills: 0 Lisinopril 30 MG Oral Tablet; TAKE 1 TABLET DAILY. , M.D. Start: 12-Sep-2011 Refills: 0 hydroCHLOROthiazide 25 MG Oral Tablet; TAKE 1 TABLET DAILY. Reji Start: 12-Sep-2011 Refills: 0 OneTouch Ultra Blue In Vitro Strip; TEST 4 TIMES DAILY. PITA Reyes Start: 12-Sep-2011 Quantity: 2 100 EA Box Refills: 11 metFORMIN HCl ER 500 MG Oral Tablet Exte nded Release 24 Hour; TAKE 2 TABLET Twice daily PITA Sanders Start: 25-Oct-2011 Quantity: 360 Refills: 3 Procedures Procedures not documented Immunizations Pneumococcal polysaccharide vaccine, 23 valent On: 2009 Influenza On: 13-Jan-2011 Social History - Smoking Status Former smoker Plan of Treatment Planned Observations Planned Goals not documented Results No Known Results Results not documented
--- NOTE | 2019-03-25 11:09 | Emergency Department Note ---
Entered by Ananda Phillips acting as a scribe for Luca Cote DO History of Present Illness General Chief complaint: Chest Pain Stated complaint: chest pain Source: patient History of Present Illness Provider complaint: Chest pain Onset (ago): hour(s) (This morning) Location: chest Severity: similar to prior episodes Pain Consistency: + now resolved Relieved By: + medication Associated symptoms: + cough The patient is a 78 year old female who presents to the Emergency Room with complaints of left sided chest pain that started suddenly this morning and has since resolved. The patient reports that she developed cold like symptoms including rhinorrhea and a cough about 2 days ago. She states that she called her doctor and was getting ready for her appointment this morning when she suddenly developed the chest pain. The patient explains that the pain began in her left shoulder blade and was severe. She relates that she took 2 Nitro which did help relieve the pain down to a 5/10 in severity. Per EMS, the patient wears 2L of oxygen at baseline and was sating from 93-96% while on the 2L. When EMS arrived on scene the patient was in Afib with a rate in the 160s so she was given 324mg ASA, 15mg Cardizem, and about 100cc of fluid. Shortly after she converted back to normal sinus, per EMS. She is a diabetic and her sugar was 220. The patient is no longer experiencing any pain at this time. 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 Home Medications Home Medications Medication Instructions Recorded Confirmed Type Calcium 600 + D(3) 1 tab PO QAM 06/05/18 03/25/19 History Levemir U-100 Insulin 38 units SUBCUT QAM 06/05/18 03/25/19 History Levemir U-100 Insulin 50 units SUBCUT 06/05/18 03/25/19 History Novolog U-100 Insulin aspart See Rx Instructions .ROUTE .COMPLEX 06/05/18 03/25/19 History aspirin 81 mg PO QAM 06/05/18 03/25/19 History clonazepam 0.5 mg PO BID PRN 06/05/18 03/25/19 History garlic 1 cap PO QAM 06/05/18 03/25/19 History metoprolol tartrate 25 mg PO BID 06/05/18 03/25/19 History multivitamin 1 tab PO QAM 06/05/18 03/25/19 History nitroglycerin 0.4 mg SUBLINGUAL DIRECTED PRN 06/05/18 03/25/19 History omega [id number] oil [Fish Oil] 2,000 mg PO BIDM 06/05/18 03/25/19 History amlodipine 5 mg PO QAM 03/25/19 03/25/19 History furosemide [Lasix] 20 mg PO QAM 03/25/19 03/25/19 History lisinopril 10 mg PO QAM 03/25/19 03/25/19 History Allergies Allergy/AdvReac Type Severity Reaction Status Date / Time Cephalosporins Allergy Severe ANAPHYLAXIS Verified 03/25/19 12:19 fluoxetine Allergy Severe muscle/panic Verified 03/25/19 12:19 attack meloxicam Allergy Severe panic Verified 03/25/19 12:19 attack sertraline Allergy Severe panic Verified 03/25/19 12:19 attack citalopram Allergy Intermediate muscle Verified 03/25/19 12:19 cramping tramadol Allergy Mild headache Verified 03/25/19 12:19 cefazolin Allergy Unknown UNRESPONSIV Verified 03/25/19 12:19 E ticagrelor AdvReac Severe LEG PAIN - Verified 03/25/19 12:19 WHEN TAKES 2 90MG TABLETS ibuprofen AdvReac Intermediate DIZZY, Verified 03/25/19 12:19 SYNCOPE, NAUSEA lovastatin AdvReac Intermediate leg pain Verified 03/25/19 12:19 azithromycin [From Zithromax] AdvReac Unknown Panic Verified 03/25/19 12:19 attack Past Med/Surg History Medical History Acute bronchitis (Resolved) CHF (congestive heart failure) (Acute) PNA (pneumonia) (Resolved) UTI (urinary tract infection) (Resolved) Surgical History History of open heart surgery Family History Other Family history non-contributory Social History Preferred Language: Ivorian Communication Ability: Effective Food Manager Required: No Beliefs That Will Affect Care: None marital status: Current Living Situation: Alone Other Information That Helps Us Care for You: No Feels Safe at Home: Yes Safety Concerns: Feels Safe At This Time Smoking Status: Never smoker Do You Dip or Chew Tobacco: No ; Second Hand Exposure: No ; Tobacco Cessation Education Requested by Patient: No Hx Alcohol Use: No Hx Substance Use: No Review of Systems See HPI for pertinent positives & negatives. and A total of 10 systems reviewed and were otherwise negative Physical Exam Vital Signs Vital Signs - 24 hr 03/25/19 10:44 03/25/19 10:47 03/25/19 10:52 Temperature 36.8 C Temperature Source Oral Pulse Rate 84 82 86 Pulse Rate from SpO2 Sensor 82 82 Pulse Rhythm Regular Pulse Strength Normal Respiratory Rate 24 Respiratory Effort / Characteristics Non-Labored Spontaneous Respiratory Depth Normal Blood Pressure 145/86 H 145/86 H Blood Pressure Mean 100 105 Blood Pressure Position Lying Pulse Oximetry 93 95 94 Oxygen Delivery Method Nasal Cannula Oxygen Flow Rate 2 Fraction of Inspired Oxygen Sepsis Recent Fever Within 48 Hours No Sepsis Action Taken by Nursing No Action Required 03/25/19 11:00 03/25/19 11:02 03/25/19 11:03 Temperature Temperature Source Pulse Rate 77 80 79 Pulse Rate from SpO2 Sensor 78 80 78 Pulse Rhythm Pulse Strength Respiratory Rate 20 19 Respiratory Effort / Characteristics Respiratory Depth Blood Pressure 157/77 H Blood Pressure Mean 100 Blood Pressure Position Pulse Oximetry 95 98 96 Oxygen Delivery Method Oxygen Flow Rate Fraction of Inspired Oxygen Sepsis Recent Fever Within 48 Hours Sepsis Action Taken by Nursing 03/25/19 11:04 03/25/19 11:30 03/25/19 11:31 Temperature Temperature Source Pulse Rate 84 83 Pulse Rate from SpO2 Sensor 84 83 Pulse Rhythm Pulse Strength Respiratory Rate 19 22 Respiratory Effort / Characteristics Respiratory Depth Blood Pressure 134/81 Blood Pressure Mean 107 Blood Pressure Position Pulse Oximetry 99 99 Oxygen Delivery Method Nasal Cannula Nasal Cannula Oxygen Flow Rate 2 2 Fraction of Inspired Oxygen 96 Sepsis Recent Fever Within 48 Hours Sepsis Action Taken by Nursing 03/25/19 11:32 03/25/19 12:00 03/25/19 12:01 Temperature Temperature Source Pulse Rate 80 78 75 Pulse Rate from SpO2 Sensor 81 78 75 Pulse Rhythm Pulse Strength Respiratory Rate 21 24 Respiratory Effort / Characteristics Respiratory Depth Blood Pressure 154/61 H Blood Pressure Mean 92 Blood Pressure Position Pulse Oximetry 97 98 98 Oxygen Delivery Method Nasal Cannula Oxygen Flow Rate 2 Fraction of Inspired Oxygen Sepsis Recent Fever Within 48 Hours Sepsis Action Taken by Nursing 03/25/19 12:30 03/25/19 12:31 03/25/19 12:54 Temperature Temperature Source Pulse Rate 75 76 80 Pulse Rate from SpO2 Sensor 75 77 80 Pulse Rhythm Pulse Strength Respiratory Rate 24 20 16 Respiratory Effort / Characteristics Respiratory Depth Blood Pressure 148/62 H 145/73 H Blood Pressure Mean 70 92 Blood Pressure Position Pulse Oximetry 100 98 98 Oxygen Delivery Method Oxygen Flow Rate Fraction of Inspired Oxygen Sepsis Recent Fever Within 48 Hours Sepsis Action Taken by Nursing 03/25/19 13:00 Temperature Temperature Source Pulse Rate 75 Pulse Rate from SpO2 Sensor 76 Pulse Rhythm Pulse Strength Respiratory Rate 17 Respiratory Effort / Characteristics Respiratory Depth Blood Pressure 150/69 H Blood Pressure Mean 108 Blood Pressure Position Pulse Oximetry 98 Oxygen Delivery Method Oxygen Flow Rate Fraction of Inspired Oxygen Sepsis Recent Fever Within 48 Hours Sepsis Action Taken by Nursing GENERAL: Patient is awake alert in no acute distress patient is resting comfortably and showing no signs of anxiety EYES: The conjunctivae are clear. The pupils are round and reactive. EARS, NOSE, MOUTH AND THROAT: The nose is without any evidence of any deformity. Mucous membranes are moist. Tongue is midline. NECK: The neck is nontender and supple. RESPIRATORY: Diminished breath sounds are noted throughout. There are rales at both bases. There is no tachypnea or conversational dyspnea. CARDIOVASCULAR: Regular rate and rhythm was noted to auscultation. A systolic murmur was suggested. GASTROINTESTINAL: The abdomen is soft. Abdomen is nontender. MUSCULOSKELETAL/EXTREMITIES: There is no evidence of gross deformity full range of motion is noted in the hips and shoulders. SKIN: There is no obvious evidence of any rash. Trace pedal edema was noted bilaterally. NEUROLOGIC: Patient is awake alert and oriented x3. Course Course 1043: Past medical records reviewed. The patient was evaluated in room B01, and a complete history and physical examination were performed. 1129: I reevaluated the patient and she is feeling better. 1225: I spoke to Dr. Bipin Griffiths [facility] Hospitalist about the patient's case. She agreed to accept the patient for further evaluation. 1229: Going to start the Heparin at this time. Consultations Consultation #1: I spoke to Dr. Bipin Griffiths [facility] Hospitalist about the patient's case. She agreed to accept the patient for further evaluation. Time: 12:25 Administered Medications Heparin Sodium/Dextrose (Heparin Sodium/Dextrose) 25,000 units in 500 mls @ 28 mls/hr IV .[id number] [facility]; Protocol Stop: 04/24/19 12:29 Last Titration: 03/25/19 14:48 Dose: 1,400 units/hr, 28 mls/hr Documented by: [id number] Cosigned by: [id number] Admin: 03/25/19 12:38 Dose: 1,400 units/hr, 28 mls/hr Documented by: [id number] Cosigned by: [id number] Insulin Aspart (Novolog Flexpen) 0 units SC ACHS [facility] Stop: 04/24/19 16:29 Last Admin: 03/25/19 16:55 Dose: 9 units Documented by: [id number] Cosigned by: [id number] Discontinued Medications Heparin Sodium (Porcine) (Heparin Iv Bolus) Confirm Administered Dose 10,000 units .ROUTE .STK-MED ONE Stop: 03/25/19 12:37 Last Admin: 03/25/19 12:38 Dose: 5,000 units Documented by: [id number] Cosigned by: [id number] Heparin Sodium/Dextrose () 1 ea IV NOW STA; Protocol Stop: 03/25/19 12:27 Last Admin: 03/25/19 12:38 Dose: Not Given Documented by: [id number] Critical Care Time Critical Care Time: Yes Total Critical Care Time: 45 I have personally spent greater than 45 minutes of critical care time in the direct management of this patient. This includes bedside care, interpretation of diagnostic studies, and testing, discussion with consultants, patient, and family members, and other required patient management activities. This 45 minutes is in excess of all separately billable procedures. Medical Decision Making Differential Diagnosis Differential diagnoses includes but is not limited to acute coronary syndrome, myocardial infarction, pericarditis, pulmonary embolus, aortic dissection, pneumonia, pneumothorax, musculoskeletal, shingles, esophageal. Medical Records Attestation: I reviewed the patient's medical records. Home Medications Current Medication List: was personally reviewed by me Laboratory Data Attestation: I reviewed the patient's lab results. Result diagrams: 03/25/19 10:55 03/25/19 10:55 Lab Results 03/25/19 03/25/19 03/25/19 Range/Units 10:55 10:55 10:55 WBC 10.44 (4.8-10.8) K/uL RBC 3.70 L (4.2-5.4) M/uL Hgb 11.8 L (12.0-16.0) g/dL Hct 36.8 L (37-47) % MCV 99.5 (80-100) fL MCH 31.9 (25-34) pg MCHC 32.1 (32-36) g/dL RDW Std Deviation 50.6 H (36.4-46.3) fL RDW Coeff of Kamille 14.1 (11.5-14.5) % Plt Count 224 (130-400) K/uL MPV 10.4 (7.4-10.4) fL Immature Gran % (Auto) 0.3 % Neut % (Auto) 77.4 % Lymph % (Auto) 10.8 % Brantley % (Auto) 9.4 % Eos % (Auto) 1.7 % Baso % (Auto) 0.4 % Immature Gran # (Auto) 0.03 H (0.00-0.02) K/uL Neut # (Auto) 8.08 H (1.4-6.5) K/uL Lymph # (Auto) 1.13 L (1.2-3.4) K/uL Brantley # (Auto) 0.98 H (0.11-0.59) K/uL Eos # (Auto) 0.18 (0-0.5) K/uL Baso # (Auto) 0.04 (0-0.2) K/uL PT 10.8 (9.0-12.0) Seconds INR 1.1 (0.9-1.1) APTT 25.6 (21.0-31.0) Seconds PTT Ratio 0.9 Sodium 138 (136-145) mmol/L Potassium 4.6 (3.5-5.1) mmol/L Chloride 104 (98-107) mmol/L Carbon Dioxide 30 (21-32) mmol/L Anion Gap 5.0 (3-11) BUN 26 H (7-18) mg/dl Creatinine 1.35 H (0.6-1.2) mg/dl Est Cr Clr Drug Dosing 42.2 ml/min Est GFR ( Amer) 43.5 Est GFR (Non-Af Amer) 37.5 BUN/Creatinine Ratio 18.9 (10-20) Glucose 204 H (70-99) mg/dl Calcium 9.4 (8.5-10.1) mg/dl Magnesium 2.2 (1.8-2.4) mg/dl Total Bilirubin 0.5 (0.2-1) mg/dl AST 14 L (15-37) U/L ALT 17 (12-78) U/L Alkaline Phosphatase 71 (45-117) U/L Troponin I 0.249 H* (0-0.045) ng/ml Total Protein 7.9 (6.4-8.2) gm/dl Albumin 3.3 L (3.4-5.0) gm/dl Globulin 4.6 H (2.5-4.0) gm/dl Albumin/Globulin Ratio 0.7 L (0.9-2) TSH 2.230 (0.300-4.500) uIu/ml Influenza Type A (PCR) (Neg) Influenza Type B (PCR) (Neg) 03/25/19 Range/Units 10:55 WBC (4.8-10.8) K/uL RBC (4.2-5.4) M/uL Hgb (12.0-16.0) g/dL Hct (37-47) % MCV (80-100) fL MCH (25-34) pg MCHC (32-36) g/dL RDW Std Deviation (36.4-46.3) fL RDW Coeff of Kamille (11.5-14.5) % Plt Count (130-400) K/uL MPV (7.4-10.4) fL Immature Gran % (Auto) % Neut % (Auto) % Lymph % (Auto) % Brantley % (Auto) % Eos % (Auto) % Baso % (Auto) % Immature Gran # (Auto) (0.00-0.02) K/uL Neut # (Auto) (1.4-6.5) K/uL Lymph # (Auto) (1.2-3.4) K/uL Brantley # (Auto) (0.11-0.59) K/uL Eos # (Auto) (0-0.5) K/uL Baso # (Auto) (0-0.2) K/uL PT (9.0-12.0) Seconds INR (0.9-1.1) APTT (21.0-31.0) Seconds PTT Ratio Sodium (136-145) mmol/L Potassium (3.5-5.1) mmol/L Chloride (98-107) mmol/L Carbon Dioxide (21-32) mmol/L Anion Gap (3-11) BUN (7-18) mg/dl Creatinine (0.6-1.2) mg/dl Est Cr Clr Drug Dosing ml/min Est GFR ( Amer) Est GFR (Non-Af Amer) BUN/Creatinine Ratio (10-20) Glucose (70-99) mg/dl Calcium (8.5-10.1) mg/dl Magnesium (1.8-2.4) mg/dl Total Bilirubin (0.2-1) mg/dl AST (15-37) U/L ALT (12-78) U/L Alkaline Phosphatase (45-117) U/L Troponin I (0-0.045) ng/ml Total Protein (6.4-8.2) gm/dl Albumin (3.4-5.0) gm/dl Globulin (2.5-4.0) gm/dl Albumin/Globulin Ratio (0.9-2) TSH (0.300-4.500) uIu/ml Influenza Type A (PCR) Neg for Influ A (Neg) Influenza Type B (PCR) Neg for Influ B (Neg) Imaging Data Radiologist's Impression: Radiology results as stated below per my review and the radiologist's interpretation: XR chest 1V portable HISTORY: weakness COMPARISON: Chest 06/05/2018. FINDINGS: No pneumothorax. Suspect trace bilateral pleural effusions. The heart remains enlarged. There are poststernotomy changes. There is mild central pulmonary vascular congestion without overt edema. This has slightly improved. Right basilar linear densities favor subsegmental atelectasis. No new focal lung consolidations to suggest pneumonia. IMPRESSION: Cardiomegaly with interval improvement in the pulmonary vascular congestion and trace bilateral pleural effusions. ACT 112: Negative or not required by law. Electronically signed by: Dante Andres M.D. 03/25/2019 11:14 AM ECG Data Attestation: I personally reviewed and interpreted this ECG as follows: Indication: + chest pain Rate (beats per minute): 83 Rhythm: + normal sinus ECG ST segments: + ST depression (Lateral and anterior) and + T-wave inversions (Diffuse) ECG Findings: no PACs and no PVCs Comparison ECG Date: from (06/06/18) Change: no significant change Blood Pressure Blood Pressure Findings: Elevated blood pressure Blood Pressure Disposition: Referred to patients primary care provider MDM Narrative The patient is a 78-year-old female who presented to the emergency department for an evaluation of chest pain. The patient has been having upper respiratory symptoms over the last few days. She did take some cough medicine but today noticed significant chest pain into her left shoulder. She called 911 and was treated prior to arrival. I received a medic command call and the patient. She was having signs of ST segment depression which was diffuse and could be consistent with acute cardiac ischemia. The patient was treated with Cardizem prior to arrival with good improvement of her symptoms. She was sinus rhythm when she arrived at the emergency department and her EKG appears to be consistent with her previous tracing. Her chest pain also resolved. I discussed the patient's laboratory and radiographic studies with her. I also discussed the limitations of the emergency department work-up for chest pain with her. She did have an elevation in her troponin which could be demand ischemia. This could be consistent with the patient's tachycardia prior to arrival. This could be rapid atrial fibrillation versus atrial flutter versus SVT. Given her findings I discussed her case with the on-call [facility] hospitalist group. They have agreed to evaluate the patient in the emergency department for further management and disposition. The patient was reevaluated multiple times. Impression & Plan Chest pain, Elevated troponin, SVT (supraventricular tachycardia), Abnormal EKG Discharge Plan Visit Data *Final* Discharge Date/Time: 03/25/19 14:05 Chief Complaint: Chest Pain Stated Complaint: chest pain ED Provider: Luca Cote Discharge Problem: Chest pain, Elevated troponin, SVT (supraventricular tachycardia), Abnormal EKG Patient Disposition: Admitted As Inpatient Discharge Instructions Interventions: ED Discharge Assessment Last Done: 03/25/19 14:05 Discharge Problem: Chest pain Qualifiers: Chest pain type: unspecified Qualified Code(s): R07.9 - Chest pain, unspecified The scribe's documentation has been prepared under my direction and personally reviewed by me in its entirety. I confirm that the note above accurately reflects all work, treatment, procedures, and medical decision making performed by me.
--- NOTE | 2019-03-25 11:15 | XRay Report ---
XR chest 1V portable HISTORY: weakness COMPARISON: Chest 06/05/2018. FINDINGS: No pneumothorax. Suspect trace bilateral pleural effusions. The heart remains enlarged. The re are poststernotomy changes. There is mild central pulmonary vascular congestion without overt amie a. This has slightly improved. Right basilar linear densities favor subsegmental atelectasis. No new focal lung consolidations to suggest pneumonia. IMPRESSION: Cardiomegaly with interval improvement in the pulmonary vascular congestion and trace bilateral pleur al effusions. ACT 112: Negative or not required by law. Electronically signed by: Dante Andres M.D. 03/25/2019 11:14 AM
[2019-03-25 11:18] LABS: Basophils # (auto) 0.04 K/uL (0-0.2); Basophils % (auto) 0.4 %; Eosinophils # (auto) 0.18 K/uL (0-0.5); Eosinophils % (auto) 1.7 %; Hematocrit (blood only) 36.8 % (37-47); Hemoglobin 11.8 g/dL (12.0-16.0); Immature Granulocytes # (auto) 0.03 K/uL (0.00-0.02); Immature Granulocytes % (auto) 0.3 %; Lymphocytes # (auto) 1.13 K/uL (1.2-3.4); Lymphocytes % (auto) 10.8 %; Mean Corpuscular Hemoglobin 31.9 pg (25-34); Mean Corpuscular Hgb Conc 32.1 g/dL (32-36); Mean Corpuscular Volume 99.5 fL (80-100); Mean Platelet Volume 10.4 fL (7.4-10.4); Monocytes # (auto) 0.98 K/uL (0.11-0.59); Monocytes % (auto) 9.4 %; Neutrophils # (auto) 8.08 K/uL (1.4-6.5); Neutrophils % (auto) 77.4 %; Platelet Count 224 K/uL (130-400); RDW Coefficient of Variation 14.1 % (11.5-14.5); RDW Standard Deviation 50.6 fL (36.4-46.3); White Blood Count 10.44 K/uL (4.8-10.8)
[2019-03-25 11:26] LABS: INR 1.1 (0.9-1.1); Partial Thromboplastin Ratio 0.9; Partial Thromboplastin Time 25.6 Seconds (21.0-31.0); Prothrombin Time 10.8 Seconds (9.0-12.0)
[2019-03-25 11:39] LABS: Albumin Level 3.3 gm/dl (3.4-5.0); BUN Creatinine Ratio 18.9 (10-20); Calcium 9.4 mg/dl (8.5-10.1); Creatinine Clr Calc Pharmacy 42.2 ml/min; Est GFR (African American) 43.5; Est GFR (Non-African American) 37.5; Magnesium 2.2 mg/dl (1.8-2.4); Potassium 4.6 mmol/L (3.5-5.1)
[2019-03-25 11:54] LABS: Albumin Globulin Ratio 0.7 (0.9-2); Bilirubin,Total 0.5 mg/dl (0.2-1); Globulin 4.6 gm/dl (2.5-4.0); Thyroid Stimulating Hormone 2.23 uIu/ml (0.300-4.500); Total Protein 7.9 gm/dl (6.4-8.2); Troponin I 0.249 ng/ml (0-0.045)
[2019-03-25 12:28] LABS: Influenza A virus by PCR Neg for Influ A (Neg); Influenza B virus by PCR Neg for Influ B (Neg)
[2019-03-25] MEDS ORDERED: HEPARIN SOD (PORCINE) 1000 UNIT/ML 10 ML VIAL ONE (12:36)
[2019-03-25] MEDS: HEPARIN SODIUM/DEXTROSE 25,000 UNITS/500 ML BAG IV SCH (12:38)
--- NOTE | 2019-03-25 13:15 | History & Physical Report ---
Date of Service March 25, 2019 Assessment & Plan (1) Non-STEMI (non-ST elevated myocardial infarction): 78-year-old female with known CAD presenting with left-sided chest pain, EKG changes with ST depressions as well as elevated troponin. Patient is hemodynamically stable, presently chest pain-free Admit to PCU Heparin drip for suspected N STEMI Continue aspirin, metoprolol, lisinopril Morphine and nitroglycerin as needed for chest pain N.p.o. after midnight for possible cardiac catheterization in morning Cardiology consultation appreciated Present on Admission?: Yes (2) Benign essential hypertension: Blood pressure stable at present, 134/81 Continue lisinopril 10 mg p.o. daily Continue metoprolol 25 mg p.o. twice daily Continue amlodipine 5 mg p.o. every morning Continue to monitor Present on Admission?: Yes (3) BRIAN on CPAP: Chronic. Stable. CPAP nightly Present on Admission?: Yes (4) Insulin dependent diabetes mellitus: Blood sugar elevated at 204. Patient is on Levemir and reports taking 46 units in the morning and 54 units in the evening as well as a sliding scale. Her last hemoglobin A1c from 03/07/2017 was 7.1 We will slightly decrease dosage and administer Levemir 35 units every morning and 45 units every afternoon with insulin sliding scale Consistent carb diet as tolerated Present on Admission?: Yes (5) Hyperlipidemia: Chronic. Patient is not currently on a statin We will start atorvastatin 40 mg p.o. daily Present on Admission?: Yes (6) CAD (coronary artery disease): Known CAD status post PR. Status post four-vessel CABG performed in 2003, stenting of occluded PDA vein graft in February 2017 presenting with chest pain, EKG changes and elevated troponin as described above. Admit to PCU Trend troponin every 8 hours x3 sets Heparin drip as above for N STEMI EKG with chest pain and tomorrow morning Continue aspirin 81 mg p.o. daily Continue metoprolol 25 mg p.o. twice daily Continue lisinopril 10 mg p.o. every morning Start statin therapy with Lipitor 40 mg p.o. daily. Patient has lovastatin listed as an allergy as it caused leg pain. Given her degree of CAD she should be on a statin Nitroglycerin and morphine as needed for chest pain Present on Admission?: Yes (7) CHF (congestive heart failure): Echocardiogram from 06/06/2018 with borderline concentric LVH, normal LV function, grade 1 diastolic dysfunction. Mild valvular aortic stenosis, severe MR. Appears to be euvolemic at present. Continue metoprolol 25 mg p.o. twice daily Continue Lasix 20 mg p.o. every morning Continue to monitor volume status Present on Admission?: Yes (8) Anemia: Patient with normochromic/normocytic anemia with Hgb = 11.8, HCT = 36.8. This is near her baseline values. No active bleeding suspected Continue to monitor, CBC in a.m. Transfusion for hemoglobin less than 9 inpatient with suspected ischemic heart disease Present on Admission?: Yes (9) CKD (chronic kidney disease): BUN = 26, creatinine = 1.35. Near patient's baseline values Avoid nephrotoxic agents Renal dosing were needed Continue to monitor BUN, creatinine, urine output and electrolytes F/E/NHep-Lock. Electrolytes within normal range, n.p.o. after midnight Prophylaxisheparin drip for suspected NSTEMI as above Codefull per discussion with patient Dispositionadmission to PCU Present on Admission?: Yes History of Present Illness Chief Complaint: Chest pain Primary Care Provider: Bro Calle MD Bozena Vazquez is a 78-year-old female with multiple medical problems to include CAD status post four-vessel CABG in 2004 with subsequent graft stenting in 2017, diabetes/hypertension/hyperlipidemia, CHF presenting with chest pain. Patient has had upper respiratory symptoms for the last 3 days to include dry cough, runny nose and congestion. She had an appointment with her PCP today to evaluate these complaints. She was getting ready this morning around 0900 she developed acute left-sided chest pain which radiated into her shoulder and down her arm. Pain 10 out of 10 in severity, described as pressure, associated with diaphoresis, shortness of breath and nausea. Per EMS report, the patient took 2 nitroglycerin tablets which reduced the pain to 5 out of 10. Upon EMS arrival she was found to be in A. fib with RVR, heart rate of 158 bpm. She was pale and diaphoretic. EKG strip on the scene concerning for STEMI. Patient administered 500 mL of normal saline and 15 mg of Cardizem in the field under direction of Dr. Cote. When the patient arrived to [facility] she was afebrile, heart rate of 75, blood pressure of 173/82 and chest pain-free. During my encounter patient denied chest pain and said that she feels nearly back to normal. ER course: Heparin drip Allergies Allergy/AdvReac Type Severity Reaction Status Date / Time Cephalosporins Allergy Severe ANAPHYLAXIS Verified 03/25/19 12:19 fluoxetine Allergy Severe muscle/panic Verified 03/25/19 12:19 attack meloxicam Allergy Severe panic Verified 03/25/19 12:19 attack sertraline Allergy Severe panic Verified 03/25/19 12:19 attack citalopram Allergy Intermediate muscle Verified 03/25/19 12:19 cramping tramadol Allergy Mild headache Verified 03/25/19 12:19 cefazolin Allergy Unknown UNRESPONSIV Verified 03/25/19 12:19 E ticagrelor AdvReac Severe LEG PAIN - Verified 03/25/19 12:19 WHEN TAKES 2 90MG TABLETS ibuprofen AdvReac Intermediate DIZZY, Verified 03/25/19 12:19 SYNCOPE, NAUSEA lovastatin AdvReac Intermediate leg pain Verified 03/25/19 12:19 azithromycin [From Zithromax] AdvReac Unknown Panic Verified 03/25/19 12:19 attack Home Medications Home Medications Medication Instructions Recorded Confirmed Type Calcium 600 + D(3) 1 tab PO QAM 06/05/18 03/25/19 History Levemir U-100 Insulin 38 units SUBCUT QAM 06/05/18 03/25/19 History Levemir U-100 Insulin 50 units SUBCUT HS 06/05/18 03/25/19 History Novolog U-100 Insulin aspart See Rx Instructions .ROUTE .COMPLEX 06/05/18 03/25/19 History aspirin 81 mg PO QAM 06/05/18 03/25/19 History clonazepam 0.5 mg PO BID PRN 06/05/18 03/25/19 History garlic 1 cap PO QAM 06/05/18 03/25/19 History metoprolol tartrate 25 mg PO BID 06/05/18 03/25/19 History multivitamin 1 tab PO QAM 06/05/18 03/25/19 History nitroglycerin 0.4 mg SUBLINGUAL DIRECTED PRN 06/05/18 03/25/19 History omega [id number]-fish oil [Fish Oil] 2,000 mg PO BIDM 06/05/18 03/25/19 History amlodipine 5 mg PO QAM 03/25/19 03/25/19 History furosemide [Lasix] 20 mg PO QAM 03/25/19 03/25/19 History lisinopril 10 mg PO QAM 03/25/19 03/25/19 History Past Med/Surg History Medical History (Updated 03/25/19 @ 18:36 by Cici Voss DO) Benign essential hypertension (Chronic) CAD (coronary artery disease) (Chronic) Status post four-vessel CABG in 2003 Status post drug-eluting stent x2 to SVGPDA 2017 CHF (congestive heart failure) (Acute) History of atrial fibrillation less than 8 weeks after coronary artery bypass graft Hyperlipidemia (Chronic) BRIAN on CPAP (Chronic) PNA (pneumonia) (Resolved) UTI (urinary tract infection) (Resolved) Surgical History (Updated 03/25/19 @ 18:13 by Cici Voss DO) History of carpal tunnel surgery History of left knee surgery History of open heart surgery History of tonsillectomy Hx of heart artery stent Family History (Updated 03/25/19 @ 18:11 by Cici Voss DO) Other Coronary heart disease Diabetes Social History Preferred Language: Pashto Communication Ability: Effective Home Care Giver Required: No Beliefs That Will Affect Care: None marital status: Current Living Situation: Alone Other Information That Helps Us Care for You: No Feels Safe at Home: Yes Safety Concerns: Feels Safe At This Time Smoking Status: Never smoker Do You Dip or Chew Tobacco: No ; Second Hand Exposure: No ; Tobacco Cessation Education Requested by Patient: No Hx Alcohol Use: No Hx Substance Use: No Review of Systems Review of Systems: All systems reviewed & are unremarkable except as noted in HPI & below Patient reports mild, stable shortness of breath Patient reports dry cough, rhinorrhea Physical Exam Physical Exam: General: patient resting comfortably, NAD, non-toxic in appearance, AA&O x 4, anxious Skin: warm, dry, intact, no rashes or lesions HEENT: NC/AT, PERRL, EOMI, anicteric sclera, conjunctiva without injection, external ear normal to inspection and nontender, nares patent, moist mucus membranes, dentition intact, no oropharyngeal lesions, neck supple, trachea midline, no LAD, no thyromegaly, no JVD Heart: +S1/S2, regular, no m/r/g Lungs: equal air entry bilaterally, no rales/rhonchi/wheezes Abd: +BS, soft, NT/ND, no masses/organomegaly/ascites Ext: warm, 2+ pulses in UE/LE bilaterally, no clubbing/cyanosis or edema Neuro: nonfocal, patient AA&O x 4, speech intact, no facial droop, moving all extremities on command with equal strength 5/5 Results & Data Vital Signs (Past 12 Hours) Vital Signs Temp Pulse Resp BP Pulse Ox 03/25/19 13:00 75 17 150/69 H 98 03/25/19 12:54 80 16 145/73 H 98 03/25/19 12:31 76 20 148/62 H 98 03/25/19 12:30 75 24 100 03/25/19 12:01 75 24 154/61 H 98 03/25/19 12:00 78 21 98 03/25/19 11:32 80 97 03/25/19 11:31 83 22 134/81 99 03/25/19 11:30 84 19 99 03/25/19 11:03 79 19 96 03/25/19 11:02 80 20 157/77 H 98 03/25/19 11:00 77 95 03/25/19 10:52 36.8 C 86 24 145/86 H 94 03/25/19 10:47 82 95 03/25/19 10:44 84 145/86 H 93 Laboratory Results Lab Results 03/25/19 03/25/19 03/25/19 Range/Units 10:55 10:55 10:55 WBC 10.44 (4.8-10.8) K/uL RBC 3.70 L (4.2-5.4) M/uL Hgb 11.8 L (12.0-16.0) g/dL Hct 36.8 L (37-47) % MCV 99.5 (80-100) fL MCH 31.9 (25-34) pg MCHC 32.1 (32-36) g/dL RDW Std Deviation 50.6 H (36.4-46.3) fL RDW Coeff of Kamille 14.1 (11.5-14.5) % Plt Count 224 (130-400) K/uL MPV 10.4 (7.4-10.4) fL Immature Gran % (Auto) 0.3 % Neut % (Auto) 77.4 % Lymph % (Auto) 10.8 % [place] % (Auto) 9.4 % Eos % (Auto) 1.7 % Baso % (Auto) 0.4 % Immature Gran # (Auto) 0.03 H (0.00-0.02) K/uL Neut # (Auto) 8.08 H (1.4-6.5) K/uL Lymph # (Auto) 1.13 L (1.2-3.4) K/uL [place] # (Auto) 0.98 H (0.11-0.59) K/uL Eos # (Auto) 0.18 (0-0.5) K/uL Baso # (Auto) 0.04 (0-0.2) K/uL PT 10.8 (9.0-12.0) Seconds INR 1.1 (0.9-1.1) APTT 25.6 (21.0-31.0) Seconds PTT Ratio 0.9 Sodium 138 (136-145) mmol/L Potassium 4.6 (3.5-5.1) mmol/L Chloride 104 (98-107) mmol/L Carbon Dioxide 30 (21-32) mmol/L Anion Gap 5.0 (3-11) BUN 26 H (7-18) mg/dl Creatinine 1.35 H (0.6-1.2) mg/dl Est Cr Clr Drug Dosing 42.2 ml/min Est GFR ( Amer) 43.5 Est GFR (Non-Af Amer) 37.5 BUN/Creatinine Ratio 18.9 (10-20) Glucose 204 H (70-99) mg/dl POC Glucose (70-99) Calcium 9.4 (8.5-10.1) mg/dl Magnesium 2.2 (1.8-2.4) mg/dl Total Bilirubin 0.5 (0.2-1) mg/dl AST 14 L (15-37) U/L ALT 17 (12-78) U/L Alkaline Phosphatase 71 (45-117) U/L Troponin I 0.249 H* (0-0.045) ng/ml Total Protein 7.9 (6.4-8.2) gm/dl Albumin 3.3 L (3.4-5.0) gm/dl Globulin 4.6 H (2.5-4.0) gm/dl Albumin/Globulin Ratio 0.7 L (0.9-2) TSH 2.230 (0.300-4.500) uIu/ml Influenza Type A (PCR) (Neg) Influenza Type B (PCR) (Neg) 03/25/19 03/25/19 03/25/19 Range/Units 10:55 15:23 16:34 WBC (4.8-10.8) K/uL RBC (4.2-5.4) M/uL Hgb (12.0-16.0) g/dL Hct (37-47) % MCV (80-100) fL MCH (25-34) pg MCHC (32-36) g/dL RDW Std Deviation (36.4-46.3) fL RDW Coeff of Kamille (11.5-14.5) % Plt Count (130-400) K/uL MPV (7.4-10.4) fL Immature Gran % (Auto) % Neut % (Auto) % Lymph % (Auto) % [place] % (Auto) % Eos % (Auto) % Baso % (Auto) % Immature Gran # (Auto) (0.00-0.02) K/uL Neut # (Auto) (1.4-6.5) K/uL Lymph # (Auto) (1.2-3.4) K/uL [place] # (Auto) (0.11-0.59) K/uL Eos # (Auto) (0-0.5) K/uL Baso # (Auto) (0-0.2) K/uL PT (9.0-12.0) Seconds INR (0.9-1.1) APTT (21.0-31.0) Seconds PTT Ratio Sodium (136-145) mmol/L Potassium (3.5-5.1) mmol/L Chloride (98-107) mmol/L Carbon Dioxide (21-32) mmol/L Anion Gap (3-11) BUN (7-18) mg/dl Creatinine (0.6-1.2) mg/dl Est Cr Clr Drug Dosing ml/min Est GFR ( Amer) Est GFR (Non-Af Amer) BUN/Creatinine Ratio (10-20) Glucose (70-99) mg/dl POC Glucose 285 H (70-99) Calcium (8.5-10.1) mg/dl Magnesium (1.8-2.4) mg/dl Total Bilirubin (0.2-1) mg/dl AST (15-37) U/L ALT (12-78) U/L Alkaline Phosphatase (45-117) U/L Troponin I 4.370 H* (0-0.045) ng/ml Total Protein (6.4-8.2) gm/dl Albumin (3.4-5.0) gm/dl Globulin (2.5-4.0) gm/dl Albumin/Globulin Ratio (0.9-2) TSH (0.300-4.500) uIu/ml Influenza Type A (PCR) Neg for Influ A (Neg) Influenza Type B (PCR) Neg for Influ B (Neg) Diagnostic Findings XR chest 1V portable HISTORY: weakness COMPARISON: Chest 06/05/2018. FINDINGS: No pneumothorax. Suspect trace bilateral pleural effusions. The heart remains enlarged. There are poststernotomy changes. There is mild central pulmonary vascular congestion without overt edema. This has slightly improved. Right basilar linear densities favor subsegmental atelectasis. No new focal lung consolidations to suggest pneumonia. IMPRESSION: Cardiomegaly with interval improvement in the pulmonary vascular congestion and trace bilateral pleural effusions. ACT 112: Negative or not required by law. Electronically signed by: Dante Andres M.D. 03/25/2019 11:14 AM Dictated: 03/25/19 1113 Transcribed: 03/25/19 1113 ECG Additional Comments: The study shows normal sinus rhythm at 83 bpm, normal axis, IN = 164, QRS = 82, QTc = 368, diffuse ST depressions most notable in anterior lateral leads Code Status & VTE Plan Code Status Full code VTE Prophylaxis Plan VTE Prophylaxis will be ordered: Yes PG Care Time/CCT Total # of Minutes Spent Total Time Spent with Patient: Total time spent is greater than 50% in coordination of care (as documented) at patient's floor/unit and/or counseling patient: (1) Hyperlipidemia Hyperlipidemia type: unspecified Qualified Code(s): E78.5 - Hyperlipidemia, unspecified (2) CAD (coronary artery disease) Coronary Disease-Associated Artery/Lesion type: bypass graft [place] vs. transplanted heart: [place] heart Associated angina: without angina Qualified Code(s): I25.810 - Atherosclerosis of coronary artery bypass graft(s) without angina pectoris (3) CHF (congestive heart failure) Heart failure chronicity: acute on chronic Heart failure type: unspecified Qualified Code(s): I50.9 - Heart failure, unspecified (4) Anemia Anemia type: unspecified type Qualified Code(s): D64.9 - Anemia, unspecified (5) CKD (chronic kidney disease) Chronic kidney disease stage: stage 2 (mild) Qualified Code(s): N18.2 - Chronic kidney disease, stage 2 (mild)
[2019-03-25] MEDS ORDERED: CARBOHYDRATES FOR HYPOGLYCEMIA PO PRN (14:43)
[2019-03-25] MEDS ORDERED: GLUCOSE 40% GEL 15 GM TUBE PO PRN (14:43)
[2019-03-25] MEDS ORDERED: ONDANSETRON INJ 2 MG/ML 2 ML VIAL IV PRN (14:43)
[2019-03-25] MEDS ORDERED: MoRPHine SULFATE 2 MG/ML CARP IV PRN (14:43)
[2019-03-25] MEDS ORDERED: DEXTROSE 50% 50 ML SYRINGE IV PRN (14:43)
[2019-03-25] MEDS ORDERED: GLUCOSE 10 TABS/TUBE PO PRN (14:43)
[2019-03-25] MEDS ORDERED: GLUCAGON FOR INJ 1 MG VIAL SQ PRN (14:43)
[2019-03-25] MEDS ORDERED: NITROGLYCERIN SL 0.4 MG/TAB TAB SL PRN (14:43)
[2019-03-25] MEDS ORDERED: clonazePAM 0.5 MG TAB PO PRN (14:43)
[2019-03-25] MEDS: INSULIN ASPART 100 UNITS/ML 3 ML PEN SC SCH ×2 (16:55→21:19)
--- NOTE | 2019-03-25 18:46 | Cardiology Consultation ---
Date of Consultation March 25, 2019 Assessment & Plan (1) Non-STEMI (non-ST elevated myocardial infarction): She has elevated cardiac biomarkers undoubtedly related to her rapid ventricular rates in the setting of known coronary disease. 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 Her symptoms began with tachycardia and resolved with resolution of the tachycardia. He has not had any symptoms since that time. She is known to have occlusion of 1 vein graft in likely has areas of ischemia at baseline. Undoubtedly her symptoms were related to ischemia in the setting of fixed coronary disease. Whether she has had progression of her coronary disease or reocclusion of this vein graft is unclear. Will continue to trend her biomarkers. I would agree with heparin infusion currently. Will monitor her for recurrent symptoms and consider additional diagnostic testing possibly to include repeat coronary angiography. (2) CAD (coronary artery disease): No symptoms normally. She has been on an outpatient regimen to consist of aspirin, lisinopril and metoprolol. Presumably no statin therapy due to intolerance. (3) SVT (supraventricular tachycardia): Her rhythm at presentation was not atrial fibrillation. Review of the recordings available did not demonstrate any atrial fibrillation. Her rhythm seems most consistent with an ectopic atrial tachycardia or possibly a slow atrial flutter. Much less likely would be an atypical AVNRT. It is unclear what may have precipitated this arrhythmia. She has been taking cold medicine but it is unclear whether this contains a decongestant. In the immediate term I think we can increase her beta-blockade. There is no indication for anticoagulation. Whether she will require more aggressive therapy I think depends on her coronary evaluation. One option would be antiarrhythmic therapy with amiodarone. On this is less attractive overall, she did have some significant symptoms and elevated biomarkers. Alternatively, she could undergo electrophysiologic testing and possible ablation of what may be a reentrant arrhythmia. The rhythm does appear somewhat atypical which would make this success of any catheter based therapy lower. Lastly, if she undergoes a coronary evaluation in his discovered to have severe recurrent occlusive disease, treating her occlusive disease may render recurrent episodes of tachycardia less concerning. History of Present Illness Reason for Consultation: NSTEMI, tachycardia Requesting Physician: Bipin Attending Physician: Cici Voss, DO History of Present Illness The patient is a 78-year-old woman with an extensive history of coronary disease to include remote four-vessel bypass and more recent percutaneous intervention involving the vein graft to right coronary artery. She is also known to have an element of aortic stenosis and her chart suggests a history of SVT. The patient has been suffering from an upper respiratory infection for approximately 3 days. This was manifest primarily by nasal congestion and a nonproductive cough. As the patient was preparing to see her physician for this malady earlier this morning she noticed the acute onset of a tachycardia, left shoulder and chest discomfort. He states that the symptoms were similar to what she experienced in 2017 prior to percutaneous intervention involving her vein graft. She did not report overt dizziness. She did have some sense of dyspnea. Due to this severe persistent nature of her symptoms she contacted EMS who arrived and discovered a tachycardia. The patient was administered metoprolol and diltiazem with eventual resolution of both her tachycardia and pain symptoms. This occurred prior to arrival at our facility. At the time of arrival the patient claims to be feeling well with no symptoms. She is a very sedentary individual who is limited by orthopedic disease and deconditioning. She ambulates with both a walker and a cane. She generally performed housework around her apartment without symptoms of chest discomfort or limiting dyspnea. She takes her time and does use supplemental oxygen all the time. She did not report symptoms of orthopnea or paroxysmal nocturnal dyspnea recently. She claims to have been sleeping well. She denies any history of palpitations. She cannot recall any history of rapid heartbeat, tachycardia or atrial fibrillation. She has not had any other episodes of chest discomfort recently. Currently she is feeling well. She is anxious for discharge. No current symptoms of chest discomfort or breathing difficulty. Allergies Allergy/AdvReac Type Severity Reaction Status Date / Time Cephalosporins Allergy Severe ANAPHYLAXIS Verified 03/25/19 12:19 fluoxetine Allergy Severe muscle/panic Verified 03/25/19 12:19 attack meloxicam Allergy Severe panic Verified 03/25/19 12:19 attack sertraline Allergy Severe panic Verified 03/25/19 12:19 attack citalopram Allergy Intermediate muscle Verified 03/25/19 12:19 cramping tramadol Allergy Mild headache Verified 03/25/19 12:19 cefazolin Allergy Unknown UNRESPONSIV Verified 03/25/19 12:19 E ticagrelor AdvReac Severe LEG PAIN - Verified 03/25/19 12:19 WHEN TAKES 2 90MG TABLETS ibuprofen AdvReac Intermediate DIZZY, Verified 03/25/19 12:19 SYNCOPE, NAUSEA lovastatin AdvReac Intermediate leg pain Verified 03/25/19 12:19 azithromycin [From Zithromax] AdvReac Unknown Panic Verified 03/25/19 12:19 attack Home Medications Home Medications Medication Instructions Recorded Confirmed Type Calcium 600 + D(3) 1 tab PO QAM 06/05/18 03/25/19 History Levemir U-100 Insulin 38 units SUBCUT QAM 06/05/18 03/25/19 History Levemir U-100 Insulin 50 units SUBCUT HS 06/05/18 03/25/19 History Novolog U-100 Insulin aspart See Rx Instructions .ROUTE .COMPLEX 06/05/18 03/25/19 History aspirin 81 mg PO QAM 06/05/18 03/25/19 History clonazepam 0.5 mg PO BID PRN 06/05/18 03/25/19 History garlic 1 cap PO QAM 06/05/18 03/25/19 History multivitamin 1 tab PO QAM 06/05/18 03/25/19 History nitroglycerin 0.4 mg SUBLINGUAL DIRECTED PRN 06/05/18 03/25/19 History omega 2-zma-qko-fish oil [Fish Oil] 2,000 mg PO BIDM 06/05/18 03/25/19 History amlodipine 5 mg PO QAM 03/25/19 03/25/19 History furosemide [Lasix] 20 mg PO QAM 03/25/19 03/25/19 History lisinopril 10 mg PO QAM 03/25/19 03/25/19 History atorvastatin 40 mg PO QAM #30 tab 03/29/19 Rx benzonatate [Tessalon Perles] 100 mg PO TID PRN #15 cap 03/29/19 Rx metoprolol succinate 100 mg PO QPM #30 ea 03/29/19 Rx Patient History Medical History Benign essential hypertension (Chronic) CAD (coronary artery disease) (Chronic) Status post four-vessel CABG in 2003 Status post drug-eluting stent x2 to SVGPDA 2017 CHF (congestive heart failure) (Acute) History of atrial fibrillation less than 8 weeks after coronary artery bypass graft Hyperlipidemia (Chronic) BRIAN on CPAP (Chronic) PNA (pneumonia) (Resolved) UTI (urinary tract infection) (Resolved) Surgical History History of carpal tunnel surgery History of left knee surgery History of open heart surgery History of tonsillectomy Hx of heart artery stent Family History Other Coronary heart disease Diabetes Social History Preferred Language: [place]an Communication Ability: Effective Check Processing Clerk Required: No Beliefs That Will Affect Care: None marital status: / Current Living Situation: Alone Feels Safe at Home: Yes Smoking Status: Never smoker Second Hand Exposure: No ; Hx Alcohol Use: No Hx Substance Use: No Review of Systems Review of Systems: All systems reviewed & are unremarkable except as noted in HPI & below No recent fevers or chills. Some mild lower extremity edema which is chronic. Not worsened recently. Physical Exam Physical Exam: She is alert and oriented x3. Mood affect appear normal. She answered all questions appropriately. Obese HEENT: Sclerae are anicteric. Pupils are equal and reactive to light and accommodation. Extraocular movements were intact. Neuro: Cranial nerves intact Neck: Examination of the submandibular region did not reveal any significant lymphadenopathy. Carotids are palpable bilaterally and free of bruits on auscultation. There was no evidence of jugular venous distention. The thyroid was not enlarged. Lungs: Lungs are clear to auscultation bilaterally. There are no rales wheezes or rhonchi. She has normal respiratory effort without use of accessory muscles. There is normal pulmonary excursion. Cardiac: The rhythm was regular. S1 and S2 were normal. Crescendo systolic murmur. The PMI was not markedly displaced on palpation. Abdomen: The abdomen was soft and nontender. Extremities: Patient has bilateral radial pulses that are equal in intensity. There is no evidence cyanosis or clubbing. Mild lower extremity edema to the mid calf bilaterally. Skin: There are no rashes noted on examination today. Results & Data Vital Signs (Past 12 Hours) Vital Signs Temp Pulse Pulse Resp BP BP BP 03/25/19 15:20 36.6 C 76 18 145/71 H 03/25/19 15:01 74 03/25/19 14:44 36.6 C 76 20 166/80 H 03/25/19 14:01 78 20 03/25/19 14:00 79 17 107/84 03/25/19 13:30 74 23 130/76 03/25/19 13:00 75 17 150/69 H 03/25/19 12:54 80 16 145/73 H 03/25/19 12:31 76 20 148/62 H 03/25/19 12:30 75 24 03/25/19 12:01 75 24 154/61 H 03/25/19 12:00 78 21 03/25/19 11:32 80 03/25/19 11:31 83 22 134/81 03/25/19 11:30 84 19 03/25/19 11:03 79 19 03/25/19 11:02 80 20 157/77 H 03/25/19 11:00 77 03/25/19 10:52 36.8 C 86 24 145/86 H 03/25/19 10:47 82 03/25/19 10:44 84 145/86 H Pulse Ox 03/25/19 15:20 99 03/25/19 15:01 03/25/19 14:44 99 03/25/19 14:01 97 03/25/19 14:00 98 03/25/19 13:30 98 03/25/19 13:00 98 03/25/19 12:54 98 03/25/19 12:31 98 03/25/19 12:30 100 03/25/19 12:01 98 03/25/19 12:00 98 03/25/19 11:32 97 03/25/19 11:31 99 03/25/19 11:30 99 03/25/19 11:03 96 03/25/19 11:02 98 03/25/19 11:00 95 03/25/19 10:52 94 03/25/19 10:47 95 03/25/19 10:44 93 Laboratory Results Abnormal Lab Results 03/25/19 03/25/19 03/25/19 10:55 10:55 10:55 WBC 10.44 RBC 3.70 L Hgb 11.8 L Hct 36.8 L MCV 99.5 MCH 31.9 MCHC 32.1 RDW Std Deviation 50.6 H RDW Coeff of [place] 14.1 Plt Count 224 MPV 10.4 Immature Gran % (Auto) 0.3 Neut % (Auto) 77.4 Lymph % (Auto) 10.8 Iron % (Auto) 9.4 Eos % (Auto) 1.7 Baso % (Auto) 0.4 Immature Gran # (Auto) 0.03 H Neut # (Auto) 8.08 H Lymph # (Auto) 1.13 L Iron # (Auto) 0.98 H Eos # (Auto) 0.18 Baso # (Auto) 0.04 PT 10.8 INR 1.1 APTT 25.6 PTT Ratio 0.9 Sodium 138 Potassium 4.6 Chloride 104 Carbon Dioxide 30 Anion Gap 5.0 BUN 26 H Creatinine 1.35 H Est Cr Clr Drug Dosing 42.2 Est GFR ( Amer) 43.5 Est GFR (Non-Af Amer) 37.5 BUN/Creatinine Ratio 18.9 Glucose 204 H POC Glucose Calcium 9.4 Magnesium 2.2 Total Bilirubin 0.5 AST 14 L ALT 17 Alkaline Phosphatase 71 Troponin I 0.249 H* Total Protein 7.9 Albumin 3.3 L Globulin 4.6 H Albumin/Globulin Ratio 0.7 L TSH 2.230 Influenza Type A (PCR) Influenza Type B (PCR) 03/25/19 03/25/19 03/25/19 10:55 15:23 16:34 WBC RBC Hgb Hct MCV MCH MCHC RDW Std Deviation RDW Coeff of [place] Plt Count MPV Immature Gran % (Auto) Neut % (Auto) Lymph % (Auto) Iron % (Auto) Eos % (Auto) Baso % (Auto) Immature Gran # (Auto) Neut # (Auto) Lymph # (Auto) Iron # (Auto) Eos # (Auto) Baso # (Auto) PT INR APTT PTT Ratio Sodium Potassium Chloride Carbon Dioxide Anion Gap BUN Creatinine Est Cr Clr Drug Dosing Est GFR ( Amer) Est GFR (Non-Af Amer) BUN/Creatinine Ratio Glucose POC Glucose 285 H Calcium Magnesium Total Bilirubin AST ALT Alkaline Phosphatase Troponin I 4.370 H* Total Protein Albumin Globulin Albumin/Globulin Ratio TSH Influenza Type A (PCR) Neg for Influ A Influenza Type B (PCR) Neg for Influ B Diagnostic Findings Chest x-ray obtained at the time of admission not reveal any acute cardiopulmonary process Echocardiogram performed 06/06/2018: Normal LV systolic function. Mild left atrial dilation. Mild valvular aortic stenosis. Moderate to severe mitral regurgitation. ECG Additional Comments: Current EKG demonstrates normal sinus rhythm with diffuse ST segment depressions. PG Care Time/CCT Total # of Minutes Spent Total Time Spent with Patient: Total time spent is greater than 50% in coordination of care (as documented) at patient's floor/unit and/or counseling patient: (1) CAD (coronary artery disease) Associated angina: without angina Coronary Disease-Associated Artery/Lesion type: bypass graft [place] vs. transplanted heart: elim [place] heart Qualified Code(s): I25.810 - Atherosclerosis of coronary artery bypass graft(s) without angina pectoris
[2019-03-25 19:07] LABS: Partial Thromboplastin Ratio 1.9
[2019-03-25 19:08] LABS: Partial Thromboplastin Time 50.3 Seconds (21.0-31.0)
[2019-03-25] MEDS ORDERED: METOPROLOL TARTRATE 25 MG TAB PO SCH (21:00)
[2019-03-25] MEDS: METOPROLOL TARTRATE 50 MG TAB PO SCH (21:22)
[2019-03-25] MEDS: INSULIN DETEMIR FLEXPEN/FLEX TOUCH 100 UNITS/ML 3ML SC SCH (21:22)
[2019-03-26] MEDS ORDERED: Nursing to Pharmacy Communication ONE ×2 (05:38→09:58)
[2019-03-26] MEDS: HEPARIN SODIUM/DEXTROSE 25,000 UNITS/500 ML BAG IV SCH ×2 (06:00→22:36)
[2019-03-26] MEDS ORDERED: INSULIN ASPART 100 UNITS/ML 3 ML PEN SC SCH (06:00)
[2019-03-26 07:19] LABS: Partial Thromboplastin Ratio 1.7
[2019-03-26] MEDS ORDERED: HEPARIN IV BOLUS 3,000 UNITS in SYRINGE 0 ML IV ONE (08:30)
[2019-03-26] MEDS: ASPIRIN 81 MG ECTAB PO SCH (08:49)
[2019-03-26] MEDS: lisinopriL 10 MG TAB PO SCH (08:49)
[2019-03-26] MEDS: ATORVASTATIN 40 MG TAB PO SCH (08:49)
[2019-03-26] MEDS: FUROSEMIDE 20 MG TAB PO SCH (08:49)
[2019-03-26] MEDS: AMLODIPINE BESYLATE 5 MG TAB PO SCH (08:49)
[2019-03-26] MEDS: METOPROLOL TARTRATE 50 MG TAB PO SCH ×2 (08:50→20:23)
[2019-03-26] MEDS: INSULIN DETEMIR FLEXPEN/FLEX TOUCH 100 UNITS/ML 3ML SC SCH ×2 (08:57→20:24)
--- NOTE | 2019-03-26 09:46 | Cardiology Progress Note ---
Date of Service March 26, 2019 Assessment & Plan (1) Non-STEMI (non-ST elevated myocardial infarction): I think this is related to her high ventricular rates in the setting of fixed coronary disease. I think less likely scenario would be acute coronary syndrome. However, I think given the elevation in her biomarkers would be reasonable to re-evaluate her graft's. I think she is at risk of additional episodes of tachyarrhythmia and it would be reasonable to see if there are options for reducing ischemia in that setting with revascularization. I did discuss coronary angiography with the patient today. It seems she is willing to proceed. Alternatively, perfusion imaging could be performed or even intensification of her medical therapy in the hopes of reducing recurrent arrhythmia or associated high ventricular rates. (2) CAD (coronary artery disease): No symptoms normally. She has been on an outpatient regimen to consist of aspirin, lisinopril and metoprolol. Presumably no statin therapy due to intolerance. It seems possible that she has had reocclusion of a graft based on significant elevation in her biomarkers with tachycardia. (3) SVT (supraventricular tachycardia): Unclear mechanism. She does seem to be at risk for recurrence. I doubled her metoprolol and she seems to be tolerating this well. We could continue to escalate her metoprolol dose during this hospitalization or as an outpatient in the hopes of presenting recurrence or at the very least reducing her heart rates during recurrence. Subjective This morning the patient claims to be feeling well. She had some difficulty sleeping due to the uncomfortable nature of the bed. She has not report any breathing difficulty although she is using supplemental oxygen. Her cough and upper respiratory symptoms appear to be mildly improved. She has not reported any additional episodes of palpitations, chest arm or neck pain. She has been ambulatory to the bathroom without symptom. Review of Systems Review of Systems: Per HPI Physical Exam Physical Exam: She is alert and oriented x3. Mood affect appear normal. She answered all questions appropriately. Obese HEENT: Sclerae are anicteric. Pupils are equal and reactive to light and accommodation. Extraocular movements were intact. Neuro: Cranial nerves intact Lungs: Lungs are clear to auscultation bilaterally. There are no rales wheezes or rhonchi. She has normal respiratory effort without use of accessory muscles. There is normal pulmonary excursion. Cardiac: The rhythm was regular. S1 and S2 were normal. Crescendo systolic murmur. The PMI was not markedly displaced on palpation. Abdomen: The abdomen was soft and nontender. Extremities: Patient has bilateral radial pulses that are equal in intensity. There is no evidence cyanosis or clubbing. Mild lower extremity edema to the mid calf bilaterally. Skin: There are no rashes noted on examination today. Results & Data Vital Signs (Past 12 Hours) Vital Signs Temp Pulse Pulse Resp BP BP Pulse Ox 03/26/19 07:41 37 C 69 18 148/88 H 96 03/26/19 04:35 37.1 C 72 18 121/76 97 03/26/19 00:00 74 03/25/19 23:16 36.6 C 72 19 145/69 H 96 Laboratory Results Abnormal Lab Results 03/25/19 03/25/19 03/25/19 10:55 10:55 10:55 WBC 10.44 RBC 3.70 L Hgb 11.8 L Hct 36.8 L MCV 99.5 MCH 31.9 MCHC 32.1 RDW Std Deviation 50.6 H RDW Coeff of [place] 14.1 Plt Count 224 MPV 10.4 Immature Gran % (Auto) 0.3 Neut % (Auto) 77.4 Lymph % (Auto) 10.8 [place] % (Auto) 9.4 Eos % (Auto) 1.7 Baso % (Auto) 0.4 Immature Gran # (Auto) 0.03 H Neut # (Auto) 8.08 H Lymph # (Auto) 1.13 L [place] # (Auto) 0.98 H Eos # (Auto) 0.18 Baso # (Auto) 0.04 PT 10.8 INR 1.1 APTT 25.6 PTT Ratio 0.9 Sodium 138 Potassium 4.6 Chloride 104 Carbon Dioxide 30 Anion Gap 5.0 BUN 26 H Creatinine 1.35 H Est Cr Clr Drug Dosing 42.2 Est GFR ( Amer) 43.5 Est GFR (Non-Af Amer) 37.5 BUN/Creatinine Ratio 18.9 Glucose 204 H POC Glucose Calcium 9.4 Magnesium 2.2 Total Bilirubin 0.5 AST 14 L ALT 17 Alkaline Phosphatase 71 Troponin I 0.249 H* Total Protein 7.9 Albumin 3.3 L Globulin 4.6 H Albumin/Globulin Ratio 0.7 L TSH 2.230 Influenza Type A (PCR) Influenza Type B (PCR) 03/25/19 03/25/19 03/25/19 10:55 15:23 16:34 WBC RBC Hgb Hct MCV MCH MCHC RDW Std Deviation RDW Coeff of [place] Plt Count MPV Immature Gran % (Auto) Neut % (Auto) Lymph % (Auto) [place] % (Auto) Eos % (Auto) Baso % (Auto) Immature Gran # (Auto) Neut # (Auto) Lymph # (Auto) [place] # (Auto) Eos # (Auto) Baso # (Auto) PT INR APTT PTT Ratio Sodium Potassium Chloride Carbon Dioxide Anion Gap BUN Creatinine Est Cr Clr Drug Dosing Est GFR ( Amer) Est GFR (Non-Af Amer) BUN/Creatinine Ratio Glucose POC Glucose 285 H Calcium Magnesium Total Bilirubin AST ALT Alkaline Phosphatase Troponin I 4.370 H* Total Protein Albumin Globulin Albumin/Globulin Ratio TSH Influenza Type A (PCR) Neg for Influ A Influenza Type B (PCR) Neg for Influ B 03/25/19 03/25/19 03/25/19 18:34 20:29 23:05 WBC RBC Hgb Hct MCV MCH MCHC RDW Std Deviation RDW Coeff of [place] Plt Count MPV Immature Gran % (Auto) Neut % (Auto) Lymph % (Auto) [place] % (Auto) Eos % (Auto) Baso % (Auto) Immature Gran # (Auto) Neut # (Auto) Lymph # (Auto) [place] # (Auto) Eos # (Auto) Baso # (Auto) PT INR APTT 50.3 H* PTT Ratio 1.9 Sodium Potassium Chloride Carbon Dioxide Anion Gap BUN Creatinine Est Cr Clr Drug Dosing Est GFR ( Amer) Est GFR (Non-Af Amer) BUN/Creatinine Ratio Glucose POC Glucose 228 H Calcium Magnesium Total Bilirubin AST ALT Alkaline Phosphatase Troponin I 5.960 H* Total Protein Albumin Globulin Albumin/Globulin Ratio TSH Influenza Type A (PCR) Influenza Type B (PCR) 03/26/19 03/26/19 03/26/19 06:02 06:31 06:31 WBC RBC Hgb Hct MCV MCH MCHC RDW Std Deviation RDW Coeff of [place] Plt Count MPV Immature Gran % (Auto) Neut % (Auto) Lymph % (Auto) [place] % (Auto) Eos % (Auto) Baso % (Auto) Immature Gran # (Auto) Neut # (Auto) Lymph # (Auto) [place] # (Auto) Eos # (Auto) Baso # (Auto) PT INR APTT 45.0 H PTT Ratio 1.7 Sodium Potassium Chloride Carbon Dioxide Anion Gap BUN Creatinine Est Cr Clr Drug Dosing Est GFR ( Amer) Est GFR (Non-Af Amer) BUN/Creatinine Ratio Glucose POC Glucose 195 H Calcium Magnesium Total Bilirubin AST ALT Alkaline Phosphatase Troponin I Cancelled Total Protein Albumin Globulin Albumin/Globulin Ratio TSH Influenza Type A (PCR) Influenza Type B (PCR) 03/26/19 07:17 WBC RBC Hgb Hct MCV MCH MCHC RDW Std Deviation RDW Coeff of [place] Plt Count MPV Immature Gran % (Auto) Neut % (Auto) Lymph % (Auto) [place] % (Auto) Eos % (Auto) Baso % (Auto) Immature Gran # (Auto) Neut # (Auto) Lymph # (Auto) [place] # (Auto) Eos # (Auto) Baso # (Auto) PT INR APTT PTT Ratio Sodium Potassium Chloride Carbon Dioxide Anion Gap BUN Creatinine Est Cr Clr Drug Dosing Est GFR ( Amer) Est GFR (Non-Af Amer) BUN/Creatinine Ratio Glucose POC Glucose 180 H Calcium Magnesium Total Bilirubin AST ALT Alkaline Phosphatase Troponin I Total Protein Albumin Globulin Albumin/Globulin Ratio TSH Influenza Type A (PCR) Influenza Type B (PCR) PG Care Time/CCT Total # of Minutes Spent Total Time Spent with Patient: Total time spent is greater than 50% in coordination of care (as documented) at patient's floor/unit and/or counseling patient: (1) CAD (coronary artery disease) Coronary Disease-Associated Artery/Lesion type: bypass graft [place] vs. [place] heart: [place] heart Associated angina: without angina Qualified Code(s): I25.810 - Atherosclerosis of coronary artery bypass graft(s) without angina pectoris
[2019-03-26 10:00] LABS: Troponin I 4.15 ng/ml (0-0.045)
[2019-03-26] MEDS: INSULIN ASPART 100 UNITS/ML 3 ML PEN SC SCH ×3 (12:06→20:23)
[2019-03-26 15:33] LABS: Partial Thromboplastin Ratio 2.2
[2019-03-26 15:57] LABS: Partial Thromboplastin Time 60.2 Seconds (21.0-31.0)
--- NOTE | 2019-03-26 17:36 | Hospitalist Progress Note ---
Date of Service March 26, 2019 Assessment & Plan (1) Non-STEMI (non-ST elevated myocardial infarction): Seems most likely that her burst of tachycardia caused a supply demand mismatch type of OH. Rhythm management per cardiologyinput greatly appreciated. Management of OH with both medications and probable intervention tomorrowanticipate left heart cath. Continue heparin drip for now pending cath Lifestyle change, risk factor modification Discussed the high importance of statinsespecially either atorvastatin or rosuvastatin in secondary risk reductionit is not clear that she has been on either/both of these, her nephew will bring in the list of what she is suffered an adverse reaction to. We discussed that if it was only the lovastatin, there is generally only about a 10% risk of cross reactivity of similar problems to something like atorvastatin or rosuvastatinand given that we would know what to watch for it would be highly unlikely for it to be a strange mystery that is hard to solve this timebecause of all of this she would be willing to try if she has not been on 1. For now she appears to be tolerating the atorvastatin started on admission, and given acute plaque stabilization benefit, we will continue this cautiously for now. Await list from nephew. (2) Benign essential hypertension: Continue home meds, follow blood pressure. She is on a beta-jaswant and LISA inhibitor. (3) BRIAN on CPAP: Chronic. Stable. CPAP nightly (4) Insulin dependent diabetes mellitus: A1c pending, but she knows that it will be elevated based on her sugar readings, she openly admits eating a large amount of simple carbohydrates. She expresses a lack of understanding of the correlation between hyperglycemia and vascular disease. Had an extensive discussion on the critical importance of lifestyle in controlling type 2 diabetes"high sugar clogs arteries"she expressed good understanding. Discussed checking 2-hour postprandial glucoses to learn from how food impacts her metabolism. She will start to do this at home. We also discussed that this would be a reasonable way to engraver picture her short acting insulin dosing as well. (5) Hyperlipidemia: Chronic. Patient is not currently on a statin We will start atorvastatin 40 mg p.o. daily (6) CAD (coronary artery disease): Known CAD status post OH. Status post four-vessel CABG performed in 2003, stenting of occluded PDA vein graft in February 2017 presenting with chest pain, EKG changes and elevated troponin as described above. -Med management, secondary risk reduction, lifestyle change. All outlined above. (7) CHF (congestive heart failure): Echocardiogram from 06/06/2018 with borderline concentric LVH, normal LV function, grade 1 diastolic dysfunction. Mild valvular aortic stenosis, severe MR. Appears to be euvolemic at present. Continue metoprolol 25 mg p.o. twice daily Continue Lasix 20 mg p.o. every morning Continue to monitor volume status (8) Anemia: Patient with normochromic/normocytic anemia with Hgb = 11.8, HCT = 36.8. This is near her baseline values. No active bleeding suspected Continue to monitor, CBC in a.m. Consider outpatient endoscopic work-up if she is overdue (9) CKD (chronic kidney disease): BUN = 26, creatinine = 1.35. Near patient's baseline values Avoid nephrotoxic agents Renal dosing were needed Continue to monitor BUN, creatinine, urine output and electrolytes F/E/NHep-Lock. Electrolytes within normal range, n.p.o. after midnight Prophylaxisheparin drip for suspected NSTEMI as above Codefull per discussion with patient Dispositionadmission to PCU (10) Anxiety: Extensive discussion with patient about thisoffered strategies to work through panic attacks, also discussed med managementespecially given that she appears to take clonazepam relatively frequently. Her main concern was having a panic attack after her heart cath, we discussed that if she was feeling that way the first thing would be nursing and/or physician assessment, and if nothing appears to be cardiopulmonary amiss then we would simply move quickly to giving her a dose of a benzodiazepine to quell the anxiety attack. (11) DVT prophylaxis: Currently on a heparin drip as it relates to her OH (12) Discharge planning issues: Continue on telemetry for now, discharge will likely largely hinge on the results of her heart cath tomorrow, as well as how she is continuing to feel. Time in the room approximately 945, time out approximately 1030-45 minutes or so face to face and discussions as above noted. Subjective Feeling okay overall. No chest pain no shortness of breath. No palpitations. Relates that she is a little bit worried about having a cast tomorrownot because of the procedure, but because after prior cardiac procedures she has had bad panic attacks and feels trapped. We have extensive discussions about this. In regards to her medication regimen, I asked why she is not on atorvastatin or rosuvastatin, and she relates 1 medication caused her to have significant leg myalgias and weakness to the point that she was unable to standI discussed that lovastatin is listed as an allergy in her med list and that would fit with this, but that there is not high propensity of cross-reactivity to other statinsshe is uncertain what all she has been on in the past, but notes that her nephew has a list of not only her current medications but the meds that she has difficulty with, and he will bring this in during this hospital stay. No other complaints. We have an extensive discussion on diet. She eats a significant amount of simple/potatoy/starchy/bready carbs. Was not really aware of any correlation between hyperglycemia and vascular disease. Review of Systems Review of Systems: All systems reviewed & are unremarkable except as noted in HPI & below Physical Exam Physical Exam: In general she is awake and alert pleasant no distress. HEENT normocephalic atraumatic mucous membranes are moist. Cardio is regular without rubs murmurs gallops. Lungs clear to auscultationdiminished but clearno rales rhonchi or wheezes with good effort. No accessory muscle use. Skin shows no rashes no pallor or icterus. Neuro shows cranial nerves II through XII be grossly intact gross motor and sensory intact. Mental status shows good recent and remote recall normal mood and affect good judgment and insight. Results & Data Vital Signs (Past 12 Hours) Vital Signs Temp Pulse Pulse Resp BP BP Pulse Ox 03/26/19 16:09 98.4 F 70 18 125/61 94 03/26/19 15:00 70 03/26/19 11:26 97.7 F 80 18 135/73 96 03/26/19 10:30 69 03/26/19 07:41 98.6 F 69 18 148/88 H 96 PG Care Time/CCT Total # of Minutes Spent Total Time Spent with Patient: Total time spent is greater than 50% in coordination of care (as documented) at patient's floor/unit and/or counseling patient: (1) Hyperlipidemia Hyperlipidemia type: unspecified Qualified Code(s): E78.5 - Hyperlipidemia, unspecified (2) CAD (coronary artery disease) Coronary Disease-Associated Artery/Lesion type: bypass graft [place] vs. transplanted heart: [place] heart Associated angina: without angina Qualified Code(s): I25.810 - Atherosclerosis of coronary artery bypass graft(s) without angina pectoris (3) CHF (congestive heart failure) Heart failure chronicity: acute on chronic Heart failure type: unspecified Qualified Code(s): I50.9 - Heart failure, unspecified (4) Anemia Anemia type: unspecified type Qualified Code(s): D64.9 - Anemia, unspecified (5) CKD (chronic kidney disease) Chronic kidney disease stage: stage 2 (mild) Qualified Code(s): N18.2 - Chronic kidney disease, stage 2 (mild)
--- NOTE | 2019-03-26 17:36 | Billing Data ---
Date of Service March 26, 2019 Coding Level of Care Code 26003 Prolonged Care (int'l)
[2019-03-27 06:01] LABS: Estimated Average Glucose 180 mg/dl; Hemoglobin A1C 7.9 % (4.5-5.6)
[2019-03-27 07:50] LABS: Hematocrit (blood only) 35.3 % (37-47); Hemoglobin 11.2 g/dL (12.0-16.0); Mean Corpuscular Hemoglobin 31.9 pg (25-34); Mean Corpuscular Hgb Conc 31.7 g/dL (32-36); Mean Corpuscular Volume 100.6 fL (80-100); Mean Platelet Volume 10.3 fL (7.4-10.4); Platelet Count 222 K/uL (130-400); RDW Standard Deviation 51.3 fL (36.4-46.3); Red Blood Count 3.51 M/uL (4.2-5.4); White Blood Count 9.09 K/uL (4.8-10.8)
[2019-03-27 08:08] LABS: Partial Thromboplastin Ratio 1.9
[2019-03-27 08:10] LABS: Partial Thromboplastin Time 51.5 Seconds (21.0-31.0)
[2019-03-27] MEDS: INSULIN DETEMIR FLEXPEN/FLEX TOUCH 100 UNITS/ML 3ML SC SCH ×2 (08:19→20:39)
[2019-03-27] MEDS: INSULIN ASPART 100 UNITS/ML 3 ML PEN SC SCH ×4 (08:19→20:41)
[2019-03-27] MEDS: FUROSEMIDE 20 MG TAB PO SCH (08:22)
[2019-03-27] MEDS: METOPROLOL TARTRATE 50 MG TAB PO SCH ×2 (08:22→20:39)
[2019-03-27] MEDS: ATORVASTATIN 40 MG TAB PO SCH (08:23)
[2019-03-27] MEDS: AMLODIPINE BESYLATE 5 MG TAB PO SCH (08:23)
[2019-03-27] MEDS: ASPIRIN 81 MG ECTAB PO SCH (08:23)
[2019-03-27] MEDS: lisinopriL 10 MG TAB PO SCH (08:23)
--- NOTE | 2019-03-27 10:44 | Cardiology Progress Note ---
Date of Service She feels much better this morning. She is unaware of any palpitations or fluttering. She is had no further chest tightness arm discomfort or scapular discomfort. In the days and weeks prior to this episode she has felt well she walks with a walker to the elevator without any anginal symptoms. She is been able to go to the grocery store without any angina. She has any lightheadedness or dizziness. In discussion with her the question is the timing of her chest discomfort it sounds like the palpitations came first then she started having her typical anginal symptoms. Her troponin has peaked a little over 5. Her EKG is consistent with ischemic changes. She had a complex cardiac catheterization the last time done from her groin. She also has a lot of anxiety and she does not wish to proceed with catheterization unless it is truly necessary. As an outpatient she recently underwent echocardiography which revealed an EF in the range of 45 to 50% with wall motion abnormalities involving the inferior and inferior lateral wall. She did have a nosebleed this morning while on heparin. She was somewhat tearful when talking about having to consider repeat cardiac catheterization. I did review Dr. Maxwell's consultation in detail. The rest of a complete review of systems is negative March 27, 2019 Results & Data Vital Signs (Past 12 Hours) Vital Signs Temp Pulse Pulse Resp BP BP Pulse Ox 03/27/19 08:10 36.9 C 81 18 120/64 98 03/27/19 07:19 76 03/27/19 05:15 36.8 C 70 20 113/67 93 03/27/19 00:49 86 03/27/19 00:00 36.8 C 71 18 127/71 94 she is awake alert oriented x3 she looks her stated age HEENT mildly reduced carotid upstrokes no evidence of carotid bruits jugular venous pressure appeared normal her sclerae anicteric her hearing is normal Lungs clear to auscultation bilaterally no rales rhonchi or wheezing Heart regular rate and rhythm with a crescendo decrescendo murmur which is mid peaking Abdomen: Soft nontender distended positive bowel sounds Extremities: No clubbing or cyanosis with trace bilateral lower extremity edema Psychiatric affect appeared appropriate Neuro she is awake alert and oriented x3 (1) Non-STEMI (non-ST elevated myocardial infarction): She has elevated cardiac biomarkers undoubtedly related to her rapid ventricular rates in the setting of known coronary disease. As discussed above she is incredibly anxious with regards to consideration of cardiac catheterization. I would stop her heparin for now. I agree with up titration of her beta-blockers. If she has further atrial arrhythmias will need to consider antiarrhythmic therapy to maintain sinus rhythm. She does not do a lot of activity and walks with a walker and previous to to this episode she has not had any progressive anginal symptoms. I would recommend an echocardiogram to reassess her LV function if there is been a significant decline compared to her outpatient echo 3 months ago then I would push her to consider catheterization. If her ejection fraction remains in the 45% range then I would try to continue with medical therapy. (2) CAD (coronary artery disease): No symptoms normally. She has been on an outpatient regimen to consist of aspirin, lisinopril and metoprolol. She is not on statins due to intolerance. She had lower extremity edema related to amlodipine. And she had significant headaches related to Imdur v (3) SVT (supraventricular tachycardia): Per Dr. Maxwell: Her rhythm at presentation was not atrial fibrillation. Review of the recordings available did not demonstrate any atrial fibrillation. Her rhythm seems most consistent with an ectopic atrial tachycardia or possibly a slow atrial flutter. Much less likely would be an atypical AVNRT. It is unclear what may have precipitated this arrhythmia. She has been taking cold medicine but it is unclear whether this contains a decongestant. In the immediate term I think we can increase her beta-blockade. There is no indication for anticoagulation. 4. Moderate aortic stenosis 5. Diabetes mellitus type 2
[2019-03-27] MEDS: BENZONATATE 100 MG CAPSULE PO PRN (21:16)
--- NOTE | 2019-03-27 23:05 | Hospitalist Progress Note ---
Date of Service March 27, 2019 Assessment & Plan (1) Non-STEMI (non-ST elevated myocardial infarction): Seems most likely that her burst of tachycardia caused a supply demand mismatch type of CT. Rhythm management per cardiologyinput greatly appreciated. Management of CT with both medications and probable intervention tomorrowanticipate left heart cath. Patient will no longer have a cardiac cath as patient does not want to do it. She also has normal EF on echocardiogram. Will monitor for 24 hours and consider discharge tomorrow. Lifestyle change, risk factor modification Patient benefitting Statin. (2) Benign essential hypertension: Continue home meds, follow blood pressure. She is on a beta-jaswant and LISA inhibitor. (3) BRIAN on CPAP: Chronic. Stable. CPAP nightly (4) Insulin dependent diabetes mellitus: A1c pending, but she knows that it will be elevated based on her sugar readings, she openly admits eating a large amount of simple carbohydrates. She expresses a lack of understanding of the correlation between hyperglycemia and vascular disease. Had an extensive discussion on the critical importance of lifestyle in controll ing type 2 diabetes"high sugar clogs arteries"she expressed good understanding. Discussed checking 2-hour postprandial glucoses to learn from how food impacts her metabolism. She will start to do this at home. 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 (5) Hyperlipidemia: Chronic. Patient is not currently on a statin We will start atorvastatin 40 mg p.o. daily (6) CAD (coronary artery disease): Known CAD status post CT. Status post four-vessel CABG performed in 2003, stenting of occluded PDA vein graft in February 2017 presenting with chest pain, EKG changes and elevated troponin as described above. -Med management, secondary risk reduction, lifestyle change. All outlined above. (7) CHF (congestive heart failure): Echocardiogram from 06/06/2018 with borderline concentric LVH, normal LV function, grade 1 diastolic dysfunction. Mild valvular aortic stenosis, severe MR. Appears to be euvolemic at present. Continue metoprolol 25 mg p.o. twice daily Continue Lasix 20 mg p.o. every morning Continue to monitor volume status (8) Anemia: Patient with normochromic/normocytic anemia with Hgb = 11.8, HCT = 36.8. This is near her baseline values. No active bleeding suspected Continue to monitor, CBC in a.m. Consider outpatient endoscopic work-up if she is overdue (9) CKD (chronic kidney disease): BUN = 26, creatinine = 1.35. Near patient's baseline values Avoid nephrotoxic agents Renal dosing were needed Continue to monitor BUN, creatinine, urine output and electrolytes F/E/NHep-Lock. Electrolytes within normal range, n.p.o. after midnight Codefull per discussion with patient Dispositionadmission to PCU (10) Anxiety: Extensive discussion with patient about thisoffered strategies to work through panic attacks, also discussed med managementespecially given that she appears to take clonazepam relatively frequently. Her main concern was having a panic attack after her heart cath, we discussed that if she was feeling that way the first thing would be nursing and/or physician assessment, and if nothing appears to be cardiopulmonary amiss then we would simply move quickly to giving her a dose of a benzodiazepine to quell the anxiety attack. (11) DVT prophylaxis: Currently on a heparin drip as it relates to her CT (12) Discharge planning issues: Continue on telemetry for now, discharge will likely largely hinge on the results of her heart cath tomorrow, as well as how she is continuing to feel. Time in the room approximately 945, time out approximately 1030-45 minutes or so face to face and discussions as above noted. Subjective 78 yo female reports no new symptoms. Patient reports no new chest pain, nausea, vomiting diarrhea. Review of Systems Review of Systems: All systems reviewed & are unremarkable except as noted in HPI & below Physical Exam Physical Exam: General: patient resting comfortably, NAD, non-toxic in appearance, AA&O x 4, anxious Skin: warm, dry, intact, no rashes or lesions HEENT: NC/AT, PERRL, EOMI, anicteric sclera, conjunctiva without injection, external ear normal to inspection and nontender, nares patent, moist mucus membranes, dentition intact, no oropharyngeal lesions, neck supple, trachea midline, no LAD, no thyromegaly, no JVD Heart: +S1/S2, regular, no m/r/g Lungs: equal air entry bilaterally, no rales/rhonchi/wheezes Abd: +BS, soft, NT/ND, no masses/organomegaly/ascites Ext: warm, 2+ pulses in UE/LE bilaterally, no clubbing/cyanosis or edema Neuro: nonfocal, patient AA&O x 4, speech intact, no facial droop, moving all extremities on command with equal strength 5/5 Results & Data Vital Signs (Past 12 Hours) Vital Signs Temp Pulse Pulse Resp BP Pulse Ox 03/27/19 19:07 36.5 C 86 18 164/71 H 95 03/27/19 16:11 71 03/27/19 15:08 36.8 C 68 18 140/80 97 03/27/19 12:19 36.8 C 76 22 134/76 96 PG Care Time/CCT Total # of Minutes Spent Total Time Spent with Patient: Total time spent is greater than 50% in coordination of care (as documented) at patient's floor/unit and/or counseling patient: (1) CAD (coronary artery disease) Associated angina: without angina Coronary Disease-Associated Artery/Lesion type: bypass graft [place] vs. transplanted heart: [place] heart Qualified Code(s): I25.810 - Atherosclerosis of coronary artery bypass graft(s) without angina pectoris (2) CHF (congestive heart failure) Heart failure chronicity: acute on chronic Heart failure type: unspecified Qualified Code(s): I50.9 - Heart failure, unspecified (3) Anemia Anemia type: unspecified type Qualified Code(s): D64.9 - Anemia, unspecified (4) Hyperlipidemia Hyperlipidemia type: unspecified Qualified Code(s): E78.5 - Hyperlipidemia, unspecified (5) CKD (chronic kidney disease) Chronic kidney disease stage: stage 2 (mild) Qualified Code(s): N18.2 - Chronic kidney disease, stage 2 (mild)
[2019-03-28 06:24] LABS: Hematocrit (blood only) 33.5 % (37-47); Hemoglobin 10.7 g/dL (12.0-16.0); Mean Corpuscular Hemoglobin 31.8 pg (25-34); Mean Corpuscular Hgb Conc 31.9 g/dL (32-36); Mean Corpuscular Volume 99.4 fL (80-100); Mean Platelet Volume 9.7 fL (7.4-10.4); Platelet Count 207 K/uL (130-400); RDW Coefficient of Variation 14.2 % (11.5-14.5); RDW Standard Deviation 51.1 fL (36.4-46.3); Red Blood Count 3.37 M/uL (4.2-5.4); White Blood Count 8.88 K/uL (4.8-10.8)
[2019-03-28 06:37] LABS: Partial Thromboplastin Ratio 0.9; Partial Thromboplastin Time 25.5 Seconds (21.0-31.0)
[2019-03-28] MEDS: ASPIRIN 81 MG ECTAB PO SCH (09:12)
[2019-03-28] MEDS: ATORVASTATIN 40 MG TAB PO SCH (09:12)
[2019-03-28] MEDS: FUROSEMIDE 20 MG TAB PO SCH (09:12)
[2019-03-28] MEDS: lisinopriL 10 MG TAB PO SCH (09:12)
[2019-03-28] MEDS: AMLODIPINE BESYLATE 5 MG TAB PO SCH (09:13)
[2019-03-28] MEDS: METOPROLOL TARTRATE 50 MG TAB PO SCH ×2 (09:13→20:18)
[2019-03-28] MEDS: INSULIN ASPART 100 UNITS/ML 3 ML PEN SC SCH ×4 (09:14→20:36)
[2019-03-28] MEDS: INSULIN DETEMIR FLEXPEN/FLEX TOUCH 100 UNITS/ML 3ML SC SCH ×2 (09:15→20:35)
--- NOTE | 2019-03-28 09:27 | Cardiology Progress Note ---
Date of Service She has had no angina overnight. She denies any chest pain or chest pressure. She denies any shortness of breath. Unfortunately she has not walked in the [place] yet. She denies any palpitations or fluttering or feeling her heart racing. She has any lower extremity edema. Her appetites been so-so. She denies any orthostatic symptoms. She seems very relieved that her heart function has remained preserved and that she does not need to proceed with a catheterization. March 28, 2019 Results & Data Vital Signs (Past 12 Hours) Vital Signs Temp Pulse Pulse Resp BP BP Pulse Ox 03/28/19 07:30 36.9 C 72 20 106/69 94 03/28/19 04:51 37.0 C 70 20 105/67 90 03/27/19 23:58 37.2 C 70 18 119/68 97 03/27/19 23:42 69 she is awake alert oriented x3 she looks her stated age HEENT mildly reduced carotid upstrokes no evidence of carotid bruits jugular venous pressure appeared normal her sclerae anicteric her hearing is normal Lungs clear to auscultation bilaterally no rales rhonchi or wheezing Heart regular rate and rhythm with a crescendo decrescendo murmur which is mid peaking Abdomen: Soft nontender distended positive bowel sounds Extremities: No clubbing or cyanosis with trace bilateral lower extremity edema Psychiatric affect appeared appropriate Neuro she is awake alert and oriented x3 (1) Non-STEMI (non-ST elevated myocardial infarction): She has elevated cardiac biomarkers undoubtedly related to her rapid ventricular rates in the setting of known coronary disease. As discussed above she is incredibly anxious with regards to consideration of cardiac catheterization. Her LV function remains preserved with an inferior wall motion abnormality. Although her EKG especially in the precordial leads looks very ischemic she is not having any active angina. If you look at her cardiac catheterization from February 2017 she is in essence living off a free STER[place]ING to the LAD with severe diffuse distal disease and a vein graft to OM 3. The vein graft to the PDA was the culprit vessel and was intervened upon. Her function capacity at baseline is very limited with her LV function being preserved I would try to treat her medically if at all possible. I think this was all related to her underlying arrhythmia that then caused significant tachycardia and coronary ischemia. If she has recurrent arrhythmias then I would consider amiodarone. Heart catheterization in 2017 for her was very traumatic she had anxiety and panic attack afterwards she was also had significant discomfort as it was an emergency procedure and they did go from her groin. Therefore she wishes to avoid catheterization if at all possible (2) CAD (coronary artery disease): No symptoms normally. She has been on an outpatient regimen to consist of aspirin, lisinopril and metoprolol. She is not on statins due to intolerance. She had lower extremity edema related to amlodipine. And she had significant headaches related to Imdur. I am okay with trying low-dose pravastatin or Crestor to see if she will tolerate it again. In the past she had significant myalgias. (3) SVT (supraventricular tachycardia): Per Dr. Maxwell: Her rhythm at presentation was not atrial fibrillation. Review of the recordings available did not demonstrate any atrial fibrillation. Her rhythm seems most consistent with an ectopic atrial tachycardia or possibly a slow atrial flutter. Much less likely would be an atypical AVNRT. It is unclear what may have precipitated this arrhythmia. She has been taking cold medicine but it is unclear whether this contains a decongestant. In the immediate term I think we can increase her beta-blockade. There is no indication for anticoagulation. 4. Moderate aortic stenosis 5. Diabetes mellitus type 2 6. Preserved left ventricular systolic function with an inferior wall motion abnormality I would let her ambulate in the hallway if she feels well from my standpoint she can either go to rehab or to go home based on her functional status she does have a fair distance to walk with her walker from the elevator to her apartment. Assuming she goes home we will arrange for follow-up in the next couple of weeks in the office
--- NOTE | 2019-03-28 22:50 | Hospitalist Progress Note ---
Date of Service March 28, 2019 Assessment & Plan (1) Non-STEMI (non-ST elevated myocardial infarction): Seems most likely that her burst of tachycardia caused a supply demand mismatch type of SD. Rhythm management per cardiologyinput greatly appreciated. Management of SD with both medications and probable intervention tomorrowanticipate left heart cath. Patient will no longer have a cardiac cath as patient does not want to do it. She also has normal EF on echocardiogram. As per cardiology, can be discharge, However, concern over safety going home. Will consult PT/OT. Await input. Lifestyle change, risk factor modification Patient currently is tolerating Statin. (2) Benign essential hypertension: Continue home meds, follow blood pressure. She is on a beta-jaswant and LISA inhibitor. (3) BRIAN on CPAP: Chronic. Stable. CPAP nightly (4) Insulin dependent diabetes mellitus: A1c pending, but she knows that it will be elevated based on her sugar readings, she openly admits eating a large amount of simple carbohydrates. She expresses a lack of understanding of the correlation between hyperglycemia and vascular disease. Had an extensive discussion on the critical importance of lifestyle in controlling type 2 diabetes"high sugar clogs arteries"she expressed good understanding. Discussed checking 2-hour postprandial glucoses to learn from how food impacts her metabolism. She will start to do this at home. 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 (5) Hyperlipidemia: Chronic. Patient is not currently on a statin We will start atorvastatin 40 mg p.o. daily (6) CAD (coronary artery disease): Known CAD status post SD. Status post four-vessel CABG performed in 2003, stenting of occluded PDA vein graft in February 2017 presenting with chest pain, EKG changes and elevated troponin as described above. -Med management, secondary risk reduction, lifestyle change. All outlined above. (7) CHF (congestive heart failure): Echocardiogram from 06/06/2018 with borderline concentric LVH, normal LV function, grade 1 diastolic dysfunction. Mild valvular aortic stenosis, severe MR. Appears to be euvolemic at present. Continue metoprolol 25 mg p.o. twice daily Continue Lasix 20 mg p.o. every morning Continue to monitor volume status (8) Anemia: Patient with normochromic/normocytic anemia with Hgb = 11.8, HCT = 36.8. This is near her baseline values. No active bleeding suspected Continue to monitor, CBC in a.m. Consider outpatient endoscopic work-up if she is overdue (9) CKD (chronic kidney disease): BUN = 26, creatinine = 1.35. Near patient's baseline values Avoid nephrotoxic agents Renal dosing were needed Continue to monitor BUN, creatinine, urine output and electrolytes F/E/NHep-Lock. Electrolytes within normal range, n.p.o. after midnight Codefull per discussion with patient (10) Anxiety: Extensive discussion with patient about thisoffered strategies to work through panic attacks, also discussed med managementespecially given that she appears to take clonazepam relatively frequently. Her main concern was having a panic attack after her heart cath, we discussed that if she was feeling that way the first thing would be nursing and/or physician assessment, and if nothing appears to be cardiopulmonary amiss then we would simply move quickly to giving her a dose of a benzodiazepine to quell the anxiety attack. (11) DVT prophylaxis: Off heparin drip. (12) Discharge planning issues: Patient does not have a ride today and also does not feel comfortbale being discharged today. PT/OT evals are pending at this time. Subjective Patient reports feeling well. She reports no chest pain, nausea, vomiting, weakness. Nurse reports she ambulated with difficulty and recommended a PT/OT eval prior to discharge. Review of Systems Review of Systems: All systems reviewed & are unremarkable except as noted in HPI & below Physical Exam Physical Exam: General: patient resting comfortably, NAD, non-toxic in appearance, AA&O x 4, Skin: warm, dry, intact, no rashes or lesions HEENT: NC/AT, PERRL, EOMI, anicteric sclera, conjunctiva without injection, external ear normal to inspection and nontender, nares patent, moist mucus membranes, dentition intact, no oropharyngeal lesions, neck supple, trachea midline, no LAD, no thyromegaly, no JVD Heart: +S1/S2, regular, no m/r/g Lungs: equal air entry bilaterally, no rales/rhonchi/wheezes Abd: +BS, soft, NT/ND, no masses/organomegaly/ascites Ext: warm, 2+ pulses in UE/LE bilaterally, no clubbing/cyanosis or edema Neuro: nonfocal, patient AA&O x 4, speech intact, no facial droop, moving all extremities on command with equal strength 5/5 Results & Data Vital Signs (Past 12 Hours) Vital Signs Temp Pulse Resp BP BP Pulse Ox Pulse Ox 03/28/19 20:00 03/28/19 19:15 36.6 C 73 18 138/76 97 03/28/19 15:31 36.9 C 68 18 121/71 96 03/28/19 14:56 97 03/28/19 13:35 98 03/28/19 12:00 37.1 C 66 22 106/61 97 Pulse Ox Pulse Ox 03/28/19 20:00 97 03/28/19 19:15 03/28/19 15:31 03/28/19 14:56 03/28/19 13:35 90 03/28/19 12:00 PG Care Time/CCT Total # of Minutes Spent Total Time Spent with Patient: Total time spent is greater than 50% in coordination of care (as documented) at patient's floor/unit and/or counseling patient: (1) CAD (coronary artery disease) Associated angina: without angina Coronary Disease-Associated Artery/Lesion type: bypass graft [place] vs. transplanted heart: [place] heart Qualified Code(s): I25.810 - Atherosclerosis of coronary artery bypass graft(s) without angina pectoris (2) CHF (congestive heart failure) Heart failure chronicity: acute on chronic Heart failure type: unspecified Qualified Code(s): I50.9 - Heart failure, unspecified (3) Anemia Anemia type: unspecified type Qualified Code(s): D64.9 - Anemia, unspecified (4) Hyperlipidemia Hyperlipidemia type: unspecified Qualified Code(s): E78.5 - Hyperlipidemia, unspecified (5) CKD (chronic kidney disease) Chronic kidney disease stage: stage 2 (mild) Qualified Code(s): N18.2 - Chronic kidney disease, stage 2 (mild)
[2019-03-28] MEDS: BENZONATATE 100 MG CAPSULE PO PRN (23:15)
[2019-03-29 07:06] LABS: Hematocrit (blood only) 34.2 % (37-47); Hemoglobin 11.1 g/dL (12.0-16.0); Mean Corpuscular Hemoglobin 32.1 pg (25-34); Mean Corpuscular Hgb Conc 32.5 g/dL (32-36); Mean Corpuscular Volume 98.8 fL (80-100); Mean Platelet Volume 10.3 fL (7.4-10.4); Platelet Count 229 K/uL (130-400); RDW Standard Deviation 50.3 fL (36.4-46.3); Red Blood Count 3.46 M/uL (4.2-5.4); White Blood Count 9.41 K/uL (4.8-10.8)
[2019-03-29 07:16] LABS: Partial Thromboplastin Time 25.9 Seconds (21.0-31.0)
[2019-03-29] MEDS: INSULIN ASPART 100 UNITS/ML 3 ML PEN SC SCH (08:49)
[2019-03-29] MEDS: AMLODIPINE BESYLATE 5 MG TAB PO SCH (08:50)
[2019-03-29] MEDS: INSULIN DETEMIR FLEXPEN/FLEX TOUCH 100 UNITS/ML 3ML SC SCH (08:50)
[2019-03-29] MEDS: ATORVASTATIN 40 MG TAB PO SCH (08:50)
[2019-03-29] MEDS: lisinopriL 10 MG TAB PO SCH (08:52)
[2019-03-29] MEDS: METOPROLOL TARTRATE 50 MG TAB PO SCH (08:52)
[2019-03-29] MEDS: ASPIRIN 81 MG ECTAB PO SCH (08:52)
[2019-03-29] MEDS: FUROSEMIDE 20 MG TAB PO SCH (08:52)
--- NOTE | 2019-04-03 22:28 | Discharge Summary ---
Date of Service March 29, 2019 Admission HPI Per Admitting Provider Bozena Vazquez is a 78-year-old female with multiple medical problems to include CAD status post four-vessel CABG in 2004 with subsequent graft stenting in 2017, diabetes/hypertension/hyperlipidemia, CHF presenting with chest pain. Patient has had upper respiratory symptoms for the last 3 days to include dry cough, runny nose and congestion. She had an appointment with her PCP today to evaluate these complaints. She was getting ready this morning around 0900 she developed acute left-sided chest pain which radiated into her shoulder and down her arm. Pain 10 out of 10 in severity, described as pressure, associated with diaphoresis, shortness of breath and nausea. Per EMS report, the patient took 2 nitroglycerin tablets which reduced the pain to 5 out of 10. Upon EMS arrival she was found to be in A. fib with RVR, heart rate of 158 bpm. She was pale and diaphoretic. EKG strip on the scene concerning for STEMI. Patient administered 500 mL of normal saline and 15 mg of Cardizem in the field under direction of Dr. Cote. When the patient arrived to [facility] she was afebrile, heart rate of 75, blood pressure of 173/82 and chest pain-free. During my encounter patient denied chest pain and said that she feels nearly back to normal. ER course: Heparin drip Principal Diagnosis NSTEMI Discharge Exam General: patient resting comfortably, NAD, non-toxic in appearance, AA&O x 4, Skin: warm, dry, intact, no rashes or lesions HEENT: NC/AT, PERRL, EOMI, anicteric sclera, conjunctiva without injection, external ear normal to inspection and nontender, nares patent, moist mucus membranes, dentition intact, no oropharyngeal lesions, neck supple, trachea midline, no LAD, no thyromegaly, no JVD Heart: +S1/S2, regular, no m/r/g Lungs: equal air entry bilaterally, no rales/rhonchi/wheezes Abd: +BS, soft, NT/ND, no masses/organomegaly/ascites Ext: warm, 2+ pulses in UE/LE bilaterally, no clubbing/cyanosis or edema Neuro: nonfocal, patient AA&O x 4, speech intact, no facial droop, moving all extremities on command with equal strength 5/5 Discharge Data Allergies Allergy/AdvReac Type Severity Reaction Status Date / Time Cephalosporins Allergy Severe ANAPHYLAXIS Verified 03/25/19 12:19 fluoxetine Allergy Severe muscle/panic Verified 03/25/19 12:19 attack meloxicam Allergy Severe panic Verified 03/25/19 12:19 attack sertraline Allergy Severe panic Verified 03/25/19 12:19 attack citalopram Allergy Intermediate muscle Verified 03/25/19 12:19 cramping tramadol Allergy Mild headache Verified 03/25/19 12:19 cefazolin Allergy Unknown UNRESPONSIV Verified 03/25/19 12:19 E ticagrelor AdvReac Severe LEG PAIN - Verified 03/25/19 12:19 WHEN TAKES 2 90MG TABLETS ibuprofen AdvReac Intermediate DIZZY, Verified 03/25/19 12:19 SYNCOPE, NAUSEA lovastatin AdvReac Intermediate leg pain Verified 03/25/19 12:19 azithromycin [From Zithromax] AdvReac Unknown Panic Verified 03/25/19 12:19 attack Consultations 03/25/19 12:27 ED Decision to Admit Stat 03/25/19 14:43 Consult Cardiology Routine Procedures Performed Operation Date: 03/27/19 09:30 <No data on this case meets the specified criteria> Operation Date: 03/28/19 11:00 <No data on this case meets the specified criteria> Ordered Studies 03/28/19 06:37 CL Cath Imgs for PACS use only Routine Hospital Course (1) Non-STEMI (non-ST elevated myocardial infarction): Seems most likely that her burst of tachycardia caused a supply demand mismatch type of [place]. Rhythm management per cardiologyinput greatly appreciated. Management of OK with both medications and probable intervention tomorrowanticipate left heart cath. Patient will no longer have a cardiac cath as patient does not want to do it. She also has normal EF on echocardiogram. As per cardiology, can be discharge, However, concern over safety going home. Patient refused placement to rehab facility, will be discharged home with home health services. Lifestyle change, risk factor modification Patient currently is tolerating Statin. (2) Benign essential hypertension: Continue home meds, follow blood pressure. She is on a beta-jaswant and LISA inhibitor. (3) BRIAN on CPAP: Chronic. Stable. CPAP nightly (4) Insulin dependent diabetes mellitus: A1c pending, but she knows that it will be elevated based on her sugar readings, she openly admits eating a large amount of simple carbohydrates. She expresses a lack of understanding of the correlation between hyperglycemia and vascular disease. Had an extensive discussion on the critical importance of lifestyle in controlling type 2 diabetes"high sugar clogs arteries"she expressed good understanding. Discussed checking 2-hour postprandial glucoses to learn from how food impacts her metabolism. She will start to do this at home. 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 (5) Hyperlipidemia: Chronic. Patient is not currently on a statin We will start atorvastatin 40 mg p.o. daily (6) CAD (coronary artery disease): Known CAD status post [place]. Status post four-vessel CABG performed in 2003, stenting of occluded PDA vein graft in February 2017 presenting with chest pain, EKG changes and elevated troponin as described above. -Med management, secondary risk reduction, lifestyle change. All outlined above. (7) CHF (congestive heart failure): Echocardiogram from 06/06/2018 with borderline concentric LVH, normal LV function, grade 1 diastolic dysfunction. Mild valvular aortic stenosis, severe MR. Appears to be euvolemic at present. Continue metoprolol 25 mg p.o. twice daily Continue Lasix 20 mg p.o. every morning Continue to monitor volume status (8) Anemia: Patient with normochromic/normocytic anemia with Hgb = 11.8, HCT = 36.8. This is near her baseline values. No active bleeding suspected Continue to monitor, CBC in a.m. Consider outpatient endoscopic work-up if she is overdue (9) CKD (chronic kidney disease): BUN = 26, creatinine = 1.35. Near patient's baseline values Avoid nephrotoxic agents Renal dosing were needed Continue to monitor BUN, creatinine, urine output and electrolytes F/E/NHep-Lock. Electrolytes within normal range, n.p.o. after midnight (10) Anxiety: Extensive discussion with patient about thisoffered strategies to work through panic attacks, also discussed med managementespecially given that she appears to take clonazepam relatively frequently. Her main concern was having a panic attack after her heart cath, we discussed that if she was feeling that way the first thing would be nursing and/or physician assessment, and if nothing appears to be cardiopulmonary amiss then we would simply move quickly to giving her a dose of a benzodiazepine to quell the anxiety attack. (11) DVT prophylaxis: Off heparin drip. (12) Discharge planning issues: Patient does not have a ride today and also does not feel comfortbale being discharged today. Total Time Total Time Spent Total Time Spent (In Minutes): 32 Total Time Includes: Examination of the Patient, Discharge Planning and Medication Reconciliation Discharge Plan Discharge Items Patient Disposition: Home - Home Health Services Reason For Visit: CHEST PAIN Discharge Diagnosis: Chest Pain Activity: Resume your previous activity Non-emergency contact: Primary Care Provider Call non-emergency contact if: you have any medication questions Follow-up/Referrals: Viral De Leon, [Physician] - (Please, follow up with Dr. De Leon. *A nurse from his office will call you with the appointment information. If you have any questions, call the office at [phone].) Bro Calle MD [Primary Care Provider] - 04/02/19 10:30 am (Please, follow up with Dr. Calle on SundayApril 02 at 10:30 am. *If you need to change this appointment, call the office at [phone].) Diet: Carb Consistent or DM2 and Heart Healthy Addtl Attending Provider Instructions: You have been hospitalized for a chest pain evaluation. During your stay at [facility], we have made an effort to correct the problem that brought you to the hospital while keeping you as comfortable as possible. You were evaluated by Cardiology who feels it is safe for you to go home. You do have history of coronary artery disease given your medical history and age. Medications will be given to help decrease the risk, but these will not fully eliminate them. Please make sure you see your Primary Care Provider as part of your follow up plan. Pending Studies at Discharge: No Stand-Alone Forms: Call Back Authorization, My [facility], Smoking Cessation Medications and DC Order Prescriptions: New metoprolol succinate 100 mg capsule,sprinkle,ER 24hr 100 mg PO QPM Qty: 30 RF: 0 atorvastatin 40 mg Tablet 40 mg PO QAM Qty: 30 RF: 0 benzonatate [Tessalon Perles] 100 mg Capsule 100 mg PO TID PRN (Reason: cough) Qty: 15 RF: 0 Continued multivitamin Tablet 1 tab PO QAM RF: 0 clonazepam 0.5 mg tablet 0.5 mg PO BID PRN (Reason: Anxiety) RF: 0 aspirin 81 mg Tablet,Delayed Release (Dr/Ec) 81 mg PO QAM RF: 0 garlic 500 mg Capsule 1 cap PO QAM RF: 0 Novolog U-100 Insulin aspart 100 unit/mL solution See Rx Instructions .ROUTE .COMPLEX RF: 0 nitroglycerin 0.4 mg tablet, sublingual 0.4 mg Sublingual DIRECTED PRN (Reason: Chest Pain) RF: 0 Calcium 600 + D(3) 600 mg calcium- 200 unit Capsule 1 tab PO QAM RF: 0 Levemir U-100 Insulin 100 unit/mL solution 50 units subcut HS RF: 0 Levemir U-100 Insulin 100 unit/mL solution 38 units subcut QAM RF: 0 omega 1-wds-lyx-fish oil [Fish Oil] 1,000 mg (120 mg-180 mg) Capsule 2,000 mg PO BIDM RF: 0 amlodipine 5 mg tablet 5 mg PO QAM RF: 0 lisinopril 10 mg tablet 10 mg PO QAM RF: 0 furosemide [Lasix] 20 mg tablet 20 mg PO QAM RF: 0 Discontinued metoprolol tartrate 25 mg tablet 25 mg PO BID RF: 0 Discharge Orders: Discharge Order (Routine); Ordered 03/29/19 Ordered By: Naif Perea Admission Data Admit Date/Time: 03/25/19 13:26 Attending Provider: Naif Perea Admit Provider: Cici Voss Primary Care Provider: Bro Calle Other Providers: Juan Diego Maxwell Other Interventions: Discharge Summary Assessment (RN) Last Done: 03/29/19 11:04 DC Date/Time DO NOT enter until pt leaves facility: 03/29/19 11:49
== END 2019-03-29 11:49 | disposition home health service (06) | DRG 281 ==
LOC: ED 10:43 → 2S 13:26 → SUATTDRO 13:26 → 2S 14:05

== ENCOUNTER 2019-11-08 18:22 | Observation (INO) ==
--- NOTE | 2019-11-08 18:28 | Emergency Department Note ---
Impression & Plan Elevated troponin, Shortness of breath, Atrial ectopic tachycardia ED Provider Note NAME: CARRINGTON SCHMITT AGE: 79 SEX: F ARRIVES VIA: Ambulance INFORMANT: Patient, ED PROVIDER(S): Jeff Alfaro MD CHIEF COMPLAINT: SOB PLAN: Disposition: Admit MEDICAL DECISION MAKING: The patient is a pleasant 79-year-old woman with a past medical history of CAD with four-vessel bypass in 2004 with subsequent graft stenting in 2017, aortic stenosis, history of SVT, CHF on home oxygen, hypertension, hyperlipidemia, BRIAN on CPAP, who presents emerged part with acute onset shortness of breath which happened when 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 The patient reports some subtle left upper chest pressure but denies severe chest pain. Prior to today she reports feeling in her normal state of health and denies any fevers, chills, cough, congestion, nausea, vomiting, diarrhea, urinary symptoms. On arrival the patient is in no acute distress, afebrile with heart rate in the 150s and vital signs otherwise stable. Her EKG demonstrates a likely atrial tachycardia with nonspecific ST and T wave abnormalities. Reports that she has taken her medications as she is supposed to though she is due for her evening metoprolol. X-ray with mild vascular congestion but no focal infiltrates. WBC, H/H and platelets within normal limits. Chemistry without acidosis. Creatinine 1.62 prior range of values in setting of CKD. Electrolytes LFTs unremarkable. Troponin elevated at 0.140. BNP 2K without prior values for comparison. He was given 5 mg of IV Lopressor given her heart rate was in the 130s-140s and having been due for her metoprolol. On reevaluation the patient's heart rate was improved to the 70s and the patient reported resolution of her symptoms. Given the patient's elevated troponin in the setting of her presentation of likely atrial tachycardia with ST changes setting of her history of CAD reasonable admit the patient for further management. Patient is agreeable with this. Case was discussed with Dr. Espinoza, [facility] hospitalist, who will evaluate the patient for admission. Triage Nursing notes reviewed and agree them. Prior medical records reviewed Vital Signs: reviewed and remarkable for no significant abnormalities Differential diagnosis: Reactive airway disease, pneumonia, pneumothorax, COPD, CHF, infections, cardiac ischemia, pulmonary embolism, musculoskeletal, gastrointestinal, as well as other pathologies. ER treatment provided: See below. Diagnostics interpreted by me: ECG: Likely atrial tachycardia, 129 bpm, PVC, nonspecific ST and T wave abnormality, no overt ST elevation, QTc 471, QRS 86. Cardiac Monitoring: An order for continuous cardiac monitoring was placed and demonstrated atrial tachycardia, 129 bpm, intermittent PVCs Laboratory studies: See below Imaging studies: XR chest 1V portable CLINICAL HISTORY: Atypical chest pain COMPARISON STUDY: 03/25/2019 FINDINGS: The heart is enlarged. There are postsurgical changes of midline sternotomy. There is mild pulmonary vascular congestion similar to the preceding study. There is no lobar consolidation. There are no significant pleural effusions.[ IMPRESSION: Cardiomegaly and mild pulmonary vascular congestion similar to the preceding study. No evidence of focal pulmonary consolidation Consultation(s): Case was discussed with Dr. Espinoza, [facility] hospitalist, who will evaluate the patient for admission. HPI: The patient is a pleasant 79-year-old woman with a past medical history of CAD with four-vessel bypass in 2003 with subsequent graft stenting in 2017, ao rtic stenosis, history of SVT who presents emerged part with acute onset shortness of breath which happened when 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 The patient reports some subtle left upper chest pressure but denies severe chest pain. Prior to today she reports feeling in her normal state of health and denies any fevers, chills, cough, congestion, nausea, vomiting, diarrhea, urinary symptoms. ROS: See above HPI for pertinent positives & negatives. A total of 10 systems reviewed and were otherwise negative. PAST MEDICAL HISTORY:See Below PAST SURGICAL HISTORY:See Below FAMILY HISTORY:See Below SOCIAL HISTORY:See Below HOME MEDICATIONS:See Below ALLERGIES:See Below VITALS:See Below PHYSICAL EXAMINATION: GENERAL: Awake, alert, fatigued-appearing, in no distress HENT: Normocephalic, atraumatic. Oropharynx unremarkable. EYES: Normal conjunctiva. Sclera non-icteric. NECK: Supple. No nuchal rigidity. FROM. No JVD. RESPIRATORY: Clear to auscultation. CARDIAC: Tachycardic rate, normal rhythm. Extremities warm and well perfused. Pulses equal. ABDOMEN: Soft, non-distended. No tenderness to palpation. No rebound or guarding. No masses. RECTAL: Deferred. MUSCULOSKELETAL: Chest examination reveals no tenderness. The back is symmetrical on inspection without obvious abnormality. There is no CVA tenderness to palpation. No joint edema. LOWER EXTREMITIES: Calves are equal size bilaterally and non-tender. No edema. No discoloration. NEURO: Normal sensorium. No sensory or motor deficits noted. SKIN: No rash or jaundice noted. ED COURSE: Critical Care: I have personally spent greater than 35 minutes of critical care time in the direct management of this patient. This includes bedside care, interpretation of diagnostic studies, and testing, discussion with consultants, patient, and family members, and other required patient management activities. This 35 minutes is in excess of all separately billable procedures. Jeff Alfaro MD Past Med/Surg History Medical History Benign essential hypertension CAD (coronary artery disease) Status post four-vessel CABG in 2003 Status post drug-eluting stent x2 to SVGPDA 2017 CHF (congestive heart failure) History of atrial fibrillation less than 8 weeks after coronary artery bypass graft Hyperlipidemia BRIAN on CPAP PNA (pneumonia) UTI (urinary tract infection) Surgical History History of carpal tunnel surgery History of left knee surgery History of open heart surgery History of tonsillectomy Hx of heart artery stent Family History Other Coronary heart disease Diabetes Social History Smoking Status: Never smoker Second Hand Exposure: No; Hx Alcohol Use: No Hx Substance Use: No Preferred Language: Micronesian Communication Ability: Effective Box Office Attendant Required: No Beliefs That Will Affect Care: None marital status: / Current Living Situation: Alone Other Information That Helps Us Care for You: No Feels Safe at Home: Yes Safety Concerns: Feels Safe At This Time Allergies Allergies Allergy/AdvReac Type Severity Reaction Status Date / Time Cephalosporins Allergy Severe ANAPHYLAXIS Verified 11/08/19 19:22 fluoxetine Allergy Severe muscle/panic Verified 11/08/19 19:22 attack meloxicam Allergy Severe panic Verified 11/08/19 19:22 attack sertraline Allergy Severe panic Verified 11/08/19 19:22 attack citalopram Allergy Intermediate muscle Verified 11/08/19 19:22 cramping tramadol Allergy Mild headache Verified 11/08/19 19:22 cefazolin Allergy Unknown UNRESPONSIV Verified 11/08/19 19:22 E ticagrelor AdvReac Severe LEG PAIN - Verified 11/08/19 19:22 WHEN TAKES 2 90MG TABLETS ibuprofen AdvReac Intermediate DIZZY, Verified 11/08/19 19:22 SYNCOPE, NAUSEA lovastatin AdvReac Intermediate leg pain Verified 11/08/19 19:22 azithromycin [From Zithromax] AdvReac Unknown Panic Verified 11/08/19 19:22 attack Home Meds Home Medications Medication Instructions Recorded Confirmed Calcium 600 + D(3) 1 tab PO QAM 06/05/18 11/08/19 Levemir U-100 Insulin 46 units SUBCUT QAM 06/05/18 11/08/19 Levemir U-100 Insulin 54 units SUBCUT HS 06/05/18 11/08/19 aspirin 81 mg PO QAM 06/05/18 11/08/19 clonazepam 0.5 mg PO BID PRN 06/05/18 11/08/19 garlic 1 cap PO QAM 06/05/18 11/08/19 insulin aspart U-100 [Novolog See Rx Instructions .ROUTE .COMPLEX 06/05/18 11/08/19 U-100 Insulin aspart] multivitamin 1 tab PO QAM 06/05/18 11/08/19 nitroglycerin 0.4 mg SUBLINGUAL DIRECTED PRN 06/05/18 11/08/19 omega 2-chk-fvm-fish oil [Fish Oil] 1,000 mg PO BIDM 06/05/18 11/08/19 furosemide [Lasix] 20 mg PO QAM 03/25/19 11/08/19 metoprolol succinate 50 mg PO BID 11/08/19 11/08/19 valsartan 80 mg PO DAILY 11/08/19 11/08/19 Results & Data (ED) Vital Signs Vital Signs - 24 hr 11/08/19 18:26 11/08/19 18:27 11/08/19 18:30 Temperature Temperature Source Pulse Rate 157 H 146 H 120 H Pulse Rate from SpO2 Sensor 107 H Respiratory Rate 24 26 H Respiratory Effort / Characteristics Respiratory Depth Blood Pressure 166/101 H 127/112 H Blood Pressure Mean 115 116 Pulse Oximetry 91 Oxygen Delivery Method Oxygen Flow Rate 2 2 2 Sepsis Recent Fever Within 48 Hours Sepsis New/Unexplained Change in Mental Status Sepsis Action Taken by Nursing 11/08/19 18:31 11/08/19 18:41 11/08/19 18:53 Temperature 36.9 C Temperature Source Oral Pulse Rate 127 H 135 H 100 H Pulse Rate from SpO2 Sensor 118 H Respiratory Rate 27 H 22 Respiratory Effort / Characteristics Non-Labored Spontaneous Respiratory Depth Normal Blood Pressure 166/101 H 142/67 H Blood Pressure Mean 122 Pulse Oximetry 94 92 Oxygen Delivery Method Nasal Cannula Oxygen Flow Rate 2 2 Sepsis Recent Fever Within 48 Hours No Sepsis New/Unexplained Change in Mental Status No Sepsis Action Taken by Nursing Physician Notified 11/08/19 18:55 11/08/19 19:00 11/08/19 19:01 Temperature Temperature Source Pulse Rate 86 80 78 Pulse Rate from SpO2 Sensor 86 81 78 Respiratory Rate 17 16 18 Respiratory Effort / Characteristics Respiratory Depth Blood Pressure 142/67 H 121/67 Blood Pressure Mean 91 89 Pulse Oximetry 94 92 91 Oxygen Delivery Method Oxygen Flow Rate 2 2 2 Sepsis Recent Fever Within 48 Hours Sepsis New/Unexplained Change in Mental Status Sepsis Action Taken by Nursing 11/08/19 19:30 11/08/19 19:31 11/08/19 20:00 Temperature Temperature Source Pulse Rate 72 71 75 Pulse Rate from SpO2 Sensor 72 71 76 Respiratory Rate 17 20 24 Respiratory Effort / Characteristics Respiratory Depth Blood Pressure 131/67 154/60 H Blood Pressure Mean 88 87 Pulse Oximetry 94 93 95 Oxygen Delivery Method Oxygen Flow Rate 2 2 2 Sepsis Recent Fever Within 48 Hours Sepsis New/Unexplained Change in Mental Status Sepsis Action Taken by Nursing 11/08/19 20:01 11/08/19 20:30 11/08/19 20:31 Temperature Temperature Source Pulse Rate 74 76 78 Pulse Rate from SpO2 Sensor 74 76 77 Respiratory Rate 14 19 20 Respiratory Effort / Characteristics Respiratory Depth Blood Pressure 164/70 H Blood Pressure Mean 101 Pulse Oximetry 95 92 92 Oxygen Delivery Method Oxygen Flow Rate 2 2 2 Sepsis Recent Fever Within 48 Hours Sepsis New/Unexplained Change in Mental Status Sepsis Action Taken by Nursing 11/08/19 21:00 11/08/19 21:01 Temperature Temperature Source Pulse Rate 77 77 Pulse Rate from SpO2 Sensor 77 77 Respiratory Rate 22 22 Respiratory Effort / Characteristics Respiratory Depth Blood Pressure 164/69 H Blood Pressure Mean 78 Pulse Oximetry 92 95 Oxygen Delivery Method Oxygen Flow Rate 2 2 Sepsis Recent Fever Within 48 Hours Sepsis New/Unexplained Change in Mental Status Sepsis Action Taken by Nursing Laboratory Data Attestation: I reviewed the patient's lab results. Result diagrams: 11/08/19 18:38 11/08/19 18:38 Lab Results 11/08/19 11/08/19 11/08/19 Range/Units 18:38 18:38 18:38 WBC 9.24 (4.8-10.8) K/uL RBC 4.26 (4.2-5.4) M/uL Hgb 13.5 (12.0-16.0) g/dL Hct 40.9 (37-47) % MCV 96.0 (80-100) fL MCH 31.7 (25-34) pg MCHC 33.0 (32-36) g/dL RDW Std Deviation 50.1 H (36.4-46.3) fL RDW Coeff of Kamille 14.3 (11.5-14.5) % Plt Count 249 (130-400) K/uL MPV 10.7 H (7.4-10.4) fL Immature Gran % (Auto) 0.6 % Neut % (Auto) 73.5 % Lymph % (Auto) 17.7 % [place] % (Auto) 6.2 % Eos % (Auto) 1.6 % Baso % (Auto) 0.4 % Neut # (Auto) 6.78 H (1.4-6.5) K/uL Lymph # (Auto) 1.64 (1.2-3.4) K/uL [place] # (Auto) 0.57 (0.11-0.59) K/uL Eos # (Auto) 0.15 (0-0.5) K/uL Baso # (Auto) 0.04 (0-0.2) K/uL Immature Gran # (Auto) 0.06 H (0.00-0.02) K/uL PT 10.9 (9.0-12.0) Seconds INR 1.0 (0.9-1.1) APTT 23.2 (21.0-31.0) Seconds PTT Ratio 0.8 Sodium 140 (136-145) mmol/L Potassium 4.3 (3.5-5.1) mmol/L Chloride 105 (98-107) mmol/L Carbon Dioxide 29 (21-32) mmol/L Anion Gap 6.0 (3-11) BUN 31 H (7-18) mg/dl Creatinine 1.61 H (0.6-1.2) mg/dl Est Cr Clr Drug Dosing 33.4 ml/min Est GFR ( Amer) 34.9 Est GFR (Non-Af Amer) 30.1 BUN/Creatinine Ratio 19.3 (10-20) Glucose 205 H (70-99) mg/dl Calcium 9.1 (8.5-10.1) mg/dl Phosphorus 3.6 (2.5-4.9) mg/dl Magnesium 2.0 (1.8-2.4) mg/dl Total Bilirubin 0.4 (0.2-1) mg/dl AST 19 (15-37) U/L ALT 23 (12-78) U/L Alkaline Phosphatase 84 (45-117) U/L Troponin I 0.140 H* (0-0.045) ng/ml NT-Pro-B Natriuret Pep 2236 H (0-1800) pg/ml Total Protein 8.8 H (6.4-8.2) gm/dl Albumin 3.3 L (3.4-5.0) gm/dl Globulin 5.5 H (2.5-4.0) gm/dl Albumin/Globulin Ratio 0.6 L (0.9-2) Lipase 131 (73-393) U/L TSH 3.250 (0.300-4.500) uIu/ml Administered Medications Insulin Aspart (Insulin Aspart 100 Units/Ml 3 Ml Pen) 0 units SC [facility]; Protocol Stop: 12/08/19 23:29 Last Admin: 11/08/19 23:49 Dose: 15 units Documented by: [id number] Cosigned by: [id number] Metoprolol Succinate (Metoprolol Succ 50mg Ext Rel Tab) 50 mg PO BID [facility] Stop: 12/08/19 22:22 Last Admin: 11/08/19 23:45 Dose: 50 mg Documented by: [id number] Discontinued Medications Aspirin (Aspirin Chew 324 Mg) 324 mg PO NOW STA Stop: 11/08/19 19:50 Last Admin: 11/08/19 19:52 Dose: 324 mg Documented by: [id number] Insulin Detemir (Insulin Detemir) 50 units SC NOW STA; Protocol Stop: 11/08/19 23:22 Last Admin: 11/08/19 23:50 Dose: 50 units Documented by: [id number] Cosigned by: [id number] Metoprolol Tartrate (Metoprolol Tartrate 1 Mg/Ml Vial) 5 mg IV NOW STA Stop: 11/08/19 18:50 Last Admin: 11/08/19 18:53 Dose: 5 mg Documented by: [id number] Blood Pressure Blood Pressure Findings: Normal blood pressure Blood Pressure Disposition: further management by hospitalist Discharge Plan Visit Data Chief Complaint: Shortness of Breath/Dyspnea Stated Complaint: Tachy, SOB ED Provider: Jeff Alfaro Discharge Problem: Elevated troponin, Shortness of breath, Atrial ectopic tachycardia Patient Disposition: Admitted As Inpatient Discharge Instructions Interventions: ED Discharge Assessment Last Done: 11/08/19 21:55
[2019-11-08 18:49] LABS: Basophils # (auto) 0.04 K/uL (0-0.2); Basophils % (auto) 0.4 %; Eosinophils # (auto) 0.15 K/uL (0-0.5); Eosinophils % (auto) 1.6 %; Hematocrit (blood only) 40.9 % (37-47); Hemoglobin 13.5 g/dL (12.0-16.0); Immature Granulocytes # (auto) 0.06 K/uL (0.00-0.02); Immature Granulocytes % (auto) 0.6 %; Lymphocytes # (auto) 1.64 K/uL (1.2-3.4); Lymphocytes % (auto) 17.7 %; Mean Corpuscular Hemoglobin 31.7 pg (25-34); Mean Platelet Volume 10.7 fL (7.4-10.4); Monocytes # (auto) 0.57 K/uL (0.11-0.59); Monocytes % (auto) 6.2 %; Neutrophils # (auto) 6.78 K/uL (1.4-6.5); Neutrophils % (auto) 73.5 %; Platelet Count 249 K/uL (130-400); RDW Coefficient of Variation 14.3 % (11.5-14.5); RDW Standard Deviation 50.1 fL (36.4-46.3); Red Blood Count 4.26 M/uL (4.2-5.4); White Blood Count 9.24 K/uL (4.8-10.8)
[2019-11-08] MEDS ORDERED: METOPROLOL TARTRATE 1 MG/ML VIAL IV STA (18:49)
--- NOTE | 2019-11-08 18:53 | XRay Report ---
XR chest 1V portable CLINICAL HISTORY: Atypical chest pain COMPARISON STUDY: 03/25/2019 FINDINGS: The heart is enlarged. There are postsurgical changes of midline sternotomy. There is mild pulmonary vascular congestion similar to the preceding study. There is no lobar consolidation. There are no significant pleural effusions.[ IMPRESSION: Cardiomegaly and mild pulmonary vascular congestion similar to the preceding study. No ev idence of focal pulmonary consolidation ACT 112: Negative or not required by law. Electronically signed by: Kirt Patel M.D. 11/08/2019 6:52 PM
[2019-11-08 19:02] LABS: Partial Thromboplastin Ratio 0.8; Partial Thromboplastin Time 23.2 Seconds (21.0-31.0); Prothrombin Time 10.9 Seconds (9.0-12.0)
[2019-11-08 19:07] LABS: Albumin Level 3.3 gm/dl (3.4-5.0); BUN Creatinine Ratio 19.3 (10-20); Calcium 9.1 mg/dl (8.5-10.1); Creatinine Clr Calc Pharmacy 33.4 ml/min; Est GFR (African American) 34.9; Est GFR (Non-African American) 30.1; Potassium 4.3 mmol/L (3.5-5.1)
[2019-11-08 19:24] LABS: Albumin Globulin Ratio 0.6 (0.9-2); Bilirubin,Total 0.4 mg/dl (0.2-1); Globulin 5.5 gm/dl (2.5-4.0); Phosphorus 3.6 mg/dl (2.5-4.9); Thyroid Stimulating Hormone 3.25 uIu/ml (0.300-4.500); Total Protein 8.8 gm/dl (6.4-8.2); Troponin I 0.14 ng/ml (0-0.045)
[2019-11-08] MEDS ORDERED: ASPIRIN CHEW 324 MG PO STA (19:49)
--- NOTE | 2019-11-08 20:35 | History & Physical Report ---
Date of Service November 08, 2019 Assessment & Plan (1) Shortness of breath: Bozena is a 79-year-old female who presents with an episode of chest tightness and shortness of breath following a stressful situation at the [employer]. She has a past medical history of coronary artery disease, type 2 diabetes on insulin, home oxygen requirement, BRIAN on CPAP, and CKD. Shortness of Breath, Chest pain 2/2 sinus tachycardia with type II demand, improved - Pt reports "98%" back to normal - Tachycardic to 140s on admit, sinus, no hx of afib per pt. EKG with T wave inversions, no ST elevations Patient heart rate normalized with evening dose of p.o. metoprolol and 1 dose of IV Lopressor in ED - Trop mildly increased, trend overnight -Echo 03/2019 shows LVH, mild regional wall motion abnormalities, EF 50-55% Patient with history of quad bypass, patient reports he is followed by Dr. Richardson who told her "she can never be a surgical candidate " - satting well on room air, home O2 req of 2L PRN Follow overnight on med telemetry Continue aspirin Continue metoprolol 50 mg p.o. twice daily Hypertension Losartan held as below Continue metoprolol Type 2 diabetes mellitus Home dose of Levemir 54/46 units plus aspart converted to Lantus/SSI Glucose checks AC/at bedtime BMP daily MICHAEL on CKD Patient with elevated creatinine of 1.6, baseline approximately 1.3 Valsartan held Gentle oral fluid hydration BMP daily DVT prophylaxis: Heparin subcu 5000 Diet: Diabetic Disposition: Med/surge with telemetry CODE STATUS: Full code (2) Anxiety: (3) CKD (chronic kidney disease): (4) Anemia: (5) Non-STEMI (non-ST elevated myocardial infarction): (6) BRIAN on CPAP: (7) Benign essential hypertension: (8) Hyperlipidemia: (9) CAD (coronary artery disease): (10) Chest pain: (11) Elevated troponin: (12) SVT (supraventricular tachycardia): (13) Abnormal EKG: (14) Acute kidney injury: History of Present Illness Primary Care Provider: Bro Calle MD Stressful encounter at the [employer] at around 4:30pm. Chest pressure enroute home, approximately 5:15pm, ~5/10 in intensity and mostly in the center chest going into her back/shoulder blades. By the time she was in her apartment ~5:30 sh ecoul dfeel fluttering and palpitations with shortness of breath. She wears home oxygen, and 'went straight to my home oxygen' which seemed to help. she is on baseline 2L O2 at home which improved, but did not resolve her shortness of breath. She has some chronic pain in her L arm which hurts worse with movement, thinks she slept on it wrong. No worsening shortness of breath of chest pain leading up to this episode. No SoB at time of assessment, no Oxygen on at time of assessment. Dr. Richardson has said 'absolutely no more surgeries'. She was due to have knee surgery which was cancelled due to underlying cardiac risk. No fevers, chills, sweats. Feels 98% back to normal MedHx: Reviewed. History of quad bipass in 2003. Hx of PCI with Dr. Orourke in 02/2017. Medications: Reviewed. Was due for and given MTP in the ED. SHX: Reviewed Allergies: EtoH: None Tobacco: None Recreational: None Social: Lives in snf with her own apartment. "lot of friends there", no sick contacts. Code Status: Full Code Allergies Allergy/AdvReac Type Severity Reaction Status Date / Time Cephalosporins Allergy Severe ANAPHYLAXIS Verified 11/08/19 19:22 fluoxetine Allergy Severe muscle/panic Verified 11/08/19 19:22 attack meloxicam Allergy Severe panic Verified 11/08/19 19:22 attack sertraline Allergy Severe panic Verified 11/08/19 19:22 attack citalopram Allergy Intermediate muscle Verified 11/08/19 19:22 cramping tramadol Allergy Mild headache Verified 11/08/19 19:22 cefazolin Allergy Unknown UNRESPONSIV Verified 11/08/19 19:22 E ticagrelor AdvReac Severe LEG PAIN - Verified 11/08/19 19:22 WHEN TAKES 2 90MG TABLETS ibuprofen AdvReac Intermediate DIZZY, Verified 11/08/19 19:22 SYNCOPE, NAUSEA lovastatin AdvReac Intermediate leg pain Verified 11/08/19 19:22 azithromycin [From Zithromax] AdvReac Unknown Panic Verified 11/08/19 19:22 attack Home Medications Home Medications Medication Instructions Recorded Confirmed Type Calcium 600 + D(3) 1 tab PO QAM 06/05/18 11/08/19 History Levemir U-100 Insulin 46 units SUBCUT QAM 06/05/18 11/08/19 History Levemir U-100 Insulin 54 units SUBCUT HS 06/05/18 11/08/19 History aspirin 81 mg PO QAM 06/05/18 11/08/19 History clonazepam 0.5 mg PO BID PRN 06/05/18 11/08/19 History garlic 1 cap PO QAM 06/05/18 11/08/19 History insulin aspart U-100 [Novolog See Rx Instructions .ROUTE .COMPLEX 06/05/18 11/08/19 History U-100 Insulin aspart] multivitamin 1 tab PO QAM 06/05/18 11/08/19 History nitroglycerin 0.4 mg SUBLINGUAL DIRECTED PRN 06/05/18 11/08/19 History omega 4-npa-yqw-fish oil [Fish Oil] 1,000 mg PO BIDM 06/05/18 11/08/19 History furosemide [Lasix] 20 mg PO QAM 03/25/19 11/08/19 History metoprolol succinate 50 mg PO BID 11/08/19 11/08/19 History valsartan 80 mg PO DAILY 11/08/19 11/08/19 History Past Med/Surg History Medical History Aortic stenosis Atrial ectopic tachycardia Benign essential hypertension CAD (coronary artery disease) Status post four-vessel CABG in 2003 Status post drug-eluting stent x2 to SVGPDA 2016 CHF (congestive heart failure) History of atrial fibrillation less than 8 weeks after coronary artery bypass graft Hyperlipidemia BRIAN on CPAP PNA (pneumonia) UTI (urinary tract infection) Surgical History History of carpal tunnel surgery History of left knee surgery History of open heart surgery History of tonsillectomy Hx of heart artery stent S/P CABG (coronary artery bypass graft) S/P coronary artery stent placement Family History Other Coronary heart disease Diabetes Social History Smoking Status: Never smoker Second Hand Exposure: No; Hx Alcohol Use: No Hx Substance Use: No Preferred Language: Divehi Communication Ability: Effective Cigarette Vendor Required: No Beliefs That Will Affect Care: None marital status: / Current Living Situation: Alone Other Information That Helps Us Care for You: No Feels Safe at Home: Yes Safety Concerns: Feels Safe At This Time Review of Systems Review of Systems: All systems reviewed & are unremarkable except as noted in HPI & below Physical Exam Physical Exam: General: A&Ox3. NAD. Cooperative. HEENT: Atraumatic, normocephalic. Pulls equal and responsive to light and accommodation. Pulm: CTAB A&P. -wheezes, -rales, -rhonchi. Symmetrical chest rise. No increase work of breathing. No respiratory distress. On room air Cardiac: RRR, systolic murmur present, no rg. Radial pulses intact and symmetrical. Abdominal: Nontender, nondistended, soft. BS present. Extremities: Warm, dry. Moving all extremities equally. Sensation to soft touch intact in fingers and toes bilaterally. Results & Data Results & Data ([facility]) Vital Signs (Past 12 Hours) Vital Signs Temp Pulse Resp BP Pulse Ox 11/08/19 20:01 74 14 95 11/08/19 20:00 75 24 154/60 H 95 11/08/19 19:31 71 20 93 11/08/19 19:30 72 17 131/67 94 11/08/19 19:01 78 18 91 11/08/19 19:00 80 16 121/67 92 11/08/19 18:55 86 17 142/67 H 94 11/08/19 18:53 100 H 142/67 H 11/08/19 18:41 36.9 C 135 H 22 166/101 H 92 11/08/19 18:31 127 H 27 H 94 11/08/19 18:30 120 H 26 H 127/112 H 91 11/08/19 18:27 146 H 166/101 H 11/08/19 18:26 157 H 24 Supervising Physician Co-Signing Physician Notes Attending addendum: I have physically seen this patient, have supervised the medical residents activities, and agree with the H&P unless as otherwise noted. Assessment and Plan: Sinus tachycardia/elevated troponin/hypertension/status post CABG- The patient will be admitted to telemetry for serial cardiac enzymes, serial EKG's, cardiac rhythm monitoring and a 2-D echocardiogram with Dopplers. Supply demand mismatch, type II Symptoms improved after Lopressor 5 mg IV x1 and evening dose of metoprolol Continue aspirin and metoprolol Holding losartan Diabetes mellitus type 2- Continue Levemir Accu-Cheks before meals and at bedtime with NovoLog coverage per scale MICHAEL on CKD- Creatinine 1.61 upon admission, with base around 1.3 Hold ARB for now Repeat BMP in a.m. Remainder of orders and notations as noted. Resident Activity Tracking Resident Involvement: Resident Care Provided Care Provided: Adult Hospital Medicine (1) CAD (coronary artery disease) Associated angina: without angina Coronary Disease-Associated Artery/Lesion type: bypass graft [place] vs. transplanted heart: [place] heart Qualified Code(s): I25.810 - Atherosclerosis of coronary artery bypass graft(s) without angina pectoris (2) Anemia Anemia type: unspecified type Qualified Code(s): D64.9 - Anemia, unspecified (3) Hyperlipidemia Hyperlipidemia type: unspecified Qualified Code(s): E78.5 - Hyperlipidemia, unspecified (4) CKD (chronic kidney disease) Chronic kidney disease stage: stage 2 (mild) Qualified Code(s): N18.2 - Chronic kidney disease, stage 2 (mild) (5) Chest pain Chest pain type: unspecified Qualified Code(s): R07.9 - Chest pain, unspecified
[2019-11-08] MEDS ORDERED: DEXTROSE 50% 50 ML SYRINGE IV PRN (22:23)
[2019-11-08] MEDS ORDERED: CARBOHYDRATES FOR HYPOGLYCEMIA PO PRN (22:23)
[2019-11-08] MEDS ORDERED: NITROGLYCERIN SL 0.4 MG/TAB TAB SL PRN (22:23)
[2019-11-08] MEDS ORDERED: GLUCAGON FOR INJ 1 MG VIAL SQ PRN (22:23)
[2019-11-08] MEDS ORDERED: GLUCOSE 10 TABS/TUBE PO PRN (22:23)
[2019-11-08] MEDS ORDERED: ACETAMINOPHEN 325 MG TAB PO PRN (22:23)
[2019-11-08] MEDS ORDERED: GLUCOSE 40% GEL 15 GM TUBE PO PRN (22:23)
[2019-11-08] MEDS ORDERED: INSULIN DETEMIR SC STA (23:21)
[2019-11-08] MEDS ORDERED: PHARMACY GLYCEMIC MGMT CONSULT PRN (23:22)
[2019-11-08] MEDS: METOPROLOL SUCC 50MG EXT REL TAB PO SCH (23:45)
[2019-11-08] MEDS: INSULIN ASPART 100 UNITS/ML 3 ML PEN SC SCH (23:49)
[2019-11-09] MEDS ORDERED: INSULIN ASPART 100 UNITS/ML 3 ML PEN SC SCH (04:00)
--- NOTE | 2019-11-09 05:14 | Pharmacy Report ---
Pharmacy Glycemic Short Note 2 - Date of Service November 09, 2019 - Glycemic Short BSG Results (Last 24 hours): 11/08/19 11/08/19 11/09/19 18:38 23:47 03:43 Glucose 205 H POC Glucose 312 H* 161 H OUTPATIENT ANTIDIABETIC REGIMEN: * Levemir 46 units SQ qAM, 54 units SQ qPM * Novolog SSI, up to 135 units per day (correction factor ~3-5mg/dL/unit) * HbA1c: pending with AM labs ASSESSMENT: * Ms Vazquez is a 79yo diabetic female admitted with chest pain. * She is ordered a diabetic diet. * BSGs were slightly elevated on admission. Levemir/Novolog initiated on arrival to the floor. PLAN FOR INPATIENT GLYCEMIC CONTROL: * Basal insulin * Levemir 50 units SQ on admission * Levemir 45 units SQ BID * Bolus insulin * NovoLog per scale ACHS or Q6hrs while NPO * Goal Range: Low 110 mg/dL - High 140 mg/dL * Correction Factor: 12 mg/dL/unit * Nutritional / Prandial insulin per carb ratio of 1 unit per 4 grams CHO consumed PLAN FOR DISCHARGE: * pending A1c results
[2019-11-09 06:35] LABS: Basophils # (auto) 0.04 K/uL (0-0.2); Basophils % (auto) 0.5 %; Eosinophils # (auto) 0.16 K/uL (0-0.5); Hematocrit (blood only) 39.1 % (37-47); Hemoglobin 12.7 g/dL (12.0-16.0); Immature Granulocytes # (auto) 0.03 K/uL (0.00-0.02); Immature Granulocytes % (auto) 0.4 %; Lymphocytes # (auto) 2.46 K/uL (1.2-3.4); Lymphocytes % (auto) 31.1 %; Mean Corpuscular Hemoglobin 31.3 pg (25-34); Mean Corpuscular Hgb Conc 32.5 g/dL (32-36); Mean Corpuscular Volume 96.3 fL (80-100); Mean Platelet Volume 10.2 fL (7.4-10.4); Monocytes # (auto) 0.64 K/uL (0.11-0.59); Monocytes % (auto) 8.1 %; Neutrophils # (auto) 4.59 K/uL (1.4-6.5); Neutrophils % (auto) 57.9 %; Platelet Count 226 K/uL (130-400); RDW Coefficient of Variation 14.4 % (11.5-14.5); RDW Standard Deviation 50.9 fL (36.4-46.3); Red Blood Count 4.06 M/uL (4.2-5.4); White Blood Count 7.92 K/uL (4.8-10.8)
[2019-11-09 07:10] LABS: BUN Creatinine Ratio 23.8 (10-20); Calcium 8.6 mg/dl (8.5-10.1); Est GFR (African American) 41.3; Est GFR (Non-African American) 35.6; Potassium 3.9 mmol/L (3.5-5.1)
[2019-11-09 07:13] LABS: Albumin Globulin Ratio 0.6 (0.9-2); Bilirubin,Total 0.3 mg/dl (0.2-1); Globulin 4.7 gm/dl (2.5-4.0); Total Protein 7.7 gm/dl (6.4-8.2)
[2019-11-09] MEDS ORDERED: CLOPIDOGREL BISULFATE 300 MG TAB PO STA (07:45)
[2019-11-09] MEDS: MULTIVITAMIN TAB PO SCH (07:46)
[2019-11-09] MEDS: ASPIRIN 81 MG ECTAB PO SCH (07:46)
[2019-11-09] MEDS: METOPROLOL SUCC 50MG EXT REL TAB PO SCH ×2 (07:46→21:58)
[2019-11-09] MEDS: OMEGA-3 (PURIFIED FISH OIL) 1 GM CAP PO SCH ×2 (07:46→16:59)
[2019-11-09] MEDS: CALCIUM 600MG + VIT D 400 IU TAB PO SCH (07:46)
[2019-11-09] MEDS: INSULIN DETEMIR SC SCH ×2 (07:47→21:57)
[2019-11-09] MEDS: INSULIN ASPART 100 UNITS/ML 3 ML PEN SC SCH ×4 (07:48→21:56)
[2019-11-09] MEDS ORDERED: HEPARIN IV BOLUS 6,000 UNITS in SYRINGE 0 ML IV ONE (08:30)
[2019-11-09] MEDS: HEPARIN SODIUM/DEXTROSE 25,000 UNITS/500 ML BAG IV SCH (08:46)
[2019-11-09] MEDS ORDERED: HEPARIN SOD 5,000 UNIT/0.5 ML VIAL SQ SCH (09:00)
[2019-11-09] MEDS ORDERED: INSULIN GLARGINE SOLOSTAR 100 UNITS/ML 3 ML PEN SC SCH (09:00)
--- NOTE | 2019-11-09 12:01 | Cardiology Consultation ---
Date of Consultation November 09, 2019 Assessment & Plan (1) Non-STEMI (non-ST elevated myocardial infarction): (2) CAD (coronary artery disease): (3) Atrial ectopic tachycardia: (4) Benign essential hypertension: (5) Hyperlipidemia: (6) S/P coronary artery stent placement: (7) S/P CABG (coronary artery bypass graft): (8) Aortic stenosis: ASSESSMENT/PLAN: 1. NSTEMI: Likely due to tachyarrhythmia in the setting of severe multivessel CAD. Continue aspirin 81 mg daily. Will initiate Plavix 75 mg daily for medical therapy. Continue beta-jaswant. Intolerant to statin therapy. Will attempt to reduce her tachyarrhythmia burden as noted below. No urgent indication for cardiac catheterization and she has stated that she would decline cardiac catheterization if not necessary Due to panic/anxiety issues with 2017 catheterization. Continue with medical therapy as outlined by her primary production repairer. Order echocardiogram. 2. CAD s/p CABG x 4 and SVG to PDA PCI: Had angina as above in the setting of atrial tachycardia. Continue medical therapy. Currently angina free. 3. Atrial tachycardia: She had an NC 03/25/2019 in the setting of tachyarrhythmia and now once again another episode with NC. Will initiate amiodarone to help suppress her atrial tachycardia. She wishes to avoid invasive procedures such as ablation. Amiodarone was recommended by Dr. De Leon in March for recurrence and she was okay with starting the medication but did not want large doses. Will not load but rather start with amiodarone 200 mg twice daily for now. If she has recurrent while hospitalized, would then recommend loading doses. Monitor transaminase levels and TSH as outpatient. 4. Aortic stenosis: Non severe when most recently checked. Continue to monitor over time. 5. Hypertension: She takes valsartan at home but she is not on ARB here. Start ARB while here as she is hypertensive in the setting with multivessel CAD and presenting with acute NC. Continue beta-jaswant. 6. Dyslipidemia: Intolerant to statin therapy. Could consider other non statin lipid-lowering agents. 7. Disposition: Her cardiology care will resume tomorrow by her primary production repairer Dr. De Leon. Recommend cardiac rehabilitation on discharge. Patient care discussed with Dr. Zurita the primary hospitalist service. Thank you for allowing me to participate in the care of your patient. Please call for any other questions or concerns. Sincerely, Patel Wade M.D. History of Present Illness Reason for Consultation: NSTEMI Requesting Physician: Brad Zurita MD Attending Physician: Brad Zurita MD History of Present Illness Ms. Vazquez is a pleasant 79-year-old female with a history significant for multivessel CAD s/p CABG x 4 (2004 consisting of free STERLING to distal LAD off of proximal SVG to OM2 graft; SVG to OM 2; SVG to diagonal; SVG to PDA), PCI of SVG to PDA (03/07/2017 ), hypertension, type 2 diabetes, dyslipidemia, CKD, and obstructive sleep apnea on CPAP. Her primary production repairer is Dr. De Leon. According to records, she has refused to undergo any further cardiac catheterization due to significant anxiety. It has been described that she is dependent on her free STERLING to LAD with diffuse distal disease and SVG to obtuse marginal. She was hospitalized on 03/25/2019 with NSTEMI, thought to be due to tachy atrial arrhythmia with underlying severe multivessel CAD. Medical therapy was recommended and Dr. De Leon had recommended that if she has recurrent arrhythmia, consideration for amiodarone should be taken. She apparently had a traumatic experience with her 2017 cardiac catheterization causing anxiety and panic attacks afterwards, which is why she would like to avoid any further cardiac catheterization. She had been doing well until yesterday when she went to the bank. She was trying to check her balance and she kept receiving slip saying that her account could not be found and there was no balance available. She tried several times with the same result and she became angry. She developed shortness of breath at approximately 4:30 p.m., following this experience. She then developed palpitations feeling as though her heart was racing and pounding. Her breathing worsened and she developed intrascapular tightness at approximately 5:30 p.m.. Intrascapular tightness his reminiscent of prior angina however with her NC in the past, she also had left arm radiation which was not present yesterday. She called for EMS . When she first arrived, her initial troponin was 0.14 and has increased to 5.46 this morning. Her initial ECG demonstrated Atrial tachycardia with intermittent AV block. According to charted pulses, her heart rate remained elevated for approximately 25 minutes. She recalls being diaphoretic as well. She now feels back to baseline. She denies angina, shortness of breath, syncope, near-syncope, palpitations. She states that she has chronic lower extremity swelling without any worsening recently. She denies melena, hematochezia, or hematuria. She has not tolerated statin therapies in the past. She did not tolerate Brilinta. Review systems: As above. She also admits to chronic diarrhea. Review of systems otherwise negative/ unremarkable. Family history: No known premature CAD in first-degree relatives. Social history: She does not smoke. No alcohol. No drugs. She lives in independent living. She is a . She has 1 daughter but has not spoken with her for years. She is close with her nephew. She is unaccompanied. Allergies Allergy/AdvReac Type Severity Reaction Status Date / Time Cephalosporins Allergy Severe ANAPHYLAXIS Verified 11/08/19 19:22 fluoxetine Allergy Severe muscle/panic Verified 11/08/19 19:22 attack meloxicam Allergy Severe panic Verified 11/08/19 19:22 attack sertraline Allergy Severe panic Verified 11/08/19 19:22 attack citalopram Allergy Intermediate muscle Verified 11/08/19 19:22 cramping tramadol Allergy Mild headache Verified 11/08/19 19:22 cefazolin Allergy Unknown UNRESPONSIV Verified 11/08/19 19:22 E ticagrelor AdvReac Severe LEG PAIN - Verified 11/08/19 19:22 WHEN TAKES 2 90MG TABLETS ibuprofen AdvReac Intermediate DIZZY, Verified 11/08/19 19:22 SYNCOPE, NAUSEA lovastatin AdvReac Intermediate leg pain Verified 11/08/19 19:22 azithromycin [From Zithromax] AdvReac Unknown Panic Verified 11/08/19 19:22 attack Home Medications Home Medications Medication Instructions Recorded Confirmed Type Calcium 600 + D(3) 1 tab PO QAM 06/05/18 11/08/19 History Levemir U-100 Insulin 46 units SUBCUT QAM 06/05/18 11/08/19 History Levemir U-100 Insulin 54 units SUBCUT HS 06/05/18 11/08/19 History aspirin 81 mg PO QAM 06/05/18 11/08/19 History clonazepam 0.5 mg PO BID PRN 06/05/18 11/08/19 History garlic 1 cap PO QAM 06/05/18 11/08/19 History insulin aspart U-100 [Novolog See Rx Instructions .ROUTE .COMPLEX 06/05/18 11/08/19 History U-100 Insulin aspart] multivitamin 1 tab PO QAM 06/05/18 11/08/19 History nitroglycerin 0.4 mg SUBLINGUAL DIRECTED PRN 06/05/18 11/08/19 History omega 8-amy-opm-fish oil [Fish Oil] 1,000 mg PO BIDM 06/05/18 11/08/19 History furosemide [Lasix] 20 mg PO QAM 03/25/19 11/08/19 History metoprolol succinate 50 mg PO BID 11/08/19 11/08/19 History valsartan 80 mg PO DAILY 11/08/19 11/08/19 History Patient History Medical History Aortic stenosis Atrial ectopic tachycardia Benign essential hypertension CAD (coronary artery disease) Status post four-vessel CABG in 2003 Status post drug-eluting stent x2 to SVGPDA 2016 CHF (congestive heart failure) History of atrial fibrillation less than 8 weeks after coronary artery bypass graft Hyperlipidemia BRIAN on CPAP PNA (pneumonia) UTI (urinary tract infection) Surgical History History of carpal tunnel surgery History of left knee surgery History of open heart surgery History of tonsillectomy Hx of heart artery stent S/P CABG (coronary artery bypass graft) S/P coronary artery stent placement Family History Other Coronary heart disease Diabetes Social History Smoking Status: Never smoker Second Hand Exposure: No; Hx Alcohol Use: No Hx Substance Use: No Preferred Language: Lao Communication Ability: Effective [employer]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 Alert and oriented. HEENT: Anicteric sclera. Neck: No appreciable JVD. No bruits. Normal carotid upstrokes bilaterally. Cardiac: PMI was nonpalpable. No ventricular heave. Regular rate and rhythm. Normal S1-S2. 2/6 mid peaking systolic ejection murmur. No rubs, or gallops. Pulmonary: Clear to auscultation bilaterally without wheezes, rales, or rhonchi. Abdomen: Soft, nontender, nondistended, with normoactive bowel sounds. No bruits noted. Extremities: 2+ radial pulses bilaterally. 2+ posterior tibialis pulses bilaterally. No significant pitting edema or cyanosis. Psychiatric: Affect appears appropriate. Results & Data ([facility]) Vital Signs (Past 12 Hours) Vital Signs Temp Pulse Resp BP Pulse Ox 11/09/19 11:49 36.8 C 64 18 175/78 H 98 11/09/19 08:14 36.6 C 66 18 142/79 H 96 11/09/19 03:38 36.5 C 61 18 122/76 99 Laboratory Results Laboratory Results - last 24 hr 11/08/19 11/08/19 11/08/19 18:38 18:38 18:38 WBC 9.24 RBC 4.26 Hgb 13.5 Hct 40.9 MCV 96.0 MCH 31.7 MCHC 33.0 RDW Std Deviation 50.1 H RDW Coeff of Kamille 14.3 Plt Count 249 MPV 10.7 H Immature Gran % (Auto) 0.6 Neut % (Auto) 73.5 Lymph % (Auto) 17.7 [place] % (Auto) 6.2 Eos % (Auto) 1.6 Baso % (Auto) 0.4 Neut # (Auto) 6.78 H Lymph # (Auto) 1.64 [place] # (Auto) 0.57 Eos # (Auto) 0.15 Baso # (Auto) 0.04 Immature Gran # (Auto) 0.06 H PT 10.9 INR 1.0 APTT 23.2 PTT Ratio 0.8 Sodium 140 Potassium 4.3 Chloride 105 Carbon Dioxide 29 Anion Gap 6.0 BUN 31 H Creatinine 1.61 H Est Cr Clr Drug Dosing 33.4 Est GFR ( Amer) 34.9 Est GFR (Non-Af Amer) 30.1 BUN/Creatinine Ratio 19.3 Glucose 205 H POC Glucose Estimat Average Glucose Hemoglobin A1c Calcium 9.1 Phosphorus 3.6 Magnesium 2.0 Total Bilirubin 0.4 AST 19 ALT 23 Alkaline Phosphatase 84 Troponin I 0.140 H* NT-Pro-B Natriuret Pep 2236 H Total Protein 8.8 H Albumin 3.3 L Globulin 5.5 H Albumin/Globulin Ratio 0.6 L Lipase 131 TSH 3.250 11/08/19 11/09/19 11/09/19 23:47 00:53 03:43 WBC RBC Hgb Hct MCV MCH MCHC RDW Std Deviation RDW Coeff of Kaimlle Plt Count MPV Immature Gran % (Auto) Neut % (Auto) Lymph % (Auto) [place] % (Auto) Eos % (Auto) Baso % (Auto) Neut # (Auto) Lymph # (Auto) [place] # (Auto) Eos # (Auto) Baso # (Auto) Immature Gran # (Auto) PT INR APTT PTT Ratio Sodium Potassium Chloride Carbon Dioxide Anion Gap BUN Creatinine Est Cr Clr Drug Dosing Est GFR ( Amer) Est GFR (Non-Af Amer) BUN/Creatinine Ratio Glucose POC Glucose 312 H* 161 H Estimat Average Glucose Hemoglobin A1c Calcium Phosphorus Magnesium Total Bilirubin AST ALT Alkaline Phosphatase Troponin I 4.840 H* NT-Pro-B Natriuret Pep Total Protein Albumin Globulin Albumin/Globulin Ratio Lipase TSH 11/09/19 11/09/19 11/09/19 06:20 06:20 06:20 WBC 7.92 RBC 4.06 L Hgb 12.7 Hct 39.1 MCV 96.3 MCH 31.3 MCHC 32.5 RDW Std Deviation 50.9 H RDW Coeff of Kamille 14.4 Plt Count 226 MPV 10.2 Immature Gran % (Auto) 0.4 Neut % (Auto) 57.9 Lymph % (Auto) 31.1 [place] % (Auto) 8.1 Eos % (Auto) 2.0 Baso % (Auto) 0.5 Neut # (Auto) 4.59 Lymph # (Auto) 2.46 [place] # (Auto) 0.64 H Eos # (Auto) 0.16 Baso # (Auto) 0.04 Immature Gran # (Auto) 0.03 H PT INR APTT PTT Ratio Sodium 143 Potassium 3.9 Chloride 109 H Carbon Dioxide 29 Anion Gap 5.0 BUN 33 H Creatinine 1.40 H Est Cr Clr Drug Dosing 38.0 Est GFR ( Amer) 41.3 Est GFR (Non-Af Amer) 35.6 BUN/Creatinine Ratio 23.8 H Glucose 110 H POC Glucose Estimat Average Glucose Pending Hemoglobin A1c Pending Calcium 8.6 Phosphorus Magnesium Total Bilirubin 0.3 AST 30 ALT 18 Alkaline Phosphatase 72 Troponin I NT-Pro-B Natriuret Pep Total Protein 7.7 Albumin 3.0 L Globulin 4.7 H Albumin/Globulin Ratio 0.6 L Lipase TSH 11/09/19 11/09/19 11/09/19 06:20 07:39 11:24 WBC RBC Hgb Hct MCV MCH MCHC RDW Std Deviation RDW Coeff of Kamille Plt Count MPV Immature Gran % (Auto) Neut % (Auto) Lymph % (Auto) [place] % (Auto) Eos % (Auto) Baso % (Auto) Neut # (Auto) Lymph # (Auto) [place] # (Auto) Eos # (Auto) Baso # (Auto) Immature Gran # (Auto) PT INR APTT PTT Ratio Sodium Potassium Chloride Carbon Dioxide Anion Gap BUN Creatinine Est Cr Clr Drug Dosing Est GFR ( Amer) Est GFR (Non-Af Amer) BUN/Creatinine Ratio Glucose POC Glucose 102 H 182 H Estimat Average Glucose Hemoglobin A1c Calcium Phosphorus Magnesium Total Bilirubin AST ALT Alkaline Phosphatase Troponin I 5.460 H* NT-Pro-B Natriuret Pep Total Protein Albumin Globulin Albumin/Globulin Ratio Lipase TSH Diagnostic Findings Telemetry personally reviewed: Was having tachy atrial arrhythmia, likely atrial tachycardia which has since resolved and now sinus rhythm. Echo 03/27/2019: Normal LV size and systolic function. EF 50-55%. Mild inferior hypokinesis from base to mid ventricle. Moderate LVH. Mild to moderate . Mild to moderate MR. Moderate left atrial dilation. RVSP 30-40. Cardiac catheterization 03/07/2017: Severe [place] multivessel CAD with mid LAD 100% , mid to distal circumflex 80-90%, mid RCA 100%. Patent free STERLING to LAD arising from SVG to om 2. SVG to OM2 patent. Acutely occluded proximal SVG to PDA which underwent PCI with 3 x 38 and 3 x 34 nadia FLORENTINO in an overlapping fashion. ECG 11/08/2019 at 6:27 p.m.: Atrial tachycardia at 129 bpm with intermittent AV block. ECG 11/08/2019 at 8:01 p.m.: NSR 75 bpm. Inferior T-wave inversion. Anterior ST/T-wave abnormality. Chest x-ray 11/08/2019: No focal consolidation. Similar pulmonary vasculature compared to prior study on 03/25/2019 per Radiology. Medications Administered Current Inpatient Medications Acetaminophen (Acetaminophen 325 Mg Tab) 650 mg PO Q4H PRN PRN Reason: Pain or Fever Stop: 12/08/19 22:22 Aspirin (Aspirin 81 Mg Ectab) 81 mg PO QAM [facility] Stop: 12/09/19 08:59 Last Admin: 11/09/19 07:46 Dose: 81 mg Documented by: Clonazepam (Clonazepam 0.5 Mg Tab) 0.5 mg PO BID PRN PRN Reason: Anxiety Stop: 12/08/19 22:22 Dextrose (Dextrose 50% 50 Ml Syringe) 25 - 50 ml IV UD PRN; Protocol PRN Reason: Hypoglycemia Protocol Stop: 12/08/19 22:22 Fish Oil ([place]-3 (Purified Fish Oil) 1 Gm Cap) 1 gm PO BIDM [facility] Stop: 12/09/19 07:59 Last Admin: 11/09/19 07:46 Dose: 1 gm Documented by: Glucagon (Glucagon For Inj 1 Mg Vial) 1 mg SQ UD PRN; Protocol PRN Reason: Hypoglycemia Protocol Stop: 12/08/19 22:22 Glucose (Glucose 10 Tabs/Tube) 4 - 8 tabs PO UD PRN; Protocol PRN Reason: Hypoglycemia Protocol Stop: 12/08/19 22:22 Glucose (Glucose 40% Gel 15 Gm Tube) 15 - 30 gm PO UD PRN; Protocol PRN Reason: Hypoglycemia Protocol Stop: 12/08/19 22:22 Heparin Sodium/Dextrose (Heparin Sodium/Dextrose) 25,000 units in 500 mls @ 26 mls/hr IV .[id number] [facility]; Protocol Stop: 12/09/19 08:44 Last Admin: 11/09/19 08:46 Dose: 1,300 units/hr, 26 mls/hr Documented by: Insulin Aspart (Insulin Aspart 100 Units/Ml 3 Ml Pen) 0 units SC ACHS [facility]; Protocol Stop: 12/08/19 23:29 Last Admin: 11/09/19 12:12 Dose: 20 units Documented by: Insulin Detemir (Insulin Detemir) 45 units SC BID [facility]; Protocol Stop: 12/09/19 08:59 Last Admin: 11/09/19 07:47 Dose: 45 units Documented by: Metoprolol Succinate (Metoprolol Succ 50mg Ext Rel Tab) 50 mg PO BID [facility] Stop: 12/08/19 22:22 Last Admin: 11/09/19 07:46 Dose: 50 mg Documented by: Miscellaneous (Carbohydrates For Hypoglycemia ) 15 - 30 gm PO UD PRN PRN Reason: Hypoglycemia Protocol Stop: 12/08/19 22:22 Miscellaneous Information (Pharmacy Glycemic Mgmt Consult) 1 ea N/A UD PRN; Protocol PRN Reason: Consult Stop: 12/08/19 23:21 Multivitamins (Multivitamin Tab) 1 tab PO QAM [facility] Stop: 12/09/19 08:59 Last Admin: 11/09/19 07:46 Dose: 1 tab Documented by: Multivitamins/Minerals (Calcium 600mg + Vit D 400 Iu Tab) 1 tab PO QAM [facility] Stop: 12/09/19 08:59 Last Admin: 11/09/19 07:46 Dose: 1 tab Documented by: Nitroglycerin (Nitroglycerin Sl 0.4 Mg/Tab Tab) 0.4 mg SL UD PRN PRN Reason: Chest Pain Stop: 12/08/19 22:22 PG Care Time/CCT Total # of Minutes Spent Total Time Spent with Patient: Total time spent is greater than 50% in coordination of care (as documented) at patient's floor/unit and/or counseling patient: Coding Level of Care Code 62910 Initial Inpt Care Lvl 3 Diagnoses Non-STEMI (non-ST elevated myocardial infarction) I21.4 CAD (coronary artery disease) I25.810 Associated angina: without angina Coronary Disease-Associated Artery/Lesion type: bypass graft [place] vs. transplanted heart: [place] heart Atrial ectopic tachycardia I47.1 Benign essential hypertension I10 Hyperlipidemia E78.5 Hyperlipidemia type: unspecified S/P coronary artery stent placement Z95.5 S/P CABG (coronary artery bypass graft) Z95.1 Aortic stenosis I35.0 (1) CAD (coronary artery disease) Associated angina: without angina Coronary Disease-Associated Artery/Lesion type: bypass graft [place] vs. transplanted heart: [place] heart Qualified Code(s): I25.810 - Atherosclerosis of coronary artery bypass graft(s) without angina pectoris (2) Hyperlipidemia Hyperlipidemia type: unspecified Qualified Code(s): E78.5 - Hyperlipidemia, unspecified
[2019-11-09] MEDS ORDERED: VALSARTAN 80 MG TAB PO SCH (13:00)
--- NOTE | 2019-11-09 15:40 | Hospitalist Progress Note ---
Date of Service November 09, 2019 Assessment & Plan (1) Non-STEMI (non-ST elevated myocardial infarction): Appears to stem from episodes of atrial tachycardia. - Troponin went from 0.14 to 4.8, then 5.4. - Discussed with cardiology: Continue ASA; start Plavix and heparin. Unfortunately has had trouble with heparin gtt in the past with nosebleed. - Will defer to Dr. De Leon tomorrow (2) Atrial ectopic tachycardia: Noted in prior notes as either a slow atrial flutter or ectopic atrial tachycardia. - Per patient history, this likely occurred prior to this episode while at high anxiety state - Started amiodarone per cardiology (3) MICHAEL (acute kidney injury): Baseline Cr ~1.1 to 1.2. - Cr up to 1.6 on admission. - Monitor -> Down to 1.4 today. (4) Benign essential hypertension: BP 175/80 today. Losartan was held on admission for MICHAEL. - Restart losartan (5) Insulin dependent diabetes mellitus: A1c was 7.9% in 03/2019. Current one pending. - Transitioned to basal-bolus from home dosing - Sliding scale insulin - Blood sugars 100-300 so far today. (6) BRIAN on CPAP: Will offer CPAP. (7) DVT prophylaxis: On heparin gtt Admission and Anticipated Discharge Date Admission Date: November 09, 2019 Subjective Feels well today. No further chest pain. Reports no fevers/chills, chest pain, shortness of breath, abdominal pain, nausea, or vomiting. Physical Exam Constitutional: WD/WN, vitals as above Eyes: EOM intact bilaterally; no conjunctival abnormality ENMT: external ear and nose normal, oropharynx normal Neck: trachea midline, no thyromegaly normal visual inspection Respiratory: normal respiratory effort, lungs clear to auscultation no respiratory distress Cardiovascular: RRR, no murmur, no edema Gastrointestinal (Abdomen): Inspection/Auscultation: abdomen normal to inspection; abdomen not distended Musculoskeletal: no cyanosis or clubbing, extremities motor strength 5/5 Skin: no rashes, warm and dry Neurologic: moves all extremities and awake Psychiatric: Orientation: alert, oriented to person and cooperative Results & Data Results & Data ([facility]) Vital Signs (Past 12 Hours) Vital Signs Temp Pulse Resp BP Pulse Ox 11/09/19 11:49 36.8 C 64 18 175/78 H 98 08/16/20 08:14 36.6 C 66 18 142/79 H 96 11/09/19 03:38 36.5 C 61 18 122/76 99 PG Care Time/CCT Total # of Minutes Spent Total Time Spent with Patient: Total time spent is greater than 50% in coordination of care (as documented) at patient's floor/unit and/or counseling patient: Coding Level of Care Code 65792 Subseq Hosp Care Lvl 3 Diagnoses Non-STEMI (non-ST elevated myocardial infarction) I21.4 Atrial ectopic tachycardia I47.1 MICHAEL (acute kidney injury) N17.9 Benign essential hypertension I10 Insulin dependent diabetes mellitus E11.9; Z79.4 BRIAN on CPAP G47.33; Z99.89 DVT prophylaxis Z29.9
[2019-11-09 15:44] LABS: Partial Thromboplastin Time 84.9 Seconds (21.0-31.0)
[2019-11-09] MEDS: AMIODARONE 200 MG TAB PO SCH (16:59)
--- NOTE | 2019-11-09 19:25 | Billing Data ---
Date of Service November 09, 2019 Coding Level of Care Code 72020 OBS Care - Level 3
[2019-11-09] MEDS: clonazePAM 0.5 MG TAB PO PRN (19:40)
--- NOTE | 2019-11-09 22:58 | Electrocardiogram Report ---
Test Reason : Blood Pressure : / mmHG Vent. Rate : 129 BPM Atrial Rate : 150 BPM P-R Int : 216 ms QRS Dur : 086 ms QT Int : 322 ms P-R-T Axes : 044 050 015 degrees QTc Int : 471 ms Atrial tachycardia with occasional 2:1 A-V conduction Premature ventricular complexes Nonspecific ST and T wave abnormality Abnormal ECG When compared with ECG of 26-MAR-2019 07:27, Premature ventricular complexes are now Present Atrial tachycardia has replaced Sinus rhythm Vent. rate has increased BY 49 BPM T wave inversion no longer evident in Anterolateral leads Confirmed by Richie Wade ([id number]) on 11/09/2019 10:58:13 PM Referred By: REFERRED SELF Confirmed By:Richie Wade
--- NOTE | 2019-11-09 23:00 | Electrocardiogram Report ---
Test Reason : Blood Pressure : / mmHG Vent. Rate : 075 BPM Atrial Rate : 075 BPM P-R Int : 172 ms QRS Dur : 082 ms QT Int : 374 ms P-R-T Axes : 052 027 -38 degrees QTc Int : 417 ms Normal sinus rhythm Abnormal ECG When compared with ECG of 08-NOV-2019 18:27, Sinus rhythm has replaced Atrial tachycardia Vent. rate has decreased BY 54 BPM Confirmed by Richie Wade ([id number]) on 11/09/2019 11:00:22 PM Referred By: REFERRED SELF Confirmed By:Richie Wade
[2019-11-09 23:24] LABS: Partial Thromboplastin Ratio 1.7
[2019-11-09 23:26] LABS: Partial Thromboplastin Time 47.3 Seconds (21.0-31.0)
[2019-11-10] MEDS: HEPARIN SODIUM/DEXTROSE 25,000 UNITS/500 ML BAG IV SCH (03:50)
[2019-11-10 05:32] LABS: Hematocrit (blood only) 36.1 % (37-47); Hemoglobin 11.5 g/dL (12.0-16.0); Mean Corpuscular Hemoglobin 30.9 pg (25-34); Mean Corpuscular Hgb Conc 31.9 g/dL (32-36); Mean Platelet Volume 10.2 fL (7.4-10.4); Platelet Count 208 K/uL (130-400); RDW Coefficient of Variation 14.4 % (11.5-14.5); RDW Standard Deviation 51.1 fL (36.4-46.3); Red Blood Count 3.72 M/uL (4.2-5.4); White Blood Count 7.41 K/uL (4.8-10.8)
[2019-11-10 05:51] LABS: Albumin Level 2.6 gm/dl (3.4-5.0); BUN Creatinine Ratio 22.5 (10-20); Calcium 8.5 mg/dl (8.5-10.1); Creatinine Clr Calc Pharmacy 33.7 ml/min; Est GFR (African American) 35.7; Est GFR (Non-African American) 30.8; Magnesium 1.9 mg/dl (1.8-2.4)
[2019-11-10 05:51] LABS: Estimated Average Glucose 183 mg/dl
[2019-11-10 05:53] LABS: Partial Thromboplastin Ratio 1.7
[2019-11-10 06:04] LABS: Albumin Globulin Ratio 0.6 (0.9-2); Bilirubin,Total 0.3 mg/dl (0.2-1); Globulin 4.4 gm/dl (2.5-4.0); Troponin I 1.81 ng/ml (0-0.045)
[2019-11-10] MEDS: CALCIUM 600MG + VIT D 400 IU TAB PO SCH (08:03)
[2019-11-10] MEDS: METOPROLOL SUCC 50MG EXT REL TAB PO SCH (08:03)
[2019-11-10] MEDS: OMEGA-3 (PURIFIED FISH OIL) 1 GM CAP PO SCH ×2 (08:04→16:05)
[2019-11-10] MEDS: CLOPIDOGREL BISULFATE 75 MG TAB PO SCH (08:04)
[2019-11-10] MEDS: MULTIVITAMIN TAB PO SCH (08:05)
[2019-11-10] MEDS: ASPIRIN 81 MG ECTAB PO SCH (08:05)
[2019-11-10] MEDS: AMIODARONE 200 MG TAB PO SCH ×2 (08:05→16:04)
[2019-11-10] MEDS: INSULIN DETEMIR SC SCH ×2 (08:06→21:05)
[2019-11-10] MEDS: INSULIN ASPART 100 UNITS/ML 3 ML PEN SC SCH ×4 (08:08→21:04)
--- NOTE | 2019-11-10 09:00 | Cardiology Progress Note ---
Date of Service November 10, 2019 Assessment & Plan Admission and Anticipated Discharge Date Admission Date: November 09, 2019 Subjective She feels well this morning. She denies any further chest pain or chest pressure. She is had no palpitations and she is been in the emergency room. She notes the event started with a stressful event at the bank. The EDIL would not tell her the balance and her account. She tried 5 different times. This stressful event that led to her feeling her heart racing with associated chest discomfort. She denies any lightheadedness or dizziness. She is not short of breath talking in sentences. She denies any lower extremity edema. She has not ambulated in the hallway. She is worried about the changes in her medication. She does have bleeding around her IV site in her right arm. In the past she has blood with heparin. Results & Data ([facility]) Vital Signs (Past 12 Hours) Vital Signs Temp Pulse Pulse Resp BP Pulse Ox 11/10/19 08:06 36.7 C 72 20 157/77 H 97 11/10/19 03:33 36.8 C 65 18 128/70 95 11/10/19 00:00 36.5 C 64 18 152/75 H 96 11/09/19 23:00 71 11/09/19 21:00 36.4 C L 63 18 133/65 94 she is awake alert oriented x3 she looks her stated age HEENT mildly reduced carotid upstrokes no evidence of carotid bruits jugular venous pressure appeared normal her sclerae anicteric her hearing is normal Lungs clear to auscultation bilaterally no rales rhonchi or wheezing Heart regular rate and rhythm with a crescendo decrescendo murmur which is mid peaking Abdomen: Soft nontender distended positive bowel sounds Extremities: No clubbing or cyanosis with trace bilateral lower extremity edema Psychiatric affect appeared appropriate Neuro she is awake alert and oriented x3 (1) Non-STEMI (non-ST elevated myocardial infarction): If you look at her cardiac catheterization from February 2017 she is in essence living off a free STERLING to the LAD with severe diffuse distal disease and a vein graft to OM 3. The vein graft to the PDA was the culprit vessel and was intervened upon. Her function capacity at baseline is very limited with her LV function being preserved I would try to treat her medically if at all possible. I think this was all related to her underlying arrhythmia that then caused significant tachycardia and coronary ischemia. If she has recurrent arrhythmias then I would consider amiodarone. Agree with aspirin and Plavix. I would stop her heparin drip (2) CAD (coronary artery disease): No symptoms normally. She is not on statins due to intolerance. She had lower extremity edema related to amlodipine. And she had significant headaches related to Imdur. (3) SVT (supraventricular tachycardia): This likely represents an atrial tachycardia. I agree with amiodarone 200 mg twice daily x2 weeks then 200 mg daily. We will reduce her metoprolol to 25 mg twice daily to avoid bradycardia. There is no indication for anticoagulation. 4. Moderate aortic stenosis 5. Diabetes mellitus type 2 6. Preserved left ventricular systolic function with an inferior wall motion abnormality 7. Acute kidney injury on chronic kidney disease her creatinine may actually be worse because she is off her valsartan. I would actually restart it and just check a BMP in 10 days time. She does not wish to stay in the hospital any longer. If she can ambulate in the hallway and feels well then she can be discharged home on the above meds.
--- NOTE | 2019-11-10 11:50 | XCELERA ---
[id number]
[2019-11-10] MEDS ORDERED: ONDANSETRON INJ 2 MG/ML 2 ML VIAL IV PRN (12:06)
--- NOTE | 2019-11-10 15:12 | Hospitalist Progress Note ---
Date of Service November 10, 2019 Assessment & Plan (1) Non-STEMI (non-ST elevated myocardial infarction): Appears to stem from episodes of atrial tachycardia. - Troponin went from 0.14 to 4.8, then 5.4. - Discussed with cardiology: Continue ASA & started Plavix on 11/08. - Discussed with Dr. De Leon -> Continue amiodarone 200 mg PO BID, lower beta- jaswant to Toprol XL 25 mg PO BID. - Getting PT/OT to assess baseline function. (2) Atrial ectopic tachycardia: Noted in prior notes as either a slow atrial flutter or ectopic atrial tachycardia. - Per patient history, this likely occurred prior to this episode while at high anxiety state - Started amiodarone per cardiology (3) MICHAEL (acute kidney injury): Baseline Cr ~1.1 to 1.2. - Cr up to 1.6 on admission. - Monitor -> 1.6 today. Will give small IV fluid bolus. (4) Benign essential hypertension: BP 160/75 today. Valsartan was held on admission for MICHAEL. - Restarted valsartan on 11/10. (5) Insulin dependent diabetes mellitus: A1c was 7.9% in 03/2019. 8.0% this admission. - Transitioned to basal-bolus from home dosing - Sliding scale insulin - Blood sugars 130-180 so far today. (6) BRIAN on CPAP: Will offer CPAP. (7) DVT prophylaxis: SCDs, ambulation, ASA/Plavix Admission and Anticipated Discharge Date Admission Date: November 09, 2019 Subjective Feels quite dizzy and wobbly today after a walk around. Reports no fevers/chills, chest pain, shortness of breath, abdominal pain, nausea, or vomiting. Physical Exam Constitutional: WD/WN, vitals as above Eyes: EOM intact bilaterally; no conjunctival abnormality ENMT: external ear and nose normal, oropharynx normal Neck: trachea midline, no thyromegaly normal visual inspection Respiratory: normal respiratory effort, lungs clear to auscultation no respiratory distress Cardiovascular: RRR, no murmur, no edema Gastrointestinal (Abdomen): Inspection/Auscultation: abdomen normal to inspection; abdomen not distended Musculoskeletal: no cyanosis or clubbing, extremities motor strength 5/5 Skin: no rashes, warm and dry Neurologic: moves all extremities and awake Psychiatric: Orientation: alert, oriented to person and cooperative Results & Data Results & Data ([facility]) Vital Signs (Past 12 Hours) Vital Signs Temp Pulse Resp BP Pulse Ox 11/10/19 12:05 36.4 C L 61 20 162/74 H 98 11/10/19 08:06 36.7 C 72 20 157/77 H 97 11/10/19 03:33 36.8 C 65 18 128/70 95 PG Care Time/CCT Total # of Minutes Spent Total Time Spent with Patient: Total time spent is greater than 50% in coordination of care (as documented) at patient's floor/unit and/or counseling patient: Coding Level of Care Code 68646 Subseq Hosp Care Lvl 2 Diagnoses Non-STEMI (non-ST elevated myocardial infarction) I21.4 Atrial ectopic tachycardia I47.1 MICHAEL (acute kidney injury) N17.9 Benign essential hypertension I10 Insulin dependent diabetes mellitus E11.9; Z79.4 BRIAN on CPAP G47.33; Z99.89 DVT prophylaxis Z29.9
[2019-11-10] MEDS ORDERED: NORMOSOL-R 500 ML IV ONE (15:15)
[2019-11-10] MEDS: METOPROLOL SUCC 25MG EXT REL TAB PO SCH (21:02)
[2019-11-10] MEDS: clonazePAM 0.5 MG TAB PO PRN (22:15)
[2019-11-11] MEDS ORDERED: METOPROLOL SUCC 25MG EXT REL TAB PO SCH
[2019-11-11] MEDS ORDERED: AMIODARONE 200 MG TAB PO SCH
[2019-11-11 06:04] LABS: Hematocrit (blood only) 35.5 % (37-47); Hemoglobin 11.2 g/dL (12.0-16.0); Mean Corpuscular Hemoglobin 31.1 pg (25-34); Mean Corpuscular Hgb Conc 31.5 g/dL (32-36); Mean Corpuscular Volume 98.6 fL (80-100); Mean Platelet Volume 10.1 fL (7.4-10.4); Platelet Count 203 K/uL (130-400); RDW Coefficient of Variation 14.3 % (11.5-14.5); RDW Standard Deviation 51.4 fL (36.4-46.3); White Blood Count 6.46 K/uL (4.8-10.8)
[2019-11-11 06:13] LABS: Partial Thromboplastin Ratio 0.9; Partial Thromboplastin Time 24.7 Seconds (21.0-31.0)
[2019-11-11 06:40] LABS: Est GFR (African American) 36.2; Est GFR (Non-African American) 31.3; Potassium 4.1 mmol/L (3.5-5.1)
[2019-11-11 06:41] LABS: BUN Creatinine Ratio 23.1 (10-20); Calcium 8.3 mg/dl (8.5-10.1); Creatinine Clr Calc Pharmacy 34.1 ml/min
[2019-11-11] MEDS: METOPROLOL SUCC 25MG EXT REL TAB PO SCH (08:04)
[2019-11-11] MEDS: CLOPIDOGREL BISULFATE 75 MG TAB PO SCH (08:04)
[2019-11-11] MEDS: MULTIVITAMIN TAB PO SCH (08:04)
[2019-11-11] MEDS: ASPIRIN 81 MG ECTAB PO SCH (08:05)
[2019-11-11] MEDS: CALCIUM 600MG + VIT D 400 IU TAB PO SCH (08:05)
[2019-11-11] MEDS: OMEGA-3 (PURIFIED FISH OIL) 1 GM CAP PO SCH (08:05)
[2019-11-11] MEDS: AMIODARONE 200 MG TAB PO SCH (08:06)
[2019-11-11] MEDS: INSULIN ASPART 100 UNITS/ML 3 ML PEN SC SCH ×2 (08:08→11:48)
[2019-11-11] MEDS ORDERED: VALSARTAN 80 MG TAB PO SCH (09:00)
[2019-11-11] MEDS ORDERED: INSULIN DETEMIR SC SCH (09:00)
--- NOTE | 2019-11-11 10:20 | Pharmacy Report ---
Pharmacy Glycemic Short Note 2 - Date of Service November 11, 2019 - Glycemic Short BSG Results (Last 24 hours): 11/10/19 11/10/19 11/10/19 11:30 16:29 20:22 Glucose POC Glucose 173 H 167 H 155 H 11/11/19 11/11/19 05:48 07:15 Glucose 77 POC Glucose 99 OUTPATIENT ANTIDIABETIC REGIMEN: * Levemir 46 units SQ qAM, 54 units SQ qPM * Novolog SSI, up to 135 units per day (correction factor ~3-5mg/dL/unit) * HbA1c: pending with AM labs ASSESSMENT: * Pt has received 118 units of insulin over the past 24hrs * 90 units of basal (Lantus) * 28 units of bolus (NovoLog) (low CHO intake per counts) * BSGs [phone] * AM fasting BSG is below goal range at 99 mg/dl this AM --> will decrease basal insulin dosing by ~ 10% * heparin infusion (mixed in dextrose) also stopped yesterday - will likely need less insulin without this continuous dextrose load * Post prandial BSGs in goal range --> no changes needed to CHO ratio PLAN FOR INPATIENT GLYCEMIC CONTROL: * Basal insulin: decrease dosing * Levemir 40 units SQ BID * Bolus insulin: no change * NovoLog per scale ACHS or Q6hrs while NPO * Goal Range: Low 110 mg/dL - High 140 mg/dL * Correction Factor: 12 mg/dL/unit * Nutritional / Prandial insulin per carb ratio of 1 unit per 4 grams CHO consumed PLAN FOR DISCHARGE: * A1c = 8% on 11/09/19 * This is in goal range for patient based on age/co-morbidities. No changes needed to outpatient regimen
[2019-11-11] MEDS ORDERED: Nursing to Pharmacy Communication SCH (12:45)
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
[2019-11-12] MEDS ORDERED: CLOPIDOGREL BISULFATE 75 MG TAB PO SCH
== END 2019-11-11 14:49 | disposition home health service (06) ==
LOC: 2S 18:22 → ED 18:22 → SUATTDRO 21:03 → 2S 21:55

== ENCOUNTER 2019-11-14 21:33 | Observation (INO) ==
[2019-11-14 22:40] LABS: Basophils # (auto) 0.04 K/uL (0-0.2); Basophils % (auto) 0.5 %; Eosinophils # (auto) 0.14 K/uL (0-0.5); Eosinophils % (auto) 1.9 %; Hematocrit (blood only) 36.6 % (37-47); Hemoglobin 11.9 g/dL (12.0-16.0); Immature Granulocytes # (auto) 0.04 K/uL (0.00-0.02); Immature Granulocytes % (auto) 0.5 %; Lymphocytes # (auto) 1.72 K/uL (1.2-3.4); Lymphocytes % (auto) 22.8 %; Mean Corpuscular Hemoglobin 32.3 pg (25-34); Mean Corpuscular Hgb Conc 32.5 g/dL (32-36); Mean Corpuscular Volume 99.5 fL (80-100); Mean Platelet Volume 11.1 fL (7.4-10.4); Monocytes # (auto) 0.59 K/uL (0.11-0.59); Monocytes % (auto) 7.8 %; Neutrophils # (auto) 5.02 K/uL (1.4-6.5); Neutrophils % (auto) 66.5 %; Platelet Count 202 K/uL (130-400); RDW Coefficient of Variation 14.3 % (11.5-14.5); RDW Standard Deviation 51.8 fL (36.4-46.3); Red Blood Count 3.68 M/uL (4.2-5.4); White Blood Count 7.55 K/uL (4.8-10.8)
--- NOTE | 2019-11-14 22:52 | Emergency Department Note ---
Impression & Plan Chest pain, Elevated troponin, CKD (chronic kidney disease) ED Provider Note NAME: CARRINGTON SCHMITT AGE: 79 SEX: F ARRIVES VIA: Ambulance INFORMANT: Patient, ED PROVIDER(S): Jeff Alfaro MD CHIEF COMPLAINT: Chest pain PLAN: Disposition: Admit MEDICAL DECISION MAKING: The patient is a pleasant 79-year-old woman with a past medical history of CAD with history of CABG 2004 history of PCI in 2017 with recent admission from 11/08-11/10 with chest pain with diagnosis of NSTEMI with troponin that angela to 5.4 in the setting of episodes of atrial tachycardia started on amiodarone who presents emergency department with episode of pain between her shoulder blades prior to arrival which she feels is similar to prior heart attacks but resolved with nitro but she reports pressing her life alert button to "ask questions if it could be due to her medications" and was referred to the emergency department. On arrival the patient denies any active symptoms at this time. She denies any fevers, chills, cough, congestion, nausea, vomiting, diarrhea or diarrhea, urinary symptoms since her discharge several days ago. EKG demonstrates ST and T wave abnormalities that are similar to prior and no overt ST elevation. WBC and platelets within normal limits. H/H 11.9/36.6 similar to prior range of values. Chemistry without acidosis. Creatinine 1.4 similar to prior range of values. Electrolytes unremarkable. LFTs unremarkable. Troponin elevated at 0.154 which is decreased from prior admission. BNP 2500 similar to prior admission. Given the patient's recurrence of symptoms in the setting of recent and STEMI reasonable admit the patient for further management. The patient is agreeable with this. Findings and plan for follow-up reviewed with patient. Patient agreeable and d/c'd per discharge instructions. Triage Nursing notes reviewed and agree them. Prior medical records reviewed Vital Signs: reviewed and remarkable for no significant abnormalities Differential diagnosis: Cardiac ischemia, aortic dissection, pulmonary embolism, pneumothorax, pneumonia, pericarditis, myocarditis, esophageal rupture, GERD, cholecystitis, pancreatitis, musculoskeletal, as well as other pathologies. ER treatment provided: See below. Diagnostics interpreted by me: ECG: Normal sinus rhythm, 74 bpm, no ectopy, ST and T wave abnormality, no overt ST elevation, QTc 386, QRS 92. Similar to November 08, 2019. Cardiac Monitoring: An order for continuous cardiac monitoring was placed and demonstrated NSR, 74 bpm, no ectopy. Laboratory studies: See below Imaging studies: CXR: Cardiomegaly with mild vascular congestion similar to prior. Consultation(s): Case was discussed with Dr. Espinoza, [facility] [place], who will evaluate the patient for admission. HPI: The patient is a pleasant 79-year-old woman with a past medical history of CAD with history of CABG 2004 history of PCI in 2017 with recent admission from 11/08-11/10 with chest pain with diagnosis of an STEMI with troponin that angela to 5.4 in the setting of episodes of atrial tachycardia started on amiodarone who presents emergency department with episode of pain between her shoulder blades prior to arrival which she feels is similar to prior heart attacks but resolved with nitro but she reports pressing her life alert button to "ask questions if it could be due to her medications" and was referred to the emergency department. ROS: See above HPI for pertinent positives & negatives. A total of 10 systems reviewed and were otherwise negative. PAST MEDICAL HISTORY:See Below PAST SURGICAL HISTORY:See Below FAMILY HISTORY:See Below SOCIAL HISTORY:See Below HOME MEDICATIONS:See Below ALLERGIES:See Below VITALS:See Below PHYSICAL EXAMINATION: GENERAL: Awake, alert, well-appearing, in no distress HENT: Normocephalic, atraumatic. Oropharynx unremarkable. EYES: Normal conjunctiva. Sclera non-icteric. NECK: Supple. No nuchal rigidity. FROM. No JVD. RESPIRATORY: Clear to auscultation. CARDIAC: Regular rate, normal rhythm. Extremities warm and well perfused. Pulses equal. ABDOMEN: Soft, non-distended. No tenderness to palpation. No rebound or guarding. No masses. RECTAL: Deferred. MUSCULOSKELETAL: Chest examination reveals no tenderness. The back is symmetrical on inspection without obvious abnormality. There is no CVA tenderness to palpation. No joint edema. LOWER EXTREMITIES: Calves are equal size bilaterally and non-tender. No edema. No discoloration. NEURO: Normal sensorium. No sensory or motor deficits noted. SKIN: No rash or jaundice noted. Jeff Alfaro MD Past Med/Surg History Medical History Aortic stenosis Atrial ectopic tachycardia Benign essential hypertension CAD (coronary artery disease) Status post four-vessel CABG in 2004 Status post drug-eluting stent x2 to SVGPDA 2016 CHF (congestive heart failure) History of atrial fibrillation less than 8 weeks after coronary artery bypass graft Hyperlipidemia BRIAN on CPAP PNA (pneumonia) UTI (urinary tract infection) Surgical History History of carpal tunnel surgery History of left knee surgery History of open heart surgery History of tonsillectomy Hx of heart artery stent S/P CABG (coronary artery bypass graft) S/P coronary artery stent placement Family History Other Coronary heart disease Diabetes Social History Smoking Status: Never smoker Second Hand Exposure: No; Hx Alcohol Use: No Hx Substance Use: No Preferred Language: Portuguese Communication Ability: Effective Back Tufter Required: No Beliefs That Will Affect Care: None marital status: / Current Living Situation: Alone Current Living Situation Comment: lives in [facility] Feels Safe at Home: Yes Safety Concerns: Feels Safe At This Time Allergies Allergies Allergy/AdvReac Type Severity Reaction Status Date / Time Cephalosporins Allergy Severe ANAPHYLAXIS Verified 11/08/19 19:22 fluoxetine Allergy Severe muscle/panic Verified 11/08/19 19:22 attack meloxicam Allergy Severe panic Verified 11/08/19 19:22 attack sertraline Allergy Severe panic Verified 11/08/19 19:22 attack citalopram Allergy Intermediate muscle Verified 11/08/19 19:22 cramping tramadol Allergy Mild headache Verified 11/08/19 19:22 cefazolin Allergy Unknown UNRESPONSIV Verified 11/08/19 19:22 E ticagrelor AdvReac Severe LEG PAIN - Verified 11/08/19 19:22 WHEN TAKES 2 90MG TABLETS ibuprofen AdvReac Intermediate DIZZY, Verified 11/08/19 19:22 SYNCOPE, NAUSEA lovastatin AdvReac Intermediate leg pain Verified 11/08/19 19:22 azithromycin [From Zithromax] AdvReac Unknown Panic Verified 11/08/19 19:22 attack Home Meds Home Medications Medication Instructions Recorded Confirmed Calcium 600 + D(3) 1 tab PO QAM 06/05/18 11/14/19 Levemir U-100 Insulin 46 units SUBCUT QAM 06/05/18 11/14/19 Levemir U-100 Insulin 54 units SUBCUT HS 06/05/18 11/14/19 aspirin 81 mg PO QAM 06/05/18 11/14/19 clonazepam 0.5 mg PO BID PRN 06/05/18 11/14/19 garlic 1 cap PO QAM 06/05/18 11/14/19 insulin aspart U-100 [Novolog See Rx Instructions .ROUTE .COMPLEX 06/05/18 11/14/19 U-100 Insulin aspart] multivitamin 1 tab PO QAM 06/05/18 11/14/19 nitroglycerin 0.4 mg SUBLINGUAL DIRECTED PRN 06/05/18 11/14/19 omega 9-[id number]-[id number]-fish oil [Fish Oil] 1,000 mg PO BIDM 06/05/18 11/14/19 furosemide [Lasix] 20 mg PO QAM 03/25/19 11/14/19 valsartan 80 mg PO DAILY 11/08/19 11/14/19 Previous Rx's Medication Instructions Recorded amiodarone 200 mg PO BIDM #60 tab 11/11/19 clopidogrel 75 mg PO QAM #30 tab 11/11/19 metoprolol succinate 25 mg PO BID #60 tab 11/11/19 Results & Data (ED) Vital Signs Vital Signs - 24 hr 11/14/19 21:40 11/14/19 21:53 11/14/19 23:00 Pulse Rate 79 Pulse Rate [Apical] 62 Respiratory Rate 20 18 Respiratory Effort / Characteristics Non-Labored Spontaneous Respiratory Depth Normal Normal Blood Pressure 175/75 H Blood Pressure [Right Arm] 173/80 H Blood Pressure Mean 108 Blood Pressure Mean [Right Arm] 111 Blood Pressure Position Sitting Pulse Oximetry 95 95 100 Oxygen Delivery Method Nasal Cannula Nasal Cannula Nasal Cannula Oxygen Flow Rate 2 2 2 Sepsis Recent Fever Within 48 Hours No Sepsis New/Unexplained Change in Mental Status No Sepsis Action Taken by Nursing No Action Required Laboratory Data Result diagrams: 11/14/19 22:28 11/14/19 23:45 Lab Results 11/14/19 11/14/19 11/14/19 Range/Units 22:28 22:28 22:35 WBC 7.55 (4.8-10.8) K/uL RBC 3.68 L (4.2-5.4) M/uL Hgb 11.9 L (12.0-16.0) g/dL Hct 36.6 L (37-47) % MCV 99.5 (80-100) fL MCH 32.3 (25-34) pg MCHC 32.5 (32-36) g/dL RDW Std Deviation 51.8 H (36.4-46.3) fL RDW Coeff of Kamille 14.3 (11.5-14.5) % Plt Count 202 (130-400) K/uL MPV 11.1 H (7.4-10.4) fL Immature Gran % (Auto) 0.5 % Neut % (Auto) 66.5 % Lymph % (Auto) 22.8 % [place] % (Auto) 7.8 % Eos % (Auto) 1.9 % Baso % (Auto) 0.5 % Neut # (Auto) 5.02 (1.4-6.5) K/uL Lymph # (Auto) 1.72 (1.2-3.4) K/uL [place] # (Auto) 0.59 (0.11-0.59) K/uL Eos # (Auto) 0.14 (0-0.5) K/uL Baso # (Auto) 0.04 (0-0.2) K/uL Immature Gran # (Auto) 0.04 H (0.00-0.02) K/uL PT 11.1 (9.0-12.0) Seconds INR 1.1 (0.9-1.1) APTT 20.5 L (21.0-31.0) Seconds PTT Ratio 0.7 Sodium 138 (136-145) mmol/L Potassium (3.5-5.1) mmol/L Chloride 104 (98-107) mmol/L Carbon Dioxide 28 (21-32) mmol/L Anion Gap 6.0 (3-11) BUN 34 H (7-18) mg/dl Creatinine 1.44 H (0.6-1.2) mg/dl Est Cr Clr Drug Dosing 35.6 ml/min Est GFR ( Amer) 39.9 Est GFR (Non-Af Amer) 34.5 BUN/Creatinine Ratio 23.5 H (10-20) Glucose 245 H (70-99) mg/dl Calcium 9.4 (8.5-10.1) mg/dl Phosphorus 3.0 (2.5-4.9) mg/dl Magnesium (1.8-2.4) mg/dl Total Bilirubin 0.3 (0.2-1) mg/dl Direct Bilirubin (0-0.2) mg/dl AST (15-37) U/L ALT 23 (12-78) U/L Alkaline Phosphatase 69 (45-117) U/L Troponin I 0.154 H* (0-0.045) ng/ml NT-Pro-B Natriuret Pep 2546 H (0-1800) pg/ml Total Protein 7.9 (6.4-8.2) gm/dl Albumin 3.0 L (3.4-5.0) gm/dl Globulin 4.9 H (2.5-4.0) gm/dl Albumin/Globulin Ratio 0.6 L (0.9-2) Lipase 104 (73-393) U/L TSH 3.630 (0.300-4.500) uIu/ml 11/14/19 Range/Units 23:45 WBC (4.8-10.8) K/uL RBC (4.2-5.4) M/uL Hgb (12.0-16.0) g/dL Hct (37-47) % MCV (80-100) fL MCH (25-34) pg MCHC (32-36) g/dL RDW Std Deviation (36.4-46.3) fL RDW Coeff of Kamille (11.5-14.5) % Plt Count (130-400) K/uL MPV (7.4-10.4) fL Immature Gran % (Auto) % Neut % (Auto) % Lymph % (Auto) % [place] % (Auto) % Eos % (Auto) % Baso % (Auto) % Neut # (Auto) (1.4-6.5) K/uL Lymph # (Auto) (1.2-3.4) K/uL [place] # (Auto) (0.11-0.59) K/uL Eos # (Auto) (0-0.5) K/uL Baso # (Auto) (0-0.2) K/uL Immature Gran # (Auto) (0.00-0.02) K/uL PT (9.0-12.0) Seconds INR (0.9-1.1) APTT (21.0-31.0) Seconds PTT Ratio Sodium (136-145) mmol/L Potassium 4.7 (3.5-5.1) mmol/L Chloride (98-107) mmol/L Carbon Dioxide (21-32) mmol/L Anion Gap (3-11) BUN (7-18) mg/dl Creatinine (0.6-1.2) mg/dl Est Cr Clr Drug Dosing ml/min Est GFR ( Amer) Est GFR (Non-Af Amer) BUN/Creatinine Ratio (10-20) Glucose (70-99) mg/dl Calcium (8.5-10.1) mg/dl Phosphorus (2.5-4.9) mg/dl Magnesium 2.2 (1.8-2.4) mg/dl Total Bilirubin (0.2-1) mg/dl Direct Bilirubin < 0.1 (0-0.2) mg/dl AST 14 L (15-37) U/L ALT (12-78) U/L Alkaline Phosphatase (45-117) U/L Troponin I (0-0.045) ng/ml NT-Pro-B Natriuret Pep (0-1800) pg/ml Total Protein (6.4-8.2) gm/dl Albumin (3.4-5.0) gm/dl Globulin (2.5-4.0) gm/dl Albumin/Globulin Ratio (0.9-2) Lipase (73-393) U/L TSH (0.300-4.500) uIu/ml Administered Medications Metoprolol Succinate (Metoprolol Succ 25mg Ext Rel Tab) 25 mg PO BID RIC Stop: 12/15/19 01:22 Last Admin: 11/15/19 02:09 Dose: 25 mg Documented by: [id number] Blood Pressure Blood Pressure Findings: Elevated blood pressure Blood Pressure Disposition: further management by hospitalist Discharge Plan Visit Data Chief Complaint: Chest Pain ED Provider: Jeff Alfaro Discharge Problem: Chest pain, Elevated troponin, CKD (chronic kidney disease) Patient Disposition: Admitted As Inpatient Discharge Instructions Interventions: ED Discharge Assessment Last Done: 11/15/19 00:45 Discharge Problem: Chest pain Qualifiers: Chest pain type: unspecified Qualified Code(s): R07.9 - Chest pain, unspecified
[2019-11-14 23:01] LABS: INR 1.1 (0.9-1.1); Partial Thromboplastin Ratio 0.7; Partial Thromboplastin Time 20.5 Seconds (21.0-31.0); Prothrombin Time 11.1 Seconds (9.0-12.0)
[2019-11-14 23:10] LABS: Albumin Globulin Ratio 0.6 (0.9-2); BUN Creatinine Ratio 23.5 (10-20); Bilirubin,Total 0.3 mg/dl (0.2-1); Calcium 9.4 mg/dl (8.5-10.1); Creatinine Clr Calc Pharmacy 35.6 ml/min; Est GFR (African American) 39.9; Est GFR (Non-African American) 34.5; Globulin 4.9 gm/dl (2.5-4.0); Thyroid Stimulating Hormone 3.63 uIu/ml (0.300-4.500); Total Protein 7.9 gm/dl (6.4-8.2); Troponin I 0.154 ng/ml (0-0.045)
--- NOTE | 2019-11-14 23:57 | History & Physical Report ---
Date of Service November 14, 2019 Assessment & Plan (1) Shortness of breath: Patient reports shortness of breath, for a few hours every time she takes the amiodarone. She has not noted any lightheadedness or dizziness or presyncopal or syncopal events. She also denies any palpitations or symptoms of tachycardia Present on Admission?: Yes (2) Elevated troponin: Elevated troponin/CAD/history non-STEMI/atrial ectopic tachycardia/status post CABG/status post stented coronary arteries- Troponin mildly elevated at 0.154, which is down significantly from her previous non-STEMI numbers at her last admission. The patient will be admitted to telemetry for serial cardiac enzymes, serial EKG's, cardiac rhythm monitoring. Present on Admission?: Yes (3) Atrial ectopic tachycardia: The patient is already taken amiodarone dose this evening. We will hold amiodarone morning dose, till seen by cardiology, to see if there may be a trial of a lower dose than 200 mg twice daily. Continue current dosing of metoprolol succinate 25 mg twice daily, which is of note, lower than prior to addition of amiodarone. Present on Admission?: Yes (4) S/P CABG (coronary artery bypass graft): See above Present on Admission?: Yes (5) S/P coronary artery stent placement: See above Present on Admission?: Yes (6) CAD (coronary artery disease): See above Present on Admission?: Yes (7) CKD (chronic kidney disease): Creatinine 1.44 upon admission, with range 1.4-1.61. Follow serially Present on Admission?: Yes (8) Hyperlipidemia: Continue omega-3 fish oil Present on Admission?: Yes (9) Insulin dependent diabetes mellitus: Change Levemir from 46 in the morning to 30 in the morning, and from 54 to 40 in the evening. Patient Accu-Cheks before meals and at bedtime with NovoLog coverage for scale Present on Admission?: Yes History of Present Illness Chief Complaint: Patient presents to the emergency department with complaint of feeling short of breath and having chest tightness for a few hours after taking amiodarone, and discomfort between her shoulder blades Primary Care Provider: Bro Calle MD The patient is a 79-year-old female with a past medical history including aortic stenosis, stented coronary arteries, status post CABG, atrial ectopic tachycardia, CKD, non-STEMI, BRIAN on CPAP, benign essential hypertension, hyperlipidemia, CAD, SVT, insulin-dependent diabetes mellitus, CHF, pneumonia and UTI. She was most recently mated to [facility] from 11/07-11/10, where she was diagnosed with a non-STEMI thought associated with atrial tachycardia. During that admission, she had the addition of clopidogrel and amiodarone. The patient is concerned that every time she takes the amiodarone, she reports that she feels tightness in her chest and shortness of breath for a few hours afterwards. Allergies Allergy/AdvReac Type Severity Reaction Status Date / Time Cephalosporins Allergy Severe ANAPHYLAXIS Verified 11/08/19 19:22 fluoxetine Allergy Severe muscle/panic Verified 11/08/19 19:22 attack meloxicam Allergy Severe panic Verified 11/08/19 19:22 attack sertraline Allergy Severe panic Verified 11/08/19 19:22 attack citalopram Allergy Intermediate muscle Verified 11/08/19 19:22 cramping tramadol Allergy Mild headache Verified 11/08/19 19:22 cefazolin Allergy Unknown UNRESPONSIV Verified 11/08/19 19:22 E ticagrelor AdvReac Severe LEG PAIN - Verified 11/08/19 19:22 WHEN TAKES 2 90MG TABLETS ibuprofen AdvReac Intermediate DIZZY, Verified 11/08/19 19:22 SYNCOPE, NAUSEA lovastatin AdvReac Intermediate leg pain Verified 11/08/19 19:22 azithromycin [From Zithromax] AdvReac Unknown Panic Verified 11/08/19 19:22 attack Home Medications Home Medications Medication Instructions Recorded Confirmed Type Calcium 600 + D(3) 1 tab PO QAM 06/05/18 11/14/19 History Levemir U-100 Insulin 46 units SUBCUT QAM 06/05/18 11/14/19 History Levemir U-100 Insulin 54 units SUBCUT HS 06/05/18 11/14/19 History aspirin 81 mg PO QAM 06/05/18 11/14/19 History clonazepam 0.5 mg PO BID PRN 06/05/18 11/14/19 History garlic 1 cap PO QAM 06/05/18 11/14/19 History insulin aspart U-100 [Novolog See Rx Instructions .ROUTE .COMPLEX 06/05/18 11/14/19 History U-100 Insulin aspart] multivitamin 1 tab PO QAM 06/05/18 11/14/19 History nitroglycerin 0.4 mg SUBLINGUAL DIRECTED PRN 06/05/18 11/14/19 History omega 8-nai-fll-fish oil [Fish Oil] 1,000 mg PO BIDM 06/05/18 11/14/19 History furosemide [Lasix] 20 mg PO QAM 03/25/19 11/14/19 History valsartan 80 mg PO DAILY 11/08/19 11/14/19 History amiodarone 200 mg PO BIDM #60 tab 11/11/19 11/14/19 Rx clopidogrel 75 mg PO QAM #30 tab 11/11/19 11/14/19 Rx metoprolol succinate 25 mg PO BID #60 tab 11/11/19 11/14/19 Rx Past Med/Surg History Medical History Aortic stenosis Atrial ectopic tachycardia Benign essential hypertension CAD (coronary artery disease) Status post four-vessel CABG in 2003 Status post drug-eluting stent x2 to SVGPDA 2016 CHF (congestive heart failure) History of atrial fibrillation less than 8 weeks after coronary artery bypass graft Hyperlipidemia BRIAN on CPAP PNA (pneumonia) UTI (urinary tract infection) Surgical History History of carpal tunnel surgery History of left knee surgery History of open heart surgery History of tonsillectomy Hx of heart artery stent S/P CABG (coronary artery bypass graft) S/P coronary artery stent placement Family History Other Coronary heart disease Diabetes Social History Smoking Status: Never smoker Second Hand Exposure: No; Hx Alcohol Use: No Hx Substance Use: No Preferred Language: Faroese Communication Ability: Effective Contract Recruiter Required: No Beliefs That Will Affect Care: None marital status: / Current Living Situation: Alone Current Living Situation Comment: lives in [facility] Feels Safe at Home: Yes Safety Concerns: Feels Safe At This Time Review of Systems Review of Systems: The patient denies palpitations, cough, lower extremity swelling, sore throat, fevers, chills, sweats, nausea, vomiting, diarrhea , constipation, abdominal pain, pelvic pain, blood in urine or stool, dysuria, urinary frequency or urgency, lightheadedness, dizziness, headache, memory loss, loss of consciousness, rash, abnormal bruising or bleeding, imbalance, focal or generalized weakness, numbness or tingling in arms or legs, generalized arthralgias or myalgias, neck pain, or night sweats. The review of systems is otherwise negative other than for that already noted above, and at least 10 systems have been reviewed. Physical Exam Physical Exam: The patient is awake, alert and oriented 3, well developed and well nourished, normocephalic and atraumatic, lying in bed and in no acute distress. HEENT--PERRL, EOMI, mucous membranes and oropharynx normal. Neck--supple. No JVD. No bruits. Thyroid normal, trachea midline, no adenopathy. Heart--normal S1 and S2. No murmurs, rubs or gallops. Lungs--clear bilaterally, no respiratory distress, no accessory muscle use. Abdomen--normal bowel sounds and soft. Nontender. Nondistended. Obese. Extremities--no cyanosis or clubbing. No edema. Dermatologic--normal skin turgor, normal color, no abnormal lymph nodes, no rash. Neurologic--cranial nerves II through XII grossly intact. Rheumatologic--normal range of motion. Psychiatric--normal affect. Results & Data Results & Data ([facility]) Vital Signs (Past 12 Hours) Vital Signs Pulse Pulse Resp BP BP Pulse Ox 11/14/19 23:00 62 18 173/80 H 100 11/14/19 21:53 95 11/14/19 21:40 79 20 175/75 H 95 Laboratory Results Laboratory Results WBC 7.55 K/uL (4.8-10.8) 11/14/19 22:28 RBC 3.68 M/uL (4.2-5.4) L 11/14/19 22:28 Hgb 11.9 g/dL (12.0-16.0) L 11/14/19 22:28 Hct 36.6 % (37-47) L 11/14/19 22:28 MCV 99.5 fL (80-100) 11/14/19 22: MCH 32.3 pg (25-34) 11/14/19 22:28 MCHC 32.5 g/dL (32-36) 11/14/19: RDW Std Deviation 51.8 fL (36.4-46.3) H 11/14/19: RDW Coeff of Kamille 14.3 % (11.5-14.5) 11/14/19: Plt Count 202 K/uL (130-400) 11/14/19 22: MPV 11.1 fL (7.4-10.4) H 11/14/19 22: Immature Gran % (Auto) 0.5 % 11/14/19 22: Neut % (Auto) 66.5 % 11/14/19: Lymph % (Auto) 22.8 % 11/14/19: [place] % (Auto) 7.8 % 11/14/19: Eos % (Auto) 1.9 % 11/14/19: Baso % (Auto) 0.5 % 11/14/19: Neut # (Auto) 5.02 K/uL (1.4-6.5) 11/14/19: Lymph # (Auto) 1.72 K/uL (1.2-3.4) 11/14/19 22: [place] # (Auto) 0.59 K/uL (0.11-0.59) 11/14/19 22: Eos # (Auto) 0.14 K/uL (0-0.5) 11/14/19: Baso # (Auto) 0.04 K/uL (0-0.2) 11/14/19: Immature Gran # (Auto) 0.04 K/uL (0.00-0.02) H 11/14/19 22: PT 11.1 Seconds (9.0-12.0) 11/14/19 22: INR 1.1 (0.9-1.1) 11/14/19 22: APTT 20.5 Seconds (21.0-31.0) L 11/14/19 22: PTT Ratio 0.7 11/14/19: Sodium 138 mmol/L (136-145) 11/14/19: Potassium 4.7 mmol/L (3.5-5.1) 11/14/19 23:45 Chloride 104 mmol/L (98-107) 11/14/19 22:28 Carbon Dioxide 28 mmol/L (21-32) 11/14/19 22:28 Anion Gap 6.0 (3-11) 11/14/19 22:28 BUN 34 mg/dl (7-18) H 11/14/19 22:28 Creatinine 1.44 mg/dl (0.6-1.2) H 11/14/19 22:28 Est Cr Clr Drug Dosing 35.6 ml/min 11/14/19 22:28 Est GFR ( Amer) 39.9 11/14/19 22:28 Est GFR (Non-Af Amer) 34.5 11/14/19 22:28 BUN/Creatinine Ratio 23.5 (10-20) H 11/14/19 22:28 Glucose 245 mg/dl (70-99) H 11/14/19 22:28 Calcium 9.4 mg/dl (8.5-10.1) 11/14/19 22:28 Phosphorus 3.0 mg/dl (2.5-4.9) 11/14/19 22:28 Magnesium 2.2 mg/dl (1.8-2.4) 11/14/19 23:45 Total Bilirubin 0.3 mg/dl (0.2-1) 11/14/19 22:28 Direct Bilirubin < 0.1 mg/dl (0-0.2) 11/14/19 23:45 AST 14 U/L (15-37) L 11/14/19 23:45 ALT 23 U/L (12-78) 11/14/19 22:28 Alkaline Phosphatase 69 U/L (45-117) 11/14/19 22:28 Troponin I 0.176 ng/ml (0-0.045) H* 11/15/19 01:33 NT-Pro-B Natriuret Pep 2546 pg/ml (0-1800) H 11/14/19 22:28 Total Protein 7.9 gm/dl (6.4-8.2) 11/14/19 22:28 Albumin 3.0 gm/dl (3.4-5.0) L 11/14/19 22:28 Globulin 4.9 gm/dl (2.5-4.0) H 11/14/19 22:28 Albumin/Globulin Ratio 0.6 (0.9-2) L 11/14/19 22:28 Lipase 104 U/L (73-393) 11/14/19 22:28 TSH 3.630 uIu/ml (0.300-4.500) 11/14/19 22:28 Code Status & VTE Plan Code Status Full code VTE Prophylaxis Plan VTE Prophylaxis will be ordered: Yes PG Care Time/CCT Total # of Minutes Spent Total Time Spent with Patient: Total time spent is greater than 50% in coordination of care (as documented) at patient's floor/unit and/or counseling patient: Coding Level of Care Code 68367 OBS Care - Level 3 Diagnoses Shortness of breath R06.02 Elevated troponin R79.89 Atrial ectopic tachycardia I47.1 S/P CABG (coronary artery bypass graft) Z95.1 S/P coronary artery stent placement Z95.5 CAD (coronary artery disease) I25.810 Coronary Disease-Associated Artery/Lesion type: bypass graft [place] vs. transplanted heart: [place] heart Associated angina: without angina CKD (chronic kidney disease) N18.9 Hyperlipidemia E78.5 Hyperlipidemia type: unspecified Insulin dependent diabetes mellitus E11.9; Z79.4 (1) CAD (coronary artery disease) Coronary Disease-Associated Artery/Lesion type: bypass graft [place] vs. transplanted heart: [place] heart Associated angina: without angina Qualified Code(s): I25.810 - Atherosclerosis of coronary artery bypass graft(s) without angina pectoris (2) Hyperlipidemia Hyperlipidemia type: unspecified Qualified Code(s): E78.5 - Hyperlipidemia, unspecified
[2019-11-15 00:13] LABS: Potassium 4.7 mmol/L (3.5-5.1)
[2019-11-15 00:18] LABS: Aspartate Aminotransferase 14 U/L (15-37); Bilirubin Direct < 0.1 mg/dl (0-0.2); Magnesium 2.2 mg/dl (1.8-2.4)
[2019-11-15] MEDS ORDERED: NITROGLYCERIN SL 0.4 MG/TAB TAB SL PRN ×2 (01:23)
[2019-11-15] MEDS ORDERED: CARBOHYDRATES FOR HYPOGLYCEMIA PO PRN (01:23)
[2019-11-15] MEDS ORDERED: ALUMINUM/MAGNESIUM SUSP 30 ML UDC PO PRN (01:23)
[2019-11-15] MEDS ORDERED: GLUCOSE 10 TABS/TUBE PO PRN (01:23)
[2019-11-15] MEDS ORDERED: ONDANSETRON INJ 2 MG/ML 2 ML VIAL IV PRN (01:23)
[2019-11-15] MEDS ORDERED: ACETAMINOPHEN 325 MG TAB PO PRN (01:23)
[2019-11-15] MEDS ORDERED: DEXTROSE 50% 50 ML SYRINGE IV PRN (01:23)
[2019-11-15] MEDS ORDERED: GLUCAGON FOR INJ 1 MG VIAL SQ PRN (01:23)
[2019-11-15] MEDS ORDERED: GLUCOSE 40% GEL 15 GM TUBE PO PRN (01:23)
[2019-11-15] MEDS ORDERED: MAGNESIUM HYDROXIDE SUSP 30 ML UDC PO PRN (01:23)
[2019-11-15] MEDS: METOPROLOL SUCC 25MG EXT REL TAB PO SCH ×3 (02:09→20:27)
[2019-11-15] MEDS: clonazePAM 0.5 MG TAB PO PRN (05:59)
[2019-11-15] MEDS: INSULIN ASPART 100 UNITS/ML 3 ML PEN SC SCH ×4 (08:37→20:28)
[2019-11-15] MEDS: ASPIRIN 81 MG ECTAB PO SCH (08:38)
[2019-11-15] MEDS: OMEGA-3 (PURIFIED FISH OIL) 1 GM CAP PO SCH ×2 (08:38→18:11)
[2019-11-15] MEDS: VALSARTAN 80 MG TAB PO SCH (08:38)
[2019-11-15] MEDS: CLOPIDOGREL BISULFATE 75 MG TAB PO SCH (08:39)
[2019-11-15] MEDS: FUROSEMIDE 20 MG TAB PO SCH (08:39)
[2019-11-15] MEDS: MULTIVITAMIN TAB PO SCH (08:39)
[2019-11-15] MEDS: CALCIUM 600MG + VIT D 400 IU TAB PO SCH (08:39)
[2019-11-15] MEDS: INSULIN DETEMIR FLEXPEN/FLEX TOUCH 100 UNITS/ML 3ML SC SCH ×2 (08:41→20:28)
[2019-11-15] MEDS ORDERED: NON-FORMULARY MEDICATION (Garlic 1 CAP) PO SCH (09:00)
--- NOTE | 2019-11-15 09:14 | XRay Report ---
XR chest 1V portable CLINICAL HISTORY: Chest pain. COMPARISON STUDY: Chest radiograph November 08, 2019. FINDINGS: There are median sternotomy wires. Moderate cardiomegaly is unchanged. Patient is rotated. There is no pneumothorax or pleural effusion. There is no consolidation or evidence for pulmonary amanda ma. Pulmonary vascular congestion is similar to prior exam. IMPRESSION: No acute cardiopulmonary findings. No change in appearance of the chest. Pulmonary vascu lar congestion without evidence for pulmonary edema. ACT 112: Negative or not required by law. Electronically signed by: Paul Quiroz M.D. 11/15/2019 9:12 AM
--- NOTE | 2019-11-15 10:52 | Cardiology Consultation ---
Date of Consultation November 15, 2019 Assessment & Plan (1) Chest pain: Her chest discomfort (perhaps more correctly her back discomfort) is almost certainly an anginal symptom, it was relieved by one nitroglycerin but she did have a slight bump in troponin although it is not very significant. I think we can continue to observe under the circumstances of her not wanting invasive evaluation. (2) CAD (coronary artery disease): She has known longstanding coronary artery disease. At the moment this is being treated medically due to her fear of catheterization. (3) Atrial ectopic tachycardia: She has an atrial tachycardia which may have contributed to her symptoms on her last admission, she is on amiodarone. It seems to be working well to control the arrhythmia although she may be having side effects on it. (4) Elevated troponin: Her troponins are slightly elevated, the first could represent a descending pattern from her prior admission however the second is slightly higher although perhaps not significantly and then the third continues this descending pattern. She may have had a very slight bump in her troponin related to the chest discomfort or perhaps it is simply laboratory fluctuations. In any case I would not pursue it. (5) On amiodarone therapy: She is on 400 mg daily of amiodarone and she feels that ever since starting that she has been having nausea in the morning. That would not be an unusual side effect on amiodarone and since it seems to be working very well I am inclined to decrease the dose to 200 mg daily. She had 200 mg this morning so we will eliminate the evening dose. History of Present Illness Reason for Consultation: Chest discomfort, elevated troponin Attending Physician: Naif Perea History of Present Illness This is a 79-year-old woman with a history of hypertension, diabetes, dyslipidemia, chronic kidney disease and coronary artery disease including bypass surgery in 2004, and subsequently PCI on March 07, 2017. She was hospitalized March 25, 2019 with a NSTEMI thought to be due to atrial tachycardia in association with underlying severe disease. Further catheterizations are being avoided due to an anxiety reaction in 2016. She presented again November 08, 2019 with chest discomfort following a stressful interaction with an EDIL at her bank. She had tachycardia and chest discomfort, following admission she had no further symptoms and she was discharged on November 11, 2019. She was started on amiodarone to control her tachycardia. Of note her troponin angela during that admission to a peak of 5.46. She presents now with a description of pain occurring between her shoulder blades which resolved with nitroglycerin. In the emergency room her troponin was slightly elevated to 0.154, which is decreased from the last measurement on November 10, 2019. Her second troponin done early this morning is 0.176, up slightly but perhaps not significant, the third measurement was 0.135 which continues a downward trend. I discussed symptoms with her and she describes the interscapular discomfort relieved by nitroglycerin, but she is not overly concerned about that but is more concerned because she is having nausea which she relates to the medications that she is currently on, possibly the amiodarone. Other than the nausea she does not have any complaints today. Allergies Allergy/AdvReac Type Severity Reaction Status Date / Time Cephalosporins Allergy Severe ANAPHYLAXIS Verified 11/08/19 19:22 fluoxetine Allergy Severe muscle/panic Verified 11/08/19 19:22 attack meloxicam Allergy Severe panic Verified 11/08/19 19:22 attack sertraline Allergy Severe panic Verified 11/08/19 19:22 attack citalopram Allergy Intermediate muscle Verified 11/08/19 19:22 cramping tramadol Allergy Mild headache Verified 11/08/19 19:22 cefazolin Allergy Unknown UNRESPONSIV Verified 11/08/19 19:22 E ticagrelor AdvReac Severe LEG PAIN - Verified 11/08/19 19:22 WHEN TAKES 2 90MG TABLETS ibuprofen AdvReac Intermediate DIZZY, Verified 11/08/19 19:22 SYNCOPE, NAUSEA lovastatin AdvReac Intermediate leg pain Verified 11/08/19 19:22 azithromycin [From Zithromax] AdvReac Unknown Panic Verified 11/08/19 19:22 attack Home Medications Home Medications Medication Instructions Recorded Confirmed Type Calcium 600 + D(3) 1 tab PO QAM 06/05/18 11/14/19 History Levemir U-100 Insulin 46 units SUBCUT QAM 06/05/18 11/14/19 History Levemir U-100 Insulin 54 units SUBCUT HS 06/05/18 11/14/19 History aspirin 81 mg PO QAM 06/05/18 11/14/19 History clonazepam 0.5 mg PO BID PRN 06/05/18 11/14/19 History garlic 1 cap PO QAM 06/05/18 11/14/19 History insulin aspart U-100 [Novolog See Rx Instructions .ROUTE .COMPLEX 06/05/18 11/14/19 History U-100 Insulin aspart] multivitamin 1 tab PO QAM 06/05/18 11/14/19 History nitroglycerin 0.4 mg SUBLINGUAL DIRECTED PRN 06/05/18 11/14/19 History omega 2-bre-qos-fish oil [Fish Oil] 1,000 mg PO BIDM 06/05/18 11/14/19 History furosemide [Lasix] 20 mg PO QAM 03/25/19 11/14/19 History valsartan 80 mg PO DAILY 11/08/19 11/14/19 History amiodarone 200 mg PO BIDM #60 tab 11/11/19 11/14/19 Rx clopidogrel 75 mg PO QAM #30 tab 11/11/19 11/14/19 Rx metoprolol succinate 25 mg PO BID #60 tab 11/11/19 11/14/19 Rx Patient History Medical History Aortic stenosis Atrial ectopic tachycardia Benign essential hypertension CAD (coronary artery disease) Status post four-vessel CABG in 2003 Status post drug-eluting stent x2 to SVGPDA 2016 CHF (congestive heart failure) History of atrial fibrillation less than 8 weeks after coronary artery bypass graft Hyperlipidemia BRIAN on CPAP PNA (pneumonia) UTI (urinary tract infection) Surgical History History of carpal tunnel surgery History of left knee surgery History of open heart surgery History of tonsillectomy Hx of heart artery stent S/P CABG (coronary artery bypass graft) S/P coronary artery stent placement Family History Other Coronary heart disease Diabetes Social History Smoking Status: Never smoker Second Hand Exposure: No; Hx Alcohol Use: No Hx Substance Use: No Preferred Language: Liberian Communication Ability: Effective 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 HEENT: Unremarkable Neck: No jugular venous distention, carotid pulses are normal and equal bilaterally without bruits. Pulmonary: Clear to auscultation bilaterally. Cardiac: Regular rhythm with no murmur, gallop or rub. Abdomen: Soft, nontender with normal bowel sounds. Extremities: No edema. Distal pulses intact. Neurologic: No focal findings. Gait is steady. Skin: No rash, ecchymoses or petechiae. Results & Data ([facility]) Vital Signs (Past 12 Hours) Vital Signs Temp Pulse Pulse Resp BP BP BP 11/15/19 08:58 66 11/15/19 07:55 36.4 C L 61 22 150/64 H 11/15/19 04:12 36.5 C 73 22 169/76 H 11/15/19 01:23 36.5 C 68 22 176/51 H 11/15/19 00:45 63 18 157/94 H 11/15/19 00:39 66 18 11/14/19 23:00 62 18 BP Pulse Ox 11/15/19 08:58 11/15/19 07:55 95 11/15/19 04:12 96 11/15/19 01:23 96 11/15/19 00:45 100 11/15/19 00:39 199/68 H 98 11/14/19 23:00 173/80 H 100 Laboratory Results Cardiac Enzymes 11/14/19 11/14/19 11/15/19 Range/Units 22:28 23:45 01:33 AST 14 L (15-37) U/L Troponin I 0.154 H* 0.176 H* (0-0.045) ng/ml 11/15/19 Range/Units 10:38 AST (15-37) U/L Troponin I 0.135 H* (0-0.045) ng/ml Coagulation 11/14/19 Range/Units 22:35 PT 11.1 (9.0-12.0) Seconds APTT 20.5 L (21.0-31.0) Seconds CBC 11/14/19 11/15/19 Range/Units 22:28 10:38 WBC 7.55 7.37 (4.8-10.8) K/uL RBC 3.68 L 3.51 L (4.2-5.4) M/uL Hgb 11.9 L 11.1 L (12.0-16.0) g/dL Hct 36.6 L 35.3 L (37-47) % Plt Count 202 234 (130-400) K/uL Neut # (Auto) 5.02 4.42 (1.4-6.5) K/uL Lymph # (Auto) 1.72 1.91 (1.2-3.4) K/uL Jay # (Auto) 0.59 0.74 H (0.11-0.59) K/uL Eos # (Auto) 0.14 0.21 (0-0.5) K/uL Baso # (Auto) 0.04 0.05 (0-0.2) K/uL Comprehensive Metabolic Panel 11/14/19 11/14/19 11/15/19 Range/Units 22:28 23:45 10:38 Sodium 138 140 (136-145) mmol/L Potassium 4.7 4.2 (3.5-5.1) mmol/L Chloride 104 105 (98-107) mmol/L Carbon Dioxide 28 32 (21-32) mmol/L BUN 34 H 33 H (7-18) mg/dl Creatinine 1.44 H 1.44 H (0.6-1.2) mg/dl Glucose 245 H 236 H (70-99) mg/dl Calcium 9.4 10.0 (8.5-10.1) mg/dl Direct Bilirubin < 0.1 (0-0.2) mg/dl AST 14 L (15-37) U/L ALT 23 (12-78) U/L Alkaline Phosphatase 69 (45-117) U/L Total Protein 7.9 (6.4-8.2) gm/dl Albumin 3.0 L 3.0 L (3.4-5.0) gm/dl Intake and Output 11/14/19 11/15/19 11/15/19 22:59 06:59 14:59 Intake Total 360 / 360 Balance 360 / 360 Intake: Oral 360 / 360 Other: # Unmeasured Voids 1 Weight 99.3 kg 108.4 kg Diagnostic Findings Telemetry: Sinus rhythm mostly in the 70s, occasional PVCs. No atrial fibrillation or atrial tachycardia. PG Care Time/CCT Total # of Minutes Spent Total Time Spent with Patient: Total time spent is greater than 50% in coordination of care (as documented) at patient's floor/unit and/or counseling patient: Coding Level of Care Code 65067 OBS Care - Level 3 Diagnoses Chest pain R07.9 Chest pain type: unspecified CAD (coronary artery disease) I25.810 Associated angina: without angina Coronary Disease-Associated Artery/Lesion type: bypass graft [place] vs. transplanted heart: [place] heart Atrial ectopic tachycardia I47.1 Elevated troponin R79.89 On amiodarone therapy Z79.899 (1) CAD (coronary artery disease) Associated angina: without angina Coronary Disease-Associated Artery/Lesion type: bypass graft [place] vs. transplanted heart: [place] heart Qualified Code(s): I25.810 - Atherosclerosis of coronary artery bypass graft(s) without angina pectoris (2) Chest pain Chest pain type: unspecified Qualified Code(s): R07.9 - Chest pain, unspecified
[2019-11-15 11:33] LABS: Basophils # (auto) 0.05 K/uL (0-0.2); Basophils % (auto) 0.7 %; Eosinophils # (auto) 0.21 K/uL (0-0.5); Eosinophils % (auto) 2.8 %; Hematocrit (blood only) 35.3 % (37-47); Hemoglobin 11.1 g/dL (12.0-16.0); Immature Granulocytes # (auto) 0.04 K/uL (0.00-0.02); Immature Granulocytes % (auto) 0.5 %; Lymphocytes # (auto) 1.91 K/uL (1.2-3.4); Lymphocytes % (auto) 25.9 %; Mean Corpuscular Hemoglobin 31.6 pg (25-34); Mean Corpuscular Hgb Conc 31.4 g/dL (32-36); Mean Corpuscular Volume 100.6 fL (80-100); Mean Platelet Volume 10.9 fL (7.4-10.4); Monocytes # (auto) 0.74 K/uL (0.11-0.59); Neutrophils # (auto) 4.42 K/uL (1.4-6.5); Neutrophils % (auto) 60.1 %; Platelet Count 234 K/uL (130-400); RDW Coefficient of Variation 14.5 % (11.5-14.5); RDW Standard Deviation 53.2 fL (36.4-46.3); Red Blood Count 3.51 M/uL (4.2-5.4); White Blood Count 7.37 K/uL (4.8-10.8)
[2019-11-15 11:59] LABS: BUN Creatinine Ratio 22.8 (10-20); Creatinine Clr Calc Pharmacy 38.1 ml/min; Est GFR (African American) 39.9; Est GFR (Non-African American) 34.5; Magnesium 2.3 mg/dl (1.8-2.4); Potassium 4.2 mmol/L (3.5-5.1)
[2019-11-15 12:34] LABS: Phosphorus 3.3 mg/dl (2.5-4.9); Troponin I 0.135 ng/ml (0-0.045)
[2019-11-15] MEDS ORDERED: SODIUM CHLORIDE 0.65% NA SOLN 45 ML (OCEAN) STA (17:24)
--- NOTE | 2019-11-15 22:01 | Hospitalist Progress Note ---
Date of Service November 15, 2019 Assessment & Plan (1) Shortness of breath: It appears patient had chest pain and elevated trop. She does not want invasive testing or procedures done. Will continue to monitor for another day. Doubt that the amiodarone is causing her shortness of breath. She has not noted any lightheadedness or dizziness or presyncopal or syncopal events. She also denies any palpitations or symptoms of tachycardia. (2) Elevated troponin: Elevated troponin/CAD/history non-STEMI/atrial ectopic tachycardia/status post CABG/status post stented coronary arteries- Troponin mildly elevated at 0.154, which is down significantly from her previous non-STEMI numbers at her last admission. Trop continues to decrease. (3) Atrial ectopic tachycardia: The patient is already taken amiodarone dose this evening. We will hold amiodarone morning dose, till seen by cardiology, to see if there may be a trial of a lower dose than 200 mg twice daily. Continue current dosing of metoprolol succinate 25 mg twice daily, which is of note, lower than prior to addition of amiodarone. (4) S/P CABG (coronary artery bypass graft): See above (5) S/P coronary artery stent placement: See above (6) CAD (coronary artery disease): See above (7) CKD (chronic kidney disease): Creatinine 1.44 upon admission, with range 1.4-1.61. Follow serially (8) Hyperlipidemia: Continue omega-3 fish oil (9) Insulin dependent diabetes mellitus: Change Levemir from 46 in the morning to 30 in the morning, and from 54 to 40 in the evening. Patient Accu-Cheks before meals and at bedtime with NovoLog coverage for scale Admission and Anticipated Discharge Date Admission Date: November 14, 2019 Subjective 79 yo female reports feeling better. No chest pain today.. Review of Systems Review of Systems: The patient denies palpitations, cough, lower extremity swelling, sore throat, fevers, chills, sweats, nausea, vomiting, diarrhea , constipation, abdominal pain, pelvic pain, blood in urine or stool, dysuria, urinary frequency or urgency, lightheadedness, dizziness, headache, memory loss, loss of consciousness, rash, abnormal bruising or bleeding, imbalance, focal or generalized weakness, numbness or tingling in arms or legs, generalized arthralgias or myalgias, neck pain, or night sweats. The review of systems is otherwise negative other than for that already noted ab ove, and at least 10 systems have been reviewed. Physical Exam Physical Exam: The patient is awake, alert and oriented 3, well developed and well nourished, normocephalic and atraumatic, lying in bed and in no acute distress. HEENT--PERRL, EOMI, mucous membranes and oropharynx normal. Neck--supple. No JVD. No bruits. Thyroid normal, trachea midline, no adenopathy. Heart--normal S1 and S2. No murmurs, rubs or gallops. Lungs--clear bilaterally, no respiratory distress, no accessory muscle use. Abdomen--normal bowel sounds and soft. Nontender. Nondistended. Obese. Extremities--no cyanosis or clubbing. No edema. Dermatologic--normal skin turgor, normal color, no abnormal lymph nodes, no rash. Neurologic--cranial nerves II through XII grossly intact. Rheumatologic--normal range of motion. Psychiatric--normal affect. Results & Data Results & Data ([facility]) Vital Signs (Past 12 Hours) Vital Signs Temp Pulse Pulse Resp BP Pulse Ox 11/15/19 19:35 36.7 C 59 L 16 128/54 L 96 11/15/19 15:12 36.7 C 56 L 18 130/58 L 95 11/15/19 14:54 56 L 11/15/19 11:37 36.6 C 57 L 19 143/61 H 96 PG Care Time/CCT Total # of Minutes Spent Total Time Spent with Patient: Total time spent is greater than 50% in coordination of care (as documented) at patient's floor/unit and/or counseling patient: Coding Level of Care Code 62777 Subseq Obs Care Lvl 3 Diagnoses Shortness of breath R06.02 Elevated troponin R79.89 Atrial ectopic tachycardia I47.1 S/P CABG (coronary artery bypass graft) Z95.1 S/P coronary artery stent placement Z95.5 CAD (coronary artery disease) I25.810 Associated angina: without angina Coronary Disease-Associated Artery/Lesion type: bypass graft [place] vs. transplanted heart: [place] heart CKD (chronic kidney disease) N18.9 Hyperlipidemia E78.5 Hyperlipidemia type: unspecified Insulin dependent diabetes mellitus E11.9; Z79.4 Time Spent (min) 35 (1) CAD (coronary artery disease) Associated angina: without angina Coronary Disease-Associated Artery/Lesion type: bypass graft [place] vs. transplanted heart: [place] heart Qualified Code(s): I25.810 - Atherosclerosis of coronary artery bypass graft(s) without angina pectoris (2) Hyperlipidemia Hyperlipidemia type: unspecified Qualified Code(s): E78.5 - Hyperlipidemia, unspecified
[2019-11-16] MEDS: clonazePAM 0.5 MG TAB PO PRN (00:47)
[2019-11-16 08:13] LABS: Basophils # (auto) 0.05 K/uL (0-0.2); Basophils % (auto) 0.7 %; Eosinophils # (auto) 0.24 K/uL (0-0.5); Eosinophils % (auto) 3.2 %; Hematocrit (blood only) 34.9 % (37-47); Hemoglobin 10.9 g/dL (12.0-16.0); Immature Granulocytes # (auto) 0.03 K/uL (0.00-0.02); Immature Granulocytes % (auto) 0.4 %; Lymphocytes # (auto) 2.28 K/uL (1.2-3.4); Mean Corpuscular Hemoglobin 31.4 pg (25-34); Mean Corpuscular Hgb Conc 31.2 g/dL (32-36); Mean Corpuscular Volume 100.6 fL (80-100); Mean Platelet Volume 10.7 fL (7.4-10.4); Monocytes # (auto) 0.62 K/uL (0.11-0.59); Monocytes % (auto) 8.2 %; Neutrophils # (auto) 4.38 K/uL (1.4-6.5); Neutrophils % (auto) 57.5 %; Platelet Count 235 K/uL (130-400); RDW Coefficient of Variation 14.3 % (11.5-14.5); RDW Standard Deviation 52.4 fL (36.4-46.3); Red Blood Count 3.47 M/uL (4.2-5.4)
[2019-11-16] MEDS: INSULIN ASPART 100 UNITS/ML 3 ML PEN SC SCH ×4 (08:31→20:41)
[2019-11-16] MEDS: ASPIRIN 81 MG ECTAB PO SCH (08:32)
[2019-11-16] MEDS: VALSARTAN 80 MG TAB PO SCH (08:32)
[2019-11-16] MEDS: OMEGA-3 (PURIFIED FISH OIL) 1 GM CAP PO SCH ×2 (08:32→17:10)
[2019-11-16] MEDS: INSULIN DETEMIR FLEXPEN/FLEX TOUCH 100 UNITS/ML 3ML SC SCH ×2 (08:32→20:42)
[2019-11-16] MEDS: CLOPIDOGREL BISULFATE 75 MG TAB PO SCH (08:32)
[2019-11-16] MEDS: METOPROLOL SUCC 25MG EXT REL TAB PO SCH ×2 (08:33→20:41)
[2019-11-16] MEDS: CALCIUM 600MG + VIT D 400 IU TAB PO SCH (08:33)
[2019-11-16] MEDS: MULTIVITAMIN TAB PO SCH (08:33)
[2019-11-16] MEDS: FUROSEMIDE 20 MG TAB PO SCH (08:33)
[2019-11-16 08:38] LABS: Albumin Level 2.8 gm/dl (3.4-5.0); BUN Creatinine Ratio 23.3 (10-20); Calcium 9.5 mg/dl (8.5-10.1); Est GFR (Non-African American) 32.8; Potassium 4.2 mmol/L (3.5-5.1)
[2019-11-16 08:46] LABS: BUN Creatinine Ratio 23.3 (10-20); Calcium 9.2 mg/dl (8.5-10.1); Creatinine Clr Calc Pharmacy 35.8 ml/min; Est GFR (African American) 37.7; Est GFR (Non-African American) 32.5; Magnesium 2.1 mg/dl (1.8-2.4); Potassium 4.5 mmol/L (3.5-5.1)
--- NOTE | 2019-11-16 22:37 | Hospitalist Progress Note ---
Date of Service November 16, 2019 Assessment & Plan (1) Shortness of breath: It appears patient had chest pain and elevated trop. She does not want invasive testing or procedures done. Will continue to monitor for another day. Doubt that the amiodarone is causing her shortness of breath. She has not noted any lightheadedness or dizziness or presyncopal or syncopal events. She also denies any palpitations or symptoms of tachycardia. Today she felt well and had no symptoms. Will monitor for another day, her solar project manager will eval in the AM (2) Elevated troponin: Elevated troponin/CAD/history non-STEMI/atrial ectopic tachycardia/status post CABG/status post stented coronary arteries- Troponin mildly elevated at 0.154, which is down significantly from her previous non-STEMI numbers at her last admission. Trop continues to decrease. (3) Atrial ectopic tachycardia: The patient is already taken amiodarone dose this evening. We will hold amiodarone morning dose, till seen by cardiology, to see if there may be a trial of a lower dose than 200 mg twice daily. Continue current dosing of metoprolol succinate 25 mg twice daily, which is of note, lower than prior to addition of amiodarone. (4) S/P CABG (coronary artery bypass graft): See above (5) S/P coronary artery stent placement: See above (6) CAD (coronary artery disease): See above (7) CKD (chronic kidney disease): Creatinine 1.44 upon admission, with range 1.4-1.61. Follow serially (8) Hyperlipidemia: Continue omega-3 fish oil (9) Insulin dependent diabetes mellitus: Change Levemir from 46 in the morning to 30 in the morning, and from 54 to 40 in the evening. Patient Accu-Cheks before meals and at bedtime with NovoLog coverage for scale Admission and Anticipated Discharge Date Admission Date: November 16, 2019 Subjective 79 yo female reports feeling well. She has no new complaints at this time. She did not have a headache today. Review of Systems Review of Systems: All systems reviewed & are unremarkable except as noted in HPI & below Physical Exam Physical Exam: The patient is awake, alert and oriented 3, well developed and well nourished, normocephalic and atraumatic, lying in bed and in no acute distress. HEENT--PERRL, EOMI, mucous membranes and oropharynx normal. Neck--supple. No JVD. No bruits. Thyroid normal, trachea midline, no adenopathy. Heart--normal S1 and S2. No murmurs, rubs or gallops. Lungs--clear bilaterally, no respiratory distress, no accessory muscle use. Abdomen--normal bowel sounds and soft. Nontender. Nondistended. Obese. Extremities--no cyanosis or clubbing. No edema. Dermatologic--normal skin turgor, normal color, no abnormal lymph nodes, no rash. Neurologic--cranial nerves II through XII grossly intact. Rheumatologic--normal range of motion. Psychiatric--normal affect. Results & Data Results & Data ([facility]) Vital Signs (Past 12 Hours) Vital Signs Temp Pulse Pulse Pulse Resp BP BP 11/16/19 20:12 36.4 C L 54 L 18 139/62 11/16/19 16:00 36.6 C 55 L 20 120/75 11/16/19 14:20 58 L 11/16/19 14:07 36.8 C 56 L 18 136/68 Pulse Ox 11/16/19 20:12 97 11/16/19 16:00 97 11/16/19 14:20 11/16/19 14:07 96 PG Care Time/CCT Total # of Minutes Spent Total Time Spent with Patient: Total time spent is greater than 50% in coordination of care (as documented) at patient's floor/unit and/or counseling patient: Coding Level of Care Code 26172 Subseq Hosp Care Lvl 2 Diagnoses Shortness of breath R06.02 Elevated troponin R79.89 Atrial ectopic tachycardia I47.1 S/P CABG (coronary artery bypass graft) Z95.1 S/P coronary artery stent placement Z95.5 CAD (coronary artery disease) I25.810 Associated angina: without angina Coronary Disease-Associated Artery/Lesion type: bypass graft [place] vs. transplanted heart: [place] heart CKD (chronic kidney disease) N18.9 Hyperlipidemia E78.5 Hyperlipidemia type: unspecified Insulin dependent diabetes mellitus E11.9; Z79.4 Time Spent (min) 25 (1) CAD (coronary artery disease) Associated angina: without angina Coronary Disease-Associated Artery/Lesion type: bypass graft [place] vs. transplanted heart: [place] heart Qualified Code(s): I25.810 - Atherosclerosis of coronary artery bypass graft(s) without angina pectoris (2) Hyperlipidemia Hyperlipidemia type: unspecified Qualified Code(s): E78.5 - Hyperlipidemia, unspecified
[2019-11-17 06:09] LABS: Basophils # (auto) 0.05 K/uL (0-0.2); Basophils % (auto) 0.6 %; Eosinophils # (auto) 0.24 K/uL (0-0.5); Eosinophils % (auto) 2.9 %; Hematocrit (blood only) 35.1 % (37-47); Hemoglobin 11.1 g/dL (12.0-16.0); Immature Granulocytes # (auto) 0.02 K/uL (0.00-0.02); Immature Granulocytes % (auto) 0.2 %; Lymphocytes % (auto) 23.9 %; Mean Corpuscular Hgb Conc 31.6 g/dL (32-36); Mean Corpuscular Volume 101.2 fL (80-100); Mean Platelet Volume 10.2 fL (7.4-10.4); Monocytes # (auto) 0.79 K/uL (0.11-0.59); Monocytes % (auto) 9.4 %; Neutrophils # (auto) 5.26 K/uL (1.4-6.5); Platelet Count 224 K/uL (130-400); RDW Coefficient of Variation 14.3 % (11.5-14.5); RDW Standard Deviation 52.6 fL (36.4-46.3); Red Blood Count 3.47 M/uL (4.2-5.4); White Blood Count 8.36 K/uL (4.8-10.8)
[2019-11-17 06:47] LABS: Albumin Level 2.8 gm/dl (3.4-5.0); BUN Creatinine Ratio 25.5 (10-20); Calcium 8.9 mg/dl (8.5-10.1); Creatinine Clr Calc Pharmacy 33.1 ml/min; Est GFR (African American) 34.1; Est GFR (Non-African American) 29.4; Phosphorus 4.2 mg/dl (2.5-4.9); Potassium 4.1 mmol/L (3.5-5.1)
[2019-11-17] MEDS: INSULIN DETEMIR FLEXPEN/FLEX TOUCH 100 UNITS/ML 3ML SC SCH (08:10)
[2019-11-17] MEDS: INSULIN ASPART 100 UNITS/ML 3 ML PEN SC SCH ×2 (08:11→11:59)
[2019-11-17] MEDS: OMEGA-3 (PURIFIED FISH OIL) 1 GM CAP PO SCH (08:19)
[2019-11-17] MEDS: ASPIRIN 81 MG ECTAB PO SCH (08:19)
[2019-11-17] MEDS: METOPROLOL SUCC 25MG EXT REL TAB PO SCH (08:19)
[2019-11-17] MEDS: FUROSEMIDE 20 MG TAB PO SCH (08:20)
[2019-11-17] MEDS: CLOPIDOGREL BISULFATE 75 MG TAB PO SCH (08:21)
[2019-11-17] MEDS: MULTIVITAMIN TAB PO SCH (08:21)
[2019-11-17] MEDS: VALSARTAN 80 MG TAB PO SCH (08:21)
[2019-11-17] MEDS: CALCIUM 600MG + VIT D 400 IU TAB PO SCH (08:22)
--- NOTE | 2019-11-17 08:34 | Electrocardiogram Report ---
Test Reason : Blood Pressure : / mmHG Vent. Rate : 074 BPM Atrial Rate : 074 BPM P-R Int : 180 ms QRS Dur : 092 ms QT Int : 348 ms P-R-T Axes : 055 028 185 degrees QTc Int : 386 ms Normal sinus rhythm Diffuse Nonspecific ST and T wave abnormality Abnormal ECG When compared with ECG of 08-NOV-2019 20:01, No significant change Confirmed by Julio Ahn ([id number]) on 11/17/2019 8:33:46 AM Referred By: REFERRED SELF Confirmed By:Julio Ahn
--- NOTE | 2019-11-17 08:53 | Cardiology Progress Note ---
Date of Service November 17, 2019 Assessment & Plan Admission and Anticipated Discharge Date Admission Date: November 16, 2019 Subjective Subjective She feels well this morning. She denies any chest pain or chest pressure. She is had no palpitations She denies any lightheadedness or dizziness. She is not short of breath talking in sentences. She denies any lower extremity edema. With Amio she has felt poorly including [place], SOB, loss of appetite, fatigue she is awake alert oriented x3 she looks her stated age HEENT mildly reduced carotid upstrokes no evidence of carotid bruits jugular venous pressure appeared normal her sclerae anicteric her hearing is normal Lungs clear to auscultation bilaterally no rales rhonchi or wheezing Heart regular rate and rhythm with a crescendo decrescendo murmur which is mid peaking Abdomen: Soft nontender distended positive bowel sounds Extremities: No clubbing or cyanosis with trace bilateral lower extremity edema Psychiatric affect appeared appropriate (1) Non-STEMI (non-ST elevated myocardial infarction) last admission: If you look at her cardiac catheterization from February 2017 she is in essence living off a free [place] to the LAD with severe diffuse distal disease and a vein graft to OM 3. The vein graft to the PDA was the culprit vessel and was intervened upon. Agree with aspirin and Plavix and BB. wants to isosorbide dinitrate for angina and CHF -- will have to watch for RAMEY's (2) CAD (coronary artery disease): She is not on statins due to intolerance. She had lower extremity edema related to amlodipine. And she had significant headaches related to Imdur. (3) SVT (supraventricular tachycardia): This likely represents an atrial tachycardia. Intolerant/ Doesn't want to take amiodarone 200 mg. There is no indication for anticoagulation. No arrhythmias since being in hospital 4. Moderate aortic stenosis 5. Diabetes mellitus type 2 6. Preserved left ventricular systolic function with an inferior wall motion abnormality 7. Chronic kidney disease her creatinine -- at baseline Results & Data ([facility]) Vital Signs (Past 12 Hours) Vital Signs Temp Pulse Pulse Resp BP BP Pulse Ox 11/17/19 08:00 36.9 C 63 18 140/69 96 11/17/19 03:52 36.4 C L 63 18 143/60 H 94 11/16/19 23:51 65 11/16/19 23:48 36.5 C 63 18 155/68 H 98
--- NOTE | 2019-11-17 08:55 | Electrocardiogram Report ---
Test Reason : Blood Pressure : / mmHG Vent. Rate : 065 BPM Atrial Rate : 065 BPM P-R Int : 180 ms QRS Dur : 092 ms QT Int : 382 ms P-R-T Axes : 053 027 191 degrees QTc Int : 397 ms Normal sinus rhythm Diffuse Nonspecific ST and T wave abnormality Abnormal ECG When compared with ECG of 14-NOV-2019 21:40, No significant change was found Confirmed by Julio Ahn ([id number]) on 11/17/2019 8:55:16 AM Referred By: REFERRED SELF Confirmed By:Julio Ahn
--- NOTE | 2019-11-17 09:42 | Electrocardiogram Report ---
Test Reason : Blood Pressure : / mmHG Vent. Rate : 060 BPM Atrial Rate : 060 BPM P-R Int : 182 ms QRS Dur : 088 ms QT Int : 396 ms P-R-T Axes : 063 044 180 degrees QTc Int : 396 ms Normal sinus rhythm Diffuse Nonspecific ST and T wave abnormality Abnormal ECG When compared with ECG of 15-NOV-2019 06:37, No significant change Confirmed by Julio Ahn ([id number]) on 11/17/2019 9:42:07 AM Referred By: REFERRED SELF Confirmed By:Julio Ahn
[2019-11-17] MEDS: ISOSORBIDE DINITRATE 10 MG TAB PO SCH ×2 (10:10→14:17)
[2019-11-17] MEDS ORDERED: ISOSORBIDE DINITRATE 10 MG TAB PO SCH (15:00)
--- NOTE | 2019-11-20 13:19 | Discharge Summary ---
Date of Service November 17, 2019 Admission HPI Per Admitting Provider The patient is a 79-year-old female with a past medical history including aortic stenosis, stented coronary arteries, status post CABG, atrial ectopic tachycardia, CKD, non-STEMI, BRIAN on CPAP, benign essential hypertension, hyperlipidemia, CAD, SVT, insulin-dependent diabetes mellitus, CHF, pneumonia and UTI. She was most recently mated to [facility] from 11/07-11/10, where she was diagnosed with a non-STEMI thought associated with atrial tachycardia. During that admission, she had the addition of clopidogrel and amiodarone. The patient is concerned that every time she takes the amiodarone, she reports that she feels tightness in her chest and shortness of breath for a few hours afterwards. Principal Diagnosis chest pain Discharge Exam The patient is awake, alert and oriented 3, well developed and well nourished, normocephalic and atraumatic, lying in bed and in no acute distress. HEENT--PERRL, EOMI, mucous membranes and oropharynx normal. Neck--supple. No JVD. No bruits. Thyroid normal, trachea midline, no adenopathy. Heart--normal S1 and S2. No murmurs, rubs or gallops. Lungs--clear bilaterally, no respiratory distress, no accessory muscle use. Abdomen--normal bowel sounds and soft. Nontender. Nondistended. Obese. Extremities--no cyanosis or clubbing. No edema. Dermatologic--normal skin turgor, normal color, no abnormal lymph nodes, no rash. Neurologic--cranial nerves II through XII grossly intact. Rheumatologic--normal range of motion. Psychiatric--normal affect. Discharge Data Allergies Allergy/AdvReac Type Severity Reaction Status Date / Time Cephalosporins Allergy Severe ANAPHYLAXIS Verified 11/08/19 19:22 fluoxetine Allergy Severe muscle/panic Verified 11/08/19 19:22 attack meloxicam Allergy Severe panic Verified 11/08/19 19:22 attack sertraline Allergy Severe panic Verified 11/08/19 19:22 attack citalopram Allergy Intermediate muscle Verified 11/08/19 19:22 cramping tramadol Allergy Mild headache Verified 11/08/19 19:22 cefazolin Allergy Unknown UNRESPONSIV Verified 11/08/19 19:22 E ticagrelor AdvReac Severe LEG PAIN - Verified 11/08/19 19:22 WHEN TAKES 2 90MG TABLETS ibuprofen AdvReac Intermediate DIZZY, Verified 11/08/19 19:22 SYNCOPE, NAUSEA lovastatin AdvReac Intermediate leg pain Verified 11/08/19 19:22 azithromycin [From Zithromax] AdvReac Unknown Panic Verified 11/08/19 19:22 attack Consultations 11/14/19 23:25 ED Decision to Admit Stat 11/15/19 01:23 Consult Cardiology Routine Consult Case Management - Discharge Planning Routine Hospital Course (1) Shortness of breath: It appears patient had chest pain and elevated trop. She does not want invasive testing or procedures done. Will continue to monitor for another day. Doubt that the amiodarone is causing her shortness of breath. She has not noted any lightheadedness or dizziness or presyncopal or syncopal events. She also denies any palpitations or symptoms of tachycardia. Today she felt well and had no symptoms. Appreciate input from cardio: If you look at her cardiac catheterization from February 2017 she is in essence living off a free STERLING to the LAD with severe diffuse distal disease and a vein graft to OM 3. The vein graft to the PDA was the culprit vessel and was inter vened upon. Agree with aspirin and Plavix and BB. wants to isosorbide dinitrate for angina and CHF -- will have to watch for RAMEY's CAD (coronary artery disease): She is not on statins due to intolerance. She had lower extremity edema related to amlodipine. And she had significant headaches related to Imdur. SVT (supraventricular tachycardia): This likely represents an atrial tachycardia. Intolerant/ Doesn't want to take amiodarone 200 mg. There is no indication for anticoagulation. No arrhythmias since being in hospital 4. Moderate aortic stenosis 5. Diabetes mellitus type 2 6. Preserved left ventricular systolic function with an inferior wall motion abnormality 7. Chronic kidney disease her creatinine -- at baseline (2) Elevated troponin: Elevated troponin/CAD/history non-STEMI/atrial ectopic tachycardia/status post CABG/status post stented coronary arteries- Troponin mildly elevated at 0.154, which is down significantly from her previous non-STEMI numbers at her last admission. Trop continues to decrease. (3) Atrial ectopic tachycardia: The patient is already taken amiodarone dose this evening. We will hold amiodarone morning dose, till seen by cardiology, to see if there may be a trial of a lower dose than 200 mg twice daily. Continue current dosing of metoprolol succinate 25 mg twice daily, which is of note, lower than prior to addition of amiodarone. (4) S/P CABG (coronary artery bypass graft): See above (5) S/P coronary artery stent placement: See above (6) CAD (coronary artery disease): See above (7) CKD (chronic kidney disease): Creatinine 1.44 upon admission, with range 1.4-1.61. Follow serially (8) Hyperlipidemia: Continue omega-3 fish oil (9) Insulin dependent diabetes mellitus: Change Levemir from 46 in the morning to 30 in the morning, and from 54 to 40 in the evening. Patient Accu-Cheks before meals and at bedtime with NovoLog coverage for scale Total Time Total Time Spent Total Time Spent (In Minutes): 32 Total Time Includes: Examination of the Patient, Discharge Planning and Medication Reconciliation Discharge Plan Discharge Items Patient Disposition: Home - Home Health Services Reason For Visit: CHEST PAIN Discharge Diagnosis: chest pain Activity: Resume your previous activity Non-emergency contact: Primary Care Provider Call non-emergency contact if: you have any medication questions Follow-up/Referrals: Bro Calle MD [Primary Care Provider] - 11/24/19 1:30 pm (Dr. Pond is unavailable. Please follow up with PITA Calle at [facility] on Sunday11/24/2019 at 1:30 pm. Please arrive to the office 15 minutes early for your appointment. If you are unable to keep this appointment, please call the office to reschedule at [phone].) Diet: Carb Consistent or DM2 and Heart Healthy Addtl Attending Provider Instructions: Home Care: * Take your medications exactly as directed. Don't skip doses. * Tell your doctor if you are feeling depressed. Feelings of sadness are common after a heart attack, but it is important that you speak to someone if you are feeling overwhelmed by these feelings. * If you are having chest pain, call 911 for an ambulance. Do NOT drive yourself to the hospital. * Ask your family members to learn CPR. * Learn to take your own blood pressure and pulse. Keep a record of your results. Ask your doctor when you should seek emergency medical attention. He or she will tell you which blood pressure reading is dangerous. Lifestyle Changes: * Maintain a healthy weight. Get help to lose any extra pounds. * Cut back on salt. * Limit canned, dried, packaged, and fast foods. * Don't add salt to your food. * Season foods with herbs instead of salt when you cook. * Break the smoking habit. Enroll in a stop-smoking program to improve your chances of success. * Limit fatty foods. * Ask your doctor about having your lipid levels checked regularly. * Build up your activity according to your doctor's recommendation. * Ask your doctor when it's okay to resume sexual activity. * Tell your doctor about any erectile dysfunction (ED) medication you are taking. Some ED medications are not safe if you take certain heart medications. * Try to manage stress. Follow Up: It is important for you to keep your follow up appointments with your medical provider. Pending Studies at Discharge: No Stand-Alone Forms: [facility], Smoking Cessation Medications and DC Order Prescriptions: New isosorbide dinitrate 10 mg Tablet 10 mg PO 0700,1200 Qty: 60 RF: 0 Continued multivitamin Tablet 1 tab PO QAM RF: 0 clonazepam 0.5 mg tablet 0.5 mg PO BID PRN (Reason: Anxiety) RF: 0 aspirin 81 mg Tablet,Delayed Release (Dr/Ec) 81 mg PO QAM RF: 0 garlic 500 mg Capsule 1 cap PO QAM RF: 0 insulin aspart U-100 [Novolog U-100 Insulin aspart] 100 unit/mL solution See Rx Instructions .ROUTE .COMPLEX RF: 0 nitroglycerin 0.4 mg tablet, sublingual 0.4 mg Sublingual DIRECTED PRN (Reason: Chest Pain) RF: 0 Calcium 600 + D(3) 600 mg calcium- 200 unit Capsule 1 tab PO QAM RF: 0 Levemir U-100 Insulin 100 unit/mL solution 54 units subcut HS RF: 0 Levemir U-100 Insulin 100 unit/mL solution 46 units subcut QAM RF: 0 omega [id number]-fish oil [Fish Oil] 1,000 mg (120 mg-180 mg) Capsule 1,000 mg PO BIDM RF: 0 furosemide [Lasix] 20 mg tablet 20 mg PO QAM RF: 0 valsartan 80 mg tablet 80 mg PO DAILY RF: 0 clopidogrel 75 mg Tablet 75 mg PO QAM Qty: 30 RF: 0 metoprolol succinate 25 mg Tablet Extended Release 24 Hr 25 mg PO BID Qty: 60 RF: 0 Discontinued amiodarone 200 mg Tablet 200 mg PO BIDM Qty: 60 RF: 0 Discharge Orders: Discharge Order (Routine); Ordered 11/17/19 Ordered By: Naif Dobbs/Other Patient Handouts: What Is Angina?, Long-Acting Nitroglycerin, Discharge Instructions for Angina Admission Data Admit Date/Time: 11/14/19 23:55 Attending Provider: Naif Perea Admit Provider: Dm Espinoza Primary Care Provider: Bro Calle Other Providers: Nahum Jalloh Other Interventions: Discharge Summary Assessment (RN) Last Done: 11/17/19 13:06 Coding Level of Care Code D/C Day Management >30 mins Diagnoses Shortness of breath R06.02 Elevated troponin R79.89 Atrial ectopic tachycardia I47.1 S/P CABG (coronary artery bypass graft) Z95.1 S/P coronary artery stent placement Z95.5 CAD (coronary artery disease) I25.810 Associated angina: without angina Coronary Disease-Associated Artery/Lesion type: bypass graft [place] vs. transplanted heart: [place] heart CKD (chronic kidney disease) N18.9 Hyperlipidemia E78.5 Hyperlipidemia type: unspecified Insulin dependent diabetes mellitus E11.9; Z79.4
[2019-11-23] MEDS ORDERED: TRAMADOL HCL 50 MG TABLET ONE (20:39)
[2019-11-24] MEDS ORDERED: ONDANSETRON INJ 2 MG/ML 2 ML VIAL ONE (00:11)
[2019-11-24] MEDS ORDERED: OXYCODONE HCL IR 5 MG TAB (IMMEDIATE RELEASE) ONE (00:26)
== END 2019-11-17 14:53 | disposition home health service (06) ==
LOC: 2E 21:33 → ED 21:33 → SUATTDRO 23:55 → 2E 11-15 00:45

== ENCOUNTER 2021-03-27 04:07 | Observation (INO) ==
[2021-03-27] MEDS ORDERED: ACETAMINOPHEN 1,000 MG/100 ML VIAL IV STA (04:16)
[2021-03-27] MEDS ORDERED: ASPIRIN CHEW 324 MG ONE (04:16)
[2021-03-27] MEDS ORDERED: METOPROLOL TARTRATE 1 MG/ML VIAL IV STA (04:22)
[2021-03-27 04:47] LABS: Basophils # (auto) 0.05 K/uL (0-0.2); Basophils % (auto) 0.5 %; Eosinophils # (auto) 0.15 K/uL (0-0.5); Eosinophils % (auto) 1.5 %; Hematocrit (blood only) 39.4 % (37-47); Hemoglobin 12.4 g/dL (12.0-16.0); Immature Granulocytes # (auto) 0.05 K/uL (0.00-0.02); Immature Granulocytes % (auto) 0.5 %; Lymphocytes # (auto) 1.92 K/uL (1.2-3.4); Lymphocytes % (auto) 19.4 %; Mean Corpuscular Hemoglobin 30.8 pg (25-34); Mean Corpuscular Hgb Conc 31.5 g/dL (32-36); Mean Platelet Volume 10.7 fL (7.4-10.4); Monocytes # (auto) 0.75 K/uL (0.11-0.59); Monocytes % (auto) 7.6 %; Neutrophils # (auto) 6.97 K/uL (1.4-6.5); Neutrophils % (auto) 70.5 %; Platelet Count 260 K/uL (130-400); RDW Standard Deviation 54.6 fL (36.4-46.3); Red Blood Count 4.02 M/uL (4.2-5.4); White Blood Count 9.89 K/uL (4.8-10.8)
[2021-03-27 05:11] LABS: Albumin Level 3.4 gm/dl (3.4-5.0); BUN Creatinine Ratio 20.4 (10-20); Calcium 9.4 mg/dl (8.5-10.1); Est GFR (African American) 39.7 ml/min; Est GFR (Non-African American) 34.2 ml/min; Potassium 4.4 mmol/L (3.5-5.1)
--- NOTE | 2021-03-27 05:17 | Emergency Department Note ---
History of Present Illness General Chief Complaint: Chest Pain Stated Complaint: chest pain Time Seen by Provider: 03/27/21 04:13 History of Present Illness Maximum Pain Intensity: 10 This 80-year-old with a history of A. fib and heart disease presents to the ER complaining of chest pain and racing heart Location: Chest Quality: Racing Severity: Moderate Duration: Tonight Timing: Tonight Context: Patient was concerned and called EMS Modifying factors: better with nothing; worse with nothing patient was seen earlier in the evening by EMS because she accidentally took too much insulin. Her blood sugar was fine though. She has a history of A. fib and gets chest pains with this. Symptoms feel similar. Patient denies fevers, flulike illness, dyspnea, abdominal pain. Home Medications Medication Instructions Recorded Confirmed Type aspirin 81 mg tablet,delayed 81 mg PO QAM 06/05/18 03/27/21 History release calcium carbonate 600 mg-vitamin 1 tab PO QAM 06/05/18 03/27/21 History D3 5 mcg (200 unit) capsule (Calcium 600 + D(3)) clonazepam 0.5 mg tablet 0.5 mg PO BID PRN 06/05/18 03/27/21 History garlic 500 mg capsule 1 cap PO QAM 06/05/18 03/27/21 History insulin aspart U-100 100 unit/mL See Rx Instructions .ROUTE .COMPLEX 06/05/18 03/27/21 History subcutaneous solution (Novolog U-100 Insulin aspart) insulin detemir U-100 100 unit/mL 46 units SUBCUT QAM 06/05/18 03/27/21 History subcutaneous solution (Levemir U-100 Insulin) insulin detemir U-100 100 unit/mL 54 units SUBCUT 06/05/18 03/27/21 History subcutaneous solution (Levemir U-100 Insulin) multivitamin 1 tab PO QAM 06/05/18 03/27/21 History omega 9-npt-svo-fish oil 1,000 mg 1,000 mg PO BIDM 06/05/18 03/27/21 History (120 mg-180 mg) capsule (Fish Oil) furosemide 20 mg tablet (Lasix) 20 mg PO QAM 03/25/19 03/27/21 History valsartan 80 mg tablet 80 mg PO DAILY 11/08/19 03/27/21 History clopidogrel 75 mg tablet 75 mg PO QAM #30 tab 11/11/19 03/27/21 Rx metoprolol succinate 25 mg 25 mg PO BID #60 tab 11/11/19 03/27/21 Rx tablet,extended release 24 hr dronedarone 400 mg tablet (Multaq) 400 mg PO BID #60 tab 07/03/20 03/27/21 Rx nitroglycerin 0.1 mg/hr 0.1 patch TRANSDERMAL DAILY #30 ea 07/03/20 03/27/21 Rx transdermal 24 hour patch Allergies Allergy/AdvReac Type Severity Reaction Status Date / Time Cephalosporins Allergy Severe ANAPHYLAXIS Verified 03/27/21 14:47 fluoxetine Allergy Severe muscle/panic Verified 03/27/21 14:47 attack meloxicam Allergy Severe panic Verified 03/27/21 14:47 attack sertraline Allergy Severe panic Verified 03/27/21 14:47 attack citalopram Allergy Intermediate muscle Verified 03/27/21 14:47 cramping tramadol Allergy Mild headache Verified 03/27/21 14:47 cefazolin Allergy Unknown UNRESPONSIV Verified 03/27/21 14:47 E ticagrelor AdvReac Severe LEG PAIN - Verified 03/27/21 14:47 WHEN TAKES 2 90MG TABLETS ibuprofen AdvReac Intermediate DIZZY, Verified 03/27/21 14:47 SYNCOPE, NAUSEA lovastatin AdvReac Intermediate leg pain Verified 03/27/21 14:47 azithromycin [From Zithromax] AdvReac Unknown Panic Verified 03/27/21 14:47 attack isosorbide AdvReac nausea/light Unverified 03/27/21 14:47 headed Past Med/Surg History Medical History Aortic stenosis Atrial ectopic tachycardia Benign essential hypertension CAD (coronary artery disease) Status post four-vessel CABG in 2003 Status post drug-eluting stent x2 to SVGPDA 2017 CHF (congestive heart failure) History of atrial fibrillation less than 8 weeks after coronary artery bypass graft Hyperlipidemia BRIAN on CPAP PNA (pneumonia) UTI (urinary tract infection) Surgical History History of carpal tunnel surgery History of left knee surgery History of open heart surgery History of tonsillectomy Hx of heart artery stent S/P CABG (coronary artery bypass graft) S/P coronary artery stent placement Family History Other Coronary heart disease Diabetes Social History Smoking Status: Never smoker Second Hand Exposure: No; Hx Alcohol Use: No Hx Substance Use: No Preferred Language: Colombian Communication Ability: Effective Surgical Scheduler Required: No Beliefs That Will Affect Care: None marital status: / Current Living Situation: Alone Current Living Situation Comment: senior citizen apartment How many Children do You have: 0 Other Information That Helps Us Care for You: No Feels Safe at Home: Yes Assistive Devices: Cane, CPAP, Denture - Upper, Glasses and Walker Review of Systems A total of 10 systems reviewed and were otherwise negative Physical Exam Vital Signs Vital Signs - 24 hr 03/27/21 04:15 03/27/21 04:20 03/27/21 04:30 Temperature 36.5 C Temperature Source Oral Pulse Rate 170 H Pulse Rate [Apical] 90 Pulse Rhythm [Apical] Respiratory Rate 26 H 18 Respiratory Effort / Characteristics Short of Breath Non-Labored Respiratory Depth Normal Blood Pressure 225/143 H Blood Pressure [Right Arm] 161/80 H Blood Pressure Mean 170 Blood Pressure Mean [Right Arm] 107 Pulse Oximetry 97 97 98 Oxygen Delivery Method Nasal Cannula Nasal Cannula Nasal Cannula Oxygen Flow Rate 2 2 2 Sepsis Recent Fever Within 48 Hours No Sepsis New/Unexplained Change in Mental Status No Sepsis Action Taken by Nursing No Action Required 03/27/21 05:55 03/27/21 08:36 Temperature Temperature Source Pulse Rate Pulse Rate [Apical] 78 Pulse Rhythm [Apical] Regular Respiratory Rate 18 Respiratory Effort / Characteristics Respiratory Depth Normal Blood Pressure Blood Pressure [Right Arm] 159/91 H Blood Pressure Mean Blood Pressure Mean [Right Arm] 113 Pulse Oximetry 99 99 Oxygen Delivery Method Room Air Nasal Cannula Oxygen Flow Rate 2 2 Sepsis Recent Fever Within 48 Hours Sepsis New/Unexplained Change in Mental Status Sepsis Action Taken by Nursing VITALS: Vitals are noted on the nurse's note and reviewed by myself. Vital signs tachycardic and hypertensive. GENERAL: Pleasant female speaking full sentences, in no acute distress, nondiaphoretic, well-developed well-nourished. SKIN: The skin was without rashes, erythema, edema, or bruising. There is no tenting of the skin. Capillary reflex less than 2 seconds. HEAD: Normocephalic atraumatic. EARS: External auditory canals clear, EYES: Pupils equal round and reactive to light and accommodation. Conjunctivae without injection, sclerae without icterus. Extraocular movements intact. NOSE: Patent, turbinates without inflammation or discharge. MOUTH: Mucous membranes moist. Pharynx without erythema or exudate. Uvula midline. Airway patent. Tongue does not deviate. NECK: Supple without nuchal rigidity. No lymphadenopathy. No thyromegaly. Cervical spine is nontender. No JVD. HEART: Tachycardic irregularly irregular LUNGS: Clear to auscultation bilaterally without wheezes, rales or rhonchi. No retractions or accessory muscle use. ABDOMEN: Positive bowel sounds x 4. Normal tympanic percussion. Soft, nontender, without masses or organomegaly. Barnett sign negative. No guarding or rebound tenderness. No CVA tenderness MUSCULOSKELETAL: No muscle atrophy, erythema, noted. NEURO: Patient was alert and oriented to person place and time. Normal sensation to light and sharp touch. No focal neurological deficits. Course Administered Medications Clopidogrel Bisulfate (Clopidogrel Bisulfate 75 Mg Tab) 75 mg PO [facility] Stop: 04/26/21 12:35 Last Admin: 03/27/21 14:22 Dose: 75 mg Documented by: [id number] Dronedarone (Dronedarone Hcl 400 Mg Tab) 400 mg PO BID [facility] Stop: 04/26/21 12:35 Last Admin: 03/27/21 21:30 Dose: 400 mg Documented by: [id number] Admin: 03/27/21 14:25 Dose: 400 mg Documented by: [id number] Fish Oil ([place]-3 (Purified Fish Oil) 1 Gm Cap) 1 gm PO BIDM [facility] Stop: 04/26/21 16:59 Last Admin: 03/27/21 21:28 Dose: 1 gm Documented by: [id number] Furosemide (Furosemide 20 Mg Tab) 20 mg PO QAM [facility] Stop: 04/26/21 12:35 Last Admin: 03/27/21 14:22 Dose: 20 mg Documented by: [id number] Heparin Sodium/Dextrose (Heparin Sodium/Dextrose) 25,000 units in 500 mls @ 17 mls/hr IV .Q24H [facility]; Protocol Stop: 04/26/21 18:29 Last Admin: 03/27/21 18:51 Dose: 850 units/hr, 17 mls/hr Documented by: [id number] Cosigned by: [id number] Insulin Aspart (Insulin Aspart Per Unit) 0 units SC ACHS [facility] Stop: 04/26/21 13:29 Last Admin: 03/27/21 21:28 Dose: 4 units Documented by: [id number] Cosigned by: [id number] Admin: 03/27/21 19:30 Dose: 5 units Documented by: [id number] Cosigned by: [id number] Admin: 03/27/21 13:56 Dose: 9 units Documented by: [id number] Cosigned by: [id number] Insulin Detemir (Insulin Detemir Flexpen/Flex Touch 100 Units/Ml 3ml) 54 units SQ HS [facility] Stop: 04/26/21 20:59 Last Admin: 03/27/21 21:29 Dose: 54 units Documented by: [id number] Cosigned by: [id number] Metoprolol Succinate (Metoprolol Succ 25mg Ext Rel Tab) 25 mg PO BID [facility] Stop: 04/26/21 12:35 Last Admin: 03/27/21 21:30 Dose: 25 mg Documented by: [id number] Admin: 03/27/21 14:22 Dose: 25 mg Documented by: [id number] Miscellaneous (Remove Nitro-Dur Patch) 1 ea N/A DAILY@2100 [facility] Stop: 04/26/21 20:59 Last Admin: 03/27/21 21:29 Dose: 1 ea Documented by: [id number] Multivitamins (Multivitamin Tab) 1 tab PO QAM [facility] Stop: 04/26/21 12:35 Last Admin: 03/27/21 14:22 Dose: 1 tab Documented by: [id number] Nitroglycerin (Nitroglycerin 0.1 Mg/Hr Patch) 0.1 patch TD DAILY [facility] Stop: 04/26/21 12:35 Last Admin: 03/27/21 14:21 Dose: 0.1 patch Documented by: [id number] Valsartan (Valsartan 80 Mg Tab) 80 mg PO DAILY [facility] Stop: 04/26/21 12:35 Last Admin: 03/27/21 14:22 Dose: 80 mg Documented by: [id number] Discontinued Medications Heparin Sodium (Porcine) (Heparin Sod 5,000 Unit/0.5 Ml Vial) 7,500 units SQ Q8 [facility] Stop: 04/26/21 13:59 Last Admin: 03/27/21 14:22 Dose: 7,500 units Documented by: [id number] Heparin Sodium/Dextrose (Heparin Iv Adult Wt-Based Low-Dose *No* Bolus Protocol) 1 ea IV Q15M [facility]; Protocol Stop: 03/27/21 19:30 Last Admin: 03/27/21 18:37 Dose: Not Given Documented by: [id number] Admin: 03/27/21 18:36 Dose: Not Given Documented by: [id number] Admin: 03/27/21 18:36 Dose: Not Given Documented by: [id number] Admin: 03/27/21 18:36 Dose: Not Given Documented by: [id number] Admin: 03/27/21 18:36 Dose: Not Given Documented by: [id number] Admin: 03/27/21 18:36 Dose: Not Given Documented by: [id number] Admin: 03/27/21 18:35 Dose: Not Given Documented by: [id number] Admin: 03/27/21 18:35 Dose: Not Given Documented by: [id number] Admin: 03/27/21 18:35 Dose: Not Given Documented by: [id number] Acetaminophen (Ofirmev) 1,000 mg in 100 mls @ 400 mls/hr IV NOW STA Stop: 03/27/21 04:30 Last Infusion: 03/27/21 05:11 Dose: 0 mls/hr Documented by: [id number] Admin: 03/27/21 04:34 Dose: 400 mls/hr Documented by: [id number] Metoprolol Tartrate (Metoprolol Tartrate 1 Mg/Ml Vial) 5 mg IV NOW STA Stop: 03/27/21 04:23 Last Admin: 03/27/21 04:34 Dose: 5 mg Documented by: [id number] Non-Formulary Medication (Garlic) 1 cap PO QAM [facility] Stop: 04/26/21 12:35 Last Admin: 03/27/21 18:17 Dose: Not Given Documented by: [id number] Medical Decision Making Medical Records Attestation: I reviewed the patient's medical records. Home Medications Current Medication List: was personally reviewed by me Laboratory Data Attestation: I reviewed the patient's lab results. Result diagrams: 03/27/21 Unknown 03/27/21 04:41 Labs: Lab Results 03/27/21 03/27/21 03/27/21 Range/Units 04:22 04:41 04:41 Sodium 136 (136-145) mmol/L Potassium 4.4 (3.5-5.1) mmol/L Chloride 105 (98-107) mmol/L Carbon Dioxide 27 (21-32) mmol/L Anion Gap 4.0 (3-11) BUN 29 H (7-18) mg/dl Creatinine 1.44 H (0.6-1.2) mg/dl Est Cr Clr Drug Dosing 35.0 ml/min Est GFR ( Amer) 39.7 ml/min Est GFR (Non-Af Amer) 34.2 ml/min BUN/Creatinine Ratio 20.4 H (10-20) Glucose 243 H (70-99) mg/dl POC Glucose 229 H (70-99) mg/dl Calcium 9.4 (8.5-10.1) mg/dl Magnesium 2.0 (1.8-2.4) mg/dl Total Bilirubin 0.3 (0.2-1) mg/dl AST 15 (15-37) U/L ALT 20 (12-78) Alkaline Phosphatase 75 (45-117) U/L Troponin I 0.053 H* (0-0.045) ng/ml Total Protein 7.9 (6.4-8.2) gm/dl Albumin 3.4 (3.4-5.0) gm/dl Globulin 4.5 H (2.5-4.0) gm/dl Albumin/Globulin Ratio 0.8 L (0.9-2) Lipase 194 (73-393) U/L 03/27/21 Range/Units 07:44 Sodium (136-145) mmol/L Potassium (3.5-5.1) mmol/L Chloride (98-107) mmol/L Carbon Dioxide (21-32) mmol/L Anion Gap (3-11) BUN (7-18) mg/dl Creatinine (0.6-1.2) mg/dl Est Cr Clr Drug Dosing ml/min Est GFR ( Amer) ml/min Est GFR (Non-Af Amer) ml/min BUN/Creatinine Ratio (10-20) Glucose (70-99) mg/dl POC Glucose (70-99) mg/dl Calcium (8.5-10.1) mg/dl Magnesium (1.8-2.4) mg/dl Total Bilirubin (0.2-1) mg/dl AST (15-37) U/L ALT (12-78) Alkaline Phosphatase (45-117) U/L Troponin I 0.476 H* (0-0.045) ng/ml Total Protein (6.4-8.2) gm/dl Albumin (3.4-5.0) gm/dl Globulin (2.5-4.0) gm/dl Albumin/Globulin Ratio (0.9-2) Lipase (73-393) U/L MDM Narrative Prior records/ancillary studies reviewed. Triage Nursing notes reviewed. Additional history obtained from EMS. The patient's history was concerning for racing heart with chest pain. Differential diagnosis: Etiologies such as a fib, cardiac ischemia, aortic dissection, pulmonary embolism, pneumonia, pneumothorax, musculoskeletal, infections, pericarditis, myocarditis, esophageal rupture, gastrointestinal, as well as others were entertained. Physical examination: As above. ER treatment provided: An order was placed for continuous cardiac monitoring. The monitor shows a rate of 60-180 with a a fib rhythm. metoprolol On reassessment the patient felt better. Diagnostic interpretation by me: #1 the electrocardiogram was ordered for chest pain EKG: Irregularly irregular, with ST depressions, ventricular rate of 161, impression atrial fibrillation with RVR ST changes most likely rate dependent interpreted by myself I think arrhythmia is unlikely. EKG shows atrial fibrillation. There are no findings to suggest Brugada syndrome. Hypertrophic cardiomyopathy was considered but there are no clear historical elements pointing toward this. EKG is not suggestive. The QRS voltage is not extremely large and there are no suggestive Q waves. #2 EKG ordered for resolution of chest pain and A. fib EKG: Normal sinus, normal intervals, persistent mild ST depression in the anterolateral leads, rate of 73. EKG compared to prior EKG. Impression normal sinus rhythm with persistent ST changes unchanged from prior EKG interpreted by myself I think arrhythmia is unlikely. EKG shows normal sinus rhythm with no interval abnormalities such as QT prolongation or WPW. There are no findings to suggest Brugada syndrome. Cardiac monitoring in the emergency department reveals no tachycardic or bradycardic dysrhythmia. Hypertrophic cardiomyopathy was considered but there are no clear historical elements pointing toward this. EKG is not suggestive. The QRS voltage is not extremely large and there are no suggestive Q waves. The labs revealed chronically elevated troponin improved from baseline repeat ordered and signed out at time of shift change Imaging studies: Chest x-ray with no acute consolidation, pneumothorax or free air per my interpretation HEART SCORE: Hx: high/mod/low suspicion: 1 ECG: ST depression/nonspecific changes/normal: 0 Age: Greater than 65/45-64/less than 45: 2 Risk factors: (Hypertension, hyperlipidemia, diabetes, coronary disease, tobacco use, cocaine use): 2 Troponin: Greater than 2 times normal limits/1-2 times normal limits/normal: 1 Total: 5 Patient has a family history of not was reviewed. Patient was first seen at 0415 and observation time began at 0415 and was necessary in order to obtain serial troponins and EKGs to rule out evolving DE and preclude an unnecessary admission. Upon reevaluation, pending at time of signout Case signed out to ANSON Rai Beavers pending repeat troponin and reevaluation in stable condition. Exam and history seem consistent with atrial fibrillation. Troponin is better than baseline. Second troponin was pending at time of signout. Patient normally gets chest pain with her A. fib. She felt much better once the A. fib with RVR had resolved. The chart was completed utilizing [employer] Speech voice recognition software. Grammatical errors, random word insertions, pronoun errors, and incomplete sentences are an occassional consequence of this system due to software limitations, ambient noise, and hardware issues. Any formal questions or concerns about the content, text, or information contained within the body of this dictation should be directly addressed to the physician certified pathology assistant for clarification. Impression & Plan Atrial fibrillation with rapid ventricular response, Elevated troponin, Atypical chest pain Discharge Plan Visit Data Chief Complaint: Chest Pain Stated Complaint: chest pain ED Provider: Cindy Bella ED Midlevel Provider: Rai Beavers Discharge Problem: Atrial fibrillation with rapid ventricular response, Elevated troponin, Atypical chest pain Patient Disposition: Admitted As Inpatient Discharge Instructions Interventions: ED Discharge Assessment Last Done: 03/27/21 11:36
[2021-03-27 05:23] LABS: Albumin Globulin Ratio 0.8 (0.9-2); Bilirubin,Total 0.3 mg/dl (0.2-1); Globulin 4.5 gm/dl (2.5-4.0); Total Protein 7.9 gm/dl (6.4-8.2); Troponin I 0.053 ng/ml (0-0.045)
--- NOTE | 2021-03-27 07:57 | XRay Report ---
SINGLE VIEW CHEST CLINICAL HISTORY: Atypical chest pain. FINDINGS: An AP, portable, upright chest radiograph is compared to study dated 07/02/2020 and correlate d with chest CT dated 01/06/2017. The examination is degraded by portable technique and patient rotat ion. The patient is status post midline sternotomy. The heart is enlarged noting atherosclerotic calc ification of the thoracic aorta. The pulmonary vasculature is noncongested. Chronic interstitial thic kening is similar to previous. Scarring/atelectasis is noted at the lung bases. No airspace consolida tion or large pleural effusion is identified. No pneumothorax is seen. The skeletal structures are os teopenic. The bony thorax is grossly intact. Degenerative change is noted in the shoulders. IMPRESSION: Cardiomegaly with no acute cardiopulmonary abnormality. ACT 112: Negative or not required by law. Electronically signed by: Keith Sweeney M.D. 03/27/2021 7:56 AM
--- NOTE | 2021-03-27 09:50 | Emergency Department Note ---
Impression & Plan Atrial fibrillation with rapid ventricular response, Elevated troponin, Atypical chest pain ED Provider Note Patient care was assumed from Rose Barnard PA-C, at the time of shift change. Please see Cecily Akil's dictation for full history of present illness emergency department course prior to my assumption of care. In short, the patient was found to be in A. fib with RVR upon EMS arrival to her house. The patient was having chest pain. She was given multiple doses of nitroglycerin as well as aspirin. Upon arrival to the ER she was quite tachycardic and hypertensive. The patient was given IV Tylenol and IV metoprolol, which seemed to revert her to a normal sinus rhythm and helped normalize her vital signs. The patient did have an initial troponin that was slightly elevated at 0.053. At the time of shift change repeat troponin was pending. Repeat troponin did increase to 0.476. On reevaluation the patient is resting comfortably. She is not currently with any chest pain and her blood pressure and heart rate have normalized. I have concerned that she has an elevating troponin, which will need further evaluation. The case was discussed with the on-call hospitalist team who agreed to evaluate the patient here in the ER. Please see their dictation for further patient course, plan, and disposition. Past Med/Surg History Medical History Aortic stenosis Atrial ectopic tachycardia Benign essential hypertension CAD (coronary artery disease) Status post four-vessel CABG in 2003 Status post drug-eluting stent x2 to SVGPDA 2017 CHF (congestive heart failure) History of atrial fibrillation less than 8 weeks after coronary artery bypass graft Hyperlipidemia BRIAN on CPAP PNA (pneumonia) UTI (urinary tract infection) Surgical History History of carpal tunnel surgery History of left knee surgery History of open heart surgery History of tonsillectomy Hx of heart artery stent S/P CABG (coronary artery bypass graft) S/P coronary artery stent placement Family History Other Coronary heart disease Diabetes Social History Smoking Status: Never smoker Second Hand Exposure: No; Hx Alcohol Use: No Hx Substance Use: No Preferred Language: Ivorian Communication Ability: Effective Novelty [employer] Required: No Beliefs That Will Affect Care: None marital status: / Current Living Situation: Alone Current Living Situation Comment: senior citizen apartment How many Children do You have: 0 Other Information That Helps Us Care for You: No Feels Safe at Home: Yes Assistive Devices: Cane, CPAP, Denture - Upper, Glasses and Walker Allergies Allergies Allergy/AdvReac Type Severity Reaction Status Date / Time Cephalosporins Allergy Severe ANAPHYLAXIS Verified 03/27/21 14:47 fluoxetine Allergy Severe muscle/panic Verified 03/27/21 14:47 attack meloxicam Allergy Severe panic Verified 03/27/21 14:47 attack sertraline Allergy Severe panic Verified 03/27/21 14:47 attack citalopram Allergy Intermediate muscle Verified 03/27/21 14:47 cramping tramadol Allergy Mild headache Verified 03/27/21 14:47 cefazolin Allergy Unknown UNRESPONSIV Verified 03/27/21 14:47 E ticagrelor AdvReac Severe LEG PAIN - Verified 03/27/21 14:47 WHEN TAKES 2 90MG TABLETS ibuprofen AdvReac Intermediate DIZZY, Verified 03/27/21 14:47 SYNCOPE, NAUSEA lovastatin AdvReac Intermediate leg pain Verified 03/27/21 14:47 azithromycin [From Zithromax] AdvReac Unknown Panic Verified 03/27/21 14:47 attack isosorbide AdvReac nausea/light Unverified 03/27/21 14:47 headed Home Meds Home Medications Medication Instructions Recorded Confirmed aspirin 81 mg tablet,delayed 81 mg PO QAM 06/05/18 03/27/21 release calcium carbonate 600 mg-vitamin 1 tab PO QAM 06/05/18 03/27/21 D3 5 mcg (200 unit) capsule (Calcium 600 + D(3)) clonazepam 0.5 mg tablet 0.5 mg PO BID PRN 06/05/18 03/27/21 garlic 500 mg capsule 1 cap PO QAM 06/05/18 03/27/21 insulin aspart U-100 100 unit/mL See Rx Instructions .ROUTE .COMPLEX 06/05/18 03/27/21 subcutaneous solution (Novolog U-100 Insulin aspart) insulin detemir U-100 100 unit/mL 46 units SUBCUT QA 06/05/18 03/27/21 subcutaneous solution (Levemir U-100 Insulin) insulin detemir U-100 100 unit/mL 54 units SUBCUT 06/05/18 03/27/21 subcutaneous solution (Levemir U-100 Insulin) multivitamin 1 tab PO QAM 06/05/18 03/27/21 omega 2-plv-xct-fish oil 1,000 mg 1,000 mg PO BIDM 06/05/18 03/27/21 (120 mg-180 mg) capsule (Fish Oil) furosemide 20 mg tablet (Lasix) 20 mg PO QAM 03/25/19 03/27/21 valsartan 80 mg tablet 80 mg PO DAILY 11/08/19 03/27/21 Previous Rx's Medication Instructions Recorded clopidogrel 75 mg tablet 75 mg PO QAM #30 tab 11/11/19 metoprolol succinate 25 mg 25 mg PO BID #60 tab 11/11/19 tablet,extended release 24 hr dronedarone 400 mg tablet (Multaq) 400 mg PO BID #60 tab 07/03/20 nitroglycerin 0.1 mg/hr 0.1 patch TRANSDERMAL DAILY #30 ea 07/03/20 transdermal 24 hour patch Results & Data (ED) Vital Signs Vital Signs - 24 hr 03/27/21 04:15 03/27/21 04:20 03/27/21 04:30 Temperature 36.5 C Temperature Source Oral Pulse Rate 170 H Pulse Rate [Apical] 90 Pulse Rhythm [Apical] Respiratory Rate 26 H 18 Respiratory Effort / Characteristics Short of Breath Non-Labored Respiratory Depth Normal Blood Pressure 225/143 H Blood Pressure [Right Arm] 161/80 H Blood Pressure Mean 170 Blood Pressure Mean [Right Arm] 107 Pulse Oximetry 97 97 98 Oxygen Delivery Method Nasal Cannula Nasal Cannula Nasal Cannula Oxygen Flow Rate 2 2 2 Sepsis Recent Fever Within 48 Hours No Sepsis New/Unexplained Change in Mental Status No Sepsis Action Taken by Nursing No Action Required 03/27/21 05:55 03/27/21 08:36 Temperature Temperature Source Pulse Rate Pulse Rate [Apical] 78 Pulse Rhythm [Apical] Regular Respiratory Rate 18 Respiratory Effort / Characteristics Respiratory Depth Normal Blood Pressure Blood Pressure [Right Arm] 159/91 H Blood Pressure Mean Blood Pressure Mean [Right Arm] 113 Pulse Oximetry 99 99 Oxygen Delivery Method Room Air Nasal Cannula Oxygen Flow Rate 2 2 Sepsis Recent Fever Within 48 Hours Sepsis New/Unexplained Change in Mental Status Sepsis Action Taken by Nursing Laboratory Data Result diagrams: 03/27/21 Unknown 03/27/21 04:41 Lab Results 03/27/21 03/27/21 03/27/21 Range/Units 04:22 04:41 04:41 Sodium 136 (136-145) mmol/L Potassium 4.4 (3.5-5.1) mmol/L Chloride 105 (98-107) mmol/L Carbon Dioxide 27 (21-32) mmol/L Anion Gap 4.0 (3-11) BUN 29 H (7-18) mg/dl Creatinine 1.44 H (0.6-1.2) mg/dl Est Cr Clr Drug Dosing 35.0 ml/min Est GFR ( Amer) 39.7 ml/min Est GFR (Non-Af Amer) 34.2 ml/min BUN/Creatinine Ratio 20.4 H (10-20) Glucose 243 H (70-99) mg/dl POC Glucose 229 H (70-99) mg/dl Calcium 9.4 (8.5-10.1) mg/dl Magnesium 2.0 (1.8-2.4) mg/dl Total Bilirubin 0.3 (0.2-1) mg/dl AST 15 (15-37) U/L ALT 20 (12-78) Alkaline Phosphatase 75 (45-117) U/L Troponin I 0.053 H* (0-0.045) ng/ml Total Protein 7.9 (6.4-8.2) gm/dl Albumin 3.4 (3.4-5.0) gm/dl Globulin 4.5 H (2.5-4.0) gm/dl Albumin/Globulin Ratio 0.8 L (0.9-2) Lipase 194 (73-393) U/L 03/27/21 Range/Units 07:44 Sodium (136-145) mmol/L Potassium (3.5-5.1) mmol/L Chloride (98-107) mmol/L Carbon Dioxide (21-32) mmol/L Anion Gap (3-11) BUN (7-18) mg/dl Creatinine (0.6-1.2) mg/dl Est Cr Clr Drug Dosing ml/min Est GFR ( Amer) ml/min Est GFR (Non-Af Amer) ml/min BUN/Creatinine Ratio (10-20) Glucose (70-99) mg/dl POC Glucose (70-99) mg/dl Calcium (8.5-10.1) mg/dl Magnesium (1.8-2.4) mg/dl Total Bilirubin (0.2-1) mg/dl AST (15-37) U/L ALT (12-78) Alkaline Phosphatase (45-117) U/L Troponin I 0.476 H* (0-0.045) ng/ml Total Protein (6.4-8.2) gm/dl Albumin (3.4-5.0) gm/dl Globulin (2.5-4.0) gm/dl Albumin/Globulin Ratio (0.9-2) Lipase (73-393) U/L Administered Medications Clopidogrel Bisulfate (Clopidogrel Bisulfate 75 Mg Tab) [facility] [place] Stop: 04/26/21 12:35 Last Admin: 03/27/21 14:22 Dose: 75 mg Documented by: [id number] Dronedarone (Dronedarone Hcl 400 Mg Tab) 400 mg PO BID [facility] Stop: 04/26/21 12:35 Last Admin: 03/27/21 14:25 Dose: 400 mg Documented by: [id number] Furosemide (Furosemide 20 Mg Tab) 20 mg PO [facility] Stop: 04/26/21 12:35 Last Admin: 03/27/21 14:22 Dose: 20 mg Documented by: [id number] Heparin Sodium/Dextrose (Heparin Sodium/Dextrose) 25,000 units in 500 mls @ 17 mls/hr IV .Q24H [facility]; Protocol Stop: 04/26/21 18:29 Last Admin: 03/27/21 18:51 Dose: 850 units/hr, 17 mls/hr Documented by: [id number] Cosigned by: [id number] Insulin Aspart (Insulin Aspart Per Unit) 0 units SC ACHS [facility] Stop: 04/26/21 13:29 Last Admin: 03/27/21 19:30 Dose: 5 units Documented by: [id number] Cosigned by: [id number] Admin: 03/27/21 13:56 Dose: 9 units Documented by: [id number] Cosigned by: [id number] Metoprolol Succinate (Metoprolol Succ 25mg Ext Rel Tab) 25 mg PO BID [facility] Stop: 04/26/21 12:35 Last Admin: 03/27/21 14:22 Dose: 25 mg Documented by: [id number] Multivitamins (Multivitamin Tab) 1 tab PO QAM [facility] Stop: 04/26/21 12:35 Last Admin: 03/27/21 14:22 Dose: 1 tab Documented by: [id number] Nitroglycerin (Nitroglycerin 0.1 Mg/Hr Patch) 0.1 patch TD DAILY [facility] Stop: 04/26/21 12:35 Last Admin: 03/27/21 14:21 Dose: 0.1 patch Documented by: [id number] Valsartan (Valsartan 80 Mg Tab) 80 mg PO DAILY [facility] Stop: 04/26/21 12:35 Last Admin: 03/27/21 14:22 Dose: 80 mg Documented by: [id number] Discontinued Medications Heparin Sodium (Porcine) (Heparin Sod 5,000 Unit/0.5 Ml Vial) 7,500 units SQ Q8 [facility] Stop: 04/26/21 13:59 Last Admin: 03/27/21 14:22 Dose: 7,500 units Documented by: [id number] Heparin Sodium/Dextrose (Heparin Iv Adult Wt-Based Low-Dose *No* Bolus Protocol) 1 ea IV Q15M [facility]; Protocol Stop: 03/27/21 19:30 Last Admin: 03/27/21 18:37 Dose: Not Given Documented by: [id number] Admin: 03/27/21 18:36 Dose: Not Given Documented by: [id number] Admin: 03/27/21 18:36 Dose: Not Given Documented by: [id number] Admin: 03/27/21 18:36 Dose: Not Given Documented by: [id number] Admin: 03/27/21 18:36 Dose: Not Given Documented by: [id number] Admin: 03/27/21 18:36 Dose: Not Given Documented by: [id number] Admin: 03/27/21 18:35 Dose: Not Given Documented by: [id number] Admin: 03/27/21 18:35 Dose: Not Given Documented by: [id number] Admin: 03/27/21 18:35 Dose: Not Given Documented by: [id number] Acetaminophen (Ofirmev) 1,000 mg in 100 mls @ 400 mls/hr IV NOW STA Stop: 03/27/21 04:30 Last Infusion: 03/27/21 05:11 Dose: 0 mls/hr Documented by: [id number] Admin: 03/27/21 04:34 Dose: 400 mls/hr Documented by: [id number] Metoprolol Tartrate (Metoprolol Tartrate 1 Mg/Ml Vial) 5 mg IV NOW STA Stop: 03/27/21 04:23 Last Admin: 03/27/21 04:34 Dose: 5 mg Documented by: [id number] Non-Formulary Medication (Garlic) 1 cap PO QAM [facility] Stop: 04/26/21 12:35 Last Admin: 03/27/21 18:17 Dose: Not Given Documented by: [id number] Imaging Data Radiologist's Impression: Chest X-Ray 03/27/21 04:15 SINGLE VIEW CHEST CLINICAL HISTORY: Atypical chest pain. FINDINGS: An AP, portable, upright chest radiograph is compared to study dated 07/02/2020 and correlated with chest CT dated 01/06/2017. The examination is degraded by portable technique and patient rotation. The patient is status post midline sternotomy. The heart is enlarged noting atherosclerotic calcification of the thoracic aorta. The pulmonary vasculature is noncongested. Chronic interstitial thickening is similar to previous. Scarring/atelectasis is noted at the lung bases. No airspace consolidation or large pleural effusion is identified. No pneumothorax is seen. The skeletal structures are osteopenic. The bony thorax is grossly intact. Degenerative change is noted in the shoulders. IMPRESSION: Cardiomegaly with no acute cardiopulmonary abnormality. ACT 112: Negative or not required by law. Electronically signed by: Keith Sweeney M.D. 03/27/2021 7:56 AM Discharge Plan Visit Data Chief Complaint: Chest Pain Stated Complaint: chest pain ED Provider: Cindy Bella ED Midlevel Provider: Rai Beavers Discharge Problem: Atrial fibrillation with rapid ventricular response, Elevated troponin, Atypical chest pain Patient Disposition: Admitted As Inpatient Discharge Instructions Interventions: ED Discharge Assessment Last Done: 03/27/21 11:36
--- NOTE | 2021-03-27 10:48 | History & Physical Report ---
Date of Service March 27, 2021 Assessment & Plan (1) Chest pain: Plan: Attending: Dr. Perez Impression: 80-year-old female with hypoglycemia overnight who awoke with chest pain at approximately 3 AM. Transported to emergency department after taking 3 sublingual nitroglycerin which relieved pain. In the emergency department found to have elevation of troponin to 0.476. Repeat troponin was 0.053. Chest pain is resolved. No acute issues. Will admit patient for overnight observation and trending of troponin. Recommendations: Patient will be admitted to telemetry and monitored. She has a history of supraventricular tachycardia as well as atrial ectopic tachycardia EKGs reviewed with no clear evidence of atrial flutter or atrial fibrillation Continue on home medications for blood pressure and antiplatelet therapy Repeat troponin at 1400 today Monitor on telemetry Most recent echocardiogram 1Repeat echocardiogram -repeat echocardiogram this morning. (2) CAD (coronary artery disease): Plan: Patient with history of CABG and previous stent placement Continue aspirin and clopidogrel Continue home dose of metoprolol succinate (3) CHF (congestive heart failure): Plan: No acute findings for symptomatic CHF at this time Continue home dose of furosemide Monitor on telemetry Strict ins and outs (4) CKD (chronic kidney disease), stage III: Plan: Creatinine currently at baseline at 1.44 Check repeat PRP in the morning (5) BRIAN on CPAP: Plan: Continue CPAP during this admission. Supplement with 2 L of supplemental oxygen Patient unaware of her settings. Titrate per protocol (6) SVT (supraventricular tachycardia): Plan: Follows with Dr. Bo again as an outpatient Continue home medications including metoprolol and dronedarone Monitor on telemetry (7) S/P coronary artery stent placement: Plan: Check echocardiogram due to chest pain overnight Continue clopidogrel and aspirin No ST changes on health insurance assessor on telemetry (8) Elevated troponin: Plan: Patient with chronic mild elevation of troponin Troponin admission 0.476 Chest pain resolved with 3 nitroglycerin tablets overnight No further chest pain Continue Nitropaste with home dose Monitor on telemetry Check repeat troponin at 1400 today (9) Discharge planning issues: Plan: Patient would like to be evaluated for possible placement at [facility] We will place a case management consult for evaluation Patient states that she lives alone She is lonely and feels as though skilled care may help her PT/OT evaluations and treatment (10) Benign essential hypertension: Plan: Continue usual home medications including valsartan, metoprolol succinate, fu rosemide (11) Atrial ectopic tachycardia: Plan: No evidence of ectopy on examination Continue usual home medications including metoprolol and Multaq (12) DVT prophylaxis: Plan: Clopidogrel and aspirin We will also order heparin 3 times daily Out of bed to chair as tolerated. Ambulate as tolerated. History of Present Illness Chief Complaint: Chest pain, hyperglycemia Primary Care Provider: Bro Calle MD Attending: Dr. Perez This is an 80-year-old female that lives alone at home. She has a pas t medical history including status post CABG, CAD, chronically elevated troponin, morbid obesity with a BMI of 47.3 kg/m, obstructive sleep apnea, chronic CPAP usage, anxiety/depression disorder, chronic kidney disease, hypertension, hyperlipidemia, SVT, diabetes mellitus type 2 on chronic insulin therapy, CHF, chronic hypoxia on supplemental oxygen of 2 L/min via nasal cannula 16/10. The patient states that she went to bed after inappropriately taking her insulin. She meant to take NovoLog and instead took Levemir. She woke up hypoglycemic. Ambulance was called and confirmed her hypoglycemia. She then refused transport and "ate everything in sight". This was an attempt to raise her sugar to avoid admission. She then went to bed 11 PM. She then awoke at 02:45 AM with chest pain. She took 3 nitroglycerin tablets and chest pain resolved. Pain radiated into the small of her back, between the shoulder blades, and down her left arm. EMS transported emergency department. She was found to have an elevated troponin of 0.476. There were no significant ST changes on her EKG. Repeat troponin was then 0.053. She was referred for admission for observation and trending of troponin. At the time of my examination, the patient has no shortness of breath. She has no chest pain. She has no radiation into her left arm. She has no back pain or scapular pain. Patient does state that when they take her blood pressure on her right arm her left arm hurts. Blood pressure initially was 225 systolically. She has now normalized is 159/91. She has no tachyarrhythmia. She had no h ypoxia. She is currently 99% on 2 L/min by nasal cannula which is her home dose. She has no fever or chills. She has no other acute illness. Patient is fully vaccinated for Covid with 3 shots of Pfizer. Her booster shot was approximately 1 month ago. Patient is a lifelong non-smoker. Patient lives alone in an apartment. She requests case management assistance in qualifying for [facility] as she is lonely and feels that she may benefit in her medical care. Allergies Allergy/AdvReac Type Severity Reaction Status Date / Time Cephalosporins Allergy Severe ANAPHYLAXIS Verified 03/27/21 14:47 fluoxetine Allergy Severe muscle/panic Verified 03/27/21 14:47 attack meloxicam Allergy Severe panic Verified 03/27/21 14:47 attack sertraline Allergy Severe panic Verified 03/27/21 14:47 attack citalopram Allergy Intermediate muscle Verified 03/27/21 14:47 cramping tramadol Allergy Mild headache Verified 03/27/21 14:47 cefazolin Allergy Unknown UNRESPONSIV Verified 03/27/21 14:47 E ticagrelor AdvReac Severe LEG PAIN - Verified 03/27/21 14:47 WHEN TAKES 2 90MG TABLETS ibuprofen AdvReac Intermediate DIZZY, Verified 03/27/21 14:47 SYNCOPE, NAUSEA lovastatin AdvReac Intermediate leg pain Verified 03/27/21 14:47 azithromycin [From Zithromax] AdvReac Unknown Panic Verified 03/27/21 14:47 attack isosorbide AdvReac nausea/light Unverified 03/27/21 14:47 headed Home Medications Medication Instructions Recorded Confirmed Type aspirin 81 mg tablet,delayed 81 mg PO QAM 06/05/18 03/27/21 History release calcium carbonate 600 mg-vitamin 1 tab PO QAM 06/05/18 03/27/21 History D3 5 mcg (200 unit) capsule (Calcium 600 + D(3)) clonazepam 0.5 mg tablet 0.5 mg PO BID PRN 06/05/18 03/27/21 History garlic 500 mg capsule 1 cap PO QAM 06/05/18 03/27/21 History insulin aspart U-100 100 unit/mL See Rx Instructions .ROUTE .COMPLEX 06/05/18 03/27/21 History subcutaneous solution (Novolog U-100 Insulin aspart) insulin detemir U-100 100 unit/mL 46 units SUBCUT QAM 06/05/18 03/27/21 History subcutaneous solution (Levemir U-100 Insulin) insulin detemir U-100 100 unit/mL 54 units SUBCUT HS 06/05/18 03/27/21 History subcutaneous solution (Levemir U-100 Insulin) multivitamin 1 tab PO QAM 06/05/18 03/27/21 History omega 0-pas-qjf-fish oil 1,000 mg 1,000 mg PO BIDM 06/05/18 03/27/21 History (120 mg-180 mg) capsule (Fish Oil) furosemide 20 mg tablet (Lasix) 20 mg PO QAM 03/25/19 03/27/21 History valsartan 80 mg tablet 80 mg PO DAILY 11/08/19 03/27/21 History clopidogrel 75 mg tablet 75 mg PO QAM #30 tab 11/11/19 03/27/21 Rx metoprolol succinate 25 mg 25 mg PO BID #60 tab 11/11/19 03/27/21 Rx tablet,extended release 24 hr dronedarone 400 mg tablet (Multaq) 400 mg PO BID #60 tab 07/03/20 03/27/21 Rx nitroglycerin 0.1 mg/hr 0.1 patch TRANSDERMAL DAILY #30 ea 07/03/20 03/27/21 Rx transdermal 24 hour patch Past Med/Surg History Medical History Aortic stenosis Atrial ectopic tachycardia Benign essential hypertension CAD (coronary artery disease) Status post four-vessel CABG in 2003 Status post drug-eluting stent x2 to SVGPDA 2017 CHF (congestive heart failure) History of atrial fibrillation less than 8 weeks after coronary artery bypass graft Hyperlipidemia BRIAN on CPAP PNA (pneumonia) UTI (urinary tract infection) Surgical History History of carpal tunnel surgery History of left knee surgery History of open heart surgery History of tonsillectomy Hx of heart artery stent S/P CABG (coronary artery bypass graft) S/P coronary artery stent placement Family History Other Coronary heart disease Diabetes Social History Smoking Status: Never smoker Second Hand Exposure: No; Hx Alcohol Use: No Hx Substance Use: No Preferred Language: [place] Communication Ability: Effective Supervisor Respiratory Required: No Beliefs That Will Affect Care: None marital status: / Current Living Situation: Alone Current Living Situation Comment: senior citizen apartment How many Children do You have: 0 Other Information That Helps Us Care for You: No Feels Safe at Home: Yes Assistive Devices: Cane, CPAP, Denture - Upper, Glasses and Walker Review of Systems Review of Systems: All systems reviewed & are unremarkable except as noted in Subjective Physical Exam Physical Exam: GENERAL : No acute distress. EYES: No icterus, gaze conjugate. Pupils equal round and reactive to light NOSE: No evidence of epistaxis. Nasal cannula in place and secure MOUTH: No lesions or candidiasis. Tongue midline NECK: Supple LUNGS: CTA B/L, no wheezes, rales or rhonchi. Good inspirational effort HEART: Regular, rate controlled. Harsh systolic murmur ABDOMEN: Soft, NT, ND, BS Present EXTREMITIES: No LE edema, pedal pulses intact and equal bilaterally NEURO: A&OX3 Results & Data Results & Data ([facility]) Vital Signs (Past 12 Hours) Vital Signs Temp Pulse Pulse Resp BP BP Pulse Ox 03/27/21 08:36 78 18 159/91 H 99 03/27/21 05:55 99 03/27/21 04:30 90 18 161/80 H 98 03/27/21 04:20 97 03/27/21 04:15 36.5 C 170 H 26 H 225/143 H 97 Laboratory Results 03/27/21 Unknown 03/27/21 Unknown 03/27/21 03/27/21 07:44 Unknown Troponin I 0.476 H* 0.053 H* Diagnostic Findings Chest X-Ray 03/27/21 04:15 SINGLE VIEW CHEST CLINICAL HISTORY: Atypical chest pain. FINDINGS: An AP, portable, upright chest radiograph is compared to study dated 07/02/2020 and correlated with chest CT dated 01/06/2017. The examination is degraded by portable technique and patient rotation. The patient is status post midline sternotomy. The heart is enlarged noting atherosclerotic calcification of the thoracic aorta. The pulmonary vasculature is noncongested. Chronic interstitial thickening is similar to previous. Scarring/atelectasis is noted at the lung bases. No airspace consolidation or large pleural effusion is identified. No pneumothorax is seen. The skeletal structures are osteopenic. The bony thorax is grossly intact. Degenerative change is noted in the shoulders. IMPRESSION: Cardiomegaly with no acute cardiopulmonary abnormality. ACT 112: Negative or not required by law. Electronically signed by: Keith Sweeney M.D. 03/27/2021 7:56 AM Code Status & VTE Plan Code Status Level V: DNR/DNI Patient would want medical treatment including cardio conversion but no compressions and no mechanical ventilation VTE Prophylaxis Plan VTE Prophylaxis will be ordered: Yes Supervising Physician Co-Signing Physician Notes Attending note: patient seen and examined with Keith PATEL. I agree with his history, ROS, examination, assessment and plan. I reviewed the labs and imaging. patient seen in the afternoon, no further chest pain, eating well, breathing well, ambulating back and forth to the restroom without difficulty troponin went up to 1.5 this afternoon, again, no chest pain since very early this morning prior to coming to the ED reviewed prior history, patient of Dr. De Leon, has known STERLING to LAD that is supplying most blood supply to heart - Chest pain, troponin up to 1.2, possible NSTEMI given her extensive CAD history trend troponin until they peak, repeat at 10pm and then in morning echocardiogram done, awaiting report EKG in AM or with repeat chest pain consult Dr. De Leon heparin drip, low dose, no bolus continue aspirin, Plavix, metoprolol Nitro PRN but no current chest pain make NPO after midnight in case cardiology recommends left heart cath PG Care Time/CCT Total # of Minutes Spent Total Time Spent with Patient: Total time spent is greater than 50% in coordination of care (as documented) at patient's floor/unit and/or counseling patient: 60 minutes Coding Level of Care Code INT OBSERVATION CARE 50M LVL 2 Diagnoses Chest pain R07.9 Chest pain type: unspecified CAD (coronary artery disease) I25.810 Associated angina: without angina Coronary Disease-Associated Artery/Lesion type: bypass graft [place] vs. transplanted heart: [place] heart CHF (congestive heart failure) I50.9 Heart failure chronicity: acute on chronic Heart failure type: unspecified CKD (chronic kidney disease), stage III N18.30 BRIAN on CPAP G47.33; Z99.89 SVT (supraventricular tachycardia) I47.1 S/P coronary artery stent placement Z95.5 Elevated troponin R77.8 Discharge planning issues Z02.9 Benign essential hypertension I10 Atrial ectopic tachycardia I47.1 DVT prophylaxis Z29.9 Time Spent (min) 60 (1) CAD (coronary artery disease) Associated angina: without angina Coronary Disease-Associated Artery/Lesion type: bypass graft [place] vs. transplanted heart: [place] heart Qualified Code(s): I25.810 - Atherosclerosis of coronary artery bypass graft(s) without angina pectoris (2) CHF (congestive heart failure) Heart failure chronicity: acute on chronic Heart failure type: unspecified Qualified Code(s): I50.9 - Heart failure, unspecified (3) Chest pain Chest pain type: unspecified Qualified Code(s): R07.9 - Chest pain, unspecified
[2021-03-27] MEDS ORDERED: ACETAMINOPHEN 325 MG TAB PO PRN (12:36)
[2021-03-27] MEDS ORDERED: MAGNESIUM HYDROXIDE SUSP 30 ML UDC PO PRN (12:36)
[2021-03-27] MEDS ORDERED: ALUMINUM/MAGNESIUM SUSP 30 ML UDC PO PRN (12:36)
[2021-03-27] MEDS ORDERED: GLUCOSE 40% GEL 15 GM TUBE PO PRN (12:36)
[2021-03-27] MEDS ORDERED: NON-FORMULARY MEDICATION (Garlic 500 mg Capsule) PO SCH (12:36)
[2021-03-27] MEDS ORDERED: DEXTROSE 50% 50 ML SYRINGE IV PRN (12:36)
[2021-03-27] MEDS ORDERED: GLUCOSE 10 TABS/TUBE PO PRN (12:36)
[2021-03-27] MEDS ORDERED: POLYETHYLENE (MIRALAX) 17 GM PACK PO PRN (12:36)
[2021-03-27] MEDS ORDERED: GLUCAGON FOR INJ 1 MG VIAL SQ PRN (12:36)
[2021-03-27] MEDS ORDERED: CARBOHYDRATES FOR HYPOGLYCEMIA PO PRN (12:36)
[2021-03-27] MEDS: INSULIN ASPART PER UNIT SC SCH ×3 (13:56→21:28)
[2021-03-27] MEDS ORDERED: HEPARIN SOD 5,000 UNIT/0.5 ML VIAL SQ SCH (14:00)
[2021-03-27] MEDS: NITROGLYCERIN 0.1 MG/HR PATCH TD SCH (14:21)
[2021-03-27] MEDS: VALSARTAN 80 MG TAB PO SCH (14:22)
[2021-03-27] MEDS: CLOPIDOGREL BISULFATE 75 MG TAB PO SCH (14:22)
[2021-03-27] MEDS: FUROSEMIDE 20 MG TAB PO SCH (14:22)
[2021-03-27] MEDS: METOPROLOL SUCC 25MG EXT REL TAB PO SCH ×2 (14:22→21:30)
[2021-03-27] MEDS: MULTIVITAMIN TAB PO SCH (14:22)
[2021-03-27] MEDS: DRONEDARONE HCL 400 MG TAB PO SCH ×2 (14:25→21:30)
[2021-03-27] MEDS ORDERED: OMEGA-3 (PURIFIED FISH OIL) 1 GM CAP PO SCH (17:00)
[2021-03-27] MEDS ORDERED: HEPARIN SOD (PORCINE) 1000 UNIT/ML IV ONE (18:21)
[2021-03-27] MEDS: Heparin IV Adult Wt-Based Low-Dose *NO* Bolus Protocol IV SCH ×3 (18:35→18:37)
[2021-03-27] MEDS: HEPARIN SODIUM/DEXTROSE 25,000 UNITS/500 ML BAG IV SCH (18:51)
[2021-03-27] MEDS ORDERED: INSULIN DETEMIR FLEXPEN/FLEX TOUCH 100 UNITS/ML 3ML SQ SCH (21:00)
[2021-03-27] MEDS: OMEGA-3 (PURIFIED FISH OIL) 1 GM CAP PO SCH (21:28)
[2021-03-27] MEDS: INSULIN DETEMIR FLEXPEN/FLEX TOUCH 100 UNITS/ML 3ML SQ SCH (21:29)
[2021-03-28 00:57] LABS: Partial Thromboplastin Ratio 1.4; Partial Thromboplastin Time 36.9 Seconds (21.0-31.0)
[2021-03-28] MEDS ORDERED: HEPARIN SOD (PORCINE) 1000 UNIT/ML IV ONE (01:15)
[2021-03-28] MEDS ORDERED: PROCHLORPERAZINE 5 MG in SYRINGE 4 ML IV PRN (05:20)
--- NOTE | 2021-03-28 06:36 | XCELERA ---
[id number]
--- NOTE | 2021-03-28 07:41 | Electrocardiogram Report ---
Test Reason : Blood Pressure : / mmHG Vent. Rate : 161 BPM Atrial Rate : 161 BPM P-R Int : 166 ms QRS Dur : 088 ms QT Int : 306 ms P-R-T Axes : 051 064 105 degrees QTc Int : 500 ms Poor data quality, interpretation may be adversely affected Atrial flutter with [address] depression in Anterior leads Abnormal ECG When compared with ECG of 03-JUL-2020 07:20, Atrial flutter with 2 to 1 block is now Present ST depression in Anterior leads is now Present Confirmed by Nahum Jalloh ([id number]) on 03/28/2021 7:41:16 AM Referred By: REFERRED SELF Confirmed By:Nahum Jalloh
--- NOTE | 2021-03-28 07:42 | Electrocardiogram Report ---
Test Reason : Blood Pressure : / mmHG Vent. Rate : 073 BPM Atrial Rate : 073 BPM P-R Int : 178 ms QRS Dur : 086 ms QT Int : 404 ms P-R-T Axes : 056 038 -45 degrees QTc Int : 445 ms Normal sinus rhythm Nonspecific ST and T wave abnormality Abnormal ECG When compared with ECG of 27-MAR-2021 04:16, (unconfirmed) Vent. rate has decreased BY [address] less depressed in Anterolateral leads T wave inversion no longer evident in Lateral leads Confirmed by Nahum Jalloh ([id number]) on 03/28/2021 7:41:34 AM Referred By: REFERRED SELF Confirmed By:Nhaum Jalloh
[2021-03-28] MEDS: VALSARTAN 80 MG TAB PO SCH (07:44)
[2021-03-28] MEDS: MULTIVITAMIN TAB PO SCH (07:44)
[2021-03-28] MEDS: FUROSEMIDE 20 MG TAB PO SCH (07:44)
[2021-03-28] MEDS: CLOPIDOGREL BISULFATE 75 MG TAB PO SCH (07:44)
[2021-03-28] MEDS: ASPIRIN 81 MG ECTAB PO SCH (07:44)
[2021-03-28] MEDS: DRONEDARONE HCL 400 MG TAB PO SCH (07:44)
[2021-03-28] MEDS: OMEGA-3 (PURIFIED FISH OIL) 1 GM CAP PO SCH ×2 (07:44→17:02)
[2021-03-28] MEDS: clonazePAM 0.5 MG TAB PO PRN (07:44)
[2021-03-28] MEDS: METOPROLOL SUCC 25MG EXT REL TAB PO SCH ×2 (07:44→20:22)
[2021-03-28] MEDS: CALCIUM 600MG + VIT D 400 IU TAB PO SCH (07:45)
[2021-03-28 07:51] LABS: Basophils # (auto) 0.05 K/uL (0-0.2); Basophils % (auto) 0.7 %; Eosinophils # (auto) 0.22 K/uL (0-0.5); Eosinophils % (auto) 2.9 %; Hematocrit (blood only) 37.3 % (37-47); Hemoglobin 11.7 g/dL (12.0-16.0); Immature Granulocytes # (auto) 0.03 K/uL (0.00-0.02); Immature Granulocytes % (auto) 0.4 %; Lymphocytes # (auto) 2.04 K/uL (1.2-3.4); Lymphocytes % (auto) 26.7 %; Mean Corpuscular Hgb Conc 31.4 g/dL (32-36); Mean Corpuscular Volume 98.9 fL (80-100); Mean Platelet Volume 10.6 fL (7.4-10.4); Monocytes # (auto) 0.52 K/uL (0.11-0.59); Monocytes % (auto) 6.8 %; Neutrophils # (auto) 4.77 K/uL (1.4-6.5); Neutrophils % (auto) 62.5 %; Platelet Count 241 K/uL (130-400); RDW Standard Deviation 54.6 fL (36.4-46.3); Red Blood Count 3.77 M/uL (4.2-5.4); White Blood Count 7.63 K/uL (4.8-10.8)
[2021-03-28] MEDS: INSULIN ASPART PER UNIT SC SCH ×4 (07:54→20:20)
[2021-03-28] MEDS: NITROGLYCERIN 0.1 MG/HR PATCH TD SCH (07:55)
[2021-03-28] MEDS: INSULIN DETEMIR FLEXPEN/FLEX TOUCH 100 UNITS/ML 3ML SQ SCH ×2 (07:55→20:20)
[2021-03-28 08:16] LABS: Partial Thromboplastin Ratio 1.9
[2021-03-28 08:18] LABS: Partial Thromboplastin Time 50.1 Seconds (21.0-31.0)
--- NOTE | 2021-03-28 08:47 | Hospitalist Progress Note ---
Date of Service March 28, 2021 Assessment & Plan (1) Non-STEMI (non-ST elevated myocardial infarction): Present on Admission?: Yes (2) CKD (chronic kidney disease), stage III: Present on Admission?: Yes (3) Aortic stenosis: Present on Admission?: Yes (4) Insulin dependent diabetes mellitus: Present on Admission?: Yes (5) CHF (congestive heart failure): Present on Admission?: Yes (6) Atrial flutter with rapid ventricular response: Present on Admission?: Yes (7) S/P CABG (coronary artery bypass graft): Present on Admission?: Yes (8) S/P coronary artery stent placement: Present on Admission?: Yes (9) CAD (coronary artery disease): Present on Admission?: Yes (10) Hypoxia: Present on Admission?: Yes (11) Anxiety: Present on Admission?: Yes Plan: Bozena Vazquez is an 80F admitted 03/27 for chest pain consistent with NSTEMI in s/o HTN emergency (BP 225/143s) & aflutter (HR 170s) after episode of iatrogenic hypoglycemia at home. Her PMH is notable for: - CAD s/p 4vCABG 2003 (STERLING-LAD SVG-OM3 SVG-PDA) & s/p DESx2 to SVGPDA 2016 C/b NSTEMI 02/2019, 10/2019, 06/2020 in s/o tachyarrhythmia Last [facility] 02/2017 - Moderate - HFpEF - Pulmonary HTN - CKD3 (bCr 1.5) - BRIAN on CPAP - SVT/ectopic atrial tachycardia - HTN - Morbid obesity - T2DM on insulin - Chronic hypoxia on 2LPM home O2 2/2 unclear etiology #NSTEMI 2/2 SVT & HTN emergency in s/o hypoglycemia #CAD s/p 4vCABG 2003 & DESx2 2016 #Statin intolerance #Moderate #HFpEF #Paroxysmal SVT, Aflutter Presented w/ chest pain, troponemia, EKG changes (lateral STD & TWI) in s/o Aflutter w/ RVR in 170s Now (03/28) SVT resolved & troponin peaked/downtrending & EKG changes resolved. No ongoing chest pain. Echo 03/28/20 w/ worsening of inferior WMAs - Continue aspirin, clopidogrel - Continue metoprolol succinate 25mg BID - Continue valsartan 80mg daily - Continue furosemide 20mg daily. Add 2nd dose IV 20 furosemide today given volume overload on exam. - Reported statin intolerance (lovastatin, atorvastatin). Will discuss trial of low dose rosuvastatin 2.5mg daily with patient. - Continue nitro patch (will discuss w/ cards to consider long acting nitrate such as imdur) - Continue heparin gtt at present - Appreciate Cards consult - no plan for LHC (note she would prefer to avoid LHC if possible but amenable to LHC if recommended), will need AC given Aflutter (plan to stop clopidogrel + start eliquis) #Insulin dependent T2DM w/ recent iatrogenic hypoglycemia A1c 8.5 - Continue levemir 46qAM/54qPM - Continue novolog q6h sliding scale + carb coverage. may need to add scheduled dose at those times - Goal glucose inpatient 140-180 #CKD3 Baseline Cr 1.4-1.5 Slight increase today likely due to poor perfusion in s/o tachyarrythmia yesterday #Anxiety - Continue home clonazepam 0.5 BID to avoid withdrawal #BRIAN on CPAP - continue CPAP qhs #Chronic hypoxemia Unclear etiology - echo today notes severe pulmHTN - will diurese as above to remove hypervolemic contribution. Will continue to review for etiology of chronic hypoxia. - Continue O2 via NC w/ goal SpO2 >90 Diet: Heart healthy DVT ppx: on therapeutic heparin gtt Code status: DNR/DNI Dispo: possible center care, CM consulted. came from home alone Admission and Anticipated Discharge Date Admission Date: March 27, 2021 Nikolai Vazquez is an 80F admitted 03/27 for chest pain consistent with NSTEMI in s/o HTN emergency (BP 225/143s) & aflutter (HR 170s) after episode of iatrogenic hypoglycemia at home. Her PMH is notable for: - CAD s/p remote 4vCABG (STERLING-LAD SVG-OM3) & [place] 2017 SVG-PDA C/b NM 02/2019 in s/o tachyarrhythmia Last [facility] 2016 - Moderate - HFpEF - Pulmonary HTN - CKD3 (bCr 1.5) - BRIAN on CPAP - SVT/ectopic atrial tachycardia - HTN - Morbid obesity - T2DM on insulin - Chronic hypoxia on 2LPM home O2 2/2 unclear etiology Today 03/28 - VS: BP 140s/70s HR 60-70s on 3LPM NC (baseline 2LPM) Trop peaked & downtrending 1.6>2.24 (peak / 2200) > 1.28 Glucose remains elevated in 230s. A1c 8.5 Echo 03/28: EF 50-55%, LVH, moderate , severe pulmHTN w/ eRVSP 98, more extensive inferior hypokinesis. Last EKG 03/[address] depressions or Twave inversions (biphasic Ts in lateral leads) Tele overnight w/ PVC c/b brief junctional rhythm which self resolved overnight - No chest pain, SOB, palpitations, lightheadedness today - Remains NPO, no BM yet - Heparin gtt therapeutic Cards seeing this morning Review of Systems Review of Systems: As per HPI No CP palpitations SOB No abdominal pain, good appetite Physical Exam Physical Exam: General: Well appearing, sitting in chair comfortably. Neuro: AOx3 pleasant converssant CV: Normal rate, regular rhythm. Harsh systolic murmur obscuring S2. Resp: Breathing comfortably on 3LPM NC. Bibasilar wet crackles Abd: Soft, nontender, nondistended Ext: Warm, well perfused. 1-2+ pitting edema of LE Results & Data Results & Data ([facility]) Vital Signs (Past 12 Hours) Vital Signs Temp Pulse Pulse Resp BP Pulse Ox 03/28/21 07:32 97.3 F L 65 18 148/76 H 97 03/28/21 07:00 71 03/28/21 04:00 98.1 F 77 18 143/59 H 95 03/28/21 00:46 74 03/27/21 23:00 98.2 F 85 18 141/79 H 93 PG Care Time/CCT Total # of Minutes Spent Total Time Spent with Patient: Total time spent is greater than 50% in coordination of care (as documented) at patient's floor/unit and/or counseling patient: Coding Level of Care Code 80152 Subseq Hosp Care Lvl 3 Diagnoses Non-STEMI (non-ST elevated myocardial infarction) I21.4 CKD (chronic kidney disease), stage III N18.30 Aortic stenosis I35.0 Cardiac valve disease etiology: etiology unspecified Insulin dependent diabetes mellitus E11.9; Z79.4 CHF (congestive heart failure) I50.9 Heart failure chronicity: acute on chronic Heart failure type: unspecified Atrial flutter with rapid ventricular response I48.92 S/P CABG (coronary artery bypass graft) Z95.1 S/P coronary artery stent placement Z95.5 CAD (coronary artery disease) I25.810 Coronary Disease-Associated Artery/Lesion type: bypass graft [place] vs. transplanted heart: [place] heart Associated angina: without angina Hypoxia R09.02 Anxiety F41.9 (1) CHF (congestive heart failure) Heart failure chronicity: acute on chronic Heart failure type: unspecified Qualified Code(s): I50.9 - Heart failure, unspecified (2) Aortic stenosis Cardiac valve disease etiology: etiology unspecified Qualified Code(s): I35.0 - Nonrheumatic aortic (valve) stenosis (3) CAD (coronary artery disease) Coronary Disease-Associated Artery/Lesion type: bypass graft [place] vs. transplanted heart: [place] heart Associated angina: without angina Qualified Code(s): I25.810 - Atherosclerosis of coronary artery bypass graft(s) without angina pectoris
[2021-03-28] MEDS ORDERED: INSULIN DETEMIR FLEXPEN/FLEX TOUCH 100 UNITS/ML 3ML SQ SCH (09:00)
--- NOTE | 2021-03-28 09:05 | Cardiology Consultation ---
Date of Consultation March 28, 2021 Assessment & Plan (1) Non-STEMI (non-ST elevated myocardial infarction): 1. Coronary artery disease, status post coronary artery bypass grafting X4 in 2003 with a free STERLING to the LAD, which according to the report, appears to arise off a vein graft, which is attached to the sequential vein graft at the proximal end and then the sequential vein graft goes to the diagonal and then to the obtuse marginal, and she has a separate vein graft to the right PDA. 2. Cardiac catheterization 02/2017 with total occlusion of the mid RCA and mid LAD with an 80-90% mid to distal circumflex lesion; patent free STERLING to the LAD arising off a vein graft at OM2; patent SVG to OM2; proximal SVG to the PDA status post 2 drug eluting stents with a 3.0 x 28 and a 3.0 x 34 [place] drug eluting stent. - We know from a cardiac catheterization in 2006 the vein graft to the diagonal was occluded. 3. Echocardiogram 06/2020 at [facility]: EF 55-60%. The basal inferior, inferolateral and inferior septum are severely hypokinetic. There was type 2 diastolic dysfunction and she had moderate aortic stenosis. - Dilated right ventricle with RV free wall hypokinesis. 4. Hyperlipidemia. 5. Morbid obesity. 6. Bdq-SC-uylnkuiph myocardial infarction secondary to atrial tachycardia 02/2019, 10/2019, and 06/2020. Intolerant of amiodarone and Multaq. 7. Moderate aortic stenosis (06/2020). 8. Obstructive sleep apnea, tolerating CPAP. 9. Chronic stable angina 10. Atrial flutter with RVR 11. Severe pulmonary hypertension I had a long discussion with Ms. Vazquez concerning options concerning her NSTEMI. Fortunately, she seems to be moving past the event with a troponin that peaked at 2.2 and is trending down. She has not had any chest pain. Much of her troponin elevation is likely secondary to her rapid heart rate and demand ischemia from hypoglycemia. She had a bad experience with her last cardiac cath as she was not given her morning dose of clonazepam and was not given anything for anxiety and had a pretty severe panic attack following the procedure. We discussed risks and benefits of going forward with a cardiac catheterization and that this point she would like to hold off. A medical approach seems reasonable given her decreasing troponin and lack of ischemic symptoms. I reviewed her EKGs and she does have some mild ST depressions in the anterolateral leads. Her inferior wall motion abnormalities appear worse. Her EF is low normal 50%. She has been unable to tolerate multiple statins in the past. We could discuss initiation of Zetia or PCSK9 at her next outpatient appointment. Her heart rate has been elevated in the past in an A tach which has been difficult to control as she has been intolerant of Multaq and amiodarone. She has not been on Multaq rececently, which might have been restarted here based on her med list from October. She has not been in atrial flutter prior to this admission. I will have her retry amiodarone at 100 mg bid and see if she can tolerate it, she does not remember why she couldn't tolerate it in the past and she doesn't have it listed as an actual allergy in either this or her [facility] chart. We also discussed that she will need anticoagulation going forward. Given her kidney function and age, Eliquis bid 2.5 mg would be a good choice. Her clopidogrel can be stopped at that time and aspirin continued. There is an association with fish oil and afib and the fish oil can be stopped. Her severe pulmonary hypertension is a new finding. Her RVSP is 98. Her case was discussed with the hospitalist. History of Present Illness Attending Physician: Iris Renteria MD History of Present Illness Ms. Vazquez presented to the ED after accidentally taking 46 units of novolog instead of Levemir and struggling to get her blood sugars back up over a day and a half or so. She reported to the ED where she was found to be in a flutter with a heart rate in the 160s. She has not had any chest pain or pressure. No palpitations. She is not sob. Today she is in a SR on the the monitor. Allergies Allergy/AdvReac Type Severity Reaction Status Date / Time Cephalosporins Allergy Severe ANAPHYLAXIS Verified 03/27/21 14:47 fluoxetine Allergy Severe muscle/panic Verified 03/27/21 14:47 attack meloxicam Allergy Severe panic Verified 03/27/21 14:47 attack sertraline Allergy Severe panic Verified 03/27/21 14:47 attack citalopram Allergy Intermediate muscle Verified 03/27/21 14:47 cramping tramadol Allergy Mild headache Verified 03/27/21 14:47 cefazolin Allergy Unknown UNRESPONSIV Verified 03/27/21 14:47 E ticagrelor AdvReac Severe LEG PAIN - Verified 03/27/21 14:47 WHEN TAKES 2 90MG TABLETS ibuprofen AdvReac Intermediate DIZZY, Verified 03/27/21 14:47 SYNCOPE, NAUSEA lovastatin AdvReac Intermediate leg pain Verified 03/27/21 14:47 azithromycin [From Zithromax] AdvReac Unknown Panic Verified 03/27/21 14:47 attack isosorbide AdvReac nausea/light Unverified 03/27/21 14:47 headed Home Medications Medication Instructions Recorded Confirmed Type aspirin 81 mg tablet,delayed 81 mg PO QAM 06/05/18 03/27/21 History release calcium carbonate 600 mg-vitamin 1 tab PO QAM 06/05/18 03/27/21 History D3 5 mcg (200 unit) capsule (Calcium 600 + D(3)) clonazepam 0.5 mg tablet 0.5 mg PO BID PRN 06/05/18 03/27/21 History garlic 500 mg capsule 1 cap PO QAM 06/05/18 03/27/21 History insulin aspart U-100 100 unit/mL See Rx Instructions .ROUTE .COMPLEX 06/05/18 03/27/21 History subcutaneous solution (Novolog U-100 Insulin aspart) insulin detemir U-100 100 unit/mL 46 units SUBCUT QAM 06/05/18 03/27/21 History subcutaneous solution (Levemir U-100 Insulin) insulin detemir U-100 100 unit/mL 54 units SUBCUT HS 06/05/18 03/27/21 History subcutaneous solution (Levemir U-100 Insulin) multivitamin 1 tab PO QAM 06/05/18 03/27/21 History omega 8-qmb-ugy-fish oil 1,000 mg 1,000 mg PO BIDM 06/05/18 03/27/21 History (120 mg-180 mg) capsule (Fish Oil) furosemide 20 mg tablet (Lasix) 20 mg PO QAM 03/25/19 03/27/21 History valsartan 80 mg tablet 80 mg PO DAILY 11/08/19 03/27/21 History clopidogrel 75 mg tablet 75 mg PO QAM #30 tab 11/11/19 03/27/21 Rx metoprolol succinate 25 mg 25 mg PO BID #60 tab 11/11/19 03/27/21 Rx tablet,extended release 24 hr dronedarone 400 mg tablet (Multaq) 400 mg PO BID #60 tab 07/03/20 03/27/21 Rx nitroglycerin 0.1 mg/hr 0.1 patch TRANSDERMAL DAILY #30 ea 07/03/20 03/27/21 Rx transdermal 24 hour patch Patient History Medical History Aortic stenosis Atrial ectopic tachycardia Benign essential hypertension CAD (coronary artery disease) Status post four-vessel CABG in 2003 Status post drug-eluting stent x2 to SVGPDA 2017 CHF (congestive heart failure) History of atrial fibrillation less than 8 weeks after coronary artery bypass graft Hyperlipidemia BRIAN on CPAP PNA (pneumonia) UTI (urinary tract infection) Surgical History History of carpal tunnel surgery History of left knee surgery History of open heart surgery History of tonsillectomy Hx of heart artery stent S/P CABG (coronary artery bypass graft) S/P coronary artery stent placement Family History Other Coronary heart disease Diabetes Social History Smoking Status: Never smoker Second Hand Exposure: No; Hx Alcohol Use: No Hx Substance Use: No Preferred Language: Portuguese Communication Ability: Effective System Auditor Required: No Beliefs That Will Affect Care: None marital status: / Current Living Situation: Alone Current Living Situation Comment: senior citizen apartment How many Children do You have: 0 Other Information That Helps Us Care for You: No Feels Safe at Home: Yes Assistive Devices: Glasses and Walker Review of Systems Review of Systems: All systems reviewed & are unremarkable except as noted in HPI & below Physical Exam Constitutional: WD/WN, vitals as above Respiratory: normal respiratory effort, lungs clear to auscultation Cardiovascular: RRR, no murmur, no edema Skin: no rashes, warm and dry Neurologic: moves all extremities and awake Psychiatric: A+Ox3, euthymic affect Results & Data ([facility]) Vital Signs (Past 12 Hours) Vital Signs Temp Pulse Pulse Resp BP Pulse Ox 03/28/21 07:32 36.3 C L 65 18 148/76 H 97 03/28/21 07:00 71 03/28/21 04:00 36.7 C 77 18 143/59 H 95 03/28/21 00:46 74 03/27/21 23:00 36.8 C 85 18 141/79 H 93
[2021-03-28 09:56] LABS: BUN Creatinine Ratio 18.6 (10-20); Calcium 9.5 mg/dl (8.5-10.1); Creatinine Clr Calc Pharmacy 30.3 ml/min; Est GFR (African American) 34.6 ml/min; Est GFR (Non-African American) 29.9 ml/min; Potassium 4.3 mmol/L (3.5-5.1)
[2021-03-28 10:02] LABS: Troponin I 1.28 ng/ml (0-0.045)
[2021-03-28 10:09] LABS: Estimated Average Glucose 197 mg/dl; Hemoglobin A1C 8.5 % (4.5-5.6)
[2021-03-28] MEDS ORDERED: FUROSEMIDE INJ 20 MG/2 ML VIAL IV ONE (11:09)
[2021-03-28] MEDS ORDERED: INSULIN ASPART PER UNIT SC SCH (11:30)
--- NOTE | 2021-03-28 13:15 | Electrocardiogram Report ---
Test Reason : Blood Pressure : / mmHG Vent. Rate : 074 BPM Atrial Rate : 074 BPM P-R Int : 174 ms QRS Dur : 094 ms QT Int : 408 ms P-R-T Axes : 059 045 101 degrees QTc Int : 452 ms Normal sinus rhythm Nonspecific ST and T wave abnormality Abnormal ECG When compared with ECG of 27-MAR-2021 04:52, Nonspecific T wave abnormality, worse in Lateral leads Confirmed by Luca Cooley ([id number]) on 03/28/2021 1:15:15 PM Referred By: REFERRED SELF Confirmed By:Luca Cooley
[2021-03-28] MEDS: AMIODARONE 200 MG TAB PO SCH (17:02)
[2021-03-28] MEDS: HEPARIN SODIUM/DEXTROSE 25,000 UNITS/500 ML BAG IV SCH (20:18)
[2021-03-29 07:46] LABS: Partial Thromboplastin Ratio 1.4; Partial Thromboplastin Time 37.1 Seconds (21.0-31.0)
[2021-03-29] MEDS ORDERED: HEPARIN SOD (PORCINE) 1000 UNIT/ML IV ONE (07:47)
--- NOTE | 2021-03-29 07:58 | Hospitalist Progress Note ---
Date of Service March 29, 2021 Assessment & Plan (1) Non-STEMI (non-ST elevated myocardial infarction): (2) CKD (chronic kidney disease), stage III: (3) Aortic stenosis: (4) Insulin dependent diabetes mellitus: (5) CHF (congestive heart failure): (6) Atrial flutter with rapid ventricular response: (7) S/P CABG (coronary artery bypass graft): (8) S/P coronary artery stent placement: (9) CAD (coronary artery disease): (10) Hypoxia: (11) Anxiety: (12) Severe pulmonary hypertension: Plan: Bozena Vazquez is an 80F admitted 03/27 for chest pain consistent with NSTEMI in s/o HTN emergency (BP 225/143s) & aflutter (HR 170s) after episode of iatrogenic hypoglycemia at home. Her PMH is notable for: - CAD s/p 4vCABG 2003 ([place]-LAD SVG-OM3 SVG-PDA) & s/p DESx2 to SVGPDA 2016 C/b NSTEMI 02/2019, 10/2019, 06/2020 in s/o tachyarrhythmia Last [facility] 02/2017 - Moderate - HFpEF - Pulmonary HTN - CKD3 (bCr 1.5) - BRIAN on CPAP - SVT/ectopic atrial tachycardia - HTN - Morbid obesity - T2DM on insulin - Chronic hypoxia on 2LPM home O2 2/2 unclear etiology #NSTEMI 2/2 SVT & HTN emergency in s/o hypoglycemia #CAD s/p 4vCABG 2003 & DESx2 2016 #Statin intolerance #Moderate #HFpEF #Severe pulmonary HTN Presented w/ chest pain, troponemia, EKG changes (lateral STD & TWI) in s/o Aflutter w/ RVR in 170s High SHAKIR & RAMON scores supporting that she is at high risk of adverse outcomes Now (03/28) SVT resolved & troponin peaked/downtrending & EKG changes resolved. No ongoing chest pain. Echo 03/28/20: EF 50-55%, LVH, moderate , severe pulmHTN w/ eRVSP 98, more extensive inferior hypokinesis. - Continue aspirin. Stop clopidogrel given starting apixaban today. - Continue metoprolol succinate 25mg BID - Continue valsartan 80mg daily - Continue PO furosemide 20mg daily. Give another 20mg IV this afternoon given persistent pulmonary edema on exam & high eRVSP on echo 03/28 (ok if Cr rises slightly). Will plan for 20mg daily at home or possibly 20mg BID. - Reported statin intolerance (lovastatin, atorvastatin). Trialing low dose rosuvastatin 2.5mg daily starting today given lower myopathy risk than the prior agents. - Continue nitro patch (not on long acting nitrate imdur/isordil due to prior headaches, last admission 06/2020 planned to try Ranexa if [facility] would cover - unclear if this happened) - Stopped heparin gtt this AM & started apixaban 2.5mg BID - Appreciate Cards consult - No plan for LHC inpatient, ok w/ discharge (note she would prefer to avoid LHC if possible but amenable to LHC if recommended) #Paroxysmal SVT, Aflutter New aflutter w/ RVR this admission CHADSVASC 6 - Start apixaban 2.5mg BID - Continue metoprolol succinate 25mg BID - Continue Amiodarone 100mg BID (resumed this admission) #Insulin dependent T2DM w/ recent iatrogenic hypoglycemia A1c 8.5 On home insulin Recent hypoglycemic event after inadvertently administering 54U bolus insulin instead of basal precipitated Aflutter leading to current admission - Continue levemir 46qAM/54qPM - Continue novolog q6h sliding scale + carb coverage. Will monitor while eating today to see if coverage needs adjusted - Consider combo long acting insulin-GLP1 as outpatient if financially able given her CAD - Goal glucose inpatient 140-180 #CKD3 Baseline Cr ~1.5 Slight increase today in s/o diuresis as expected. Monitor daily #Anxiety - Continue home clonazepam 0.5 BID to avoid withdrawal - Consider SSRI initiation outpatient to taper clonazepam given risks of benzodiazepine use in the elderly #BRIAN on CPAP - continue CPAP qhs #Chronic hypoxemia Unclear etiology - echo today notes severe pulmHTN - will diurese as above to remove postcapillary/hypervolemic contribution. Will continue to review for etiology of chronic hypoxia. - Consider RHC as outpatient if LHC is pursued - Diurese today - Continue O2 via NC w/ goal SpO2 >90 Diet: Heart healthy DVT ppx: on therapeutic apixaban Code status: DNR/DNI Dispo: Home w/ home O2 (already in place) likely tomorrow after additional diuresis today. Will need PCP f/u with Dr Calle & Cards f/u with Dr De Leon ([facility] with [facility]). PT/OT skilled for home. Came from home w/ personal aide to help w/ house chores - feels safe returning to this setting. Nephew can transport home Admission and Anticipated Discharge Date Admission Date: March 27, 2021 Nikolai Vazquez is an 80F admitted 03/27 for chest pain consistent with NSTEMI in s/o HTN emergency (BP 225/143s) & aflutter (HR 170s) after episode of iatrogenic hypoglycemia at home. Her PMH is notable for: - CAD s/p 4vCABG 2003 ([place]-LAD SVG-OM3 SVG-PDA) & STEMI s/p DESx2 to SVGPDA 2016 C/b NSTEMI 02/2019, 10/2019, 06/2020 in s/o tachyarrhythmia Last [facility] 02/2017 - Moderate - HFpEF - Pulmonary HTN - CKD3 (bCr 1.5) - BRIAN on CPAP - SVT/ectopic atrial tachycardia - HTN - Morbid obesity - T2DM on insulin - Chronic hypoxia on 2LPM home O2 /2 unclear etiology Today 03/29 - VSS normotensive & HR 60-70s. Remains on 2-3LPM NC (baseline 2LPM) - AM EKG: NSR, V1-V6 TWI more prominent compared to 03/28, no ST depressions or elevations AM labs w/ slight bump in Cr 1.7 (baseline 1.5) in s/o diuresis Trop downtrending 1.6>2.24 (peak 03/27 2200) > 1.28 >0.71 Glucoses improved today (received total 14u SSI yesterday) Tele: sinus, PVCs, Min HR 60s No chest pain, SOB, palpitations, lightheadedness today. Feels ready to go home Review of Systems Review of Systems: As per HPI No CP palpitations SOB No abdominal pain, good appetite Urinating well & passing BMs Physical Exam Physical Exam: General: Well appearing, sitting in chair comfortably. Neuro: AOx3 pleasant conversant CV: Normal rate, regular rhythm. Harsh systolic crescendo decrescendo murmur obscuring S2. Resp: Breathing comfortably on 3LPM NC. Bibasilar wet crackles. Abd: Soft, nontender, nondistended Ext: Warm, well perfused. 1+ pitting edema of LE Results & Data Results & Data ([facility]) Vital Signs (Past 12 Hours) Vital Signs Temp Pulse Pulse Resp BP Pulse Ox 03/29/21 07:46 98.1 F 70 22 128/68 96 03/29/21 07:32 67 03/29/21 03:13 98.4 F 70 18 135/77 95 03/29/21 01:49 72 03/28/21 23:00 97.3 F L 77 18 144/85 H 98 PG Care Time/CCT Total # of Minutes Spent Total Time Spent with Patient: Total time spent is greater than 50% in coordination of care (as documented) at patient's floor/unit and/or counseling patient: Coding Level of Care Code 23098 Subseq Hosp Care Lvl 2 Diagnoses Non-STEMI (non-ST elevated myocardial infarction) I21.4 CKD (chronic kidney disease), stage III N18.30 Aortic stenosis I35.0 Cardiac valve disease etiology: etiology unspecified Insulin dependent diabetes mellitus E11.9; Z79.4 CHF (congestive heart failure) I50.9 Heart failure chronicity: acute on chronic Heart failure type: unspecified Atrial flutter with rapid ventricular response I48.92 S/P CABG (coronary artery bypass graft) Z95.1 S/P coronary artery stent placement Z95.5 CAD (coronary artery disease) I25.810 Associated angina: without angina Coronary Disease-Associated Artery/Lesion type: bypass graft [place] vs. transplanted heart: [place] heart Hypoxia R09.02 Anxiety F41.9 Severe pulmonary hypertension I27.20 (1) CAD (coronary artery disease) Associated angina: without angina Coronary Disease-Associated Artery/Lesion type: bypass graft [place] vs. transplanted heart: [place] heart Qualified Code(s): I25.810 - Atherosclerosis of coronary artery bypass graft(s) without angina pectoris (2) CHF (congestive heart failure) Heart failure chronicity: acute on chronic Heart failure type: unspecified Qualified Code(s): I50.9 - Heart failure, unspecified (3) Aortic stenosis Cardiac valve disease etiology: etiology unspecified Qualified Code(s): I35.0 - Nonrheumatic aortic (valve) stenosis
[2021-03-29] MEDS: MULTIVITAMIN TAB PO SCH (08:00)
[2021-03-29] MEDS: NITROGLYCERIN 0.1 MG/HR PATCH TD SCH (08:00)
[2021-03-29] MEDS: METOPROLOL SUCC 25MG EXT REL TAB PO SCH ×2 (08:00→20:31)
[2021-03-29] MEDS: CLOPIDOGREL BISULFATE 75 MG TAB PO SCH (08:01)
[2021-03-29] MEDS: FUROSEMIDE 20 MG TAB PO SCH (08:01)
[2021-03-29] MEDS: OMEGA-3 (PURIFIED FISH OIL) 1 GM CAP PO SCH (08:01)
[2021-03-29] MEDS: VALSARTAN 80 MG TAB PO SCH (08:01)
[2021-03-29] MEDS: ASPIRIN 81 MG ECTAB PO SCH (08:01)
[2021-03-29] MEDS: CALCIUM 600MG + VIT D 400 IU TAB PO SCH (08:01)
[2021-03-29] MEDS: AMIODARONE 200 MG TAB PO SCH ×2 (08:02→17:52)
[2021-03-29 08:29] LABS: Hemoglobin 11.4 g/dL (12.0-16.0); Mean Corpuscular Hemoglobin 31.4 pg (25-34); Mean Corpuscular Hgb Conc 31.7 g/dL (32-36); Mean Corpuscular Volume 99.2 fL (80-100); Mean Platelet Volume 10.9 fL (7.4-10.4); Platelet Count 236 K/uL (130-400); RDW Standard Deviation 54.9 fL (36.4-46.3); Red Blood Count 3.63 M/uL (4.2-5.4); White Blood Count 7.62 K/uL (4.8-10.8)
[2021-03-29 08:39] LABS: Albumin Level 3.1 gm/dl (3.4-5.0); Calcium 8.8 mg/dl (8.5-10.1); Creatinine Clr Calc Pharmacy 28.6 ml/min; Est GFR (African American) 32.2 ml/min; Est GFR (Non-African American) 27.8 ml/min; Potassium 3.9 mmol/L (3.5-5.1)
[2021-03-29] MEDS: INSULIN ASPART PER UNIT SC SCH ×4 (08:48→20:26)
[2021-03-29] MEDS: INSULIN DETEMIR FLEXPEN/FLEX TOUCH 100 UNITS/ML 3ML SQ SCH ×2 (08:49→20:29)
[2021-03-29 08:51] LABS: Phosphorus 3.4 mg/dl (2.5-4.9); Troponin I 0.711 ng/ml (0-0.045)
--- NOTE | 2021-03-29 10:41 | Cardiology Progress Note ---
Date of Service March 29, 2021 Assessment & Plan (1) Non-STEMI (non-ST elevated myocardial infarction): Plan: 1. Coronary artery disease, status post coronary artery bypass grafting X4 in 2003 with a free STERLING to the LAD, which according to the report, appears to a rise off a vein graft, which is attached to the sequential vein graft at the proximal end and then the sequential vein graft goes to the diagonal and then to the obtuse marginal, and she has a separate vein graft to the right PDA. 2. Cardiac catheterization 02/2017 with total occlusion of the mid RCA and mid LAD with an 80-90% mid to distal circumflex lesion; patent free STERLING to the LAD arising off a vein graft at OM2; patent SVG to OM2; proximal SVG to the PDA status post 2 drug eluting stents with a 3.0 x 28 and a 3.0 x 34 [place] drug eluting stent. - We know from a cardiac catheterization in 2006 the vein graft to the diagonal was occluded. 3. Echocardiogram 06/2020 at [facility]: EF 55-60%. The basal inferior, inferolateral and inferior septum are severely hypokinetic. There was type 2 diastolic dysfunction and she had moderate aortic stenosis. - Dilated right ventricle with RV free wall hypokinesis. 4. Hyperlipidemia. 5. Morbid obesity. 6. Fyv-DB-gdbhgomof myocardial infarction secondary to atrial tachycardia 02/2019, 10/2019, and 06/2020. Intolerant of amiodarone and Multaq. 7. Moderate aortic stenosis (06/2020). 8. Obstructive sleep apnea, tolerating CPAP. 9. Chronic stable angina 10. Atrial flutter with RVR 11. Severe pulmonary hypertension Plan: Her troponin that peaked at 2.2 and is trending down. She has not had any chest pain. Much of her troponin elevation is likely secondary to her rapid heart rate and demand ischemia from hypoglycemia. She had a bad experience with her last cardiac cath as she was not given her morning dose of clonazepam and was not given anything for anxiety and had a pretty severe panic attack following the procedure. We discussed risks and benefits of going forward with a cardiac catheterization and that this point she would like to hold off. A medical approach seems reasonable given her decreasing troponin and lack of ischemic symptoms. I reviewed her EKGs and she does have some mild ST depressions in the anterolateral leads. Her inferior wall motion abnormalities appear worse on echo. Her EF is low normal 50%. If she changes her mind on catheterization this can be done as an outpatient, there is no need for urgent cath at this point. She has been unable to tolerate multiple statins in the past due to muscle aches. I will try her on a pitavastatin 1 mg daily to start at discharge. She was agreeable to give it a try. Her heart rate has been elevated in the past in an A tach which has been difficult to control as she has been intolerant of Multaq and amiodarone. She has been initiated on amiodarone at 100 mg bid and so far is tolerating. Given her kidney function and age, Eliquis bid 2.5 mg would be a good choice. Risks and benefits were discussed and Ms. Vazquez was agreeable to starting this medication. Her clopidogrel can be stopped and aspirin continued. There is an association with fish oil and afib and the fish oil can be stopped. Her severe pulmonary hypertension is a new finding. Her RVSP is 98. I don't think that right heart catheterization would change Ms. Vazquez therapy. She should be diuresed until she hits a wall with her kidneys - which it appears she has as her BUN and creat have elevated today. Her kidney function should be checked outpatient on Sunday. From my standpoint, she can be discharged. Her case was discussed with the hospitalist. Admission and Anticipated Discharge Date Admission Date: March 27, 2021 Subjective Ms Vazquez feels well today. She has no chest pain. Her troponin continues to trend down. She had no events overnight. She says she is ready to go home. Review of Systems Review of Systems: All systems reviewed & are unremarkable except as noted in HPI & below Physical Exam Constitutional: WD/WN, vitals as above Respiratory: normal respiratory effort, lungs clear to auscultation Cardiovascular: Rate/Rhythm: regular rate and regular rhythm Heart Sounds: + murmur (3/6 lusb) Extremities: no edema Neurologic: moves all extremities and awake Psychiatric: A+Ox3, euthymic affect Results & Data ([facility]) Vital Signs (Past 12 Hours) Vital Signs Temp Pulse Pulse Resp BP Pulse Ox 03/29/21 07:46 36.7 C 70 22 128/68 96 03/29/21 07:32 67 03/29/21 03:13 36.9 C 70 18 135/77 95 03/29/21 01:49 72 03/28/21 23:00 36.3 C L 77 18 144/85 H 98
--- NOTE | 2021-03-29 11:53 | Electrocardiogram Report ---
Test Reason : Blood Pressure : / mmHG Vent. Rate : 066 BPM Atrial Rate : 066 BPM P-R Int : 176 ms QRS Dur : 096 ms QT Int : 394 ms P-R-T Axes : 053 035 080 degrees QTc Int : 413 ms Normal sinus rhythm Abnormal ECG When compared with ECG of 28-MAR-2021 06:11, T wave inversion now evident in Anterolateral leads Confirmed by Luca Cooley ([id number]) on 03/29/2021 11:53:22 AM Referred By: REFERRED SELF Confirmed By:Luca Cooley
[2021-03-29] MEDS: ROSUVASTATIN CALCIUM 5 MG TAB PO SCH (12:11)
--- NOTE | 2021-03-29 12:58 | Discharge Summary ---
Date of Service March 30, 2021 Admission HPI Per Admitting Provider This is an 80-year-old female that lives alone at home. She has a past medical history including status post CABG, CAD, chronically elevated troponin, morbid obesity with a BMI of 47.3 kg/m, obstructive sleep apnea, chronic CPAP usage, anxiety/depression disorder, chronic kidney disease, hypertension, hyperlipidemia, SVT, diabetes mellitus type 2 on chronic insulin therapy, CHF, chronic hypoxia on supplemental oxygen of 2 L/min via nasal cannula 16/10. The patient states that she went to bed after inappropriately taking her insulin. She meant to take NovoLog and instead took Levemir. She woke up h ypoglycemic. Ambulance was called and confirmed her hypoglycemia. She then refused transport and "ate everything in sight". This was an attempt to raise her sugar to avoid admission. She then went to bed 11 PM. She then awoke at 02:45 AM with chest pain. She took 3 nitroglycerin tablets and chest pain resolved. Pain radiated into the small of her back, between the shoulder blades, and down her left arm. EMS transported emergency department. She was found to have an elevated troponin of 0.476. There were no significant ST changes on her EKG. Repeat troponin was then 0.053. She was referred for admission for observation and trending of troponin. At the time of my examination, the patient has no shortness of breath. She has no chest pain. She has no radiation into her left arm. She has no back pain or scapular pain. Patient does state that when they take her blood pressure on her right arm her left arm hurts. Blood pressure initially was 225 systolically. She has now normalized is 159/91. She has no tachyarrhythmia. She had no hypoxia. She is currently 99% on 2 L/min by nasal cannula which is her home dose. She has no fever or chills. She has no other acute illness. Patient is fully vaccinated for Covid with 3 shots of Pfizer. Her booster shot was approximately 1 month ago. Patient is a lifelong non-smoker. Patient lives alone in an apartment. She requests case management assistance in qualifying for Center care as she is lonely and feels that she may benefit in her medical care. Principal Diagnosis Type II NSTEMI 2/2 Aflutter with RVR incited by iatrogenic hypoglycemia Discharge Exam General: Well appearing, lying in bed comfortably. Neuro: AOx3 pleasant conversant CV: Normal rate, regular rhythm. Harsh systolic crescendo decrescendo murmur with soft S2 Resp: Breathing comfortably on 3LPM NC. Left basilar wet crackles (improved from prior) Abd: Soft, nontender, nondistended Ext: Warm, well perfused. Trace pitting edema of LE Discharge Data Allergies Allergy/AdvReac Type Severity Reaction Status Date / Time Cephalosporins Allergy Severe ANAPHYLAXIS Verified 03/27/21 14:47 fluoxetine Allergy Severe muscle/panic Verified 03/27/21 14:47 attack meloxicam Allergy Severe panic Verified 03/27/21 14:47 attack sertraline Allergy Severe panic Verified 03/27/21 14:47 attack citalopram Allergy Intermediate muscle Verified 03/27/21 14:47 cramping tramadol Allergy Mild headache Verified 03/27/21 14:47 cefazolin Allergy Unknown UNRESPONSIV Verified 03/27/21 14:47 E ticagrelor AdvReac Severe LEG PAIN - Verified 03/27/21 14:47 WHEN TAKES 2 90MG TABLETS ibuprofen AdvReac Intermediate DIZZY, Verified 03/27/21 14:47 SYNCOPE, NAUSEA lovastatin AdvReac Intermediate leg pain Verified 03/27/21 14:47 azithromycin [From Zithromax] AdvReac Unknown Panic Verified 03/27/21 14:47 attack isosorbide AdvReac nausea/light Unverified 03/27/21 14:47 headed Consultations 03/27/21 09:47 ED Decision to Admit Stat 03/27/21 16:31 Consult Cardiology Routine Hospital Course (1) Non-STEMI (non-ST elevated myocardial infarction): (2) CKD (chronic kidney disease), stage III: (3) Aortic stenosis: (4) Insulin dependent diabetes mellitus: (5) CHF (congestive heart failure): (6) Atrial flutter with rapid ventricular response: (7) S/P CABG (coronary artery bypass graft): (8) S/P coronary artery stent placement: (9) CAD (coronary artery disease): (10) Hypoxia: (11) Anxiety: (12) Severe pulmonary hypertension: Bozena Vazquez is an 80F who was admitted 1/2 for chest pain consistent with type 2 NSTEMI in s/o HTN emergency (BP 225/143s) & aflutter with RVR (HR 170s) after episode of iatrogenic hypoglycemia at home. Her Aflutter resolved with IV metoprolol. Serial EKG & troponins normalized toward baseline. No ongoing chest discomfort. Her chronic medication regimen was optimized as below. On the day of discharge she felt clinically well and back to baseline. Her PMH is notable for: - CAD s/p 4vCABG 2003 ([place]-LAD SVG-OM3 SVG-PDA) & s/p DESx2 to SVGPDA 2016 C/b NSTEMI 02/2019, 10/2019, 06/2020 in s/o tachyarrhythmia Last [facility] 02/2017 - Moderate - HFpEF - Pulmonary HTN - CKD3 (bCr 1.5) - BRIAN on CPAP - SVT/ectopic atrial tachycardia - HTN - Morbid obesity - T2DM on insulin - Chronic hypoxia 2/2 unclear etiology on 2LPM home O2 #Type II NSTEMI 2/2 SVT & HTN emergency in s/o hypoglycemia #CAD s/p 4vCABG 2003 & DESx2 2016 #Statin intolerance #Moderate #HFpEF Presented w/ chest pain, troponemia, EKG changes (lateral STD & TWI) in s/o Aflutter w/ RVR in 170s and hypertension on 03/27/21 - flutter resolved w/ IV metoprolol High SHAKIR & RAMON scores supporting what is clinically apparrent - that she is at high risk of adverse outcomes moving forward Troponin peaked 03/28 & downtrended. EKG changes stabilized (ongoing lateral TWIs). No recurrent chest pain. No recurrent arrhythmia. Echo 03/28/20: EF 50-55%, LVH, moderate , severe pulmHTN w/ eRVSP 98, more extensive inferior hypokinesis. Diuresed w/ PO & IV furosemide with improvement in clinical hypervolemia. - Continue aspirin. Stop clopidogrel given starting apixaban. - Continue metoprolol succinate 25mg BID, consider uptitration outpatient if HR allows - Continue valsartan 80mg daily - Continue PO furosemide 20mg daily, consider increasing to 20mg BID to avoid volume overload outpatient. - Reported statin intolerance (lovastatin, atorvastatin). Started low dose rosuvastatin 2.5mg daily 03/29 given lower myopathy risk than the prior agents. (If intolerant, try every other day or low dose pravastatin or pitavastatin) - Continue home 3mg nitro patch daily (Not on long acting nitrate imdur/isordil due to prior headaches, last admission 06/2020 planned to try Ranexa if [facility] would cover - unclear if this happened) - Cards consulted - Deferred inpatient C given demand-nature of ischemia & desire to avoid invasive interventions in light of patient goals of care. - Consider nuclear stress viability scan or [facility] outpatient to determine if any lesions warrant intervention to improve ongoing QOL & prevent readmissions. Will follow up with Dr De Leon. #Paroxysmal SVT, Aflutter New aflutter w/ RVR this admission. Resolved with IV metoprolol. Sinus rhythm on telemetry thereafter. CHADSVASC 6 - Apixaban 2.5mg BID (new this admission) - Metoprolol succinate 25mg BID - Amiodarone 100mg BID (resumed this admission) #Insulin dependent T2DM w/ recent iatrogenic hypoglycemia A1c 8.5 On home insulin Recent hypoglycemic event after inadvertently administering 54U bolus insulin instead of basal precipitated Aflutter leading to current admission Denies concerns with safety of administering home insulin at baseline - Continue levemir 46qAM/54qPM - Continue novolog ACHS sliding scale + carb coverage. - Consider combo long acting insulin-GLP1 as outpatient if financially able given her CAD #CKD3 Baseline Cr ~1.5 Slight increase during admission (peak 1.7 03/29) likely due to combination of poor perfusion in s/o tachyarrhythmia & diuresis as expected. Monitor for stability on outpatient RFP 04/01 #Chronic hypoxemia #Severe pulmonary HTN Unclear underlying etiology of chronic hypoxia. Chronic O2 use since ~08/2020 per patient. No h/o smoking or obstructive lung disease. Possibly due to HFpEF/PulmHTN Echo 03/28/21 noted severe pulmHTN with eRVSP 98 - suspect largely Group 2 (2/2 L heart disease). Diuresed to improve postcapillary/hypervolemic contribution - Consider repeat echo or RHC as outpatient for further workup/management of pulmonary hypertension - Continue furosemide 20mg daily - may benefit from uptitration to 20mg BID pending volume status on outpatient follow up to address postcapillary/hypervolemic contribution to pulmonary hypertension - Continue home 2-3L O2 via NC #Anxiety - Continue home clonazepam 0.5 BID PRN - Consider SSRI initiation outpatient to taper clonazepam given risks of benzodiazepine use in the elderly #BRIAN on CPAP - continue CPAP qhs TRANSITIONS OF CARE CRITICAL ISSUES LAB FOLLOW UP - Creatinine on RFP 04/01 CLINICAL FOLLOW UP - Reassess volume status outpatient and consider diuretic uptitration to 20mg BID given severe pulmonary hypertension noted on echo, likely at least partially postcapillary (Group 2). Consider echo reassessment &/or RHC in future based on patient's goals of care - Given repeated tachycardia induced ischemic events in the past 2 years, may be reasonable to consider outpatient nuclear stress testing with viability studies to determine if there are reversible defects that would benefit from additional intervention if desired based on patient's goals of care - Consider combo long acting insulin-GLP1 as outpatient if financially able given her CAD - Consider SSRI initiation outpatient for anxiety to allow to taper clonazepam given risks of benzodiazepine use in the elderly NEW MEDICATIONS - Amiodarone 100mg BID (for Aflutter) - Apixaban 2.5mg BID (given Aflutter) - Rosuvastatin 2.5mg daily (If intolerant due to recurrence of myalgias, try every other day or low dose pravastatin or pitavastatin OR if financially able, PCSK9 agent) DISCONTINUED MEDICATIONS - Clopidogrel (due to apixaban initiation as above) - Fish oil - Dronedarone Total Time Total Time Spent Total Time Spent (In Minutes): 40 minutes Total Time Includes: Examination of the Patient, Discharge Planning, Medication Reconciliation and Communication With Other Providers Discharge Plan Discharge Items Patient Disposition: Home - Self-Care Reason For Visit: CHEST PAIN Discharge Diagnosis: Atrial Flutter (fast heart rate) prompted by low blood sugar, causing poor blood flow to heart & transient heart damage Condition on Discharge: Fair Goals: Home Care: * Take your medications exactly as directed. Don't skip doses. * If you are having chest pain, call 911 for an ambulance. Do NOT drive yourself to the hospital. Lifestyle Changes: * Maintain a healthy weight. Get help to lose any extra pounds. * Cut back on salt. * Limit canned, dried, packaged, and fast foods. * Don't add salt to your food. * Season foods with herbs instead of salt when you cook. * Break the smoking habit. Enroll in a stop-smoking program to improve your chances of success. * Limit fatty foods. * Ask your doctor about having your lipid levels checked regularly. * Build up your activity according to your doctor's recommendation. * Ask your doctor when it's okay to resume sexual activity. * Tell your doctor about any erectile dysfunction (ED) medication you are taking. Some ED medications are not safe if you take certain heart medications. * Try to manage stress. Follow Up: It is important for you to keep your follow up appointments with your medical provider. Call 911 and go to the Emergency Room if: * You have tightness or pain in your chest that does not go away with rest or Nitroglycerin * You are very short of breath even with rest Call your doctor if any of the following symptoms or problems start or get worse: * Shortness of breath or difficulty breathing * Wake up at night short of breath * Chest pain * Cough * Swelling of your hands, fee, or legs * More fatigued or tired with your normal activity * Palpitations - sudden fast heart beats WEIGHT * Weigh yourself every morning after using the bathroom. * Use the same scale. * Wear the same amount of clothing. * Write your weight down on your chart. * Call your doctor if you gain more than 2-3 pounds in 1-2 days. MEDICATIONS * Use this discharge instruction sheet for instructions. * Take your medications at the time your doctor ordered. * Do not skip a dose of your medicines. * If you miss a dose of medicine, take as soon as possible, but DO NOT DOUBLE A DOSE. * Read your medicine information when you get home. * Know all of the side effects of your medicine. * Call your doctor's office if you have any side effects. * Be sure all of your doctors know what medicine and herbs you take (including cold, flu, and herbal medicine). * Pain Medicine: If you do not get relief from your pain, please call your doctor for help. Take the following with you to your follow-up doctor appointments: * Weight Chart * Medication List * List of questions Do not drink excessive alcohol, beer or wine. Activity: Resume your previous activity Non-emergency contact: Primary Care Provider Call non-emergency contact if: you have any medication questions and your symptoms worsen Follow-up/Referrals: Viral De Leon DO [Physician] - 04/06/21 8:15 am Bro Calle MD [Primary Care Provider] - (PLEASE CALL YOUR PRIMARY CARE PROVIDER TO SCHEDULE A DISCHARGE FOLLOW-UP APPOINTMENT WITHIN 7-10 DAYS.) Diet: Heart Healthy Ambulatory Orders: Basic Metabolic Panel (Routine) Timeframe: [id number] Location: Determined by Patient Ordered By: Ana Maira Quintero Renal Function Panel (Routine) Timeframe: 3 Days Location: Determined by Patient Ordered By: Iris Renteria Addtl Attending Provider Instructions: STOP TAKING - CLOPIDOGREL (PLAVIX) - FISH OIL - MULTAQ (dronedarone) START TAKING - APIXABAN (ELIQUIS) 2.5mg twice daily (blood thinner) - Rosuvastatin (crestor) 2.5mg daily (cholesterol medicine) - Amiodarone 100mg twice daily (heart rhythm medicine) CONTINUE taking all other medications as you have been Have blood work done (to check kidney function & electrolytes) on Saturday 04/01 Make sure to follow up with Dr De Leon and Dr Calle. We will call to schedule these appointments for you. If you develop fast heart beat or chest pain at home, call 911 If your leg swelling or shortness of breath is getting worse, call Dr Calle or Dr De Leon's office to be seen right away Pending Studies at Discharge: No Stand-Alone Forms: My [facility] Medications and DC Order Prescriptions: New Eliquis 2.5 mg Tablet 2.5 mg PO BID Qty: 60 RF: 0 amiodarone 200 mg Tablet 100 mg PO BIDM Qty: 60 RF: 3 rosuvastatin [Crestor] 5 mg Tablet 2.5 mg PO QAM Qty: 30 RF: 0 Continued multivitamin Tablet 1 tab PO QAM RF: 0 clonazepam 0.5 mg tablet 0.5 mg PO BID PRN (Reason: Anxiety) RF: 0 aspirin 81 mg Tablet,Delayed Release (Dr/Ec) 81 mg PO QAM RF: 0 garlic 500 mg Capsule 1 cap PO QAM RF: 0 insulin aspart U-100 [Novolog U-100 Insulin aspart] 100 unit/mL solution See Rx Instructions .ROUTE .COMPLEX RF: 0 Calcium 600 + D(3) 600 mg calcium- 200 unit Capsule 1 tab PO QAM RF: 0 Levemir U-100 Insulin 100 unit/mL solution 54 units subcut HS RF: 0 Levemir U-100 Insulin 100 unit/mL solution 46 units subcut QAM RF: 0 furosemide [Lasix] 20 mg tablet 20 mg PO QAM RF: 0 valsartan 80 mg tablet 80 mg PO DAILY RF: 0 metoprolol succinate 25 mg Tablet Extended Release 24 Hr 25 mg PO BID Qty: 60 RF: 0 nitroglycerin 0.1 mg/hr Patch 24 Hour 0.1 patch transdermal DAILY Qty: 30 RF: 0 Discontinued omega 9-kgf-kjj-fish oil [Fish Oil] 1,000 mg (120 mg-180 mg) Capsule 1,000 mg PO BIDM RF: 0 clopidogrel 75 mg Tablet 75 mg PO QAM Qty: 30 RF: 0 Multaq 400 mg Tablet 400 mg PO BID Qty: 60 RF: 0 Discharge Orders: Discharge Order (Routine); Ordered 03/30/21 Ordered By: Iris Dobbs/Other Patient Handouts: A1C, Managing Type 2 Diabetes Admission Data Admit Date/Time: 03/27/21 21:32 Attending Provider: Iris Renteria Admit Provider: Tejinder Perez Primary Care Provider: Bro Calle Other Providers: Viral De Leon ; Tejinder Perez Coding Level of Care Code D/C DAY MANAGEMENT >30 MINS Diagnoses Non-STEMI (non-ST elevated myocardial infarction) I21.4 CKD (chronic kidney disease), stage III N18.30 Aortic stenosis I35.0 Cardiac valve disease etiology: etiology unspecified Insulin dependent diabetes mellitus E11.9; Z79.4 CHF (congestive heart failure) I50.9 Heart failure chronicity: acute on chronic Heart failure type: unspecified Atrial flutter with rapid ventricular response I48.92 S/P CABG (coronary artery bypass graft) Z95.1 S/P coronary artery stent placement Z95.5 CAD (coronary artery disease) I25.810 Associated angina: without angina Coronary Disease-Associated Artery/Lesion type: bypass graft [place] vs. transplanted heart: [place] heart Hypoxia R09.02 Anxiety F41.9 Severe pulmonary hypertension I27.20 Time Spent (min) 40
[2021-03-29] MEDS ORDERED: FUROSEMIDE 20 MG TAB PO ONE (15:07)
[2021-03-29] MEDS: APIXABAN 2.5 MG TAB PO SCH (20:30)
[2021-03-30 06:18] LABS: Hematocrit (blood only) 37.7 % (37-47); Hemoglobin 11.7 g/dL (12.0-16.0); Mean Corpuscular Hemoglobin 30.9 pg (25-34); Mean Corpuscular Volume 99.5 fL (80-100); Mean Platelet Volume 10.8 fL (7.4-10.4); Platelet Count 253 K/uL (130-400); RDW Coefficient of Variation 14.9 % (11.5-14.5); RDW Standard Deviation 54.5 fL (36.4-46.3); Red Blood Count 3.79 M/uL (4.2-5.4); White Blood Count 7.45 K/uL (4.8-10.8)
[2021-03-30 07:01] LABS: BUN Creatinine Ratio 26.5 (10-20); Calcium 9.4 mg/dl (8.5-10.1); Creatinine Clr Calc Pharmacy 29.6 ml/min; Est GFR (African American) 33.4 ml/min; Est GFR (Non-African American) 28.8 ml/min; Potassium 4.1 mmol/L (3.5-5.1)
[2021-03-30 07:02] LABS: Phosphorus 3.6 mg/dl (2.5-4.9)
[2021-03-30] MEDS: INSULIN ASPART PER UNIT SC SCH (07:57)
[2021-03-30] MEDS: NITROGLYCERIN 0.1 MG/HR PATCH TD SCH (07:58)
[2021-03-30] MEDS: ROSUVASTATIN CALCIUM 5 MG TAB PO SCH (07:58)
[2021-03-30] MEDS: INSULIN DETEMIR FLEXPEN/FLEX TOUCH 100 UNITS/ML 3ML SQ SCH (07:58)
[2021-03-30] MEDS: CALCIUM 600MG + VIT D 400 IU TAB PO SCH (07:59)
[2021-03-30] MEDS: AMIODARONE 200 MG TAB PO SCH (07:59)
[2021-03-30] MEDS: ASPIRIN 81 MG ECTAB PO SCH (07:59)
[2021-03-30] MEDS: FUROSEMIDE 20 MG TAB PO SCH (07:59)
[2021-03-30] MEDS: METOPROLOL SUCC 25MG EXT REL TAB PO SCH (07:59)
[2021-03-30] MEDS: MULTIVITAMIN TAB PO SCH (07:59)
[2021-03-30] MEDS: APIXABAN 2.5 MG TAB PO SCH (07:59)
[2021-03-30] MEDS: VALSARTAN 80 MG TAB PO SCH (07:59)
[2021-03-30] MEDS: clonazePAM 0.5 MG TAB PO PRN (08:05)
== END 2021-03-30 10:18 | disposition home or self-care (01) ==
LOC: EDINP 04:07 → ED 04:07 → SUATTDRO 10:25 → OBSVTOIN 10:25 → 2N 11:36 → INTOOBSV 17:42 → 2N 17:43